=== PATIENT | male | born 1945 | race Caucasian/White ===

== ENCOUNTER → 2017-10-23 14:26 | Outpatient (CLI) | payer MEDICARE, SELFPAY ==
[2017-10-23 16:11] LABS: Hemoglobin A1c 9.9 % (4.2-6.3)
[2017-10-23 16:49] LABS: Microalbumin:Creatinine Ratio 20.2 mg/g CRE (<30 mg/g CRE)
== END ==
PROVIDERS: Family Provider Internal Medicine; PCP Internal Medicine; Visit Provider Nurse Practitioner Family
DX: E11.9 Type 2 diabetes mellitus without complications (principal)
CPT/HCPCS: 36415; 82043; 82570; 83036

== ENCOUNTER → 2018-01-29 06:08 | Outpatient (CLI) | payer MEDICARE, SELFPAY ==
--- NOTE | 2018-01-29 11:41 | STRESSREP ---
Stress Test Report Pharmacologic myocardial perfusion stress test. 72-year-old man with a history of coronary bypass surgery. Stress protocol: Resting EKG demonstrates sinus bradycardia with a rate of 52 bpm normal intervals and noted resting blood pressure 132/72 mmHg. 0.4 mg of regadenoson was infused per usual protocol followed by rapid intravenous saline flush injection continuous EKG monitoring was performed. Patient maintained sinus rhythm throughout the recording with occasional premature ventricular complexes present. The maximum heart rate was 74 bpm which was 50% of maximum predicted heart rate the maximum workload was 1 metabolic equivalent. Resting blood pressure 132/72 mmHg. Myocardial perfusion protocol. 14.7 mCi of technetium 99m sestamibi was injected at rest. 0.4 mg of regadenoson was infused per usual protocol peak infusion 44.3 mCi of technetium 99m sestamibi was injected stress images were obtained stress and rest images were reconstructed and compared in the short axis vertical long and horizontal long axis. Gated images were also obtained Perfusion SPECT analysis: Review of the stress images demonstrate mildly reduced perfusion noted in the inferolateral and inferior basal shipman. This is present on the stress and rest images to a similar extent and probably denotes previous infarct but no obvious ischemia is noted. There is a small segment of the apical lateral wall which also demonstrates reduced perfusion. There is also present on the stress and rest images to a similar extent. Previous infarct in this area cannot be completely excluded. Gated SPECT analysis: The gated ejection fraction is 62%. Conclusion: Pharmacologic myocardial perfusion stress test with no evidence of ischemia. Previous inferolateral and inferior basal infarct cannot be excluded as well as a small area of anterolateral infarct. Preserved ejection fraction.
== END ==
LOC: CVS 06:09
PROVIDERS: Family Provider Internal Medicine; PCP Internal Medicine; Referring Provider Nurse Practitioner Family; Visit Provider Nurse Practitioner Family
DX: E78.00 Pure hypercholesterolemia, unspecified (principal); I10 Essential (primary) hypertension; I25.10 Atherosclerotic heart disease of native coronary artery without angina pectoris; Z95.1 Presence of aortocoronary bypass graft
CPT/HCPCS: 78452; 93017; A9500; A4216; J2785

== ENCOUNTER → 2018-02-12 10:46 | Outpatient (CLI) | payer MEDICARE, SELFPAY ==
[2018-02-12 16:05] LABS: Absolute Lymphocyte Count 2.61 X10^3/ul (0.83-4.51); Absolute Neutrophil Count 4.2 X10^3/uL (2.0-7.7); Basophil# 0.04 X10^3/uL; Basophil% 0.5 % (0-1); Eosinophil# 0.09 X10^3/uL; Eosinophils% 1.2 % (0-5); Hematocrit 47.8 % (40-54); Hemoglobin 16.4 g/dl (13.0-16.5); Lymphocyte # 2.61 X10^3/ul (4.0); Mean Corp Hgb Conc 34.3 g/gl (32-36); Mean Corpuscular Hgb 31.1 pg (27.0-32.0); Mean Corpuscular Volume 90.5 fL (80-94); Monocyte% 6.7 % (0-10); Neutrophil % 56.3 % (47-70); Platelet Count 209 K/mm3 (150-450); RBC Distribution Width CV 13.4 % (11.6-14.6); RBC Distribution Width SD 44.3 fl (35.1-43.9); Red Blood Count 5.28 M/mm3 (4.6-6.2); White Blood Count 7.5 K/mm3 (4.4-11.0)
[2018-02-12 16:39] LABS: POSITIVE COUNT NO; POSITIVE DIFFERENTIAL NO; POSITIVE MORPHOLOGY NO
== END ==
PROVIDERS: Family Provider Internal Medicine; PCP Internal Medicine; Referring Provider Nurse Practitioner Family; Visit Provider Nurse Practitioner Family
DX: E11.9 Type 2 diabetes mellitus without complications (principal); T14.8XXA Other injury of unspecified body region, initial encounter
CPT/HCPCS: 36415; 83036; 85025; 87070; 87077; 87186; 87205

== ENCOUNTER → 2018-05-10 07:06 | Outpatient (CLI) | payer MEDICARE, SELFPAY ==
[2018-03-31 09:31] VITALS: BMI 34.0
[2018-05-10 09:17] LABS: Microalbumin,Random Urine 49.3 mg/L (NO RANGE EST.); Microalbumin:Creatinine Ratio 61.4 mg/g CRE (<30 mg/g CRE)
[2018-05-10 09:27] LABS: Hemoglobin A1c 8.2 % (4.2-6.3)
== END ==
PROVIDERS: Family Provider Internal Medicine; PCP Internal Medicine; Referring Provider Nurse Practitioner Family; Visit Provider Nurse Practitioner Family
DX: E11.9 Type 2 diabetes mellitus without complications (principal)
CPT/HCPCS: 36415; 82043; 82570; 83036

== ENCOUNTER → 2018-05-22 07:05 | Outpatient (CLI) | payer MEDICARE, SELFPAY ==
[2018-05-14 14:24] VITALS: BMI 34.0
[2018-05-22 08:03] LABS: Absolute Lymphocyte Count 2.19 X10^3/ul (0.83-4.51); Absolute Neutrophil Count 3.9 X10^3/uL (2.0-7.7); Basophil# 0.03 X10^3/uL; Basophil% 0.4 % (0-1); Eosinophils% 1.5 % (0-5); Hematocrit 46.4 % (40-54); Hemoglobin 15.7 g/dl (13.0-16.5); Lymphocyte # 2.19 X10^3/ul (4.0); Lymphocyte % 32.8 % (19-41); Mean Corp Hgb Conc 33.8 g/gl (32-36); Mean Corpuscular Hgb 30.6 pg (27.0-32.0); Mean Corpuscular Volume 90.4 fL (80-94); Mean Platelet Vol. 11.3 fl (6.2-12.0); Monocyte# 0.48 X10^3/uL; Monocyte% 7.2 % (0-10); Neutrophil # 3.85 X10^3/uL (2.7-7.7); Neutrophil % 57.8 % (47-70); Platelet Count 162 K/mm3 (150-450); RBC Distribution Width CV 14.2 % (11.6-14.6); RBC Distribution Width SD 46.5 fl (35.1-43.9); Red Blood Count 5.13 M/mm3 (4.6-6.2); White Blood Count 6.7 K/mm3 (4.4-11.0)
[2018-05-22 08:11] LABS: POSITIVE COUNT NO; POSITIVE DIFFERENTIAL NO; POSITIVE MORPHOLOGY NO
[2018-05-22 08:50] LABS: ALB/GLOB Ratio 1.1 RATIO (0.9-2.4); AST(SGOT) 15 U/L (15-37); Alanine Aminotransfer ALT/SGPT 20 U/L (16-61); Albumin, Serum 3.5 g/dL (3.2-5.0); Alkaline Phosphatase 85 U/L (45-117); Anion Gap 9 (5-15); BUN 19 mg/dL (7-18); BUN/Creat Ratio 19.6 RATIO (10-20); Calcium,Total 8.8 mg/dL (8.5-10.1); Chloride 104 mmol/L (98-107); Creatinine, Serum 0.97 mg/dL (0.70-1.30); EST Glomerular Filtration Rate 80 mL/min (>60); Est Glom Filt Rate - Afr Amer 97 mL/min (>60); Globulin 3.3 g/dL (2.2-4.2); Glucose 188 mg/dL (74-106); Potassium 4.1 mmol/L (3.5-5.1); Protein, Total 6.8 g/dL (6.4-8.2); Sodium Level 142 mmol/L (136-145)
[2018-05-22 08:58] LABS: AST(SGOT) 11 U/L (15-37); Alanine Aminotransfer ALT/SGPT 21 U/L (16-61); Albumin, Serum 3.5 g/dL (3.2-5.0); Alkaline Phosphatase 85 U/L (45-117); Bilirubin, Direct 0.24 mg/dL (0.00-0.30); Cholesterol 138 mg/dL (200); Globulin 3.3 g/dL (2.2-4.2); High Density Lipoprotein 37 mg/dL; Protein, Total 6.8 g/dL (6.4-8.2); Triglycerides 111 mg/dL; Very Low Density Lipoprotein 22 mg/dL (5-40)
== END ==
PROVIDERS: Nurse Practitioner Family; Family Provider Internal Medicine; PCP Internal Medicine; Referring Provider Internal Medicine Cardiovascular Disease; Visit Provider Internal Medicine Cardiovascular Disease
DX: E78.5 Hyperlipidemia, unspecified (principal); Z79.899 Other long term (current) drug therapy; E11.9 Type 2 diabetes mellitus without complications; T14.8XXA Other injury of unspecified body region, initial encounter
CPT/HCPCS: 36415; 80053; 80061; 80076; 85025

== ENCOUNTER 2018-07-30 13:06 | Observation (INO) | payer MEDICARE, SELFPAY ==
[2018-05-14 14:24] VITALS: BMI 34.0
[2018-07-30] VITALS (17 sets, daily range): BP systolic 122–160; BP diastolic 57–99; PULSE 40–61; RESP 12–18; TEMP 36.6–36.9; O2SAT 94–97; BMI 29.7; BMI 34.2; BMI 34.3
--- NOTE | 2018-07-30 13:23 | EKG12_ITS ---
Test Reason : CHEST OTHER Blood Pressure : / mmHG Vent. Rate : 053 BPM Atrial Rate : 053 BPM P-R Int : 198 ms QRS Dur : 100 ms QT Int : 450 ms P-R-T Axes : 022 -24 060 degrees QTc Int : 422 ms Sinus bradycardia with sinus arrhythmia Otherwise normal ECG Confirmed by GILES YEE, JORGE A ([id number]), continuity editor JEANETTE STEWART ([id number]) on 08/03/2018 1:38:35 PM Referred By: RANDI Confirmed By:JORGE A SKAGGS MD
--- NOTE | 2018-07-30 13:30 | RAD_ITS ---
STUDY: X-RAY CHEST REASON FOR EXAM: Male, 73 years old. Chest pain TECHNIQUE: Single AP portable view of the chest. COMPARISON: 03/17/2017 FINDINGS: The lungs are clear and expanded. There is no demonstrated pleural abnormality. Sternal cerclage wires are present from a prior sternotomy. Stable cardiomegaly. Normal mediastinum and pablo. Normal visualized pulmonary arteries. There is atherosclerotic calcification of the aortic arch with tortuosity. Normal visualized thoracic spine. Normal visualized ribs, clavicles, and shoulders. There is no demonstrated abnormality of the visualized soft tissue structures of the upper abdomen. RAD/Chest 1 View (Portable) IMPRESSION: Stable cardiomegaly. Lungs are clear. Electronically Signed: Zackery Dwyer DO at 14:00 EDT Tel , Service support ,
[2018-07-30] MEDS: Aspirin 81 MG TAB.CHEW 324 MG PO (13:56)
[2018-07-30] MEDS: 0.9% Normal Saline 1,000 ML 150 ML IV (13:56)
[2018-07-30 13:59] LABS: Absolute Lymphocyte Count 2.74 X10^3/ul (0.83-4.51); Absolute Neutrophil Count 4.2 X10^3/uL (2.0-7.7); Basophil# 0.02 X10^3/uL; Basophil% 0.3 % (0-1); Eosinophil# 0.07 X10^3/uL; Eosinophils% 0.9 % (0-5); Hematocrit 47.4 % (40-54); Hemoglobin 16.4 g/dl (13.0-16.5); Lymphocyte # 2.74 X10^3/ul (4.0); Lymphocyte % 36.5 % (19-41); Mean Corp Hgb Conc 34.6 g/gl (32-36); Mean Corpuscular Volume 89.6 fL (80-94); Monocyte# 0.47 X10^3/uL; Monocyte% 6.3 % (0-10); Neutrophil # 4.18 X10^3/uL (2.7-7.7); Neutrophil % 55.7 % (47-70); Platelet Count 174 K/mm3 (150-450); RBC Distribution Width CV 13.8 % (11.6-14.6); RBC Distribution Width SD 44.9 fl (35.1-43.9); Red Blood Count 5.29 M/mm3 (4.6-6.2); White Blood Count 7.5 K/mm3 (4.4-11.0)
--- NOTE | 2018-07-30 14:00 | ED.RN ---
pt does not know medications. to call pcp
[2018-07-30 14:05] LABS: POSITIVE COUNT NO; POSITIVE DIFFERENTIAL NO; POSITIVE MORPHOLOGY NO
[2018-07-30 14:16] LABS: Anion Gap 8 (5-15); BUN 21 mg/dL (7-18); BUN/Creat Ratio 19.1 RATIO (10-20); Calcium,Total 9.3 mg/dL (8.5-10.1); Chloride 103 mmol/L (98-107); EST Glomerular Filtration Rate 69 mL/min (>60); Est Glom Filt Rate - Afr Amer 84 mL/min (>60); Estimated Creatinine Clearance 65.57 ml/min; Glucose 278 mg/dL (74-106); Sodium Level 140 mmol/L (136-145)
[2018-07-30 14:27] LABS: D-Dimer Quantitative (DVT/PE) 0.46 FEU/ug/m (0.27-0.49)
--- NOTE | 2018-07-30 15:03 | ED.VISSUMM ---
- ER Visit Summary Date of Service: 07/30/18 Chief Complaint: [Short of breath and chest tightness] History of Present Illness: The patient is a 73 M [presents to the ER with symptoms that started last evening. Patient states that he fell and hurt his ribs about a month ago up against the banister but did not think much of it is not sure if it has anything to do with the symptoms that started last evening. Patient states that he had a hard time sleeping last night and would wake up short of breath. Patient describes chest tightness radiating into his left arm. Patient rates his chest tightness is a 6 out of 10. He has had no nausea or vomiting. Patient thinks he had a stress test about 4 months ago that was unremarkable. He thinks his last heart cath was about 4 years ago. Patient has a history of coronary artery disease, diabetes, hypertension, and high cholesterol. Patient had a CABG in 1999. 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 Cranial nerves II through XII grossly intact. TMs clear. Mucous membranes moist. No adenopathy. Cardiovascular-regular rate and rhythm without murmur or ectopy Lungs-clear to auscultation, chest wall stable without crepitus or subcu emphysema Abdomen-normoactive bowel sounds, soft, nontender, no rebound or rigidity, no peritoneal signs. Extremities-intact ?4, normal range of motion, normal pulses, atraumatic] Test Results: [EKG obtained arrival shows sinus rhythm with a ventricular rate of 53 bpm with a PACs noted. CBC with differential showing a 7.5, hemoglobin 16, hematocrit 47, platelet 174. Chemistries unremarkable. Glucose was 278. Troponin is less than 0.015. D-dimer was normal at 0.46. Chest x-ray obtained showed cardiomegaly and clear lungs.] Emergency Department Course and Treatment: [Patient received aspirin and nitroglycerin which did improve his pain and he had an inch of Nitropaste placed to the anterior chest wall,] Treatment Plan: [Admit] Disposition: [admit] Impression: [Chest pain-rule out acute coronary syndrome] This note was generated with [employer] software. It may contain incorrect words, spelling, and punctuation that were not noted in review of the chart prior to signing ED Disposition - Plan for ED Patient: Referrals: Faith Jay MD [Primary Care Provider] -
--- NOTE | 2018-07-30 15:06 | ED.DCSUM_ITS ---
- ER Visit Summary Date of Service: 07/30/18 Chief Complaint: [Short of breath and chest tightness] History of Present Illness: The patient is a 73 M [presents to the ER with symptoms that started last evening. Patient states that he fell and hurt his ribs about a month ago up against the banister but did not think much of it is not sure if it has anything to do with the symptoms that started last evening. Patient states that he had a hard time sleeping last night and would wake up short of breath. Patient describes chest tightness radiating into his left arm. Patient rates his chest tightness is a 6 out of 10. He has had no nausea or vomiting. Patient thinks he had a stress test about 4 months ago that was unremarkable. He thinks his last heart cath was about 4 years ago. Patient has a history of coronary artery disease, diabetes, hypertension, and high cholesterol. Patient had a CABG in 1999. Patient's independent living instructor is Dr Misha Szymanski.] Physical Examination: [HEENT-PERRLA, EOMI. Cranial nerves II through XII grossly intact. TMs clear. Mucous membranes moist. No adenopathy. Cardiovascular-regular rate and rhythm without murmur or ectopy Lungs-clear to auscultation, chest wall stable without crepitus or subcu emphysema Abdomen-normoactive bowel sounds, soft, nontender, no rebound or rigidity, no peritoneal signs. Extremities-intact ?4, normal range of motion, normal pulses, atraumatic] Test Results: [EKG obtained arrival shows sinus rhythm with a ventricular rate of 53 bpm with a PACs noted. CBC with differential showing a 7.5, hemoglobin 16, hematocrit 47, platelet 174. Chemistries unremarkable. Glucose was 278. Troponin is less than 0.015. D-dimer was normal at 0.46. Chest x-ray obtained showed cardiomegaly and clear lungs.] Emergency Department Course and Treatment: [Patient received aspirin and nitroglycerin which did improve his pain and he had an inch of Nitropaste placed to the anterior chest wall,] Treatment Plan: [Admit] Disposition: [admit] Impression: [Chest pain-rule out acute coronary syndrome] This note was generated with [employer] software. It may contain incorrect words, spelling, and punctuation that were not noted in review of the chart prior to signing ED Disposition - Plan for ED Patient: Referrals: Faith Jay MD [Primary Care Provider] -
--- NOTE | 2018-07-30 15:09 | NURSING ---
DR ROSE FOR DR BRYAN
[2018-07-30] MEDS: Nitroglycerin Oint 1 INCH PACKET TRANSDERM. (15:11)
--- NOTE | 2018-07-30 15:21 | NURSING ---
DR ROSE IN ER
--- NOTE | 2018-07-30 15:24 | HP.PCM_ITS ---
Problem List (1) Pure hypercholesterolemia Status: Chronic (2) Essential (primary) hypertension Status: Chronic (3) Atherosclerotic heart disease of [place] coronary artery without angina pectoris Status: Chronic Qualifiers: Comment: July 2002: HORN to LAD, SVG to Ramus, Left radial graft to OM; PTCA and ZARIA of CX November 2002 (4) Hx of CABG Status: Chronic Comment: July 2002: HORN to LAD, SVG to Ramus, Left radial graft to OM (5) Type 2 diabetes mellitus Status: Chronic Qualifiers: (6) Kidney stones Status: Chronic History of Present Illness Date of Admission: 07/30/18 Chief Complaint: Chest pain, shortness of breath. The patient is a 73 year old M with past medical history as mentioned above presented to the medicine because of chest pain or shortness of breath. His symptoms started last night around 9:30 PM when he was sitting in his chair watching TV, started having chest pain on the right side, migrated to the left side of his chest, described as squeezing pain, 8 out of 10 in severity, associated with mild shortness of breath and without aggravating or relieving factors. The pain was intermittent but this morning got worse and he decided to come to the emergency room. He denied associated palpitation, dizziness, lightheadedness, sweating, nausea or vomiting. At this time, he denied any more chest pain. He had a stress test done on January, that revealed no evidence of stress-induced myocardial ischemia. He mentioned that around 1 month ago, he fell on the right side of his chest but then the pain went away. There is no local tenderness on the chest today. In the emergency department, apart from bradycardia which is chronic, other vital signs were stable. Routine blood work was unremarkable. Chest x-ray showed mild cognitively, no acute findings. EKG revealed sinus bradycardia without evidence of acute ischemic changes. First troponin is negative. He is being admitted for atypical chest pain for evaluation. Past Medical History Past Medical History (Chronic Problems): Chronic Problems (Last Updated 07/30/18 @ 15:22 by Jeronimo Paz MD) Pure hypercholesterolemia (Chronic) Essential (primary) hypertension (Chronic) History of left heart catheterization (Chronic) November 2002, July 2007 Stented coronary artery (Chronic) PTCA and ZARIA of CX November 2002 Atherosclerotic heart disease of [place] coronary artery without angina pectoris (Chronic) July 2002: HORN to LAD, SVG to Ramus, Left radial graft to OM; PTCA and ZARIA of CX November 2002 Hx of CABG (Chronic) July 2002: HORN to LAD, SVG to Ramus, Left radial graft to OM Type 2 diabetes mellitus (Chronic) Obesity (Chronic) Kidney atrophy (Chronic) Kidney stones (Chronic) Medical History: Medical History (Last Updated 07/30/18 @ 15:22 by Jeronimo Paz MD) Pure hypercholesterolemia (Chronic) E78.00 Essential (primary) hypertension (Chronic) I10 Atherosclerotic heart disease of [place] coronary artery without angina pectoris (Chronic) I25.06 Aug 2002: HORN to LAD, SVG to Ramus, Left radial graft to OM; PTCA and ZARIA of CX November 2002 Type 2 diabetes mellitus (Chronic) E11.9 Obesity (Chronic) E66.9 Kidney atrophy (Chronic) N26.1 Kidney stones (Chronic) N20.0 Allergies exenatide [From Byetta] Adverse Reaction (Severe, Verified 07/30/18 14:03) Shaking and Vomiting Home Medications: Ambulatory Orders Medication Instructions Recorded Aspirin 325 mg PO DAILY@0800 01/11/14 ascorbic acid (vitamin C) 500 mg mg PO 04/10/17 capsule omega 8-djc-ldw-fish oil 1,000 mg cap PO 04/10/17 (120 mg-180 mg) capsule zinc 50 mg tablet 50 mg PO QDAY 04/10/17 fluticasone propionate 50 2 spray INTRANASAL QDAY 07/07/17 mcg/actuation nasal spray,suspension multivit with min-folic 1 tab PO .q day ea 07/07/17 acid-lutein 400 mcg-250 mcg chewable tablet tadalafil 10 mg tablet 10 mg PO QDAY PRN tab 07/07/17 msbX-E2-F-Q-hikhxb-thixnpq-min 1 tab PO QDAY 07/07/17 3,300 unit-5 mg-200mg-75 unit tablet ER metformin 1,000 mg tablet 1,000 mg PO .COMPLEX tab 11/04/17 garlic 500 mg capsule 500 mg PO DAILY 01/08/18 glimepiride 4 mg tablet 2 mg PO DAILY #90 tab 01/27/18 pioglitazone 30 mg tablet 30 mg PO QDAY #90 tab 01/27/18 hydrochlorothiazide 25 mg tablet 25 mg PO QDAY #90 tab 11/16/18 lisinopril 40 mg tablet 40 mg PO DAILY #90 tab 02/12/18 metoprolol tartrate 25 mg tablet 25 mg PO BID #180 tab 02/12/18 simvastatin 40 mg tablet 40 mg PO DAILY #90 tab 02/12/18 miconazole nitrate 2 % topical 1 applic TOPICAL BID #71 g 03/31/18 powder gabapentin 600 mg tablet 600 mg PO BID #180 tab 05/14/18 sitagliptin 100 mg tablet 100 mg PO DAILY #90 tab 05/14/18 Surgical History: Surgical History (Last Updated 07/30/18 @ 15:32 by Jeronimo Paz MD) Stented coronary artery (Chronic) Z95.5 PTCA and ZARIA of CX November 2002 Hx of CABG (Chronic) Z95.28 Jul 2002: HORN to LAD, SVG to Ramus, Left radial graft to OM Surgical History: cholecystectomy, coronary bypass surgery, tonsillectomy Lives: Spouse/ Significant Other Smoking Status: Former smoker Alcohol: None Drugs: None - *Family History Maternal Family History: Family History (Last Reviewed 05/14/18 @ 14:24 by Rula Dickerson) Mother Hypertension Myocardial infarction CVA (cerebral vascular accident) Father Hypertension Heart disease Myocardial infarction, Onset Age: 45 Sudden cardiac Brother Heart disease Myocardial infarction Paternal Family History: Family History (Last Reviewed 05/14/18 @ 14:24 by Rula Dickerson) Mother Hypertension Myocardial infarction CVA (cerebral vascular accident) Father Hypertension Heart disease Myocardial infarction, Onset Age: 45 Sudden cardiac Brother Heart disease Myocardial infarction Review of Systems Constitutional: Denies: Anorexia, Chills, Fever, Weakness Eyes: Denies: Blurred vision, Double vision, Drainage, Redness HEENT: Denies: Difficulty Hearing, Ear Pain, Eye Pain, Nasal Congestion, Sore Throat Cardiovascular: Reports: Chest Pain, Chest Tightness. Denies: Heaviness, Light Headedness, Orthopnea, Palpitations, Syncope Respiratory: Reports: Shortness of Breath, Shortness of breath at rest. Denies: Cough, Pleuritic Pain, Sputum production, Wheezing Gastrointestinal: Denies: Abdominal Pain, Constipation, Diarrhea, Nausea, Vomiting Genitourinary: Denies: Dysuria, Frequency, Hematuria Musculoskeletal: Denies: Arm Pain, Back Pain, Foot Pain Skin: Denies: Dryness, Rash Neurological: Denies: Balance problems, Double vision, Change in Speech, Slurred speech, Confusion, Headaches, Incoordination, Numbness Psychiatric: Denies: Anxiety, Depression Endocrine: Denies: Change in Body Habitus, Polydipsia VTE Information - Inpt Only VTE Present on Admission: No VTE Mechan Device Prophylaxis: None VTE Pharm Prophylaxis ordered?: Yes - Physical Exam General: Alert, Oriented x3, Cooperative, No apparent distress HEENT: Atraumatic, PERRLA, EOMI, Normocephalic Oral: Moist Mucosa, No Gingival or Mucosal Lesions/ Ulcerations Neck: Supple, No JVD, Negative Carotid Bruits, Trachea Midline, Thyroid Normal Size and Texture Lungs: Clear to auscultation, No rhonchi, No wheeze, No rales, Diminished Cardiovascular: Regular rate, Regular Rhythm, Normal S1, Normal S2, No murmurs, No Ectopic Activity, PMI Normal Abdomen: Soft, Non Tender, Non-Distended, No Hepato-splenomegaly Extremities: No clubbing, No cyanosis, No edema Skin: No rashes, No breakdown Lymphatic: No Cervical, Supraclavicular, or Inguinal Adenopathy Neurological: Cranial nerves II-XII grossly intact, Motor Exam 5/5 strength throughout Psych/Mental Status: Normal Affect, Appropriate, Alert and oriented to time, place, person, mood and affect Vital Signs Temp Pulse Resp BP Pulse Ox 98.2 F 58 L 12 160/75 H 97 07/30/18 13:07 07/30/18 15:11 07/30/18 14:05 07/30/18 15:11 07/30/18 14:05 Oxygen Flow Rate (L/min) 2 Oxygen Delivery Method Nasal Cannula Weight: 225 lb Body Mass Index (BMI) 29.7 Laboratory Tests Past 24 Hrs 07/30/18 07/30/18 07/30/18 13:45 13:45 13:45 WBC 7.5 RBC 5.29 Hgb 16.4 Hct 47.4 MCV 89.6 MCH 31.0 MCHC 34.6 RDW 13.8 RDW Differential 44.9 H Plt Count 174 MPV 11.0 Immature Gran % (Auto) 0.300 Neut % (Auto) 55.7 Lymph % (Auto) 36.5 [place] % (Auto) 6.3 Eos % (Auto) 0.9 Baso % (Auto) 0.3 Absolute Neuts (auto) 4.2 Absolute Lymphs (auto) 2.74 Total Counted Not Reportable D-Dimer Quant (PE/DVT) 0.46 Sodium 140 Potassium 4.0 Chloride 103 Carbon Dioxide 29.0 Anion Gap 8 BUN 21 H Creatinine 1.10 Estim Creat Clear Calc 65.57 Est GFR (MDRD) Af Amer 84 Est GFR (MDRD) Non-Af 69 BUN/Creatinine Ratio 19.1 Glucose 278 H Calcium 9.3 Troponin I < 0.015 Clinical Impression(s) from Imaging Studies Chest X-Ray 07/30/18 13:30 IMPRESSION: Stable cardiomegaly. Lungs are clear. Electronically Signed: Zackery Dwyer DO at 14:00 EDT Tel , Service support , Assessment/Plan This is a 73 years old male patient presented to the emergency room because of chest pain/tightness in context of history of CAD status post stents and CABG and is being admitted for evaluation. #1 atypical chest pain: Initial EKG revealed sinus bradycardia, no acute ischemic changes. Risk factors on history of CAD with CABG and stents, diabetes, hypertension, hyperlipidemia. Troponin is negative. Chest x-ray showed no acute findings, showed mild cardiomegaly. Patient had nuclear stress test back on January, that was negative for stress-induced myocardial ischemia. D-dimer was normal. Plan: Admit to PCU for observation, cardiac monitoring, serial cardiac enzymes, repeat EKG tomorrow morning, continue Nitropaste, IV morphine PRN, IV fluids, IV antiemetics, cardiology consult, PT OT evaluation and treatment. #2 CAD status post CABG and stents: Plan as above, continue aspirin, statins and lisinopril. Patient is not on beta-blockers likely because of chronic bradycardia. #3 type 2 diabetes mellitus: ADA diet, Accu-Cheks, insulin sliding scale, continue pioglitazone, continue glimepiride. #4 hypertension: Blood pressure stable, continue lisinopril and HCTZ. #5 hyperlipidemia: Continue statins. #6 history of kidney stones: Stable, kidney function is normal. #7 DVT prophylaxis: Subcu Lovenox. This note was generated with [employer]Dation software. It may contain incorrect words, spelling, and punctuation that were not noted in checking the note before signing. Code Visit OBSV E&M: 14600 Initial observation care L3
--- NOTE | 2018-07-30 15:28 | ED.RN ---
pcp office contacted and to fax med list for pt
--- NOTE | 2018-07-30 16:50 | CASEMGMT ---
RN CM Assessment Introduced role of RN CM to patient.? Patient is alert, oriented and able?to participate in RN CM Assessment. ?Care providers, pharmacy, and demographics verified. Presentation: Fell and hurt Ribs against banister x1 month ago, SOB/Chest Tightness Today Admit Dx: CP Re-Admit: No Barriers/Issues: None PCP: Faith Jay Specialists: None Preferred Pharmacy: [facility] [place], [place] Insurance: [email or web address] [facility] PPO Rx Benefit:?Yes LNOK: Dtr Leah Zapien LW/HPOA: No, Declines offered Information Living Arrangements:? Lives alone in a Mobile Home, 3 steps to enter. 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 Drove self to hospital and plans to drive self on DC. DME: None HHC: None SNF: None Goal: Home and does not think will need anything. DC PLAN: Home with no anticipated needs identified at this time. Isaiah Salvador RNCM
[2018-07-30] MEDS: Insulin Lispro 100 UNIT/ML INSULN.PEN SC ×2 (17:01→22:32)
[2018-07-30] MEDS: 0.9% Normal Saline 1,000 ML 75 ML IV (17:01)
[2018-07-30 17:10] LABS: Bedside Glucose 198 mg/dL (70-110)
--- NOTE | 2018-07-30 17:27 | EKG12_ITS ---
Test Reason : CP ADMIT Blood Pressure : / mmHG Vent. Rate : 063 BPM Atrial Rate : 045 BPM P-R Int : 188 ms QRS Dur : 102 ms QT Int : 432 ms P-R-T Axes : 016 -20 081 degrees QTc Int : 442 ms Sinus bradycardia with frequent Premature ventricular complexes Otherwise normal ECG When compared with ECG of 30-JUL-2018 13:37, MANUAL COMPARISON REQUIRED, DATA IS UNCONFIRMED Confirmed by GILES YEE, JORGE A ([id number]), department editor JEANETTE STEWART ([id number]) on 08/03/2018 2:03:28 PM Referred By: MILTON Confirmed By:JORGE A SKAGGS MD
[2018-07-30] MEDS: Acetaminophen 325 MG Tablet 650 MG PO (20:28)
[2018-07-30] MEDS: LORazepam 1 MG Tablet PO (22:29)
[2018-07-30] MEDS: Atorvastatin Calcium 20 MG Tablet PO (22:29)
[2018-07-30 22:40] LABS: Bedside Glucose 281 mg/dL (70-110)
[2018-07-31] VITALS (16 sets, daily range): BP systolic 109–150; BP diastolic 55–69; PULSE 44–68; RESP 15–18; TEMP 36.1–36.6; O2SAT 91–96
--- NOTE | 2018-07-31 05:55 | EKG12_ITS ---
Test Reason : AM EKG Blood Pressure : / mmHG Vent. Rate : 046 BPM Atrial Rate : 046 BPM P-R Int : 194 ms QRS Dur : 102 ms QT Int : 452 ms P-R-T Axes : 009 -19 061 degrees QTc Int : 395 ms Sinus bradycardia Otherwise normal ECG When compared with ECG of 30-JUL-2018 17:09, MANUAL COMPARISON REQUIRED, DATA IS UNCONFIRMED Confirmed by GILES YEE, JORGE A ([id number]), supervising film or videotape editor JEANETTE STEWART ([id number]) on 08/03/2018 2:02:35 PM Referred By: MILTON Confirmed By:JORGE A SKAGGS MD
[2018-07-31 09:42] LABS: Bedside Glucose 177 mg/dL (70-110)
--- NOTE | 2018-07-31 09:58 | ECHOCS_ITS ---
Reason For Study: DYSPNEA/SOB Procedure This was a 2D Doppler, Color Flow transthoracic echocardiogram. The study was technically difficult. Due to body habitus. Contrast injection was performed. Exam performed portable in patient room. Left Ventricle Mildly dilated left ventricle. The 3D full volume ejection fraction is 45-50 %. Stage 2 diastolic dysfunction. Right Ventricle Normal RV size. Atria The left atrium is severely enlarged. Normal right atrium. Mitral Valve The mitral valve is structurally normal. No prolapse or stenosis seen. Trivial mitral valve insufficiency. Tricuspid Valve The tricuspid valve is not well visualized. Aortic Valve Normal aortic valve. Not well visualized in short axis. Pulmonic Valve The pulmonic valve is not well visualized. Great Vessels Calcified aortic root. Pericardium/Pleural No pericardial effusion. Medication Diluted definity 3.0ml given slow IV push to enhance endocardial definition. MMode/2D Measurements & Calculations LVIDd: 6.0 cm IVSd: 0.92 cm Ao root diam: 3.0 cm LVIDs: 4.7 cm LVPWd: 1.1 cm FS: 22.5 % LAV(MOD-bp): 89.8 ml LA A4 area: 25.9 cm2 LA dimension(2D): 5.5 cm LAV(MOD-bp) Indexed: 37.3 ml/m2 LAV(MOD-sp2): 87.9 ml LAV(MOD-sp4): 87.9 ml RA A4 area: 23.4 cm2 Time Measurements MV dec time: 0.14 sec Doppler Measurements & Calculations MV E max morris: 117.0 cm/sec Lat Peak E' Morris: 7.2 cm/sec Med Peak E' Morris: 5.2 cm/sec MV A max morris: 88.5 cm/sec E/E' lat: 16.3 E/E' med: 22.7 MV E/A: 1.3 Ao V2 max: 137.3 cm/sec LV V1 max: 85.1 cm/sec PA V2 max: 91.9 cm/sec Ao max P.5 mmHg LV V1 max P.9 mmHg PI end-d morris: 130.7 cm/sec TR max morris: 282.3 cm/sec TR max P.0 mmHg Interpretation Summary Mildly dilated left ventricle. The 3D full volume ejection fraction is 45-50 %. The left atrium is severely enlarged. Stage 2 diastolic dysfunction. Ordering Physician: Sara Pink Referring Physician: Faith Jay Performed By: Socorro Ritter RDCS, RVT
--- NOTE | 2018-07-31 10:06 | PCM.CONS.C ---
Reason for Consult Date of Consultation: 07/31/18 History of Present Illness: The patient is a 73 year old M with past medical history significant for coronary artery disease status post coronary artery bypass graft surgery more than 15 years ago. Also has history of hypertension and diabetes mellitus. Patient presented to the emergency room with complaints of waking up at night after he felt like unable to catch my breath. This felt better with sitting up. He walked around and his symptoms were completely resolved. Denies any chest pain. No arm neck or jaw discomfort. According to him, the symptoms lasted a few seconds only and were better with sitting up. The symptoms recurred later in the morning and therefore he sought help in the emergency room. He denies any orthopnea. Sleeps with 2 pillows out of habit with no recent change. Denies any ankle edema. No recent weight gain. Per patient, he does not have any chest pain or shortness of breath with exertion. Patient does not have any history of sleep apnea. Not sure about snoring loudly at night. [] Past Medical History Allergies/Adverse Reactions: Allergies exenatide [From [place]] Adverse Reaction (Severe, Verified 07/30/18 14:03) Shaking and Vomiting Home Medications: Ambulatory Orders Medication Instructions Recorded Aspirin 325 mg PO DAILY@0800 01/11/14 ascorbic acid (vitamin C) 500 mg 500 mg PO DAILY 04/10/17 capsule zinc 50 mg tablet 50 mg PO DAILY 04/10/17 tadalafil 10 mg tablet 10 mg PO QDAY PRN tab 07/07/17 [id number] 1 tab PO QDAY 07/07/17 3,300 unit-5 mg-200mg-75 unit tablet ER garlic 500 mg capsule 500 mg PO DAILY 01/08/18 Gabapentin [Neurontin] 600 mg PO BID 07/30/18 Glimepiride 2 mg PO DAILY 07/30/18 Hydrochlorothiazide [Hctz] 25 mg PO DAILY 07/30/18 Lisinopril [Zestril] 40 mg PO DAILY 07/30/18 Metformin HCl [Glucophage] 1,000 mg PO DAILY 07/30/18 Metformin HCl [Glucophage] 1,500 mg PO QHS 07/30/18 Metoprolol Tartrate [Lopressor 25 mg PO BID 07/30/18 (beta mono)] Multivit-Min/FA/Lycopen/Lutein 1 each PO DAILY 07/30/18 [Centrum Silver Tablet] [place]-3S/Dha/Epa/Fish Oil [Fish 1 each PO DAILY 07/30/[address] 1,000 mg Softgel] Pioglitazone HCl 30 mg PO DAILY 07/30/18 Simvastatin 40 mg PO DAILY 07/30/18 Sitagliptin Phosphate [Januvia] 100 mg PO DAILY 07/30/18 Past Medical History (Chronic Problems): Chronic Problems (Last Updated 07/30/18 @ 15:22 by Jeronimo Paz MD) Pure hypercholesterolemia (Chronic) Essential (primary) hypertension (Chronic) History of left heart catheterization (Chronic) November 2002, July 2007 Stented coronary artery (Chronic) PTCA and ZARIA of CX November 2002 Atherosclerotic heart disease of [place] coronary artery without angina pectoris (Chronic) July 2002: HORN to LAD, SVG to Ramus, Left radial graft to OM; PTCA and ZARIA of CX November 2002 Hx of CABG (Chronic) July 2002: HORN to LAD, SVG to Ramus, Left radial graft to OM Type 2 diabetes mellitus (Chronic) Obesity (Chronic) Kidney atrophy (Chronic) Kidney stones (Chronic) Surgical History: cholecystectomy, coronary bypass surgery, tonsillectomy - *Family History Maternal Family History: Family History (Last Reviewed 05/14/18 @ 14:24 by Rula Dickerson) Mother Hypertension Myocardial infarction CVA (cerebral vascular accident) Father Hypertension Heart disease Myocardial infarction, Onset Age: 45 Sudden cardiac Brother Heart disease Myocardial infarction Paternal Family History: Family History (Last Reviewed 05/14/18 @ 14:24 by Rula Dickerson) Mother Hypertension Myocardial infarction CVA (cerebral vascular accident) Father Hypertension Heart disease Myocardial infarction, Onset Age: 45 Sudden cardiac Brother Heart disease Myocardial infarction Lives: Spouse/ Significant Other Smoking Status: Former smoker Tobacco Use: Cigarettes Alcohol: None Drugs: None Review of Systems - Review of Systems General: Denies: Fever, Chills, Anorexia, Weight Loss Cardiovascular: Reports: PND - See history of presenting illness. Denies: Chest Discomfort, Chest Discomfort at Rest, Chest Discomfort with Exertion, Chest Pressure, Chest Tightness, Chest Heaviness Respiratory: Denies: Cough, Hemoptysis, Wheezing Gastrointestinal: Denies: Abdominal Discomfort, Jaundice, Nausea, Emesis, Hematemesis Neurological: Denies: History of TIA, History of CVA Endocrine: Denies: Heat Intolerance, Cold Intolerance Hematologic/ Lymphatic: Denies: Easy Brusing, Easy Bleeding Subjectve: Comfortable. Sitting up in chair. Objective: Vital Signs Temp Pulse Resp BP Pulse Ox 97.6 F L 50 L 16 133/68 H 96 07/31/18 08:30 07/31/18 08:30 07/31/18 08:30 07/31/18 08:30 07/31/18 08:30 Oxygen Flow Rate (L/min) 2 Oxygen Delivery Method Room Air Weight: 117.934 kg Body Mass Index (BMI) 34.2 Intake and Output for Last 24 Hours 07/29/18 07/30/18 07/31/18 23:59 23:59 23:59 Intake Total 100 / 100 1066 / 1066 Balance 100 / 100 1066 / 1066 General: Healthy Appearing, Awake, Alert, Oriented x 3, No Acute Distress HEENT: Atraumatic, Microcephalic Neck: Supple, No JVD Lungs: Clear to auscultation Cardiovascular: Regular Rhythm, Normal S1, Normal S2 Abdomen: Bowel Sounds Present, Soft Extremities: - - Trace bilateral edema Neurological: No Focal Motor or Sensory Deficit Psych/Mental Status: Appropriate 07/30/18 13:45: WBC 7.5, RBC 5.29, Hgb 16.4, Hct 47.4, MCV 89.6, MCH 31.0, MCHC 34.6, RDW 13.8, RDW Differential 44.9 H, Plt Count 174, MPV 11.0, Immature Gran % (Auto) 0.300, Neut % (Auto) 55.7, Lymph % (Auto) 36.5, [place] % (Auto) 6.3, Eos % (Auto) 0.9, Baso % (Auto) 0.3, Absolute Neuts (auto) 4.2, Total Counted Not Reportable 07/30/18 13:45: D-Dimer Quant (PE/DVT) 0.46 07/30/18 13:45: Sodium 140, Potassium 4.0, Chloride 103, Carbon Dioxide 29.0, Anion Gap 8, BUN 21 H, Creatinine 1.10, Est GFR (MDRD) Af Amer 84, Est GFR (MDRD) Non-Af 69, BUN/Creatinine Ratio 19.1, Glucose 278 H, Calcium 9.3, Troponin I < 0.015 07/30/18 18:41: Troponin I < 0.015 07/30/18 21:02: Troponin I < 0.015 Rhythm: Sinus bradycardia EKG: Sinus bradycardia with PVCs ECHO: Stress Test: Cardiac Cath: PCI: CT Surgery: Holter monitor: EPS: PPM: CXR: Chest CT Scan: Assessment/Plan 1. Possible paroxysmal nocturnal dyspnea. Check 2D echocardiogram with Doppler to assess left ventricular systolic function. Clinically not fluid volume overloaded. Consider work-up for sleep apnea. Consider over night O2 sats monitoring 2. Denies any symptoms of angina pectoris. No dyspnea on exertion. Stress test -6 months ago. 3. History of coronary artery disease status post CABG in 2002. Continue medicines. Decrease metoprolol because of significant sinus bradycardia with heart rate dipping into the 30s at night. Start nitrates. 4. History of hypertension. 5. Diabetes mellitus. 6. Dyslipidemia.
[2018-07-31] MEDS: Glimepiride 2 MG Tablet PO (10:17)
[2018-07-31] MEDS: Gabapentin 600 MG Tablet PO ×2 (10:17→17:03)
[2018-07-31] MEDS: Pioglitazone Hydrochloride 30 MG Tablet PO (10:17)
[2018-07-31] MEDS: Aspirin 325 MG Tablet PO (10:17)
[2018-07-31] MEDS: Lisinopril 40 MG Tablet PO (10:18)
[2018-07-31] MEDS: LINAGLIPTIN 5 MG TABLET PO (10:18)
[2018-07-31] MEDS: hydroCHLOROthiazide 25 MG Tablet PO (10:18)
[2018-07-31] MEDS: Enoxaparin 40 MG/0.4 ML Syringe SC (10:27)
[2018-07-31 11:41] LABS: Bedside Glucose 255 mg/dL (70-110)
[2018-07-31] MEDS: Insulin Lispro 100 UNIT/ML INSULN.PEN SC ×2 (12:22→22:01)
--- NOTE | 2018-07-31 12:59 | PN_ITS ---
<Rayray Wilson - Last Filed: 07/31/18 12:47> Subjective: Pt is more concerned about SOB, which occurs at night and when sleeping. He wakes up and feels like he cannot breathe, and has to get up out of bed and go to his recliner. It does occur as well in his recliner and he is waking up multiple times per night. His daughter says he stops breathing and thinks he has undiagnosed sleep apnea. He currently has no CP or SOB. He is sitting upright in the chair at bedside. He intermittently has LE edema. He currently does not have any. He also cannot lay flat without being very SOB. 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 Daughter is pursuing follow up with Dr. Bustamante concerning CPAP, and pt is agreeable. - Physical Exam General: Alert, Oriented x3, Cooperative HEENT: Atraumatic, PERRLA, EOMI, Normocephalic Neck: Supple, No JVD, Negative Carotid Bruits Lungs: Clear to auscultation, Normal air movement Cardiovascular: Regular rate, No murmurs Abdomen: Bowel Sounds Present, Soft, Non Tender, Obese Extremities: No edema, Capillary Refill Less than 3 Seconds Skin: No rashes, No breakdown Musculoskeletal: No Tenderness to Palpation of Joints or Extremities Neurological: Cranial nerves II-XII grossly intact Psych/Mental Status: Normal Affect, Appropriate, Alert and oriented to time, place, person, mood and affect Vital Signs Temp Pulse Resp BP Pulse Ox 97.6 F L 66 16 133/68 H 96 07/31/18 08:30 07/31/18 11:09 07/31/18 08:30 07/31/18 08:30 07/31/18 08:30 Oxygen Flow Rate (L/min) 2 Oxygen Delivery Method Room Air Weight: 260 lb Body Mass Index (BMI) 34.2 Intake and Output for Last 24 Hours 07/29/18 07/30/18 07/31/18 23:59 23:59 23:59 Intake Total 100 / 100 1066 / 1066 Balance 100 / 100 1066 / 1066 Laboratory Tests Past 24 Hrs 07/30/18 07/30/18 07/30/18 13:45 13:45 13:45 WBC 7.5 RBC 5.29 Hgb 16.4 Hct 47.4 MCV 89.6 MCH 31.0 MCHC 34.6 RDW 13.8 RDW Differential 44.9 H Plt Count 174 MPV 11.0 Immature Gran % (Auto) 0.300 Neut % (Auto) 55.7 Lymph % (Auto) 36.5 [place] % (Auto) 6.3 Eos % (Auto) 0.9 Baso % (Auto) 0.3 Absolute Neuts (auto) 4.2 Absolute Lymphs (auto) 2.74 Total Counted Not Reportable D-Dimer Quant (PE/DVT) 0.46 Sodium 140 Potassium 4.0 Chloride 103 Carbon Dioxide 29.0 Anion Gap 8 BUN 21 H Creatinine 1.10 Estim Creat Clear Calc 65.57 Est GFR (MDRD) Af Amer 84 Est GFR (MDRD) Non-Af 69 BUN/Creatinine Ratio 19.1 Glucose 278 H Calcium 9.3 Troponin I < 0.015 07/30/18 07/30/18 18:41 21:02 WBC RBC Hgb Hct MCV MCH MCHC RDW RDW Differential Plt Count MPV Immature Gran % (Auto) Neut % (Auto) Lymph % (Auto) [place] % (Auto) Eos % (Auto) Baso % (Auto) Absolute Neuts (auto) Absolute Lymphs (auto) Total Counted D-Dimer Quant (PE/DVT) Sodium Potassium Chloride Carbon Dioxide Anion Gap BUN Creatinine Estim Creat Clear Calc Est GFR (MDRD) Af Amer Est GFR (MDRD) Non-Af BUN/Creatinine Ratio Glucose Calcium Troponin I < 0.015 < 0.015 POC Glucose 07/31/18 07/31/18 07/30/18 11:34 06:51 22:21 POC Glucose 255 H 177 H 281 H 07/30/18 17:01 POC Glucose 198 H Medical Necessity - Tobacco Use Smoking Status: Former smoker Tobacco Use: Cigarettes Assessment/Plan 1. Chest pain / SOB in hx CAD s/p multivessel CABG - Trop negative x 3. 02/14 stress test negative. Cardiology consuted - Obtain echo and Overnight trending pulse ox. O/P follow up with Dr. Bustamante for PSG. He also has symptoms c/w CHF, however currently no LE edema, CXR clear, and no increased O2 demand. Some bradcardia on tele, trop negative, EKG negative. D dimer negative. -Echo EF 45-50%, mildly dilated LV, st2 diastolic dysfunction, left atrium severely enlarged. 2. Suspected sleep apnea STOPBANG at least 4 (male, age, htn, witnessed apnea) - as above. Trending pulse ox overnight, F/u for PSG with Dr. Bustamante. 3. Bradycardia - metoprolol decreased. Monitor overnight 4. HTN - stable 5. DMt2 with peripheral neuropathy and obesity - poorly controlled - metformin held, SSI. If he develops CHF actos will need discontinued. Gabapentin for neuropathy. -Dietitian consulted regarding DMt2 and sodium intake. DVT ppx: lovenox DC planning: likely home tomorrow if stable overnight This patient was seen by Rayray Wilson PA-C under the supervision of Doctor Kristin. <Magda Foster - Last Filed: 07/31/18 13:31> - Physical Exam Vital Signs Temp Pulse Resp BP Pulse Ox 97.6 F L 66 16 133/68 H 96 07/31/18 08:30 07/31/18 11:09 07/31/18 08:30 07/31/18 08:30 07/31/18 08:30 Oxygen Flow Rate (L/min) 2 Oxygen Delivery Method Room Air Weight: 260 lb Body Mass Index (BMI) 34.2 Intake and Output for Last 24 Hours 07/29/18 07/30/18 07/31/18 23:59 23:59 23:59 Intake Total 100 / 100 1066 / 1066 Balance 100 / 100 1066 / 1066 Laboratory Tests Past 24 Hrs 07/30/18 07/30/18 07/30/18 13:45 13:45 13:45 WBC 7.5 RBC 5.29 Hgb 16.4 Hct 47.4 MCV 89.6 MCH 31.0 MCHC 34.6 RDW 13.8 RDW Differential 44.9 H Plt Count 174 MPV 11.0 Immature Gran % (Auto) 0.300 Neut % (Auto) 55.7 Lymph % (Auto) 36.5 [place] % (Auto) 6.3 Eos % (Auto) 0.9 Baso % (Auto) 0.3 Absolute Neuts (auto) 4.2 Absolute Lymphs (auto) 2.74 Total Counted Not Reportable D-Dimer Quant (PE/DVT) 0.46 Sodium 140 Potassium 4.0 Chloride 103 Carbon Dioxide 29.0 Anion Gap 8 BUN 21 H Creatinine 1.10 Estim Creat Clear Calc 65.57 Est GFR (MDRD) Af Amer 84 Est GFR (MDRD) Non-Af 69 BUN/Creatinine Ratio 19.1 Glucose 278 H Calcium 9.3 Troponin I < 0.015 07/30/18 07/30/18 18:41 21:02 WBC RBC Hgb Hct MCV MCH MCHC RDW RDW Differential Plt Count MPV Immature Gran % (Auto) Neut % (Auto) Lymph % (Auto) [place] % (Auto) Eos % (Auto) Baso % (Auto) Absolute Neuts (auto) Absolute Lymphs (auto) Total Counted D-Dimer Quant (PE/DVT) Sodium Potassium Chloride Carbon Dioxide Anion Gap BUN Creatinine Estim Creat Clear Calc Est GFR (MDRD) Af Amer Est GFR (MDRD) Non-Af BUN/Creatinine Ratio Glucose Calcium Troponin I < 0.015 < 0.015 POC Glucose 07/31/18 07/31/18 07/30/18 11:34 06:51 22:21 POC Glucose 255 H 177 H 281 H 07/30/18 17:01 POC Glucose 198 H Assessment/Plan Patient seen by Rayray Wilson PA-C under my supervision Patient seen and examined. He has no complaints and feels well. Review of systems otherwise negative. Labs and vitals reviewed. Chest pain hasnt recurred since admission. Cardiology consulted. He was noted to be bradycardic overnight, with HR going down to the low 40s. labs and vitals reviewed. He had a stress test in January which was negative. Cardiology consulted. o/e: Vital Signs Height 6 ft 1 in Weight: 260 lb Weight in Pounds 260.0 lbs Pulse Ox 96 Temperature 97.6 F Pulse Rate 66 Respiratory Rate 16 Blood Pressure [BP] 150/69 Blood Pressure 133/68 Blood Pressure Position [BP] Semi-Fowlers Blood Pressure Position Sitting General: Alert, Oriented x3, Cooperative HEENT: Atraumatic, PERRLA, EOMI, Normocephalic Neck: Supple, No JVD, Negative Carotid Bruits Lungs: Clear to auscultation, Normal air movement Cardiovascular: Regular rate, No murmurs Abdomen: Bowel Sounds Present, Soft, Non Tender, Obese Extremities: No edema, Capillary Refill Less than 3 Seconds Skin: No rashes, No breakdown Musculoskeletal: No Tenderness to Palpation of Joints or Extremities Neurological: Cranial nerves II-XII grossly intact Psych/Mental Status: Normal Affect, Appropriate, Alert and oriented to time, place, person, mood and affect Metoprolol decreased from 25mg bid to 12.5mg bid per cardiology o/a of bradycardia. 2D echo showed EF of 45 to 50% with stage II diastolic dysfunction and severely enlarged left atrium. RVSP not documented in echo. Also to have overnight pulse ox monitoring o/a of nocturnal SOB and apneic episodes, likely due to undiagnosed sleep apnea. Rest of management as per Rayray Wilson PA-C's note, which I have reviewed and endorse. Code Visit OBSV E&M: 88268 Subsequent observation care L2
[2018-07-31 16:51] LABS: Bedside Glucose 147 mg/dL (70-110)
[2018-07-31 17:13] LABS: Magnesium 1.5 mg/dL (1.6-2.6)
[2018-07-31] MEDS: Isosorbide DN 10 MG Tablet 5 MG PO (22:03)
[2018-07-31] MEDS: Atorvastatin Calcium 20 MG Tablet PO (22:03)
[2018-07-31] MEDS: Metoprolol Tartrate 25 MG Tablet 12.5 MG PO (22:03)
[2018-07-31 23:05] LABS: Bedside Glucose 246 mg/dL (70-110)
[2018-08-01] VITALS (13 sets, daily range): BP systolic 105–136; BP diastolic 44–69; PULSE 44–76; RESP 12–22; TEMP 36.6–36.9; O2SAT 93–99
[2018-08-01 06:30] LABS: Magnesium 1.8 mg/dL (1.6-2.6)
[2018-08-01] MEDS: Insulin Lispro 100 UNIT/ML INSULN.PEN SC ×3 (06:39→21:07)
[2018-08-01 06:40] LABS: Bedside Glucose 204 mg/dL (70-110)
[2018-08-01] MEDS: Aspirin 325 MG Tablet PO (08:23)
[2018-08-01] MEDS: Glimepiride 2 MG Tablet PO (08:23)
[2018-08-01] MEDS: Gabapentin 600 MG Tablet PO ×2 (08:24→16:42)
[2018-08-01] MEDS: Pioglitazone Hydrochloride 30 MG Tablet PO (08:24)
[2018-08-01] MEDS: Isosorbide DN 10 MG Tablet 5 MG PO ×2 (08:24→21:03)
[2018-08-01] MEDS: hydroCHLOROthiazide 25 MG Tablet PO (08:24)
[2018-08-01] MEDS: Enoxaparin 40 MG/0.4 ML Syringe SC (08:25)
[2018-08-01] MEDS: Lisinopril 40 MG Tablet PO (08:25)
[2018-08-01] MEDS: LINAGLIPTIN 5 MG TABLET PO (08:26)
--- NOTE | 2018-08-01 09:01 | PN.CARD_ITS ---
Subjectve: Denies any complaints. Denies any episode of dyspnea overnight. Asymptomatic. Objective: Vital Signs Temp Pulse Resp BP Pulse Ox 97.9 F 47 L 16 105/44 L 99 08/01/18 03:50 08/01/18 06:49 08/01/18 03:50 08/01/18 03:50 08/01/18 06:30 Oxygen Flow Rate (L/min) 2 Oxygen Delivery Method Room Air Weight: 117.934 kg Body Mass Index (BMI) 34.2 Intake and Output for Last 24 Hours 07/30/18 07/31/18 08/01/18 23:59 23:59 23:59 Intake Total 100 / 100 2509 / 2509 Balance 100 / 100 2509 / 2509 General: Awake, Alert, Oriented x 3, No Acute Distress HEENT: Atraumatic, Normocephalic Neck: Supple Lungs: Clear to auscultation Cardiovascular: Regular Rhythm Extremities: - - Trace ankle edema Psych/Mental Status: Appropriate 07/31/18 16:00: Magnesium 1.5 L 08/01/18 06:00: Magnesium 1.8 Rhythm: Sinus bradycardia EKG: ECHO: Stress Test: Cardiac Cath: PCI: CT Surgery: Holter monitor: EPS: PPM: CXR: Chest CT Scan: Medical Necessity - Tobacco Use Smoking Status: Former smoker Tobacco Use: Cigarettes Assessment/Plan 1. Possible paroxysmal nocturnal dyspnea. O2 sat monitoring overnight revealed episodes of desaturation. Pulmonology consult already requested. 2. Borderline LV systolic function. Ejection fraction noted to be 45 to 50%. Recommend checking MUGA scan as outpatient for further evaluation of LV syst olic function. If the LV function is confirmed to be down, then consider further work-up. Stop hydrochlorothiazide. Start Lasix. Add potassium supplementation. 3. History of coronary artery disease status post CABG in 2002. Continue medicines. Stop metoprolol because of marked sinus bradycardia 4. History of hypertension. 5. Diabetes mellitus. 6. Dyslipidemia. Recommend follow-up as outpatient in 1 week after discharge home
[2018-08-01] MEDS: Furosemide 20 MG Tablet PO (10:31)
[2018-08-01 11:45] LABS: Bedside Glucose 219 mg/dL (70-110)
--- NOTE | 2018-08-01 12:47 | PCM.PROGNOTE ---
<Rayray Wilson - Last Filed: 08/01/18 12:47> Subjective: Pt agreeable to overnight bipap, requested nasal pillow 2/2 claustrophobia. Brother and daughter here both with NORBERT, encouraging him to stay and attempt bipap. D/w Dr. Waite who will see the pt. Pt O2 sat declined into 70s last night and he was bradycardic into the 40s. He feels well and is frustrated that he has to stay. We spent a great deal of time discussing the importance of beginning treatment for possible NORBERT and CHF, and the risks of leaving these untreated. Family is very encouraging of the patient. - Physical Exam General: Alert, Oriented x3, Cooperative HEENT: Atraumatic, PERRLA, EOMI, Normocephalic Neck: Supple, No JVD, Negative Carotid Bruits Lungs: Clear to auscultation, Normal air movement Cardiovascular: Regular rate, No murmurs Abdomen: Bowel Sounds Present, Soft, Non Tender Extremities: No edema, Capillary Refill Less than 3 Seconds Skin: No rashes, No breakdown Musculoskeletal: No Tenderness to Palpation of Joints or Extremities Neurological: Cranial nerves II-XII grossly intact Psych/Mental Status: Normal Affect, Appropriate, Alert and oriented to time, place, person, mood and affect Vital Signs Temp Pulse Resp BP Pulse Ox 98.4 F 58 L 18 136/63 H 94 08/01/18 08:30 08/01/18 08:30 08/01/18 08:30 08/01/18 08:30 08/01/18 08:30 Oxygen Flow Rate (L/min) 2 Oxygen Delivery Method Room Air Weight: 260 lb Body Mass Index (BMI) 34.2 Intake and Output for Last 24 Hours 07/30/18 07/31/18 08/01/18 23:59 23:59 23:59 Intake Total 100 / 100 2509 / 2509 480 / 480 Balance 100 / 100 2509 / 2509 480 / 480 Laboratory Tests Past 24 Hrs 07/31/18 08/01/18 16:00 06:00 Magnesium 1.5 L 1.8 POC Glucose 08/01/18 08/01/18 07/31/18 11:31 06:34 21:50 POC Glucose 219 H 204 H 246 H 07/31/18 16:41 POC Glucose 147 H Medical Necessity - Tobacco Use Smoking Status: Former smoker Tobacco Use: Cigarettes Assessment/Plan 1. Chest pain / SOB in hx CAD s/p multivessel CABG - Trop negative x 3. 02/14 stress test negative. Cardiology consuted. He also has symptoms c/w CHF, however currently no LE edema, CXR clear, and no increased O2 demand. Bradcardia on tele, trop negative, EKG negative for ischemia. D dimer negative. -Echo EF 45-50%, mildly dilated LV, st2 diastolic dysfunction, left atrium severely enlarged. -lasix and K added by cardiology. Suspect underlying chronic systolic and diastolic CHF. No acute exacerbation at this time. -DC pioglitazone with suspicion of CHF -HCTZ dc'd. 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 -follows Dr. Szymanski as o/p 2. Suspected sleep apnea STOPBANG at least 4 (male, age, htn, witnessed apnea) - desat last night. Pulm consulted. Bipap ordered. 3. Bradycardia - continues to be bradycardic. DC metoprolol 4. HTN - stable 5. DMt2 with peripheral neuropathy and obesity - poorly controlled - metformin held, SSI. Stop actos as per #1. -Dietitian consulted regarding DMt2 and sodium intake. DVT ppx: lovenox DC planning: likely home tomorrow if stable overnight This patient was seen by Rayray Wilson PA-C under the supervision of Doctor Kristin. <Magda Foster - Last Filed: 08/01/18 13:49> - Physical Exam Vital Signs Temp Pulse Resp BP Pulse Ox 98.4 F 58 L 18 136/63 H 94 08/01/18 08:30 08/01/18 08:30 08/01/18 08:30 08/01/18 08:30 08/01/18 08:30 Oxygen Flow Rate (L/min) 2 Oxygen Delivery Method Room Air Weight: 260 lb Body Mass Index (BMI) 34.2 Intake and Output for Last 24 Hours 07/30/18 07/31/18 08/01/18 23:59 23:59 23:59 Intake Total 100 / 100 2509 / 2509 480 / 480 Balance 100 / 100 2509 / 2509 480 / 480 Laboratory Tests Past 24 Hrs 07/31/18 08/01/18 16:00 06:00 Magnesium 1.5 L 1.8 POC Glucose 08/01/18 08/01/18 07/31/18 11:31 06:34 21:50 POC Glucose 219 H 204 H 246 H 07/31/18 16:41 POC Glucose 147 H Assessment/Plan Patient seen by Rayray Wilson PA-C under my supervision Patient seen and examined. He has no complaints and feels well. Review of systems otherwise negative. Labs and vitals reviewed. He still remained bradycardic overnight. Overnight pulse oximetry showed desaturations down to 78% with numerous apneic episodes. o/e: Vital Signs Height 6 ft 1 in Weight: 260 lb Weight in Pounds 260.0 lbs Pulse Ox 94 Temperature 98.4 F Pulse Rate 58 Respiratory Rate 18 Blood Pressure [BP] 150/69 Blood Pressure 136/63 Blood Pressure Position [BP] Semi-Fowlers Blood Pressure Position Semi-Fowlers General: Alert, Oriented x3, Cooperative HEENT: Atraumatic, PERRLA, EOMI, Normocephalic Neck: Supple, No JVD, Negative Carotid Bruits Lungs: Clear to auscultation, Normal air movement Cardiovascular: No murmurs, bradycardia, normal S1 and S2 Abdomen: Bowel Sounds Present, Soft, Non Tender, Obese Extremities: No edema, Capillary Refill Less than 3 Seconds Skin: No rashes, No breakdown Musculoskeletal: No Tenderness to Palpation of Joints or Extremities Neurological: Cranial nerves II-XII grossly intact Psych/Mental Status: Normal Affect, Appropriate, Alert and oriented to time, place, person, mood and affect Per discussion with cardiology, will dc metoprolol o/a or persistent bradycardia. 2D echo showed EF of 45 to 50% with stage II diastolic dysfunction and severely enlarged left atrium. RVSP not documented in echo. Pulmonology consulted o/a of undiagnosed sleep apnea and desaturations and apneic episodes on overnight pulse oximetry. To start wearing BIPAP tonight. Started on lasix per cardiology; HCTZ and pioglitazone dc'd. Rest of management as per Rayray Wilson PA-C's note, which I have reviewed and endorse. Code Visit Inpatient E&M: 61963 Subs Hosp L2
--- NOTE | 2018-08-01 12:50 | PCM.CONS.PUL ---
Problem List (1) Pure hypercholesterolemia Status: Chronic (2) Essential (primary) hypertension Status: Chronic (3) History of left heart catheterization Status: Chronic Comment: November 2002, July 2007 (4) Stented coronary artery Status: Chronic Comment: PTCA and ZARIA of CX November 2002 (5) Atherosclerotic heart disease of [place] coronary artery without angina pectoris Status: Chronic Qualifiers: Comment: July 2002: HORN to LAD, SVG to Ramus, Left radial graft to OM; PTCA and ZARIA of CX November 2002 (6) Hx of CABG Status: Chronic Comment: July 2002: HORN to LAD, SVG to Ramus, Left radial graft to OM (7) Type 2 diabetes mellitus Status: Chronic Qualifiers: (8) Obesity Status: Chronic (9) Kidney atrophy Status: Chronic (10) Kidney stones Status: Chronic Reason for Consult Date of Consultation: 08/01/18 Reason for Consultation: Obstructive sleep apnea History of Present Illness: The patient is a 73 year old M, with past medical history listed below, who presented to [facility] on 07/30/2018 secondary to chest pain. Patient had reportedly fallen and hurt his ribs approximate 1 month ago. Patient stated that he has had some difficulty sleeping and wake up short of breath. Patient describes the pain as sharp, 6 out of 10 with radiation into his left arm. Patient does have an extensive cardiac history. In the emergency room, patient was noted to have ventricular rate of 53 bpm with PACs noted. Patient was concentrated with a hemoglobin of 16 and negative troponin. D-dimer was 0.46. Chest x-ray was unremarkable. Patient was admitted to the hospital to rule out acute coronary syndrome. While in the hospital, patient's heart rate and oxygen saturations were monitored. Patient did desaturate into the 70s and there is some concern for obstructive sleep apnea, so a pulmonary consult was obtained. Patient does report that he sleeps fine. Patient does report waking up multiple times per night gasping for air with palpitations. Patient states he does not snore, but frequently can fall asleep while sitting up such as after meals, watching TV or reading. Patient denies falling asleep while talking on the telephone, waiting in the waiting room or while driving. Patient does occasionally have lower extremity edema. Patient denies waking up with headaches. Patient does report some nocturia. 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 Patient reports a 5-pack-year smoking history and is never had a pulmonary function tests are seen a meat boner to his knowledge. Patient denies any history of TB or asbestos exposure. Patient does not report any history of asthma or need for inhalers. Review of systems otherwise negative x10 systems. Past Medical History Past Medical History (Chronic Problems): Chronic Problems (Last Updated 07/30/18 @ 15:22 by Jeronimo Paz MD) Pure hypercholesterolemia (Chronic) Essential (primary) hypertension (Chronic) History of left heart catheterization (Chronic) November 2002, July 2007 Stented coronary artery (Chronic) PTCA and ZARIA of CX November 2002 Atherosclerotic heart disease of [place] coronary artery without angina pectoris (Chronic) July 2002: HORN to LAD, SVG to Ramus, Left radial graft to OM; PTCA and ZARIA of CX November 2002 Hx of CABG (Chronic) July 2002: HORN to LAD, SVG to Ramus, Left radial graft to OM Type 2 diabetes mellitus (Chronic) Obesity (Chronic) Kidney atrophy (Chronic) Kidney stones (Chronic) Medical History: Medical History (Last Updated 07/30/18 @ 15:22 by Jeronimo Paz MD) Pure hypercholesterolemia (Chronic) E78.00 Essential (primary) hypertension (Chronic) I10 Atherosclerotic heart disease of [place] coronary artery without angina pectoris (Chronic) I25.06 Aug 2002: HORN to LAD, SVG to Ramus, Left radial graft to OM; PTCA and ZARIA of CX November 2002 Type 2 diabetes mellitus (Chronic) E11.9 Obesity (Chronic) E66.9 Kidney atrophy (Chronic) N26.1 Kidney stones (Chronic) N20.0 Allergies exenatide [From Byetta] Adverse Reaction (Severe, Verified 07/30/18 14:03) Shaking and Vomiting Home Medications: Ambulatory Orders Medication Instructions Recorded Aspirin 325 mg PO DAILY@0800 01/11/14 ascorbic acid (vitamin C) 500 mg 500 mg PO DAILY 04/10/17 capsule zinc 50 mg tablet 50 mg PO DAILY 04/10/17 tadalafil 10 mg tablet 10 mg PO QDAY PRN tab 07/07/17 [id number] 1 tab PO QDAY 07/07/17 3,300 unit-5 mg-200mg-75 unit tablet ER garlic 500 mg capsule 500 mg PO DAILY 01/08/18 Gabapentin [Neurontin] 600 mg PO BID 07/30/18 Glimepiride 2 mg PO DAILY 07/30/18 Hydrochlorothiazide [Hctz] 25 mg PO DAILY 07/30/18 Lisinopril [Zestril] 40 mg PO DAILY 07/30/18 Metformin HCl [Glucophage] 1,000 mg PO DAILY 07/30/18 Metformin HCl [Glucophage] 1,500 mg PO QHS 07/30/18 Metoprolol Tartrate [Lopressor 25 mg PO BID 07/30/18 (beta mono)] Multivit-Min/FA/Lycopen/Lutein 1 each PO DAILY 07/30/18 [Centrum Silver Tablet] Lin[place]-3S/Dha/Epa/Fish Oil [Fish 1 each PO DAILY 07/30/[address] 1,000 mg Softgel] Pioglitazone HCl 30 mg PO DAILY 07/30/18 Simvastatin 40 mg PO DAILY 07/30/18 Sitagliptin Phosphate [Januvia] 100 mg PO DAILY 07/30/18 Surgical History: Surgical History (Last Updated 07/30/18 @ 15:32 by Jeronimo Paz MD) Stented coronary artery (Chronic) Z95.5 PTCA and ZARIA of CX November 2002 Hx of CABG (Chronic) Z95.28 Jul 2002: HORN to LAD, SVG to Ramus, Left radial graft to OM Surgical History: cholecystectomy, coronary bypass surgery, tonsillectomy Lives: Spouse/ Significant Other Smoking Status: Former smoker Tobacco Use: Cigarettes Alcohol: None Drugs: None - *Family History Maternal Family History: Family History (Last Reviewed 05/14/18 @ 14:24 by Rula Dickerson) Mother Hypertension Myocardial infarction CVA (cerebral vascular accident) Father Hypertension Heart disease Myocardial infarction, Onset Age: 45 Sudden cardiac Brother Heart disease Myocardial infarction Paternal Family History: Family History (Last Reviewed 05/14/18 @ 14:24 by Rula Dickerson) Mother Hypertension Myocardial infarction CVA (cerebral vascular accident) Father Hypertension Heart disease Myocardial infarction, Onset Age: 45 Sudden cardiac Brother Heart disease Myocardial infarction Review of Systems Comment: See HPI Objective: Chest x-ray was personally reviewed and was relatively unremarkable. Echocardiogram completed on 07/31/2018 showed an EF of 45 to 50% with stage II diastolic dysfunction. Unable to quantify pulmonary artery pressures, but left atrium is severely enlarged. - Physical Exam General: Alert, Oriented x3, Cooperative, No apparent distress, Well developed, Well nourished, - - No conversational dyspnea. HEENT: Atraumatic, PERRLA, EOMI, Normocephalic, - - No scleral icterus or injection noted. Slight ptosis of the right eye noted. Oral: No Gingival or Mucosal Lesions/ Ulcerations, Dry Mucosa, - - Fair dentition Neck: Supple, No JVD, No Nodes, Trachea Midline Lungs: No rhonchi, No wheeze, No rales, Diminished Cardiovascular: Regular rate, Regular Rhythm, Normal S1, Normal S2, No murmurs, No rub noted, No Gallop Abdomen: Bowel Sounds Present, Soft, Non Tender, Non-Distended, Obese Extremities: No clubbing, No cyanosis, Edema - 1-2+ lower extremity Skin: No rashes, No breakdown Musculoskeletal: No Tenderness to Palpation of Joints or Extremities Lymphatic: No Cervical, Supraclavicular, or Inguinal Adenopathy Neurological: Cranial nerves II-XII grossly intact, Neuro grossly intact, Motor Exam 5/5 strength throughout Psych/Mental Status: Alert and oriented to time, place, person, mood and affect Vital Signs Temp Pulse Resp BP Pulse Ox 36.9 C 58 L 18 136/63 H 94 08/01/18 08:30 08/01/18 08:30 08/01/18 08:30 08/01/18 08:30 08/01/18 08:30 Oxygen Flow Rate (L/min) 2 Oxygen Delivery Method Room Air Weight: 117.934 kg Body Mass Index (BMI) 34.2 Intake and Output for Last 24 Hours 07/30/18 07/31/18 08/01/18 23:59 23:59 23:59 Intake Total 100 / 100 2509 / 2509 480 / 480 Balance 100 / 100 2509 / 2509 480 / 480 Laboratory Tests 08/01/18 08/01/18 08/01/18 Range/Units 11:31 06:34 06:00 WBC (4.4-11.0) K/mm3 RBC (4.6-6.2) M/mm3 Hgb (13.0-16.5) g/dl Hct (40-54) % MCV (80-94) fL MCH (27.0-32.0) pg MCHC (32-36) g/gl RDW (11.6-14.6) % RDW Differential (35.1-43.9) fl Plt Count (150-450) K/mm3 MPV (6.2-12.0) fl Immature Gran % (Auto) (0.0-0.9) % Neut % (Auto) (47-70) % Lymph % (Auto) (19-41) % [place] % (Auto) (0-10) % Eos % (Auto) (0-5) % Baso % (Auto) (0-1) % Absolute Neuts (auto) (2.0-7.7) X10^3/uL Absolute Lymphs (auto) (0.83-4.51) X10^3/ul Total Counted D-Dimer Quant (PE/DVT) (0.27-0.49) FEU/ug/m Sodium (136-145) mmol/L Potassium (3.5-5.1) mmol/L Chloride (98-107) mmol/L Carbon Dioxide (21.0-32.0) mmol/L Anion Gap (5-15) BUN (7-18) mg/dL Creatinine (0.70-1.30) mg/dL Estim Creat Clear Calc ml/min Est GFR (MDRD) Af Amer (>60) mL/min Est GFR (MDRD) Non-Af (>60) mL/min BUN/Creatinine Ratio (10-20) RATIO Glucose (74-106) mg/dL Calcium (8.5-10.1) mg/dL Magnesium 1.8 (1.6-2.6) mg/dL Troponin I (<0.045) ng/mL POC Glucose 219 H 204 H (70-110) mg/dL 07/31/18 07/31/18 07/31/18 Range/Units 21:50 16:41 16:00 WBC (4.4-11.0) K/mm3 RBC (4.6-6.2) M/mm3 Hgb (13.0-16.5) g/dl Hct (40-54) % MCV (80-94) fL MCH (27.0-32.0) pg MCHC (32-36) g/gl RDW (11.6-14.6) % RDW Differential (35.1-43.9) fl Plt Count (150-450) K/mm3 MPV (6.2-12.0) fl Immature Gran % (Auto) (0.0-0.9) % Neut % (Auto) (47-70) % Lymph % (Auto) (19-41) % [place] % (Auto) (0-10) % Eos % (Auto) (0-5) % Baso % (Auto) (0-1) % Absolute Neuts (auto) (2.0-7.7) X10^3/uL Absolute Lymphs (auto) (0.83-4.51) X10^3/ul Total Counted D-Dimer Quant (PE/DVT) (0.27-0.49) FEU/ug/m Sodium (136-145) mmol/L Potassium (3.5-5.1) mmol/L Chloride (98-107) mmol/L Carbon Dioxide (21.0-32.0) mmol/L Anion Gap (5-15) BUN (7-18) mg/dL Creatinine (0.70-1.30) mg/dL Estim Creat Clear Calc ml/min Est GFR (MDRD) Af Amer (>60) mL/min Est GFR (MDRD) Non-Af (>60) mL/min BUN/Creatinine Ratio (10-20) RATIO Glucose (74-106) mg/dL Calcium (8.5-10.1) mg/dL Magnesium 1.5 L (1.6-2.6) mg/dL Troponin I (<0.045) ng/mL POC Glucose 246 H 147 H (70-110) mg/dL 07/31/18 07/31/18 07/30/18 Range/Units 11:34 06:51 22:21 WBC (4.4-11.0) K/mm3 RBC (4.6-6.2) M/mm3 Hgb (13.0-16.5) g/dl Hct (40-54) % MCV (80-94) fL MCH (27.0-32.0) pg MCHC (32-36) g/gl RDW (11.6-14.6) % RDW Differential (35.1-43.9) fl Plt Count (150-450) K/mm3 MPV (6.2-12.0) fl Immature Gran % (Auto) (0.0-0.9) % Neut % (Auto) (47-70) % Lymph % (Auto) (19-41) % [place] % (Auto) (0-10) % Eos % (Auto) (0-5) % Baso % (Auto) (0-1) % Absolute Neuts (auto) (2.0-7.7) X10^3/uL Absolute Lymphs (auto) (0.83-4.51) X10^3/ul Total Counted D-Dimer Quant (PE/DVT) (0.27-0.49) FEU/ug/m Sodium (136-145) mmol/L Potassium (3.5-5.1) mmol/L Chloride (98-107) mmol/L Carbon Dioxide (21.0-32.0) mmol/L Anion Gap (5-15) BUN (7-18) mg/dL Creatinine (0.70-1.30) mg/dL Estim Creat Clear Calc ml/min Est GFR (MDRD) Af Amer (>60) mL/min Est GFR (MDRD) Non-Af (>60) mL/min BUN/Creatinine Ratio (10-20) RATIO Glucose (74-106) mg/dL Calcium (8.5-10.1) mg/dL Magnesium (1.6-2.6) mg/dL Troponin I (<0.045) ng/mL POC Glucose 255 H 177 H 281 H (70-110) mg/dL 07/30/18 07/30/18 07/30/18 Range/Units 21:02 18:41 17:01 WBC (4.4-11.0) K/mm3 RBC (4.6-6.2) M/mm3 Hgb (13.0-16.5) g/dl Hct (40-54) % MCV (80-94) fL MCH (27.0-32.0) pg MCHC (32-36) g/gl RDW (11.6-14.6) % RDW Differential (35.1-43.9) fl Plt Count (150-450) K/mm3 MPV (6.2-12.0) fl Immature Gran % (Auto) (0.0-0.9) % Neut % (Auto) (47-70) % Lymph % (Auto) (19-41) % [place] % (Auto) (0-10) % Eos % (Auto) (0-5) % Baso % (Auto) (0-1) % Absolute Neuts (auto) (2.0-7.7) X10^3/uL Absolute Lymphs (auto) (0.83-4.51) X10^3/ul Total Counted D-Dimer Quant (PE/DVT) (0.27-0.49) FEU/ug/m Sodium (136-145) mmol/L Potassium (3.5-5.1) mmol/L Chloride (98-107) mmol/L Carbon Dioxide (21.0-32.0) mmol/L Anion Gap (5-15) BUN (7-18) mg/dL Creatinine (0.70-1.30) mg/dL Estim Creat Clear Calc ml/min Est GFR (MDRD) Af Amer (>60) mL/min Est GFR (MDRD) Non-Af (>60) mL/min BUN/Creatinine Ratio (10-20) RATIO Glucose (74-106) mg/dL Calcium (8.5-10.1) mg/dL Magnesium (1.6-2.6) mg/dL Troponin I < 0.015 < 0.015 (<0.045) ng/mL POC Glucose 198 H (70-110) mg/dL 07/30/18 07/30/18 07/30/18 Range/Units 13:45 13:45 13:45 WBC 7.5 (4.4-11.0) K/mm3 RBC 5.29 (4.6-6.2) M/mm3 Hgb 16.4 (13.0-16.5) g/dl Hct 47.4 (40-54) % MCV 89.6 (80-94) fL MCH 31.0 (27.0-32.0) pg MCHC 34.6 (32-36) g/gl RDW 13.8 (11.6-14.6) % RDW Differential 44.9 H (35.1-43.9) fl Plt Count 174 (150-450) K/mm3 MPV 11.0 (6.2-12.0) fl Immature Gran % (Auto) 0.300 (0.0-0.9) % Neut % (Auto) 55.7 (47-70) % Lymph % (Auto) 36.5 (19-41) % [place] % (Auto) 6.3 (0-10) % Eos % (Auto) 0.9 (0-5) % Baso % (Auto) 0.3 (0-1) % Absolute Neuts (auto) 4.2 (2.0-7.7) X10^3/uL Absolute Lymphs (auto) 2.74 (0.83-4.51) X10^3/ul Total Counted Not Reportable D-Dimer Quant (PE/DVT) 0.46 (0.27-0.49) FEU/ug/m Sodium 140 (136-145) mmol/L Potassium 4.0 (3.5-5.1) mmol/L Chloride 103 (98-107) mmol/L Carbon Dioxide 29.0 (21.0-32.0) mmol/L Anion Gap 8 (5-15) BUN 21 H (7-18) mg/dL Creatinine 1.10 (0.70-1.30) mg/dL Estim Creat Clear Calc 65.57 ml/min Est GFR (MDRD) Af Amer 84 (>60) mL/min Est GFR (MDRD) Non-Af 69 (>60) mL/min BUN/Creatinine Ratio 19.1 (10-20) RATIO Glucose 278 H (74-106) mg/dL Calcium 9.3 (8.5-10.1) mg/dL Magnesium (1.6-2.6) mg/dL Troponin I < 0.015 (<0.045) ng/mL POC Glucose (70-110) mg/dL Clinical Impression(s) from Imaging Studies Chest X-Ray 07/30/18 13:30 IMPRESSION: Stable cardiomegaly. Lungs are clear. Electronically Signed: Zackery Dwyer DO at 14:00 EDT Tel , Service support , Assessment/Plan RECOMMENDATIONS: 1. Initiate empiric BiPAP 12/6 cmH2O 2. Monitor nocturnal oximetry on empiric settings 3. Outpatient polysomnogram 4. Encourage weight loss 5. Possible right heart catheterization in the future 6. Obtain walking oximetry prior to discharge IMPRESSIONS: 1. Probable obstructive sleep apnea High clinical suspicion for obstructive sleep apnea leading to patient's desaturation at night. Patient does not appear to be significantly volume overloaded at this time, but is having desaturation with sawtooth pattern. Did review the risks, benefits and alternatives of therapy. Patient is agreeable for evaluation, but reports being significantly claustrophobic. Would attempt empiric BiPAP therapy of 12/6 centimeters of water tonight with a nocturnal oximetry to see if oxygenation is controlled. Outpatient polysomnogram can be evaluated. If desaturations are not controlled, discharged to a sleep study may be a consideration. Patient could have a right heart catheterization in the future for quantification and clarification of pulmonary artery pressures, but given left atrial enlargement, type II pulmonary hypertension would be a consideration. Patient could have a walking oximetry prior to discharge for evaluation of exertional hypoxemia. 2. Chronic diastolic congestive heart failure/CAD/bradycardia/hypertension/diabetes mellitus type 2 with complications Complicates care, management, recovery and prognosis. Cardiology is following. Patient is appropriately rate controlled. Code Visit Inpatient E&M: 81661 Init Hosp L2
--- NOTE | 2018-08-01 12:54 | PN_ITS ---
<Rayray Wilson - Last Filed: 08/01/18 12:47> Subjective: Pt agreeable to overnight bipap, requested nasal pillow 2/2 claustrophobia. Brother and daughter here both with NORBERT, encouraging him to stay and attempt bipap. D/w Dr. Waite who will see the pt. Pt O2 sat declined into 70s last night and he was bradycardic into the 40s. He feels well and is frustrated that he has to stay. We spent a great deal of time discussing the importance of beginning treatment for possible NORBERT and CHF, and the risks of leaving these untreated. Family is very encouraging of the patient. - Physical Exam General: Alert, Oriented x3, Cooperative HEENT: Atraumatic, PERRLA, EOMI, Normocephalic Neck: Supple, No JVD, Negative Carotid Bruits Lungs: Clear to auscultation, Normal air movement Cardiovascular: Regular rate, No murmurs Abdomen: Bowel Sounds Present, Soft, Non Tender Extremities: No edema, Capillary Refill Less than 3 Seconds Skin: No rashes, No breakdown Musculoskeletal: No Tenderness to Palpation of Joints or Extremities Neurological: Cranial nerves II-XII grossly intact Psych/Mental Status: Normal Affect, Appropriate, Alert and oriented to time, place, person, mood and affect Vital Signs Temp Pulse Resp BP Pulse Ox 98.4 F 58 L 18 136/63 H 94 08/01/18 08:30 08/01/18 08:30 08/01/18 08:30 08/01/18 08:30 08/01/18 08:30 Oxygen Flow Rate (L/min) 2 Oxygen Delivery Method Room Air Weight: 260 lb Body Mass Index (BMI) 34.2 Intake and Output for Last 24 Hours 07/30/18 07/31/18 08/01/18 23:59 23:59 23:59 Intake Total 100 / 100 2509 / 2509 480 / 480 Balance 100 / 100 2509 / 2509 480 / 480 Laboratory Tests Past 24 Hrs 07/31/18 08/01/18 16:00 06:00 Magnesium 1.5 L 1.8 POC Glucose 08/01/18 08/01/18 07/31/18 11:31 06:34 21:50 POC Glucose 219 H 204 H 246 H 07/31/18 16:41 POC Glucose 147 H Medical Necessity - Tobacco Use Smoking Status: Former smoker Tobacco Use: Cigarettes Assessment/Plan 1. Chest pain / SOB in hx CAD s/p multivessel CABG - Trop negative x 3. 02/14 stress test negative. Cardiology consuted. He also has symptoms c/w CHF, however currently no LE edema, CXR clear, and no increased O2 demand. Bradcardia on tele, trop negative, EKG negative for ischemia. D dimer negative. -Echo EF 45-50%, mildly dilated LV, st2 diastolic dysfunction, left atrium severely enlarged. -lasix and K added by cardiology. Suspect underlying chronic systolic and diasto lic CHF. No acute exacerbation at this time. -DC pioglitazone with suspicion of CHF -HCTZ dc'd. 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 -follows Dr. Szymanski as o/p 2. Suspected sleep apnea STOPBANG at least 4 (male, age, htn, witnessed apnea) - desat last night. Pulm consulted. Bipap ordered. 3. Bradycardia - continues to be bradycardic. DC metoprolol 4. HTN - stable 5. DMt2 with peripheral neuropathy and obesity - poorly controlled - metformin held, SSI. Stop actos as per #1. -Dietitian consulted regarding DMt2 and sodium intake. DVT ppx: lovenox DC planning: likely home tomorrow if stable overnight This patient was seen by Rayray Wilson PA-C under the supervision of Doctor Kristin. <Magda Foster - Last Filed: 08/01/18 13:49> - Physical Exam Vital Signs Temp Pulse Resp BP Pulse Ox 98.4 F 58 L 18 136/63 H 94 08/01/18 08:30 08/01/18 08:30 08/01/18 08:30 08/01/18 08:30 08/01/18 08:30 Oxygen Flow Rate (L/min) 2 Oxygen Delivery Method Room Air Weight: 260 lb Body Mass Index (BMI) 34.2 Intake and Output for Last 24 Hours 07/30/18 07/31/18 08/01/18 23:59 23:59 23:59 Intake Total 100 / 100 2509 / 2509 480 / 480 Balance 100 / 100 2509 / 2509 480 / 480 Laboratory Tests Past 24 Hrs 07/31/18 08/01/18 16:00 06:00 Magnesium 1.5 L 1.8 POC Glucose 08/01/18 08/01/18 07/31/18 11:31 06:34 21:50 POC Glucose 219 H 204 H 246 H 07/31/18 16:41 POC Glucose 147 H Assessment/Plan Patient seen by Rayray Wilson PA-C under my supervision Patient seen and examined. He has no complaints and feels well. Review of systems otherwise negative. Labs and vitals reviewed. He still remained bradycardic overnight. Overnight pulse oximetry showed desaturations down to 78% with numerous apneic episodes. o/e: Vital Signs Height 6 ft 1 in Weight: 260 lb Weight in Pounds 260.0 lbs Pulse Ox 94 Temperature 98.4 F Pulse Rate 58 Respiratory Rate 18 Blood Pressure [BP] 150/69 Blood Pressure 136/63 Blood Pressure Position [BP] Semi-Fowlers Blood Pressure Position Semi-Fowlers General: Alert, Oriented x3, Cooperative HEENT: Atraumatic, PERRLA, EOMI, Normocephalic Neck: Supple, No JVD, Negative Carotid Bruits Lungs: Clear to auscultation, Normal air movement Cardiovascular: No murmurs, bradycardia, normal S1 and S2 Abdomen: Bowel Sounds Present, Soft, Non Tender, Obese Extremities: No edema, Capillary Refill Less than 3 Seconds Skin: No rashes, No breakdown Musculoskeletal: No Tenderness to Palpation of Joints or Extremities Neurological: Cranial nerves II-XII grossly intact Psych/Mental Status: Normal Affect, Appropriate, Alert and oriented to time, place, person, mood and affect Per discussion with cardiology, will dc metoprolol o/a or persistent bradycardia. 2D echo showed EF of 45 to 50% with stage II diastolic dysfunction and severely enlarged left atrium. RVSP not documented in echo. Pulmonology consulted o/a of undiagnosed sleep apnea and desaturations and apneic episodes on overnight pulse oximetry. To start wearing BIPAP tonight. Started on lasix per cardiology; HCTZ and pioglitazone dc'd. Rest of management as per Rayray Wilson PA-C's note, which I have reviewed and endorse. Code Visit Inpatient E&M: 38543 Subs Hosp L2
--- NOTE | 2018-08-01 12:55 | CON.PCM_ITS ---
Problem List (1) Pure hypercholesterolemia Status: Chronic (2) Essential (primary) hypertension Status: Chronic (3) History of left heart catheterization Status: Chronic Comment: November 2002, July 2007 (4) Stented coronary artery Status: Chronic Comment: PTCA and ZARIA of CX November 2002 (5) Atherosclerotic heart disease of redding coronary artery without angina pectoris Status: Chronic Qualifiers: Comment: July 2002: HORN to LAD, SVG to Ramus, Left radial graft to OM; PTCA and ZARIA of CX November 2002 (6) Hx of CABG Status: Chronic Comment: July 2002: HORN to LAD, SVG to Ramus, Left radial graft to OM (7) Type 2 diabetes mellitus Status: Chronic Qualifiers: (8) Obesity Status: Chronic (9) Kidney atrophy Status: Chronic (10) Kidney stones Status: Chronic Reason for Consult Date of Consultation: 08/01/18 Reason for Consultation: Obstructive sleep apnea History of Present Illness: The patient is a 73 year old M, with past medical history listed below, who presented to [facility] on 07/30/2018 secondary to chest pain. Patient had reportedly fallen and hurt his ribs approximate 1 month ago. Tana ent stated that he has had some difficulty sleeping and wake up short of breath. Patient describes the pain as sharp, 6 out of 10 with radiation into his left arm. Patient does have an extensive cardiac history. In the emergency room, patient was noted to have ventricular rate of 53 bpm with PACs noted. Patient was concentrated with a hemoglobin of 16 and negative troponin. D-dimer was 0.46. Chest x-ray was unremarkable. Patient was admitted to the hospital to rule out acute coronary syndrome. While in the hospital, patient's heart rate and oxygen saturations were monitored. Patient did desaturate into the 70s and there is some concern for obstructive sleep apnea, so a pulmonary consult was obtained. Patient does report that he sleeps fine. Patient does report waking up multip le times per night gasping for air with palpitations. Patient states he does not snore, but frequently can fall asleep while sitting up such as after meals, watching TV or reading. Patient denies falling asleep while talking on the telephone, waiting in the waiting room or while driving. Patient does occasionally have lower extremity edema. Patient denies waking up with headaches. Patient does report some nocturia. 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 Patient reports a 5-pack-year smoking history and is never had a pulmonary function tests are seen a adhesive primer to his knowledge. Patient denies any history of TB or asbestos exposure. Patient does not report any history of asthma or need for inhalers. Review of systems otherwise negative x10 systems. Past Medical History Past Medical History (Chronic Problems): Chronic Problems (Last Updated 07/30/18 @ 15:22 by Jeronimo Paz MD) Pure hypercholesterolemia (Chronic) Essential (primary) hypertension (Chronic) History of left heart catheterization (Chronic) November 2002, July 2007 Stented coronary artery (Chronic) PTCA and ZARIA of CX November 2002 Atherosclerotic heart disease of redding coronary artery without angina pectoris (Chronic) July 2002: HORN to LAD, SVG to Ramus, Left radial graft to OM; PTCA and ZARIA of CX November 2002 Hx of CABG (Chronic) July 2002: HORN to LAD, SVG to Ramus, Left radial graft to OM Type 2 diabetes mellitus (Chronic) Obesity (Chronic) Kidney atrophy (Chronic) Kidney stones (Chronic) Medical History: Medical History (Last Updated 07/30/18 @ 15:22 by Jeronimo Paz MD) Pure hypercholesterolemia (Chronic) E78.00 Essential (primary) hypertension (Chronic) I10 Atherosclerotic heart disease of redding coronary artery without angina pectoris (Chronic) I25.06 Aug 2002: HORN to LAD, SVG to Ramus, Left radial graft to OM; PTCA and ZARIA of CX November 2002 Type 2 diabetes mellitus (Chronic) E11.9 Obesity (Chronic) E66.9 Kidney atrophy (Chronic) N26.1 Kidney stones (Chronic) N20.0 Allergies exenatide [From Byetta] Adverse Reaction (Severe, Verified 07/30/18 14:03) Shaking and Vomiting Home Medications: Ambulatory Orders Medication Instructions Recorded Aspirin 325 mg PO DAILY@0800 01/11/14 ascorbic acid (vitamin C) 500 mg 500 mg PO DAILY 04/10/17 capsule zinc 50 mg tablet 50 mg PO DAILY 04/10/17 tadalafil 10 mg tablet 10 mg PO QDAY PRN tab 07/07/17 [id number]-min 1 tab PO QDAY 07/07/17 3,300 unit-5 mg-200mg-75 unit tablet ER garlic 500 mg capsule 500 mg PO DAILY 01/08/18 Gabapentin [Neurontin] 600 mg PO BID 07/30/18 Glimepiride 2 mg PO DAILY 07/30/18 Hydrochlorothiazide [Hctz] 25 mg PO DAILY 07/30/18 Lisinopril [Zestril] 40 mg PO DAILY 07/30/18 Metformin HCl [Glucophage] 1,000 mg PO DAILY 07/30/18 Metformin HCl [Glucophage] 1,500 mg PO QHS 07/30/18 Metoprolol Tartrate [Lopressor 25 mg PO BID 07/30/18 (beta mono)] Multivit-Min/FA/Lycopen/Lutein 1 each PO DAILY 07/30/18 [Centrum Silver Tablet] [place]-3S/Dha/Epa/Fish Oil [Fish 1 each PO DAILY 07/30/[address] 1,000 mg Softgel] Pioglitazone HCl 30 mg PO DAILY 07/30/18 Simvastatin 40 mg PO DAILY 07/30/18 Sitagliptin Phosphate [Januvia] 100 mg PO DAILY 07/30/18 Surgical History: Surgical History (Last Updated 07/30/18 @ 15:32 by Jeronimo Paz MD) Stented coronary artery (Chronic) Z95.5 PTCA and ZARIA of CX November 2002 Hx of CABG (Chronic) Z95.28 Jul 2002: HORN to LAD, SVG to Ramus, Left radial graft to OM Surgical History: cholecystectomy, coronary bypass surgery, tonsillectomy Lives: Spouse/ Significant Other Smoking Status: Former smoker Tobacco Use: Cigarettes Alcohol: None Drugs: None - *Family History Maternal Family History: Family History (Last Reviewed 05/14/18 @ 14:24 by Rula Dickerson) Mother Hypertension Myocardial infarction CVA (cerebral vascular accident) Father Hypertension Heart disease Myocardial infarction, Onset Age: 45 Sudden cardiac Brother Heart disease Myocardial infarction Paternal Family History: Family History (Last Reviewed 05/14/18 @ 14:24 by Rula Dickerson) Mother Hypertension Myocardial infarction CVA (cerebral vascular accident) Father Hypertension Heart disease Myocardial infarction, Onset Age: 45 Sudden cardiac Brother Heart disease Myocardial infarction Review of Systems Comment: See HPI Objective: Chest x-ray was personally reviewed and was relatively unremarkable. Echocardiogram completed on 07/31/2018 showed an EF of 45 to 50% with stage II diastolic dysfunction. Unable to quantify pulmonary artery pressures, but left atrium is severely enlarged. - Physical Exam General: Alert, Oriented x3, Cooperative, No apparent distress, Well developed, Well nourished, - - No conversational dyspnea. HEENT: Atraumatic, PERRLA, EOMI, Normocephalic, - - No scleral icterus or injection noted. Slight ptosis of the right eye noted. Oral: No Gingival or Mucosal Lesions/ Ulcerations, Dry Mucosa, - - Fair dentition Neck: Supple, No JVD, No Nodes, Trachea Midline Lungs: No rhonchi, No wheeze, No rales, Diminished Cardiovascular: Regular rate, Regular Rhythm, Normal S1, Normal S2, No murmurs, No rub noted, No Gallop Abdomen: Bowel Sounds Present, Soft, Non Tender, Non-Distended, Obese Extremities: No clubbing, No cyanosis, Edema - 1-2+ lower extremity Skin: No rashes, No breakdown Musculoskeletal: No Tenderness to Palpation of Joints or Extremities Lymphatic: No Cervical, Supraclavicular, or Inguinal Adenopathy Neurological: Cranial nerves II-XII grossly intact, Neuro grossly intact, Motor Exam 5/5 strength throughout Psych/Mental Status: Alert and oriented to time, place, person, mood and affect Vital Signs Temp Pulse Resp BP Pulse Ox 36.9 C 58 L 18 136/63 H 94 08/01/18 08:30 08/01/18 08:30 08/01/18 08:30 08/01/18 08:30 08/01/18 08:30 Oxygen Flow Rate (L/min) 2 Oxygen Delivery Method Room Air Weight: 117.934 kg Body Mass Index (BMI) 34.2 Intake and Output for Last 24 Hours 07/30/18 07/31/18 08/01/18 23:59 23:59 23:59 Intake Total 100 / 100 2509 / 2509 480 / 480 Balance 100 / 100 2509 / 2509 480 / 480 Laboratory Tests 08/01/18 08/01/18 08/01/18 Range/Units 11:31 06:34 06:00 WBC (4.4-11.0) K/mm3 RBC (4.6-6.2) M/mm3 Hgb (13.0-16.5) g/dl Hct (40-54) % MCV (80-94) fL MCH (27.0-32.0) pg MCHC (32-36) g/gl RDW (11.6-14.6) % RDW Differential (35.1-43.9) fl Plt Count (150-450) K/mm3 MPV (6.2-12.0) fl Immature Gran % (Auto) (0.0-0.9) % Neut % (Auto) (47-70) % Lymph % (Auto) (19-41) % [place] % (Auto) (0-10) % Eos % (Auto) (0-5) % Baso % (Auto) (0-1) % Absolute Neuts (auto) (2.0-7.7) X10^3/uL Absolute Lymphs (auto) (0.83-4.51) X10^3/ul Total Counted D-Dimer Quant (PE/DVT) (0.27-0.49) FEU/ug/m Sodium (136-145) mmol/L Potassium (3.5-5.1) mmol/L Chloride (98-107) mmol/L Carbon Dioxide (21.0-32.0) mmol/L Anion Gap (5-15) BUN (7-18) mg/dL Creatinine (0.70-1.30) mg/dL Estim Creat Clear Calc ml/min Est GFR (MDRD) Af Amer (>60) mL/min Est GFR (MDRD) Non-Af (>60) mL/min BUN/Creatinine Ratio (10-20) RATIO Glucose (74-106) mg/dL Calcium (8.5-10.1) mg/dL Magnesium 1.8 (1.6-2.6) mg/dL Troponin I (<0.045) ng/mL POC Glucose 219 H 204 H (70-110) mg/dL 07/31/18 07/31/18 07/31/18 Range/Units 21:50 16:41 16:00 WBC (4.4-11.0) K/mm3 RBC (4.6-6.2) M/mm3 Hgb (13.0-16.5) g/dl Hct (40-54) % MCV (80-94) fL MCH (27.0-32.0) pg MCHC (32-36) g/gl RDW (11.6-14.6) % RDW Differential (35.1-43.9) fl Plt Count (150-450) K/mm3 MPV (6.2-12.0) fl Immature Gran % (Auto) (0.0-0.9) % Neut % (Auto) (47-70) % Lymph % (Auto) (19-41) % [place] % (Auto) (0-10) % Eos % (Auto) (0-5) % Baso % (Auto) (0-1) % Absolute Neuts (auto) (2.0-7.7) X10^3/uL Absolute Lymphs (auto) (0.83-4.51) X10^3/ul Total Counted D-Dimer Quant (PE/DVT) (0.27-0.49) FEU/ug/m Sodium (136-145) mmol/L Potassium (3.5-5.1) mmol/L Chloride (98-107) mmol/L Carbon Dioxide (21.0-32.0) mmol/L Anion Gap (5-15) BUN (7-18) mg/dL Creatinine (0.70-1.30) mg/dL Estim Creat Clear Calc ml/min Est GFR (MDRD) Af Amer (>60) mL/min Est GFR (MDRD) Non-Af (>60) mL/min BUN/Creatinine Ratio (10-20) RATIO Glucose (74-106) mg/dL Calcium (8.5-10.1) mg/dL Magnesium 1.5 L (1.6-2.6) mg/dL Troponin I (<0.045) ng/mL POC Glucose 246 H 147 H (70-110) mg/dL 07/31/18 07/31/18 07/30/18 Range/Units 11:34 06:51 22:21 WBC (4.4-11.0) K/mm3 RBC (4.6-6.2) M/mm3 Hgb (13.0-16.5) g/dl Hct (40-54) % MCV (80-94) fL MCH (27.0-32.0) pg MCHC (32-36) g/gl RDW (11.6-14.6) % RDW Differential (35.1-43.9) fl Plt Count (150-450) K/mm3 MPV (6.2-12.0) fl Immature Gran % (Auto) (0.0-0.9) % Neut % (Auto) (47-70) % Lymph % (Auto) (19-41) % [place] % (Auto) (0-10) % Eos % (Auto) (0-5) % Baso % (Auto) (0-1) % Absolute Neuts (auto) (2.0-7.7) X10^3/uL Absolute Lymphs (auto) (0.83-4.51) X10^3/ul Total Counted D-Dimer Quant (PE/DVT) (0.27-0.49) FEU/ug/m Sodium (136-145) mmol/L Potassium (3.5-5.1) mmol/L Chloride (98-107) mmol/L Carbon Dioxide (21.0-32.0) mmol/L Anion Gap (5-15) BUN (7-18) mg/dL Creatinine (0.70-1.30) mg/dL Estim Creat Clear Calc ml/min Est GFR (MDRD) Af Amer (>60) mL/min Est GFR (MDRD) Non-Af (>60) mL/min BUN/Creatinine Ratio (10-20) RATIO Glucose (74-106) mg/dL Calcium (8.5-10.1) mg/dL Magnesium (1.6-2.6) mg/dL Troponin I (<0.045) ng/mL POC Glucose 255 H 177 H 281 H (70-110) mg/dL 07/30/18 07/30/18 07/30/18 Range/Units 21:02 18:41 17:01 WBC (4.4-11.0) K/mm3 RBC (4.6-6.2) M/mm3 Hgb (13.0-16.5) g/dl Hct (40-54) % MCV (80-94) fL MCH (27.0-32.0) pg MCHC (32-36) g/gl RDW (11.6-14.6) % RDW Differential (35.1-43.9) fl Plt Count (150-450) K/mm3 MPV (6.2-12.0) fl Immature Gran % (Auto) (0.0-0.9) % Neut % (Auto) (47-70) % Lymph % (Auto) (19-41) % [place] % (Auto) (0-10) % Eos % (Auto) (0-5) % Baso % (Auto) (0-1) % Absolute Neuts (auto) (2.0-7.7) X10^3/uL Absolute Lymphs (auto) (0.83-4.51) X10^3/ul Total Counted D-Dimer Quant (PE/DVT) (0.27-0.49) FEU/ug/m Sodium (136-145) mmol/L Potassium (3.5-5.1) mmol/L Chloride (98-107) mmol/L Carbon Dioxide (21.0-32.0) mmol/L Anion Gap (5-15) BUN (7-18) mg/dL Creatinine (0.70-1.30) mg/dL Estim Creat Clear Calc ml/min Est GFR (MDRD) Af Amer (>60) mL/min Est GFR (MDRD) Non-Af (>60) mL/min BUN/Creatinine Ratio (10-20) RATIO Glucose (74-106) mg/dL Calcium (8.5-10.1) mg/dL Magnesium (1.6-2.6) mg/dL Troponin I < 0.015 < 0.015 (<0.045) ng/mL POC Glucose 198 H (70-110) mg/dL 07/30/18 07/30/18 07/30/18 Range/Units 13:45 13:45 13:45 WBC 7.5 (4.4-11.0) K/mm3 RBC 5.29 (4.6-6.2) M/mm3 Hgb 16.4 (13.0-16.5) g/dl Hct 47.4 (40-54) % MCV 89.6 (80-94) fL MCH 31.0 (27.0-32.0) pg MCHC 34.6 (32-36) g/gl RDW 13.8 (11.6-14.6) % RDW Differential 44.9 H (35.1-43.9) fl Plt Count 174 (150-450) K/mm3 MPV 11.0 (6.2-12.0) fl Immature Gran % (Auto) 0.300 (0.0-0.9) % Neut % (Auto) 55.7 (47-70) % Lymph % (Auto) 36.5 (19-41) % [place] % (Auto) 6.3 (0-10) % Eos % (Auto) 0.9 (0-5) % Baso % (Auto) 0.3 (0-1) % Absolute Neuts (auto) 4.2 (2.0-7.7) X10^3/uL Absolute Lymphs (auto) 2.74 (0.83-4.51) X10^3/ul Total Counted Not Reportable D-Dimer Quant (PE/DVT) 0.46 (0.27-0.49) FEU/ug/m Sodium 140 (136-145) mmol/L Potassium 4.0 (3.5-5.1) mmol/L Chloride 103 (98-107) mmol/L Carbon Dioxide 29.0 (21.0-32.0) mmol/L Anion Gap 8 (5-15) BUN 21 H (7-18) mg/dL Creatinine 1.10 (0.70-1.30) mg/dL Estim Creat Clear Calc 65.57 ml/min Est GFR (MDRD) Af Amer 84 (>60) mL/min Est GFR (MDRD) Non-Af 69 (>60) mL/min BUN/Creatinine Ratio 19.1 (10-20) RATIO Glucose 278 H (74-106) mg/dL Calcium 9.3 (8.5-10.1) mg/dL Magnesium (1.6-2.6) mg/dL Troponin I < 0.015 (<0.045) ng/mL POC Glucose (70-110) mg/dL Clinical Impression(s) from Imaging Studies Chest X-Ray 07/30/18 13:30 IMPRESSION: Stable cardiomegaly. Lungs are clear. Electronically Signed: Zackery Dwyer DO at 14:00 EDT Tel , Service support , Assessment/Plan RECOMMENDATIONS: 1. Initiate empiric BiPAP 12/6 cmH2O 2. Monitor nocturnal oximetry on empiric settings 3. Outpatient polysomnogram 4. Encourage weight loss 5. Possible right heart catheterization in the future 6. Obtain walking oximetry prior to discharge IMPRESSIONS: 1. Probable obstructive sleep apnea High clinical suspicion for obstructive sleep apnea leading to patient's desaturation at night. Patient does not appear to be significantly volume overloaded at this time, but is having desaturation with sawtooth pattern. Did review the risks, benefits and alternatives of therapy. Patient is agreeable for evaluation, but reports being significantly claustrophobic. Would attempt empiric BiPAP therapy of 12/6 centimeters of water tonight with a nocturnal oximetry to see if oxygenation is controlled. Outpatient polysomnogram can be evaluated. If desaturations are not controlled, discharged to a sleep study may be a consideration. Patient could have a right heart catheterization in the future for quantification and clarification of pulmonary artery pressures, but given left atrial enlargement, type II pulmonary hypertension would be a consideration. Patient could have a walking oximetry prior to discharge for evaluation of exertional hypoxemia. 2. Chronic diastolic congestive heart failure/CAD/bradycardia/hypertension/diabetes mellitus type 2 with complications Complicates care, management, recovery and prognosis. Cardiology is following. Patient is appropriately rate controlled. Code Visit Inpatient E&M: 77044 Init Hosp L2
[2018-08-01 16:50] LABS: Bedside Glucose 96 mg/dL (70-110)
[2018-08-01] MEDS: Atorvastatin Calcium 20 MG Tablet PO (21:03)
[2018-08-01 23:00] LABS: Bedside Glucose 179 mg/dL (70-110)
[2018-08-02] VITALS (9 sets, daily range): BP systolic 108–127; BP diastolic 56–65; PULSE 50–82; RESP 12–18; TEMP 36.6–36.7; O2SAT 94–98
--- NOTE | 2018-08-02 00:05 | CPS ---
pt could not tolerate 12/6, pt didn't really want 10/5 but we stayed with pt for a little while to help him get used to the bipap. cont pulse ox trend started before bipap. pt cooperative. Pt was agreeable to a nasal mask. trend and bipap started on room air.
[2018-08-02 05:48] LABS: Anion Gap 7 (5-15); BUN 21 mg/dL (7-18); BUN/Creat Ratio 21.4 RATIO (10-20); Chloride 104 mmol/L (98-107); Creatinine, Serum 0.98 mg/dL (0.70-1.30); EST Glomerular Filtration Rate 79 mL/min (>60); Est Glom Filt Rate - Afr Amer 96 mL/min (>60); Glucose 214 mg/dL (74-106); Potassium 4.1 mmol/L (3.5-5.1); Sodium Level 138 mmol/L (136-145)
[2018-08-02] MEDS: Insulin Lispro 100 UNIT/ML INSULN.PEN SC ×2 (06:34→12:21)
[2018-08-02 07:10] LABS: Bedside Glucose 218 mg/dL (70-110)
[2018-08-02] MEDS: Aspirin 325 MG Tablet PO (08:37)
[2018-08-02] MEDS: Glimepiride 2 MG Tablet PO (08:37)
[2018-08-02] MEDS: Gabapentin 600 MG Tablet PO (08:38)
[2018-08-02] MEDS: Isosorbide DN 10 MG Tablet 5 MG PO (08:38)
[2018-08-02] MEDS: LINAGLIPTIN 5 MG TABLET PO (08:39)
[2018-08-02] MEDS: Furosemide 20 MG Tablet PO (08:39)
[2018-08-02] MEDS: Lisinopril 40 MG Tablet PO (08:39)
--- NOTE | 2018-08-02 08:45 | PCM.PN.PUL ---
Subjective: The patient was seen and examined at the bedside this morning. Events from the last 24 hours have been reviewed. The patient is currently afebrile, hemodynamically stable and maintaining appropriate oxygen saturations on room air. The patient was able to tolerate BiPAP 10/ last evening. Repeat overnight oximetry on BiPAP revealed a jefe oxygen saturation of 88%, improved from the patient's prior evening study. Objective: The patient's most recent lab work, culture data and imaging studies have all been personally reviewed. - Physical Exam General: Alert, Oriented x3, Cooperative, No apparent distress HEENT: Atraumatic, PERRLA, Normocephalic Oral: Moist Mucosa, No Gingival or Mucosal Lesions/ Ulcerations Neck: Supple, No Nodes, Trachea Midline Lungs: No rhonchi, No wheeze, No rales, Diminished Cardiovascular: Regular rate, Regular Rhythm, Normal S1, Normal S2, No murmurs Abdomen: Bowel Sounds Present, Soft, Non Tender, Obese Extremities: No clubbing, No cyanosis, Edema Skin: No breakdown Musculoskeletal: No Tenderness to Palpation of Joints or Extremities, No Muscle Wasting Lymphatic: No Cervical, Supraclavicular, or Inguinal Adenopathy Neurological: Cranial nerves II-XII grossly intact, Neuro grossly intact Psych/Mental Status: Alert and oriented to time, place, person, mood and affect Vital Signs Temp Pulse Resp BP Pulse Ox 97.9 F 58 L 18 112/56 L 95 08/02/18 08:36 08/02/18 08:36 08/02/18 08:36 08/02/18 08:36 08/02/18 08:36 Oxygen Flow Rate (L/min) 21 Oxygen Delivery Method Room Air Weight: 260 lb Body Mass Index (BMI) 34.2 Intake and Output for Last 24 Hours 07/31/18 08/01/18 08/02/18 23:59 23:59 23:59 Intake Total 2509 / 2509 1320 / 1320 240 / 240 Balance 2509 / 2509 1320 / 1320 240 / 240 Laboratory Tests Past 24 Hrs 08/02/18 05:20 Sodium 138 Potassium 4.1 Chloride 104 Carbon Dioxide 27.0 Anion Gap 7 BUN 21 H Creatinine 0.98 Estim Creat Clear Calc 73.60 Est GFR (MDRD) Af Amer 96 Est GFR (MDRD) Non-Af 79 BUN/Creatinine Ratio 21.4 H Glucose 214 H Calcium 9.0 POC Glucose 08/02/18 08/01/18 08/01/18 06:32 21:06 16:40 POC Glucose 218 H 179 H 96 08/01/18 11:31 POC Glucose 219 H Clinical Impression(s) from Imaging Studies Chest X-Ray 07/30/18 13:30 IMPRESSION: Stable cardiomegaly. Lungs are clear. Electronically Signed: Zackery DewittDO roseanne at 14:00 EDT Tel , Service support , Medical Necessity - Tobacco Use Smoking Status: Former smoker Tobacco Use: Cigarettes Assessment/Plan RECOMMENDATIONS: 1. Outpatient polysomnogram. Orders have been placed. 2. Start 2 L/min of supplemental oxygen nightly until sleep study completion. 3. Follow-up in the pulmonary medicine clinic upon completion of his polysomnogram. IMPRESSIONS: 1. Suspected obstructive sleep apnea High clinical index of suspicion for underlying obstructive sleep apnea leading to periodic oxygen desaturations noted on the initial overnight oximetry study. The patient did respond favorably to the use of empiric BiPAP therapy last evening. At this time, the patient is agreeable to following up for a diagnostic polysomnogram. We will place orders for a split-night sleep study. In the interim, the patient can be prescribed 2 L/min of supplemental oxygen to be utilized nightly. The patient will require follow-up in the pulmonary medicine clinic upon completion of his polysomnogram. 2. Chronic diastolic congestive heart failure/CAD/bradycardia/hypertension/diabetes mellitus type 2 with complications Complicates care, management, recovery and prognosis. Cardiology is following. Patient is appropriately rate controlled. This note was generated with [employer] software. It may contain incorrect words, spelling, and punctuation that were not noted in checking the note before signing. Code Visit Inpatient E&M: 05269 Subs Hosp L2
--- NOTE | 2018-08-02 10:28 | CASEMGMT ---
Addendum entered by Zabrina Ramos 08/02/18 11:08: Pt will be set up with home oxygen 2 liters at bedtime at this time until sleep study can be scheduled and performed. Per Shaniqua PHAN CM, pt would like [facility] at this time. Referral faxed to [facility] at this time and F2F notes will be faxed once obtained. Dion PHAN CM Original Note: Per Donte SPRINGER, pt needs to have sleep study scheduled kylie and they would like to discharge pt today. Call to Anna in Sleep center and she states that there are no openings currently for today or the rest of July but she states that that can change on a daily basis. Anna provided with pt name/ date and she states that she will call this RN CM back. Donte SPRINGER and Dr. Hess updated at this time. Dr. Hess states that he would like pt placed on the waiting list for sleep study at this time. This RN CM will discuss with Anna when she calls back, as well as need for order. Dion PHAN CM
--- NOTE | 2018-08-02 10:57 | CASEMGMT ---
EMILIE ZARATE Note: MENDOZA form discussed with pt including being treatment for chest pain and nocturnal dyspnea under Observation status. Pt has [employer] [facility] PPO. Explained pt can call insurance or if questions arise with billing, can call to [facility] PFS and they will assist. No questions, pt signed form and copy given to him. -Dr. Hess in room discussing outpt sleep study with pt. Will be scheduled through sleep lab. Recommended pt have oxygen @ night and EMILIE ZARATE let pt know Peng and Byron are [employer] with insurance. Pt agreeable to Peng. EMILIE Wasserman CM updated. Shaniqua AWAD RN ACM
[2018-08-02 11:30] LABS: Bedside Glucose 274 mg/dL (70-110)
--- NOTE | 2018-08-02 11:54 | DCINST_ITS ---
You will use the following diet at home:: Calorie/Carbohydrate Controlled (specify 1200, 1400, etc) - 1800 antonia / day, Cardiac - 2500 mg Sodium daily Your food should be the consistency of: Regular Your liquids should be the consistency of: Regular/Thin Discharge Activity: Return to Normal Activity Additional Instructions: Continue O2 every night, when sleep study opening is available take it as soon as possible. Allergies/Adverse Reactions: Allergies exenatide [From Byetta] Adverse Reaction (Severe, Verified 07/30/18 14:03) Shaking and Vomiting Medications to take at Discharge Aspirin 325 mg PO DAILY@0800 01/11/14 ascorbic acid (vitamin C) 500 mg capsule 500 mg PO DAILY 04/10/17 zinc 50 mg tablet 50 mg PO DAILY 04/10/17 tadalafil 10 mg tablet 10 mg PO QDAY PRN tab 07/07/17 [id number]-[id number]-qytatoy-min 3,300 unit-5 mg-200mg-75 unit tablet ER 1 tab PO QDAY 07/07/17 garlic 500 mg capsule 500 mg PO DAILY 01/08/18 Gabapentin [Neurontin] 600 mg PO BID 07/30/18 Glimepiride 2 mg PO DAILY 07/30/18 Lisinopril [Zestril] 40 mg PO DAILY 07/30/18 Metformin HCl [Glucophage] 1,000 mg PO DAILY 07/30/18 Metformin HCl [Glucophage] 1,500 mg PO QHS 07/30/18 Multivit-Min/FA/Lycopen/Lutein [Centrum Silver Tablet] 1 each PO DAILY 07/30/18 [place]-3S/Dha/Epa/Fish Oil [Fish Oil Dr 1,000 mg Softgel] 1 each PO DAILY 07/30/18 Simvastatin 40 mg PO DAILY 07/30/18 Sitagliptin Phosphate [Januvia] 100 mg PO DAILY 07/30/18 Furosemide [Lasix] 20 mg PO DAILY #30 tablet 08/02/18 Isosorbide DN [Isordil] 5 mg PO BID #60 tablet 08/02/18 Potassium Chloride [K-Dur] 10 meq PO DAILYCM #30 tablet 08/02/18 The following prescriptions were given: Furosemide [Lasix] 20 mg PO DAILY #30 tablet Isosorbide DN [Isordil] 5 mg PO BID #60 tablet Potassium Chloride [K-Dur] 10 meq PO DAILYCM #30 tablet Primary Care Physician: Faith Jay MD [Primary Care Provider] - Please follow up with your Primary Care Physician in: 1-2 weeks Test Results: Test results from this visit will be discussed in further detail at your follow- up appointment, if applicable. Please Follow Up With: Royal Waite MD When: 2 weeks Please Follow Up With: Misha Szymanski MD When: as directed Proposed Discharge Date: 08/02/18
--- NOTE | 2018-08-02 11:54 | PCM.DC.SUM ---
<Rayray Wilson - Last Filed: 08/02/18 11:54> Discharge Date and Diagnosis Date of Admission: 07/30/18 Date of Discharge: 08/02/18 - Primary Discharge Diagnosis Chest pain / SOB 2/2 underlying systolic CHF Bradycardia 2/2 metoprolol Suspected NORBERT, sleep disordered breathing CAD hx CABG HTN HLD T2DM - Secondary Discharge Diagnosis Chronic Problems (Last Updated 07/30/18 @ 15:22 by Jeronimo Paz MD) Pure hypercholesterolemia (Chronic) Essential (primary) hypertension (Chronic) History of left heart catheterization (Chronic) November 2002, July 2007 Stented coronary artery (Chronic) PTCA and ZARIA of CX November 2002 Atherosclerotic heart disease of [place] coronary artery without angina pectoris (Chronic) July 2002: HORN to LAD, SVG to Ramus, Left radial graft to OM; PTCA and ZARIA of CX November 2002 Hx of CABG (Chronic) July 2002: HORN to LAD, SVG to Ramus, Left radial graft to OM Type 2 diabetes mellitus (Chronic) Obesity (Chronic) Kidney atrophy (Chronic) Kidney stones (Chronic) Hospital Course and Treatment Imaging Results: RAD/Chest 1 View (Portable) IMPRESSION: Stable cardiomegaly. Lungs are clear. Echo: Interpretation Summary Mildly dilated left ventricle. The 3D full volume ejection fraction is 45-50 %. The left atrium is severely enlarged. Stage 2 diastolic dysfunction. Consults: Cardiology - Joesph Pulmonology - Ravindra/Deshawn Operations: None Procedures: 2-D Echocardiogram, - - overnight trending pulse ox Summary of Care Provided: Hospital Course: The patient is a 73 year old M with pmhx of CAD, prior CABG, DMt2, obesity, HTN, HLD, who presented to the ER with c/o SOB and right sided SOB while sitting in his chair watching TV. He had a stress test in [facility] of the previous year that was normal at the time. He had negative troponin, negative EKG, and negative CXR. He was admitted to PCU with concerns for his underling cardiac disease, and cardiology was consulted. He became bradycardic into the 30s overnight with no appreciable block. His metoprolol was decreased to 12.5. He continued to be bradycardic at night so metoprolol was stopped. Trop and repeat EKGs were negative. On further investigation he revealed symptoms such as PND and orthopnea, and waking up at night night breathing with witnessed apnea. Cardiology started him on lasix and potassium, and an overnight trending pulse ox was performed. Echo showed decreased EF and changes as above He was not felt to be in acute CHF exacerbation as he has no LE edema, clear lungs on exam, and clear CXR, but likely has chronic systolic CHF. Actos was discontinued due to CHF. 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 Package Sealer Machine provided education about his salt intake and diabetes. Overnight pulse ox showed desaturations c/w sleep apnea, and he had a high stopbang store. Pulmonary medicine was consulted and felt that he likely had sleep apnea. He trialed bipap overnight and tolerated this well with a nasal mask, and had no desats on the trending pulse ox. He felt refreshed in the AM. He will require nasal cannula O2 at night at 2 lpm in order to maintain adequate saturations of his O2, at least until he can have a formal sleep study. He was discharged home in stable condition. Please follow up with PCP in 1-2 weeks, cardiology as directed, and pulmonology in 2 weeks. This patient was seen by Rayray Wilson PA-C under the supervision of Dr. Foster. [] - Physical Exam General: Alert, Oriented x3, Cooperative HEENT: Atraumatic, PERRLA, EOMI, Normocephalic Neck: Supple, No JVD, Negative Carotid Bruits Lungs: Clear to auscultation, Normal air movement Cardiovascular: Regular rate, No murmurs Abdomen: Bowel Sounds Present, Soft, Non Tender, Obese Extremities: No edema, Capillary Refill Less than 3 Seconds Skin: No rashes, No breakdown Musculoskeletal: No Tenderness to Palpation of Joints or Extremities Neurological: Cranial nerves II-XII grossly intact Psych/Mental Status: Normal Affect, Appropriate, Alert and oriented to time, place, person, mood and affect Vital Signs Temp Pulse Resp BP Pulse Ox 97.9 F 58 L 18 112/56 L 95 08/02/18 08:36 08/02/18 08:36 08/02/18 08:36 08/02/18 08:36 08/02/18 08:36 Oxygen Flow Rate (L/min) 21 Oxygen Delivery Method Room Air Weight: 260 lb Body Mass Index (BMI) 34.2 Intake and Output for Last 24 Hours 07/31/18 08/01/18 08/02/18 23:59 23:59 23:59 Intake Total 2509 / 2509 1320 / 1320 240 / 240 Balance 2509 / 2509 1320 / 1320 240 / 240 Laboratory Tests Past 24 Hrs 08/02/18 05:20 Sodium 138 Potassium 4.1 Chloride 104 Carbon Dioxide 27.0 Anion Gap 7 BUN 21 H Creatinine 0.98 Estim Creat Clear Calc 73.60 Est GFR (MDRD) Af Amer 96 Est GFR (MDRD) Non-Af 79 BUN/Creatinine Ratio 21.4 H Glucose 214 H Calcium 9.0 POC Glucose 08/02/18 08/02/18 08/01/18 11:22 06:32 21:06 POC Glucose 274 H 218 H 179 H 08/01/18 16:40 POC Glucose 96 Discharge Diet: 1800 Calorie Control Diet, - - 2500 mg sodium daily diet Discharge Activity: Return to Normal Activity Home Medications: Medications to take at Discharge Aspirin 325 mg PO DAILY@0800 01/11/14 ascorbic acid (vitamin C) 500 mg capsule 500 mg PO DAILY 04/10/17 zinc 50 mg tablet 50 mg PO DAILY 04/10/17 tadalafil 10 mg tablet 10 mg PO QDAY PRN tab 07/07/17 [id number]-[id number]-min 3,300 unit-5 mg-200mg-75 unit tablet ER 1 tab PO QDAY 07/07/17 garlic 500 mg capsule 500 mg PO DAILY 01/08/18 Gabapentin [Neurontin] 600 mg PO BID 07/30/18 Glimepiride 2 mg PO DAILY 07/30/18 Lisinopril [Zestril] 40 mg PO DAILY 07/30/18 Metformin HCl [Glucophage] 1,000 mg PO DAILY 07/30/18 Metformin HCl [Glucophage] 1,500 mg PO QHS 07/30/18 Multivit-Min/FA/Lycopen/Lutein [Centrum Silver Tablet] 1 each PO DAILY 07/30/18 [place]-3S/Dha/Epa/Fish Oil [Fish Oil Dr 1,000 mg Softgel] 1 each PO DAILY 07/30/18 Simvastatin 40 mg PO DAILY 07/30/18 Sitagliptin Phosphate [Januvia] 100 mg PO DAILY 05/03/19 Furosemide [Lasix] 20 mg PO DAILY #30 tablet 08/02/18 Isosorbide DN [Isordil] 5 mg PO BID #60 tablet 08/02/18 Potassium Chloride [K-Dur] 10 meq PO DAILYCM #30 tablet 08/02/18 Following Prescrptions Were Given to Patient: Furosemide [Lasix] 20 mg PO DAILY #30 tablet Isosorbide DN [Isordil] 5 mg PO BID #60 tablet Potassium Chloride [K-Dur] 10 meq PO DAILYCM #30 tablet Primary Care Physician: Faith Jay MD [Primary Care Provider] - Please follow up with your Primary Care Physician in: 1-2 weeks Please Follow Up With: Royal Waite MD When: 2 weeks Please Follow Up With: Misha Szymanski MD When: as directed Disposition: Home Minutes spent on discharge:: 35 Patient Condition:: Stable Medical Necessity - Tobacco Use Smoking Status: Former smoker Tobacco Use: Cigarettes Meaningful Use Info Meaningful Use Diagnoses (Choose all that apply): CHF - CHF MIGUEL/ARB ordered at discharge?: Yes Documented LVEF (%): 45 <Magda Foster - Last Filed: 08/02/18 13:28> Discharge Date and Diagnosis - Secondary Discharge Diagnosis Chronic Problems (Last Updated 07/30/18 @ 15:22 by Jeronimo Paz MD) Pure hypercholesterolemia (Chronic) Essential (primary) hypertension (Chronic) History of left heart catheterization (Chronic) November 2002, July 2007 Stented coronary artery (Chronic) PTCA and ZARIA of CX November 2002 Atherosclerotic heart disease of [place] coronary artery without angina pectoris (Chronic) July 2002: HORN to LAD, SVG to Ramus, Left radial graft to OM; PTCA and ZARIA of CX November 2002 Hx of CABG (Chronic) July 2002: HORN to LAD, SVG to Ramus, Left radial graft to OM Type 2 diabetes mellitus (Chronic) Obesity (Chronic) Kidney atrophy (Chronic) Kidney stones (Chronic) Hospital Course and Treatment Summary of Care Provided: Patient seen by Rayray Wilson PA-C under my supervision The patient is a 73 year old M with a PMH as listed above. He was admitted with a complaint of chest pain and shortness of breath which started the night before admission. Pain was in the left side of his chest and described as squeezing and with no aggravating or relieving factors. He was admitted and managed for chest pain to rule out ACS. EKG showed no acute ST changes and showed only bradycardia. Chest x-ray showed no acute findings. Troponins x3 were negative. Cardiology was consulted as he had had a negative stress test done in January 2018. His metoprolol was decreased from 25 mg twice daily to 12 mg twice daily on account of bradycardia. He had a 2D echo showed EF of 45 to 50% with stage II diastolic dysfunction and severely enlarged left atrium. He also had overnight pulse oximetry due to nocturnal shortness of breath and apneic episodes. Pulmonology was consulted o/a of overnight pulse oximetry which showed apneic episodes and hypoxia. He was put on BiPAP which he tolerated. Metoprolol was subsequently stopped as bradycardia persisted. Patient was discharged home with 2 L of home oxygen nocturnally on 08/02/2018. He is follow-up with his primary care doctor and cardiology in 1 week. He is also to follow-up with pulmonology and have a formal sleep study. Patient seen and examined prior to discharge. He had no complaints and felt well. Review of systems otherwise negative. Labs and vitals reviewed. Home medication reviewed and reconciled. o/e: Vital Signs Height 6 ft 1 in Weight: 260 lb Weight in Pounds 260.0 lbs Pulse Ox 95 Temperature 97.9 F Pulse Rate 80 Respiratory Rate 18 Blood Pressure [BP] 150/69 Blood Pressure 112/56 Blood Pressure Position [BP] Semi-Fowlers Blood Pressure Position Sitting []General: Alert, Oriented x3, Cooperative HEENT: Atraumatic, PERRLA, EOMI, Normocephalic Neck: Supple, No JVD, Negative Carotid Bruits Lungs: Clear to auscultation, Normal air movement Cardiovascular: Regular rate, No murmurs Abdomen: Bowel Sounds Present, Soft, Non Tender Extremities: No edema, Capillary Refill Less than 3 Seconds Skin: No rashes, No breakdown Musculoskeletal: No Tenderness to Palpation of Joints or Extremities Neurological: Cranial nerves II-XII grossly intact Psych/Mental Status: Normal Affect, Appropriate, Alert and oriented to time, place, person, mood and affect Plan as above. Rest of note as per Rayray Wilson PA-C's note which I have reviewed and endorsed. - Physical Exam Vital Signs Temp Pulse Resp BP Pulse Ox 97.9 F 80 18 112/56 L 95 08/02/18 08:36 08/02/18 11:01 08/02/18 08:36 08/02/18 08:36 08/02/18 08:36 Oxygen Flow Rate (L/min) 21 Oxygen Delivery Method Room Air Weight: 260 lb Body Mass Index (BMI) 34.2 Intake and Output for Last 24 Hours 07/31/18 08/01/18 08/02/18 23:59 23:59 23:59 Intake Total 2509 / 2509 1320 / 1320 815 / 815 Balance 2509 / 2509 1320 / 1320 815 / 815 Laboratory Tests Past 24 Hrs 08/02/18 05:20 Sodium 138 Potassium 4.1 Chloride 104 Carbon Dioxide 27.0 Anion Gap 7 BUN 21 H Creatinine 0.98 Estim Creat Clear Calc 73.60 Est GFR (MDRD) Af Amer 96 Est GFR (MDRD) Non-Af 79 BUN/Creatinine Ratio 21.4 H Glucose 214 H Calcium 9.0 POC Glucose 08/02/18 08/02/18 08/01/18 11:22 06:32 21:06 POC Glucose 274 H 218 H 179 H 08/01/18 16:40 POC Glucose 96 Code Visit OBSV E&M: 11656 Observation care discharge
--- NOTE | 2018-08-02 12:03 | DS.PCM_ITS ---
<Rayray Wilson - Last Filed: 08/02/18 11:54> Discharge Date and Diagnosis Date of Admission: 07/30/18 Date of Discharge: 08/02/18 - Primary Discharge Diagnosis Chest pain / SOB 2/2 underlying systolic CHF Bradycardia 2/2 metoprolol Suspected NORBERT, sleep disordered breathing CAD hx CABG HTN HLD T2DM - Secondary Discharge Diagnosis Chronic Problems (Last Updated 07/30/18 @ 15:22 by Jeronimo Paz MD) Pure hypercholesterolemia (Chronic) Essential (primary) hypertension (Chronic) History of left heart catheterization (Chronic) November 2002, July 2007 Stented coronary artery (Chronic) PTCA and ZARIA of CX November 2002 Atherosclerotic heart disease of [place] coronary artery without angina pectoris (Chronic) July 2002: HORN to LAD, SVG to Ramus, Left radial graft to OM; PTCA and ZARIA of CX November 2002 Hx of CABG (Chronic) July 2002: HORN to LAD, SVG to Ramus, Left radial graft to OM Type 2 diabetes mellitus (Chronic) Obesity (Chronic) Kidney atrophy (Chronic) Kidney stones (Chronic) Hospital Course and Treatment Imaging Results: RAD/Chest 1 View (Portable) IMPRESSION: Stable cardiomegaly. Lungs are clear. Echo: Interpretation Summary Mildly dilated left ventricle. The 3D full volume ejection fraction is 45-50 %. The left atrium is severely enlarged. Stage 2 diastolic dysfunction. Consults: Cardiology - Joesph Pulmonology - Ravindra/Deshawn Operations: None Procedures: 2-D Echocardiogram, - - overnight trending pulse ox Summary of Care Provided: Hospital Course: The patient is a 73 year old M with pmhx of CAD, prior CABG, DMt2, obesity, HTN, HLD, who presented to the ER with c/o SOB and right sided SOB while sitting in his chair watching TV. He had a stress test in [facility] of the previous year that was normal at the time. He had negative troponin, negative EKG, and negative CXR. He was admitted to PCU with concerns for his underling cardiac disease, and cardiology was consulted. He became bradycardic into the 30s overnight with no appreciable block. His metoprolol was decreased to 12.5. He continued to be bradycardic at night so metoprolol was stopped. Trop and repeat EKGs were negative. On further investigation he revealed symptoms such as PND and orthopnea, and waking up at night night breathing with witnessed apnea. Cardiology started him on lasix and potassium, and an overnight trending pulse ox was performed. Echo showed decreased EF and changes as above He was not felt to be in acute CHF exacerbation as he has no LE edema, clear lungs on exam, and clear CXR, but likely has chronic systolic CHF. Actos was discontinued due to CHF. 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 Internal Grinder Set Up Operator provided education about his salt intake and diabetes. Overnight pulse ox showed desaturations c/w sleep apnea, and he had a high stopbang store. Pulmonary medicine was consulted and felt that he likely had sleep apnea. He trialed bipap overnight and tolerated this well with a nasal mask, and had no desats on the trending pulse ox. He felt refreshed in the AM. He will require nasal cannula O2 at night at 2 lpm in order to maintain adequate saturations of his O2, at least until he can have a formal sleep study. He was discharged home in stable condition. Please follow up with PCP in 1-2 weeks, cardiology as directed, and pulmonology in 2 weeks. This patient was seen by Rayray Wilson PA-C under the supervision of Dr. Foster. [] - Physical Exam General: Alert, Oriented x3, Cooperative HEENT: Atraumatic, PERRLA, EOMI, Normocephalic Neck: Supple, No JVD, Negative Carotid Bruits Lungs: Clear to auscultation, Normal air movement Cardiovascular: Regular rate, No murmurs Abdomen: Bowel Sounds Present, Soft, Non Tender, Obese Extremities: No edema, Capillary Refill Less than 3 Seconds Skin: No rashes, No breakdown Musculoskeletal: No Tenderness to Palpation of Joints or Extremities Neurological: Cranial nerves II-XII grossly intact Psych/Mental Status: Normal Affect, Appropriate, Alert and oriented to time, place, person, mood and affect Vital Signs Temp Pulse Resp BP Pulse Ox 97.9 F 58 L 18 112/56 L 95 08/02/18 08:36 08/02/18 08:36 08/02/18 08:36 08/02/18 08:36 08/02/18 08:36 Oxygen Flow Rate (L/min) 21 Oxygen Delivery Method Room Air Weight: 260 lb Body Mass Index (BMI) 34.2 Intake and Output for Last 24 Hours 07/31/18 08/01/18 08/02/18 23:59 23:59 23:59 Intake Total 2509 / 2509 1320 / 1320 240 / 240 Balance 2509 / 2509 1320 / 1320 240 / 240 Laboratory Tests Past 24 Hrs 08/02/18 05:20 Sodium 138 Potassium 4.1 Chloride 104 Carbon Dioxide 27.0 Anion Gap 7 BUN 21 H Creatinine 0.98 Estim Creat Clear Calc 73.60 Est GFR (MDRD) Af Amer 96 Est GFR (MDRD) Non-Af 79 BUN/Creatinine Ratio 21.4 H Glucose 214 H Calcium 9.0 POC Glucose 08/02/18 08/02/18 08/01/18 11:22 06:32 21:06 POC Glucose 274 H 218 H 179 H 08/01/18 16:40 POC Glucose 96 Discharge Diet: 1800 Calorie Control Diet, - - 2500 mg sodium daily diet Discharge Activity: Return to Normal Activity Home Medications: Medications to take at Discharge Aspirin 325 mg PO DAILY@0800 01/11/14 ascorbic acid (vitamin C) 500 mg capsule 500 mg PO DAILY 04/10/17 zinc 50 mg tablet 50 mg PO DAILY 04/10/17 tadalafil 10 mg tablet 10 mg PO QDAY PRN tab 07/07/17 [id number]-E-[id number]-zvhnihj-min 3,300 unit-5 mg-200mg-75 unit tablet ER 1 tab PO QDAY 07/07/17 garlic 500 mg capsule 500 mg PO DAILY 01/08/18 Gabapentin [Neurontin] 600 mg PO BID 07/30/18 Glimepiride 2 mg PO DAILY 07/30/18 Lisinopril [Zestril] 40 mg PO DAILY 07/30/18 Metformin HCl [Glucophage] 1,000 mg PO DAILY 07/30/18 Metformin HCl [Glucophage] 1,500 mg PO QHS 07/30/18 Multivit-Min/FA/Lycopen/Lutein [Centrum Silver Tablet] 1 each PO DAILY 07/30/18 [place]-3S/Dha/Epa/Fish Oil [Fish Oil Dr 1,000 mg Softgel] 1 each PO DAILY 07/30/18 Simvastatin 40 mg PO DAILY 07/30/18 Sitagliptin Phosphate [Januvia] 100 mg PO DAILY 05/03/19 Furosemide [Lasix] 20 mg PO DAILY #30 tablet 08/02/18 Isosorbide DN [Isordil] 5 mg PO BID #60 tablet 08/02/18 Potassium Chloride [K-Dur] 10 meq PO DAILYCM #30 tablet 08/02/18 Following Prescrptions Were Given to Patient: Furosemide [Lasix] 20 mg PO DAILY #30 tablet Isosorbide DN [Isordil] 5 mg PO BID #60 tablet Potassium Chloride [K-Dur] 10 meq PO DAILYCM #30 tablet Primary Care Physician: Faith Jay MD [Primary Care Provider] - Please follow up with your Primary Care Physician in: 1-2 weeks Please Follow Up With: Royal Waite MD When: 2 weeks Please Follow Up With: Misha Szymanski MD When: as directed Disposition: Home Minutes spent on discharge:: 35 Patient Condition:: Stable Medical Necessity - Tobacco Use Smoking Status: Former smoker Tobacco Use: Cigarettes Meaningful Use Info Meaningful Use Diagnoses (Choose all that apply): CHF - CHF MIGUEL/ARB ordered at discharge?: Yes Documented LVEF (%): 45 <Magda Foster - Last Filed: 08/02/18 13:28> Discharge Date and Diagnosis - Secondary Discharge Diagnosis Chronic Problems (Last Updated 07/30/18 @ 15:22 by Jeronimo Paz MD) Pure hypercholesterolemia (Chronic) Essential (primary) hypertension (Chronic) History of left heart catheterization (Chronic) November 2002, July 2007 Stented coronary artery (Chronic) PTCA and ZARIA of CX November 2002 Atherosclerotic heart disease of [place] coronary artery without angina pectoris (Chronic) July 2002: HORN to LAD, SVG to Ramus, Left radial graft to OM; PTCA and ZARIA of CX November 2002 Hx of CABG (Chronic) July 2002: HORN to LAD, SVG to Ramus, Left radial graft to OM Type 2 diabetes mellitus (Chronic) Obesity (Chronic) Kidney atrophy (Chronic) Kidney stones (Chronic) Hospital Course and Treatment Summary of Care Provided: Patient seen by Rayray Wilson PA-C under my supervision The patient is a 73 year old M with a PMH as listed above. He was admitted with a complaint of chest pain and shortness of breath which started the night before admission. Pain was in the left side of his chest and described as squeezing and with no aggravating or relieving factors. He was admitted and managed for chest pain to rule out ACS. EKG showed no acute ST changes and showed only bradycardia. Chest x-ray showed no acute findings. Troponins x3 were negative. Cardiology was consulted as he had had a negative stress test done in January 2018. His metoprolol was decreased from 25 mg twice daily to 12 mg twice daily on account of bradycardia. He had a 2D echo showed EF of 45 to 50% with stage II diastolic dysfunction and severely enlarged left atrium. He also had overnight pulse oximetry due to nocturnal shortness of breath and apneic episodes. Pulmonology was consulted o/a of overnight pulse oximetry which showed apneic episodes and hypoxia. He was put on BiPAP which he tolerated. Metoprolol was subsequently stopped as bradycardia persisted. Patient was discharged home with 2 L of home oxygen nocturnally on 08/02/2018. He is follow- up with his primary care doctor and cardiology in 1 week. He is also to follow- up with pulmonology and have a formal sleep study. Patient seen and examined prior to discharge. He had no complaints and felt well. Review of systems otherwise negative. Labs and vitals reviewed. Home medication reviewed and reconciled. o/e: Vital Signs Height 6 ft 1 in Weight: 260 lb Weight in Pounds 260.0 lbs Pulse Ox 95 Temperature 97.9 F Pulse Rate 80 Respiratory Rate 18 Blood Pressure [BP] 150/69 Blood Pressure 112/56 Blood Pressure Position [BP] Semi-Fowlers Blood Pressure Position Sitting []General: Alert, Oriented x3, Cooperative HEENT: Atraumatic, PERRLA, EOMI, Normocephalic Neck: Supple, No JVD, Negative Carotid Bruits Lungs: Clear to auscultation, Normal air movement Cardiovascular: Regular rate, No murmurs Abdomen: Bowel Sounds Present, Soft, Non Tender Extremities: No edema, Capillary Refill Less than 3 Seconds Skin: No rashes, No breakdown Musculoskeletal: No Tenderness to Palpation of Joints or Extremities Neurological: Cranial nerves II-XII grossly intact Psych/Mental Status: Normal Affect, Appropriate, Alert and oriented to time, place, person, mood and affect Plan as above. Rest of note as per Rayray Wilson PA-C's note which I have reviewed and endorsed. - Physical Exam Vital Signs Temp Pulse Resp BP Pulse Ox 97.9 F 80 18 112/56 L 95 08/02/18 08:36 08/02/18 11:01 08/02/18 08:36 08/02/18 08:36 08/02/18 08:36 Oxygen Flow Rate (L/min) 21 Oxygen Delivery Method Room Air Weight: 260 lb Body Mass Index (BMI) 34.2 Intake and Output for Last 24 Hours 07/31/18 08/01/18 08/02/18 23:59 23:59 23:59 Intake Total 2509 / 2509 1320 / 1320 815 / 815 Balance 2509 / 2509 1320 / 1320 815 / 815 Laboratory Tests Past 24 Hrs 08/02/18 05:20 Sodium 138 Potassium 4.1 Chloride 104 Carbon Dioxide 27.0 Anion Gap 7 BUN 21 H Creatinine 0.98 Estim Creat Clear Calc 73.60 Est GFR (MDRD) Af Amer 96 Est GFR (MDRD) Non-Af 79 BUN/Creatinine Ratio 21.4 H Glucose 214 H Calcium 9.0 POC Glucose 08/02/18 08/02/18 08/01/18 11:22 06:32 21:06 POC Glucose 274 H 218 H 179 H 08/01/18 16:40 POC Glucose 96 Code Visit OBSV E&M: 33793 Observation care discharge
--- NOTE | 2018-08-02 12:57 | CASEMGMT ---
F2F from Dr. Hess and discharge summary faxed to [facility] at this time. Dion PHAN CM
== END 2018-08-02 11:53 | disposition home or self-care (01) ==
LOC: ED 15:42 → PCU 07-31 07:15
PROVIDERS: Physician Assistant; Admitting Provider Hospitalist; Emergency Provider Emergency Medicine; Family Provider Internal Medicine; PCP Internal Medicine; Visit Provider Student in an Organized Health Care Education/Training Program
DX: I11.0 Hypertensive heart disease with heart failure (principal); I50.42 Chronic combined systolic (congestive) and diastolic (congestive) heart failure; E11.42 Type 2 diabetes mellitus with diabetic polyneuropathy; I25.10 Atherosclerotic heart disease of native coronary artery without angina pectoris; E78.00 Pure hypercholesterolemia, unspecified; E66.9 Obesity, unspecified; Z95.1 Presence of aortocoronary bypass graft; Z79.899 Other long term (current) drug therapy; Z79.82 Long term (current) use of aspirin; Z79.84 Long term (current) use of oral hypoglycemic drugs; Z68.34 Body mass index [BMI] 34.0-34.9, adult; Z71.3 Dietary counseling and surveillance; Z87.891 Personal history of nicotine dependence; N26.1 Atrophy of kidney (terminal); R00.1 Bradycardia, unspecified; T44.7X5A Adverse effect of beta-adrenoreceptor antagonists, initial encounter
CPT/HCPCS: 36415; 71045; 80048; 82962; 83735; 84484; 85025; 85379; 93005; 93306; 94002; 94003; 94762; 96360; 96361; 96372; 97802; 99218; 99285; J7030; Q9957; A4216; C8929; G0378

== ENCOUNTER → 2018-08-09 23:44 | Outpatient (CLI) | payer MEDICARE, SELFPAY ==
[2018-07-30 16:43] VITALS: BMI 34.2
== END ==
LOC: SL 23:44
PROVIDERS: Family Provider Internal Medicine; PCP Internal Medicine; Referring Provider Internal Medicine Critical Care Medicine; Visit Provider Internal Medicine Critical Care Medicine
DX: G47.10 Hypersomnia, unspecified (principal); G47.33 Obstructive sleep apnea (adult) (pediatric)
CPT/HCPCS: 95811

== ENCOUNTER → 2018-08-18 09:39 | Outpatient (CLI) | payer MEDICARE, SELFPAY ==
[2018-08-13 11:28] VITALS: BMI 33.9
[2018-08-18 08:50] VITALS: BMI 34.0
== END ==
PROVIDERS: Family Provider Internal Medicine; PCP Internal Medicine; Referring Provider Internal Medicine Cardiovascular Disease; Visit Provider Internal Medicine Cardiovascular Disease
DX: R00.1 Bradycardia, unspecified (principal)
CPT/HCPCS: 93225; 93226

== ENCOUNTER → 2018-09-06 08:41 | Outpatient (CLI) | payer MEDICARE, SELFPAY ==
[2018-08-18 15:24] VITALS: BMI 34.0
[2018-09-06 12:52] LABS: Hemoglobin A1c 7.7 % (4.2-6.3)
[2018-09-06 13:01] LABS: Anion Gap 6 (5-15); BUN 16 mg/dL (7-18); BUN/Creat Ratio 14.4 RATIO (10-20); Calcium,Total 9.2 mg/dL (8.5-10.1); Chloride 101 mmol/L (98-107); Creatinine, Serum 1.11 mg/dL (0.70-1.30); EST Glomerular Filtration Rate 69 mL/min (>60); Est Glom Filt Rate - Afr Amer 83 mL/min (>60); Glucose 250 mg/dL (74-106); Potassium 4.8 mmol/L (3.5-5.1); Sodium Level 136 mmol/L (136-145)
[2018-09-06 13:02] LABS: Microalbumin,Random Urine 23.8 mg/L (NO RANGE EST.); Microalbumin:Creatinine Ratio 19.5 mg/g CRE (<30 mg/g CRE)
== END ==
PROVIDERS: Family Provider Internal Medicine; PCP Internal Medicine; Visit Provider Nurse Practitioner Family
DX: E11.9 Type 2 diabetes mellitus without complications (principal)
CPT/HCPCS: 36415; 80048; 82043; 82570; 83036

== ENCOUNTER → 2018-10-22 07:42 | Outpatient (CLI) | payer MEDICARE, SELFPAY ==
[2018-08-18 08:50] VITALS: BMI 34.0
[2018-08-18 15:24] VITALS: BMI 34.0
--- NOTE | 2018-10-22 11:00 | PFTCOMP_ITS ---
COMPLETE PULMONARY FUNCTION TEST INTERPRETATION Brief HPI: Patient is a 73 year old male, currently under the care of Nettie Winkler, who presents to [facility] for complete pulmonary function tests secondary to diagnosis of dyspnea. Respiratory therapist reports good effort and reproducible results. Interpretation: Forced expiration spirometry shows no large airways obstructive ventilatory defect with an FEV1 of 81% predicted. There is no significant bronchodilator response by strict ATS criteria. Spirograms are of good quality and plateau slowly, indicating slowly emptying areas of the lungs. The respiratory flow volume loop shows decreased expiratory flow rates at high lung volumes consistent with small airways obstruction. Lung volumes by body plethysmography show an elevated total lung capacity at 11.15 L, 156% predicted. All other lung volumes are increased symmetrically. Diffusion capacity by carbon monoxide is normal at 96% predicted. The airway resistance is normal. No previous pulmonary function tests were available for review. Impression: Grossly normal pulmonary function test with some stigmata of possible reversible small airways disease.
== END ==
PROVIDERS: Family Provider Internal Medicine; PCP Internal Medicine; Referring Provider Nurse Practitioner Acute Care; Visit Provider Nurse Practitioner Acute Care
DX: R06.00 Dyspnea, unspecified (principal)
CPT/HCPCS: 94060; 94726; 94729

== ENCOUNTER → 2018-10-29 12:16 | Outpatient (CLI) | payer MEDICARE, SELFPAY ==
[2018-08-18 08:50] VITALS: BMI 34.0
[2018-08-18 15:24] VITALS: BMI 34.0
[2018-10-29 12:49] VITALS: PULSE 48; PULSE 49; PULSE 71; PULSE 72; PULSE 77; PULSE 79; PULSE 82; PULSE 83; O2SAT 94; O2SAT 95; O2SAT 96; O2SAT 97
--- NOTE | 2018-10-30 08:54 | PCM.PSN.6M ---
PSN 6 Minute Walk Test - 6 Minute Walk Test 6 Minute Walk Test: 6 Minute Walk Test PSN:6-Minute Walk Test Start: 10/29/18 12:48 Freq: Status: Active Protocol: [id number].[id number] Document 10/29/18 12:49 JHONNY (Rec: 10/29/18 12:51 JHONNY [id number]) 6 Minute Walk Test Date Performed 10/29/18 Time Performed 12:30 Height 6 ft 1 in Weight: 256 lb Weight in Pounds 256.[address]: Nettie Winkler Assistive device used: None Pre-test Oxygen Delivery Method Room Air Pulse Ox (%) 97 Pulse Rate (60-100 beats/min) 48 L Dyspnea Belinda Scale (0-10) 0 Exertion Belinda Scale (6-20) 6 1st minute Oxygen Delivery Method Room Air Pulse Ox (%) 96 Pulse Rate (60-100 beats/min) 71 2nd minute Oxygen Delivery Method Room Air Pulse Ox (%) 95 Pulse Rate (60-100 beats/min) 72 3rd minute Oxygen Delivery Method Room Air Pulse Ox (%) 94 Pulse Rate (60-100 beats/min) 77 4th minute Oxygen Delivery Method Room Air Pulse Ox (%) 94 Pulse Rate (60-100 beats/min) 82 5th minute Oxygen Delivery Method Room Air Pulse Ox (%) 94 Pulse Rate (60-100 beats/min) 83 6th minute Oxygen Delivery Method Room Air Pulse Ox (%) 95 Pulse Rate (60-100 beats/min) 79 Dyspnea Belinda Scale (0-10) 0 Exertion Belinda Scale (6-20) 11 Post-test Oxygen Delivery Method Room Air Pulse Ox (%) 96 Pulse Rate (60-100 beats/min) 49 L Full Laps Walked 16 Partial Lap, Number of Tiles Walked 50 Total Distance Walked (ft) 994 - Interpretation Interpretation: The patient ambulated 994 feet over the course of 6 minutes beginning on room air without assistive devices or breaks. Pretesting oxygen saturation was noted to be 97% on room air. With ambulation, the jefe oxygen saturation was 94%. There was no significant exertional oxygen desaturation. - Recommendations Recommendations: There is no indication for the use of supplemental oxygen at this time.
== END ==
PROVIDERS: Family Provider Internal Medicine; PCP Internal Medicine; Referring Provider Nurse Practitioner Acute Care; Visit Provider Nurse Practitioner Acute Care
DX: R06.00 Dyspnea, unspecified (principal)
CPT/HCPCS: 94618

== ENCOUNTER → 2019-03-04 08:48 | Outpatient (CLI) | payer MEDICARE, SELFPAY ==
[2019-03-03 13:58] VITALS: BMI 33.3
[2019-03-04 12:25] LABS: Anion Gap 4 (5-15); BUN 13 mg/dL (7-18); BUN/Creat Ratio 13.8 RATIO (10-20); Calcium,Total 9.1 mg/dL (8.5-10.1); Chloride 104 mmol/L (98-107); Creatinine, Serum 0.94 mg/dL (0.70-1.30); EST Glomerular Filtration Rate 83 mL/min (>60); Est Glom Filt Rate - Afr Amer 100 mL/min (>60); Glucose 182 mg/dL (74-106); Potassium 4.5 mmol/L (3.5-5.1); Sodium Level 138 mmol/L (136-145)
[2019-03-04 12:26] LABS: AST(SGOT) 13 U/L (15-37); Alanine Aminotransfer ALT/SGPT 26 U/L (16-61); Albumin, Serum 3.7 g/dL (3.2-5.0); Alkaline Phosphatase 77 U/L (45-117); Bilirubin, Direct 0.17 mg/dL (0.00-0.30); Cholesterol 137 mg/dL (200); Globulin 3.5 g/dL (2.2-4.2); High Density Lipoprotein 41 mg/dL; Protein, Total 7.2 g/dL (6.4-8.2); Triglycerides 103 mg/dL; Very Low Density Lipoprotein 21 mg/dL (5-40)
== END ==
PROVIDERS: Nurse Practitioner Family; Family Provider Internal Medicine; PCP Internal Medicine; Visit Provider Nurse Practitioner Family
DX: E11.9 Type 2 diabetes mellitus without complications (principal); E78.00 Pure hypercholesterolemia, unspecified
CPT/HCPCS: 36415; 80048; 80061; 80076

== ENCOUNTER 2019-03-28 09:24 | Emergency (ER) | payer MEDICARE, SELFPAY ==
[2019-03-03 13:58] VITALS: BMI 33.3
[2019-03-28] VITALS (7 sets, daily range): BP systolic 129–167; BP diastolic 53–100; PULSE 53–66; RESP 16–28; TEMP 36.5; O2SAT 93–97; BMI 34.1
--- NOTE | 2019-03-28 09:32 | EKG12_ITS ---
Test Reason : CP/SOB Blood Pressure : / mmHG Vent. Rate : 064 BPM Atrial Rate : 064 BPM P-R Int : 184 ms QRS Dur : 098 ms QT Int : 386 ms P-R-T Axes : 037 -21 069 degrees QTc Int : 398 ms Sinus rhythm with frequent Premature ventricular complexes Leftward Tyner Poor R-wave Progression Confirmed by SOHAIL YEE, HUAN ([id number]), acquisitions editor JAMES BARILLAS ([id number]) on 03/31/2019 11:03:51 AM Referred By: RANDI/BRETT Confirmed By:HUAN SAUCEDA MD
--- NOTE | 2019-03-28 09:36 | RAD_ITS ---
STUDY: X-RAY CHEST REASON FOR EXAM: Male, 74 years old. chest pain since this am TECHNIQUE: Single portable frontal chest. COMPARISON: July 30, 2018. FINDINGS: Stable appearance and positioning of the median sternotomy wires. Again, the superior most wire is fractured. There is stable mild prominence of the interstitium. There is no evidence of focal alveolar opacification. There is no pleural effusion. There is no pneumothorax. Again seen is mild enlargement of the cardiomediastinal silhouette size. Normal mediastinum and pablo. Normal visualized pulmonary arteries. There is atherosclerotic calcification of the aortic arch with tortuosity. There is no evident acute osseous abnormality. 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 There is no demonstrated abnormality of the visualized soft tissue structures of the upper abdomen. RAD/Chest 1 View (Portable) IMPRESSION: Stable examination without evident acute cardiopulmonary disease. Stable mild cardiomegaly. No pleural effusion. No pneumothorax. Atherosclerotic peripheral vascular disease. Electronically Signed: Yunior Gomes MD at 10:07 EST , Service support ,
[2019-03-28 09:47] LABS: Absolute Lymphocyte Count 2.37 X10^3/uL (0.83-4.51); Absolute Neutrophil Count 5.9 X10^3/uL (2.0-7.7); Basophil# 0.05 X10^3/uL; Basophil% 0.6 % (0-1); Eosinophil# 0.09 X10^3/uL; Hematocrit 49.1 % (40-54); Hemoglobin 16.7 g/dL (13.0-16.5); Lymphocyte # 2.37 X10^3/ul (4.0); Lymphocyte % 26.4 % (19-41); Mean Corpuscular Hgb 30.5 pg (27.0-32.0); Mean Corpuscular Volume 89.8 fL (80-94); Mean Platelet Vol. 10.7 fl (6.2-12.0); Monocyte# 0.54 X10^3/uL; NRBC Flagged by Analyzer 0 % (0-5); Neutrophil # 5.89 X10^3/uL (2.7-7.7); Neutrophil % 65.4 % (47-70); Platelet Count 168 K/mm3 (150-450); RBC Distribution Width CV 12.9 % (11.6-14.6); RBC Distribution Width SD 42.5 fl (35.1-43.9); Red Blood Count 5.47 M/mm3 (4.6-6.2)
[2019-03-28 10:01] LABS: Anion Gap 5 (5-15); BUN 18 mg/dL (7-18); BUN/Creat Ratio 16.5 RATIO (10-20); Calcium,Total 9.3 mg/dL (8.5-10.1); Chloride 102 mmol/L (98-107); Creatinine, Serum 1.09 mg/dL (0.70-1.30); EST Glomerular Filtration Rate 70 mL/min (>60); Est Glom Filt Rate - Afr Amer 85 mL/min (>60); Estimated Creatinine Clearance 65.16 ml/min; Glucose 257 mg/dL (74-106); Potassium 4.9 mmol/L (3.5-5.1); Sodium Level 137 mmol/L (136-145)
[2019-03-28 10:05] LABS: D-Dimer Quantitative (DVT/PE) 0.36 FEU/ug/m (0.27-0.49)
[2019-03-28] MEDS: Nitroglycerin SL (ED/IMG/CATH) 0.4 MG TABLET SUBLINGUAL (10:05)
[2019-03-28] MEDS: 0.9% Normal Saline 1,000 ML 150 ML IV (10:06)
--- NOTE | 2019-03-28 13:27 | ED.DEP ---
ED Disposition - Plan for ED Patient: Instructions: CHEST PAIN, Uncertain Cause Referrals: Faith Jay MD [Primary Care Provider] - 3-5 Days Misha Szymanski MD [STAFF PHYSICIAN] - 3-5 Days
--- NOTE | 2019-03-28 13:29 | ED.VISSUMM ---
- ER Visit Summary Date of Service: 03/28/19 Chief Complaint: [Chest pain] History of Present Illness: The patient is a 74 M [presents to the emergency department complaint of chest pain at around 6:30 AM this morning. Patient states that he was up already when he developed an intermittent sharp stabbing pain in his left chest that lasts 1 to 2 seconds and then resolves. Patient felt slightly short of breath with it. He denied any diaphoresis. He denied any radiation of the pain. Patient denies recent travel or surgery. Patient thinks he had a stress test about 3 months ago but upon reviewing his medical records he had an echocardiogram at that time his last chest test was about a year ago and was unremarkable. Patient's primary care physician is Dr. Misha Szymanski. Patient currently not complaining of any pain Physical Examination: [HEENT-PERRLA, EOMI. Cranial nerves II through XII grossly intact. TMs clear. Mucous membranes moist. No adenopathy. Cardiovascular-regular rate and rhythm without murmur or ectopy Lungs-clear to auscultation, chest wall stable without crepitus or subcu emphysema Abdomen-normoactive bowel sounds, soft, nontender, no rebound or rigidity, no peritoneal signs. Extremities-intact ?4, normal range of motion, normal pulses, atraumatic] Test Results: [EKG obtained arrival shows sinus rhythm with a ventricular rate of 64 bpm with occasional PVCs. CBC with differential was unremarkable. Chemistries unremarkable. Glucose was 257. Troponin is less than 0.015. D-dimer was 0.36. Delta troponin obtained after discussing case with licensed loan officer was less than 0.015.] Emergency Department Course and Treatment: [Received an IV on arrival and placed on nurse monitoring. He had taken full dose aspirin today already. Case was discussed with patient's licensed loan officer Dr. Misha Szymanski who recommended obtaining a delta troponin given that his pain is very atypical and if normal patient was to be discharged home with follow-up.] Treatment Plan: [Patient discharged home and advised to follow-up with cardiology and primary care physician within next 3 to 5 days. Patient advised to return if worsening pain, increasing shortness of breath, or condition should worsen anyway.] Disposition: [Discharged home in stable condition.] Impression: [Chest pain-etiology uncertain] This note was generated with Dragon dictation software. It may contain incorrect words, spelling, and punctuation that were not noted in review of the chart prior to signing ED Disposition - Plan for ED Patient: Instructions: CHEST PAIN, Uncertain Cause Referrals: Misha Szymanski MD [STAFF PHYSICIAN] - 3-5 Days Faith Jay MD [Primary Care Provider] - 3-5 Days
== END 2019-03-28 14:08 | disposition home or self-care (01) ==
PROVIDERS: Emergency Provider Emergency Medicine; Family Provider Internal Medicine; PCP Internal Medicine
DX: R07.9 Chest pain, unspecified (principal); I25.10 Atherosclerotic heart disease of native coronary artery without angina pectoris; I50.9 Heart failure, unspecified; E11.9 Type 2 diabetes mellitus without complications; Z95.1 Presence of aortocoronary bypass graft
CPT/HCPCS: 71045; 80048; 84484; 85025; 85379; 93005; 96360; 96361; 99285; A4216

== ENCOUNTER → 2019-04-26 07:33 | Outpatient (CLI) | payer MEDICARE, SELFPAY ==
[2019-04-07 09:21] VITALS: BMI 34.1
--- NOTE | 2019-04-26 07:36 | CT_ITS ---
STUDY: CT CHEST WITH CONTRAST REASON FOR EXAM: Male, 74 years old. CHEST/RIB PAIN, RT SIDE, FALL X 2 MONTHS AGO RADIATION DOSAGE (If Supplied By Facility): CTDIvol = ( 16.72 ) mGy, DLP = ( 666.17 ) mGycm TECHNIQUE: Transaxial imaging was performed following intravenous administration of IV 100mL Isovue-300. Multiplanar coronal and sagittal images were reformatted. Individualized dose optimization techniques were used for this CT. COMPARISON: None. FINDINGS: Small benign-appearing bilateral axillary lymph nodes. The lungs are normal. Scattered calcified granulomas. There is no demonstrated pleural abnormality. Sternal cerclage wires and vascular clips are present from a prior sternotomy and coronary artery bypass graft procedure (CABG). There are calcifications of the coronary arteries. Normal mediastinum. Normal hilar regions. Normal enhanced pulmonary arteries. There is atherosclerotic calcification of the aortic arch with tortuosity and elongation of the aortic arch and descending thoracic aorta. There are multi-level degenerative changes of the thoracic spine. Small hiatal hernia. CT/Chest WITH Contrast IMPRESSION: No acute abnormality is seen. Electronically Signed: Enrique Henderson, at 10:44 EST , Service support ,
== END ==
PROVIDERS: PCP Nurse Practitioner Family; Referring Provider Nurse Practitioner Family; Visit Provider Nurse Practitioner Family
DX: R07.9 Chest pain, unspecified (principal)
CPT/HCPCS: 71260; Q9967

== ENCOUNTER 2019-05-09 10:11 | Emergency (ER) | payer MEDICARE, SELFPAY ==
[2019-04-07 09:21] VITALS: BMI 34.1
[2019-05-09 10:12] VITALS: BP 150/99; PULSE 94; RESP 15; TEMP 36.4; O2SAT 97; BMI 29.7
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
[2019-05-09] MEDS: Ibuprofen 600 MG Tablet PO (10:47)
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
[2019-05-09 12:18] VITALS: RESP 18
== END 2019-05-09 12:14 | disposition home or self-care (01) ==
PROVIDERS: Emergency Provider Emergency Medicine; PCP Nurse Practitioner Family
DX: S16.1XXA Strain of muscle, fascia and tendon at neck level, initial encounter (principal); S20.219A Contusion of unspecified front wall of thorax, initial encounter; V43.52XA Car driver injured in collision with other type car in traffic accident, initial encounter; Y93.9 Activity, unspecified; Y92.410 Unspecified street and highway as the place of occurrence of the external cause; Y99.9 Unspecified external cause status; E11.9 Type 2 diabetes mellitus without complications; E78.00 Pure hypercholesterolemia, unspecified; I11.0 Hypertensive heart disease with heart failure; I25.10 Atherosclerotic heart disease of native coronary artery without angina pectoris; I50.42 Chronic combined systolic (congestive) and diastolic (congestive) heart failure; G47.33 Obstructive sleep apnea (adult) (pediatric); E66.9 Obesity, unspecified; Z87.891 Personal history of nicotine dependence; Z90.49 Acquired absence of other specified parts of digestive tract; Z95.1 Presence of aortocoronary bypass graft; Z95.5 Presence of coronary angioplasty implant and graft
CPT/HCPCS: 72040; 99283

== ENCOUNTER 2019-05-11 23:35 | Inpatient (IN) | payer MEDICARE, SELFPAY ==
[2019-05-11 23:36] VITALS: BP 158/87; PULSE 89; RESP 25; TEMP 36.7; O2SAT 96; BMI 21.0
--- NOTE | 2019-05-11 23:38 | ED.RN ---
CALLED FOR EKG PER RN REQUEST, PULLED OLD EKGS FOR
[2019-05-11 23:40] VITALS: BP 158/87; PULSE 89; RESP 25; TEMP 36.7; O2SAT 96
--- NOTE | 2019-05-11 23:52 | EKG12_ITS ---
Test Reason : CP Blood Pressure : / mmHG Vent. Rate : 089 BPM Atrial Rate : 089 BPM P-R Int : 198 ms QRS Dur : 100 ms QT Int : 398 ms P-R-T Axes : 042 -29 159 degrees QTc Int : 484 ms Normal sinus rhythm Possible Left atrial enlargement ST & T wave abnormality, consider anterolateral ischemia Prolonged QT Abnormal ECG Confirmed by FLO YEE, MANFRED ([id number]), scientific editor JAMES BARILLAS ([id number]) on 05/13/2019 8:03:55 AM Referred By: HALEY Confirmed By:AGNIESZKA ROSSI MD
--- NOTE | 2019-05-11 23:52 | RAD_ITS ---
HISTORY: WAS HAVING CP, CP IS GONE NOW AFTER TAKING NITRO EXAM: XR Chest 2 Views COMPARISON: March 28, 2019 FINDINGS: LINES/DEVICES: Sternal wires persists. LUNGS: There are chronic interstitial changes. No pneumothorax. No consolidation or effusion. MEDIASTINUM AND CARDIOVASCULAR STRUCTURES: Cardiac silhouette not enlarged. Central airways and mediastinal contour are unremarkable. Athersclerotic plaque within the aortic arch. BONES AND SOFT TISSUES: Thoracic spondylosis. RAD/Chest PA and Lateral IMPRESSION: Chronic interestitial changes. No radiographic evidence of acute cardiopulmonary disease. at 0038 Reported and signed by: Juan Manuel Dee MD Electronically Signed: Juan Manuel Dee MD at 0:37 EST Tel , Service support ,
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
[2019-05-11 23:54] VITALS: O2SAT 98
[2019-05-12] VITALS (20 sets, daily range): BP systolic 125–159; BP diastolic 59–82; PULSE 57–87; RESP 12–22; TEMP 36.3–36.7; O2SAT 93–98; BMI 34.0
[2019-05-12 00:01] LABS: Absolute Lymphocyte Count 2.56 X10^3/uL (0.83-4.51); Absolute Neutrophil Count 5.5 X10^3/uL (2.0-7.7); Basophil# 0.04 X10^3/uL; Basophil% 0.4 % (0-1); Eosinophil# 0.17 X10^3/uL; Eosinophils% 1.9 % (0-5); Hematocrit 46.3 % (40-54); Hemoglobin 15.8 g/dL (13.0-16.5); Lymphocyte # 2.56 X10^3/ul (4.0); Lymphocyte % 28.7 % (19-41); Mean Corp Hgb Conc 34.1 g/dL (32-36); Mean Corpuscular Hgb 30.5 pg (27.0-32.0); Mean Corpuscular Volume 89.4 fL (80-94); Mean Platelet Vol. 11.1 fl (6.2-12.0); Monocyte# 0.65 X10^3/uL; Monocyte% 7.3 % (0-10); NRBC Flagged by Analyzer 0 % (0-5); Neutrophil # 5.45 X10^3/uL (2.7-7.7); Neutrophil % 61.1 % (47-70); Platelet Count 177 K/mm3 (150-450); RBC Distribution Width CV 12.9 % (11.6-14.6); RBC Distribution Width SD 42.2 fl (35.1-43.9); Red Blood Count 5.18 M/mm3 (4.6-6.2); White Blood Count 8.9 K/mm3 (4.4-11.0)
[2019-05-12 00:15] LABS: Anion Gap 6 (5-15); BUN 19 mg/dL (7-18); BUN/Creat Ratio 14.6 RATIO (10-20); Calcium,Total 9.5 mg/dL (8.5-10.1); Chloride 102 mmol/L (98-107); EST Glomerular Filtration Rate 57 mL/min (>60); Est Glom Filt Rate - Afr Amer 69 mL/min (>60); Estimated Creatinine Clearance 49.57 ml/min; Glucose 347 mg/dL (74-106); Potassium 4.6 mmol/L (3.5-5.1); Sodium Level 137 mmol/L (136-145)
[2019-05-12] MEDS: Aspirin 325 MG Tablet PO (00:31)
[2019-05-12] MEDS: TICAGRELOR 90 MG TABLET 180 MG PO (00:32)
--- NOTE | 2019-05-12 00:33 | PCM.HP.STD ---
Problem List (1) Unstable angina Status: Acute (2) Non-ST elevation myocardial infarction (NSTEMI) Status: Acute (3) Type 2 diabetes mellitus Status: Chronic Qualifiers: Diabetes mellitus shelter insulin use: without intermediate designer use Diabetes mellitus complication status: with other specified complication Qualified Code(s): E11.69 - Type 2 diabetes mellitus with other specified complication (4) History of coronary artery stent placement Status: Resolved Comment: PTCA and ZARIA of CX November 2002 (5) H/O coronary artery bypass surgery Status: Resolved Comment: July 2002: HORN to LAD, SVG to Ramus, Left radial graft to OM (6) Pure hypercholesterolemia Status: Chronic (7) Essential (primary) hypertension Status: Chronic (8) Chronic CHF Status: Chronic Qualifiers: Heart failure type: combined systolic and diastolic Qualified Code(s): I50.42 - Chronic combined systolic (congestive) and diastolic (congestive) heart failure History of Present Illness Date of Admission: 05/12/19 Chief Complaint: Chest pain The patient is a 74 y/o M w/ PMHx: Former tobacco use, CAD s/p CABG x 3 (HORN to LAD, SVG to ramus, L radial graft to OM), PCI ZARIA Cx, Diabetes mellitus type II, HTN, HLD, Combined systolic and diastolic CHF, CKD stage III who presents to the [facility] ED on 05/12/19 with history of intermittent chest pain, associated with exertion, improved with rest, onset at approximately 7 PM the evening prior to ED presentation, reportedly midsternal in location with no radiation described as a tightness with 9 out of 10 at its worse, currently resolved, 0 out of 10 with associated dyspnea with onset, lasting several minutes, improving with rest eventually prompting him to present to the ED for evaluation. He did note taking aspirin and sublingual nitroglycerin at home with improvement. Work-up in the ED included T 98, heart rate 89, BP 158/87, respiratory rate 25, 96% on room air, unremarkable CBC, BMP with BUN/creatinine 19/1.30, glucose 347, troponin 0.587, EKG with sinus rhythm with T wave inversions in aVL, V2 through V6 with a prolonged QT, chest x-ray with no acute cardiopulmonary findings. ED physician discussed case with Dr. Szymanski with concern for an STEMI with recommendation for Brilinta dose with load administered while in the ED. Past Medical History Past Medical History (Chronic Problems): Chronic Problems (Last Reviewed 03/04/19 @ 09:03 by Rula Dickerson) Chronic CHF (Chronic) Type 2 diabetes mellitus (Chronic) Dyspnea (Chronic) Obstructive sleep apnea (Chronic) Pure hypercholesterolemia (Chronic) Essential (primary) hypertension (Chronic) Atherosclerotic heart disease of [place] coronary artery without angina pectoris (Chronic) July 2002: HORN to LAD, SVG to Ramus, Left radial graft to OM; PTCA and ZARIA of CX November 2002 Obesity (Chronic) Medical History: Medical History (Last Reviewed 03/04/19 @ 09:03 by Rula Dickerson) Type 2 diabetes mellitus (Chronic) E11.9 Acute on chronic combined systolic (congestive) and diastolic (congestive) heart failure (Chronic) I50.43 Pure hypercholesterolemia (Chronic) E78.00 Essential (primary) hypertension (Chronic) I10 Atherosclerotic heart disease of [place] coronary artery without angina pectoris (Chronic) I25.06 Aug 2002: HORN to LAD, SVG to Ramus, Left radial graft to OM; PTCA and ZARIA of CX November 2002 Obesity (Chronic) E66.9 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 History of skin cancer Z85.828 2019, squamous cell History of kidney stones Z87.442 Kidney atrophy N26.1 Allergies exenatide [From Byetta] Adverse Reaction (Severe, Verified 05/11/19 23:45) Shaking and Vomiting Home Medications: Ambulatory Orders Medication Instructions Recorded Aspirin 325 mg PO DAILY@0800 01/11/14 ascorbic acid (vitamin C) 500 mg 500 mg PO DAILY 04/10/17 capsule zinc 50 mg tablet 50 mg PO DAILY 04/10/17 [id number]-min 1 tab PO QDAY 07/07/17 3,300 unit-5 mg-200mg-75 unit tablet ER garlic 500 mg capsule 500 mg PO DAILY 01/08/18 Gabapentin [Neurontin] 600 mg PO BID 07/30/18 Lisinopril [Zestril] 40 mg PO DAILY 07/30/18 Multivit-Min/FA/Lycopen/Lutein 1 ea PO DAILY 07/30/18 [Centrum Silver Tablet] Apex-3S/Dha/Epa/Fish Oil [Fish 1 ea PO DAILY 07/30/[address] 1,000 mg Softgel] Simvastatin 40 mg PO DAILY 07/30/18 glimepiride 4 mg tablet 4 mg PO DAILY #90 tab 08/18/18 metformin 1,000 mg tablet 1,000 mg PO DAILY #90 tab 08/18/18 metformin 1,000 mg tablet 1,500 mg PO QHS #135 tab 08/18/18 alogliptin 25 mg tablet 25 mg PO DAILY #90 tab 11/25/18 Surgical History: Surgical History (Last Reviewed 03/04/19 @ 09:03 by Rula Dickerson) History of coronary artery stent placement (Resolved) Onset Date: 11/2002 Z95.5 PTCA and ZARIA of CX November 2002 H/O coronary artery bypass surgery (Resolved) Onset Date: 07/2002 Z95.28 Jul 2002: HORN to LAD, SVG to Ramus, Left radial graft to OM History of left heart catheterization Onset Date: 2007 Z98.890 Surgical History: cholecystectomy, coronary bypass surgery, tonsillectomy, - - Left upper extremity skin cancer removal, kidney stone intervention, CABG x3, PCI, tonsillectomy. Lives: Spouse/ Significant Other Smoking Status: Former smoker - Patient quit cigarette tobacco usage approximately 35 years prior with prior to this 1 to 1.5 pack/day cigarette tobacco since he was a teenager. Tobacco Use: Non-smoker Alcohol: None Drugs: None - *Family History Maternal Family History: Family History (Last Reviewed 03/04/19 @ 09:03 by Rula Dickerson) Mother Hypertension Myocardial infarction CVA (cerebral vascular accident) Father Hypertension Heart disease Myocardial infarction, Onset Age: 45 Sudden cardiac Brother Heart disease Myocardial infarction History Items: - - Patient notes a maternal family history of heart disease, hypertension, hyperlipidemia, CVA. Paternal Family History: Family History (Last Reviewed 03/04/19 @ 09:03 by Rula Dickerson) Mother Hypertension Myocardial infarction CVA (cerebral vascular accident) Father Hypertension Heart disease Myocardial infarction, Onset Age: 45 Sudden cardiac Brother Heart disease Myocardial infarction History Items: - - Patient notes a paternal family history of heart disease, hypertension, hyperlipidemia, history of [place] with sudden cardiac at age 42. Review of Systems Constitutional: Reports: Malaise, Weakness, Fatigue. Denies: Chills, Fever, Weight Change HEENT: Denies: Head Aches, Sinus Congestion, Sinus Drainage Cardiovascular: Reports: Chest Pain, Chest Tightness. Denies: Chest Pressure, Heaviness, Light Headedness, Orthopnea, Palpitations, Syncope Respiratory: Reports: Shortness of Breath, Shortness of breath at rest, Shortness of breath upon exertion. Denies: Cough, Sputum production Gastrointestinal: Denies: Abdominal Pain, Nausea, Vomiting Genitourinary: Denies: Dysuria Musculoskeletal: Reports: Joint Pain. Denies: Joint Tenderness Skin: Reports: Skin Changes. Denies: Rash, Wounds Neurological: Denies: Numbness, Tingling, Focal weakness Psychiatric: Denies: Anxiety, Depression, Homicidal Ideations, Suicidal Ideations Hematologic/ Lymphatic: Denies: Easy Bruising, Easy Bleeding VTE Information - Inpt Only VTE Present on Admission: No VTE Mechan Device Prophylaxis: SCD's VTE Pharm Prophylaxis ordered?: Yes Patient Problems: Active and Suspected Problems (Last Reviewed 03/04/19 @ 09:03 by Rula Dickerson) Unstable angina (Acute) Non-ST elevation myocardial infarction (NSTEMI) (Acute) Subjective: Seated upright in the ED bed, fatigued appearance, notes chest pain currently resolved. Objective: Physical Examination: General: awake, alert, oriented x 3 and cooperative, moderately hard of hearing, seated upright in the ED bed in no apparent distress, chest pain currently resolved. Skin: normal color, turgor, no icterus, cyanosis. HEENT: AT/NC, EOMI, PERRLA, MMM, no carotid bruits or JVD noted. Lungs: CTA bilaterally, moderate effort, moderate decrease BL bases, mild crackles bases, likely chronic underlying lung disease associated, no rales, ronchi or wheezing. Heart: Regular rate and rhythm; no gallop, rub audible. Abdomen: soft, overweight, NTTP, ND, normal BS, no HSM. Extremities: no cyanosis, clubbing, bilateral lower extremity ankle mildly pitting edema, chronic he notes. Neurological: patient awake, alert, oriented x 3; cognitive function intact; pupils equally reactive to light and accomodation; cranial nerves II-XII grossly normal, moving all 4 extremities, no focal deficits, strength moderately globally Melissa secondary to acute presentation. Psychiatric: affect appears fatigued, no acute evidence of depressive or anxiety feelings. - Physical Exam Vitals/I&O's: Vital Signs Temp Pulse Resp BP Pulse Ox 98.0 F 89 25 H 158/87 H 98 05/11/19 23:40 05/11/19 23:40 05/11/19 23:40 05/11/19 23:40 05/11/19 23:54 Oxygen Flow Rate (L/min) 2 Oxygen Delivery Method Nasal Cannula Weight: 159 lb 13.362 oz Body Mass Index (BMI) 21.0 Laboratory Results 05/11/19 23:45: WBC 8.9, RBC 5.18, Hgb 15.8, Hct 46.3, MCV 89.4, MCH 30.5, MCHC 34.1, RDW Std Deviation 42.2, RDW Coeff of [place]i 12.9, Plt Count 177, MPV 11.1, Immature Gran % (Auto) 0.600, Neut % (Auto) 61.1, Lymph % (Auto) 28.7, [place] % (Auto) 7.3, Eos % (Auto) 1.9, Baso % (Auto) 0.4, Absolute Neuts (auto) 5.5, Absolute Lymphs (auto) 2.56, Nucleated RBC % 0 05/11/19 23:45: Sodium 137, Potassium 4.6, Chloride 102, Carbon Dioxide 29.0, Anion Gap 6, BUN 19 H, Creatinine 1.30, Estim Creat Clear Calc 49.57, Est GFR (MDRD) Af Amer 69, Est GFR (MDRD) Non-Af 57 L, BUN/Creatinine Ratio 14.6, Glucose 347 H, Calcium 9.5, Troponin I 0.587 H Assessment/Plan All Active Problems (Last Reviewed 03/04/19 @ 09:03 by Rula Dickerson) Unstable angina (Acute) Non-ST elevation myocardial infarction (NSTEMI) (Acute) History of coronary artery stent placement (Resolved 11/2002) H/O coronary artery bypass surgery (Resolved 07/2002) The patient is a 74 y/o M w/ PMHx: Former tobacco use, CAD s/p CABG x 3 (HORN to LAD, SVG to ramus, L radial graft to OM), PCI ZARIA Cx, Diabetes mellitus type II, HTN, HLD, Combined systolic and diastolic CHF, CKD stage III who presents to the [facility] ED on 05/12/19 with history of intermittent chest pain, associated with exertion, improved with rest, onset at approximately 7 PM the evening prior to ED presentation, reportedly midsternal in location with no radiation described as a tightness with 9 out of 10 at its worse, currently resolved, 0 out of 10 with associated dyspnea with onset, lasting several minutes, improving with rest. 1. Chest Pain w/ Acute NSTEMI: Work-up in the ED included T 98, heart rate 89, BP 158/87, respiratory rate 25, 96% on room air, unremarkable CBC, BMP with BUN/creatinine 19/1.30, glucose 347, troponin 0.587, EKG with sinus rhythm with T wave inversions in aVL, V2 through V6 with a prolonged QT, chest x-ray with no acute cardiopulmonary findings. Will admit to PCU, maintain on a monitored bed, continue serial cardiac enzymes and EKGs. Obtain magnesium level upon admission. Start therapeutic lovenox with Brilinta load already given in the ED. Continue medical management w/ asa, not on beta-mono therapy will add low-dose Coreg, continue statin w/ AM FLP. Will obtain ECHO. Cardiology consulted, plan for cardiac catheterization. Maintain NPO after midnight with gentle hydration. ASA, NG, morphine. 2. CAD: Status post CABG x3 prior (HORN to LAD, SVG to ramus, L radial graft to OM), PCI ZARIA Cx, continued on aspirin, recent Brilinta load, adding low-dose Coreg, continue lisinopril and statin therapy as noted. 3. Hypertension: Continue home regimen including lisinopril, not on beta-mono therapy, will add low-dose Coreg, PRN hydralazine. 4. Hyperlipidemia: Continue home statin regimen. AM FLP. 5. Diabetes mellitus type II with neuropathy: Hold oral home regimen, will obtain hemoglobin A1c level is notably elevated, nutrition consulted for education and teaching, n.p.o. status, accu checks w/ ISS, continue home gabapentin regimen. 6. Chronic Kidney Disease Stage III: Admission BUN/Cr 19/1.30, baseline renal function 0.9-1.3, stable, repeat BMP in AM. 7. Combined systolic and diastolic CHF: 07/31/18 ECHO mildly dilated left ventricle, EF 45-50%, LA severely enlarged, stage 2 diastolic dysfunction, judiciously hydrating given plans likely cardiac catheterization, continue aspirin, Brilinta loaded in the ED, continue lisinopril, adding low-dose Coreg. 8. DVT prophylaxis: SCDs, therapeutic Lovenox as noted. Code Visit Inpatient E&M: 10246 Init Hosp L3
--- NOTE | 2019-05-12 01:03 | ECHOCS_ITS ---
Reason For Study: Chest pain Procedure This was a 2D Doppler, Color Flow transthoracic echocardiogram. The study was technically difficult. Exam performed portable in patient room. Left Ventricle Mildly dilated left ventricle. The estimated ejection fraction is 30 %. Moderately severe segmental systolic dysfunction (see wall motion). [place] : Severely Hypokinetic. Anterior [place] : Severely Hypokinetic. There is moderate global hypokinesis of the left ventricle. Right Ventricle Normal RV size. Normal systolic function. Atria The left atrium is moderately enlarged. Normal right atrium. Mitral Valve Normal mitral valve. Tricuspid Valve The tricuspid valve is not well visualized. Aortic Valve The aortic valve is not well visualized. Pulmonic Valve Normal pulmonic valve. Great Vessels Normal aortic root. The pulmonary artery is normal size. Normal inferior vena cava. Pericardium/Pleural No pericardial effusion. Medication Diluted definity 4ml given slow IV push to enhance endocardial definition. MMode/2D Measurements & Calculations LVIDd: 6.1 cm IVSd: 0.91 cm Ao root diam: 3.4 cm LVIDs: 4.8 cm LVPWd: 1.2 cm FS: 21.3 % LAV(MOD-bp): 86.5 ml LA A4 area: 27.1 cm2 LA dimension(2D): 5.4 cm LAV(MOD-bp) Indexed: 36.1 ml/m2 LAV(MOD-sp2): 69.4 ml LAV(MOD-sp4): 105.0 ml RA A4 area: 18.6 cm2 Doppler Measurements & Calculations MV A max morris: 87.1 cm/sec Lat Peak E' [place]: 7.3 cm/sec Med Peak E' [place]: 4.4 cm/sec Ao V2 max: 143.3 cm/sec LV V1 max: 97.4 cm/sec PA V2 max: 89.4 cm/sec Ao max P.2 mmHg LV V1 max P.8 mmHg Interpretation Summary Mildly dilated left ventricle. The estimated ejection fraction is 30 %. The left atrium is moderately enlarged. Moderately severe segmental systolic dysfunction (see wall motion). The study was technically limited. The study was technically difficult. Ordering Physician: Nidia Potts Referring Physician: Ricco Marin Performed By: Sandy Johnson RDCS
[2019-05-12 01:32] LABS: Magnesium 1.4 mg/dL (1.6-2.6)
[2019-05-12] MEDS: 0.9% Normal Saline 1,000 ML 100 ML IV ×2 (01:50→11:24)
[2019-05-12 02:01] LABS: Bedside Glucose 294 mg/dL (70-110)
[2019-05-12 02:07] LABS: Hemoglobin A1c 8.6 % (4.2-6.3)
[2019-05-12 05:45] LABS: Absolute Lymphocyte Count 2.55 X10^3/uL (0.83-4.51); Absolute Neutrophil Count 5.1 X10^3/uL (2.0-7.7); Basophil# 0.04 X10^3/uL; Basophil% 0.5 % (0-1); Eosinophil# 0.14 X10^3/uL; Eosinophils% 1.7 % (0-5); Hematocrit 45.2 % (40-54); Hemoglobin 15.4 g/dL (13.0-16.5); Lymphocyte # 2.55 X10^3/ul (4.0); Lymphocyte % 30.1 % (19-41); Mean Corp Hgb Conc 34.1 g/dL (32-36); Mean Corpuscular Volume 87.9 fL (80-94); Mean Platelet Vol. 10.9 fl (6.2-12.0); Monocyte# 0.63 X10^3/uL; Monocyte% 7.4 % (0-10); NRBC Flagged by Analyzer 0 % (0-5); Neutrophil # 5.09 X10^3/uL (2.7-7.7); Neutrophil % 59.9 % (47-70); Platelet Count 186 K/mm3 (150-450); RBC Distribution Width CV 12.7 % (11.6-14.6); Red Blood Count 5.14 M/mm3 (4.6-6.2); White Blood Count 8.5 K/mm3 (4.4-11.0)
[2019-05-12 05:53] LABS: Prothrombin Time (Protime)PT. 12.5 SECONDS (11.7-14.9)
--- NOTE | 2019-05-12 05:55 | EKG12_ITS ---
Test Reason : AM EKG Blood Pressure : / mmHG Vent. Rate : 063 BPM Atrial Rate : 063 BPM P-R Int : 202 ms QRS Dur : 100 ms QT Int : 464 ms P-R-T Axes : 037 -27 175 degrees QTc Int : 474 ms Normal sinus rhythm with sinus arrhythmia ST & T wave abnormality, consider inferior ischemia ST & T wave abnormality, consider anterolateral ischemia Prolonged QT Abnormal ECG When compared with ECG of 11-MAY-2019 23:39, MANUAL COMPARISON REQUIRED, DATA IS UNCONFIRMED Confirmed by SHERICE SAPP ([id number]), turntable engineer JAMES BARILLAS ([id number]) on 05/13/2019 1:23:18 PM Referred By: DR METZ Confirmed By:SHERICE SAPP
[2019-05-12] MEDS: Aspirin 81 MG TAB.CHEW PO (06:12)
[2019-05-12] MEDS: Carvedilol 3.125 MG TABLET PO (06:12)
[2019-05-12] MEDS: Lisinopril 40 MG Tablet PO (06:12)
[2019-05-12 06:17] LABS: Anion Gap 7 (5-15); BUN 17 mg/dL (7-18); BUN/Creat Ratio 16.2 RATIO (10-20); Calcium,Total 9.2 mg/dL (8.5-10.1); Chloride 105 mmol/L (98-107); Cholesterol 117 mg/dL (200); Creatinine, Serum 1.05 mg/dL (0.70-1.30); EST Glomerular Filtration Rate 73 mL/min (>60); Est Glom Filt Rate - Afr Amer 88 mL/min (>60); Estimated Creatinine Clearance 67.64 ml/min; Glucose 255 mg/dL (74-106); High Density Lipoprotein 34 mg/dL; Potassium 4.4 mmol/L (3.5-5.1); Sodium Level 137 mmol/L (136-145); Triglycerides 173 mg/dL; Very Low Density Lipoprotein 35 mg/dL (5-40)
[2019-05-12 07:10] LABS: Bedside Glucose 241 mg/dL (70-110)
--- NOTE | 2019-05-12 07:35 | CON.PCM_ITS ---
Reason for Consult Date of Consultation: 05/12/19 Reason for Consultation: Evaluation of chest pain and abnormal cardiac enzymes History of Present Illness: The patient is a 74 year old M Who presented to the emergency room with chest discomfort which he initially described as sharp but appears to be worse with exertion and going away with rest. He did not have any diaphoresis nausea vomiting or dizziness. He said that he had been quite well until the above occurred. He is a gentleman with a history of coronary artery disease status post coronary artery bypass surgery in 2002 with a left internal mammary artery to the left anterior descending artery, saphenous vein graft to ramus intermedius, left radial graft to the obtuse marginal vessel. He also has a history of bradycardia, hypertension, hyperlipidemia, and diabetes mellitus. In the emergency room he was evaluated with his initial EKG demonstrating sinus rhythm with T wave inversions noted in lead I and aVL V2 through V6. I was called to help evaluate him. He is a known patient of mine. Since admission he has been doing well with no chest pain. Past Medical History Allergies/Adverse Reactions: Allergies exenatide [From Byetta] Adverse Reaction (Severe, Verified 05/11/19 23:45) Shaking and Vomiting Home Medications: Ambulatory Orders Medication Instructions Recorded Aspirin 325 mg PO DAILY@0800 01/11/14 ascorbic acid (vitamin C) 500 mg 500 mg PO DAILY 04/10/17 capsule zinc 50 mg tablet 50 mg PO DAILY 04/10/17 [id number]-min 1 tab PO QDAY 07/07/17 3,300 unit-5 mg-200mg-75 unit tablet ER garlic 500 mg capsule 500 mg PO DAILY 01/08/18 Gabapentin [Neurontin] 600 mg PO BID 07/30/18 Lisinopril [Zestril] 40 mg PO DAILY 07/30/18 Multivit-Min/FA/Lycopen/Lutein 1 ea PO DAILY 07/30/18 [Centrum Silver Tablet] [place]-3S/Dha/Epa/Fish Oil [Fish 1 ea PO DAILY 07/30/[address] 1,000 mg Softgel] Simvastatin 40 mg PO DAILY 07/30/18 glimepiride 4 mg tablet 4 mg PO DAILY #90 tab 08/18/18 metformin 1,000 mg tablet 1,000 mg PO DAILY #90 tab 08/18/18 metformin 1,000 mg tablet 1,500 mg PO QHS #135 tab 08/18/18 alogliptin 25 mg tablet 25 mg PO DAILY #90 tab 11/25/18 Past Medical History (Chronic Problems): Chronic Problems (Last Reviewed 03/04/19 @ 09:03 by Rula Dickerson) Chronic CHF (Chronic) Type 2 diabetes mellitus (Chronic) Dyspnea (Chronic) Obstructive sleep apnea (Chronic) Pure hypercholesterolemia (Chronic) Essential (primary) hypertension (Chronic) Atherosclerotic heart disease of [place] coronary artery without angina pectoris (Chronic) July 2002: HORN to LAD, SVG to Ramus, Left radial graft to OM; PTCA and ZARIA of CX November 2002 Obesity (Chronic) Surgical History: cholecystectomy, coronary bypass surgery, tonsillectomy, - - Left upper extremity skin cancer removal, kidney stone intervention, CABG x3, PCI, tonsillectomy. - *Family History Maternal Family History: Family History (Last Reviewed 03/04/19 @ 09:03 by Rula Dickerson) Mother Hypertension Myocardial infarction CVA (cerebral vascular accident) Father Hypertension Heart disease Myocardial infarction, Onset Age: 45 Sudden cardiac Brother Heart disease Myocardial infarction History Items: - - Patient notes a maternal family history of heart disease, hypertension, hyperlipidemia, CVA. Paternal Family History: Family History (Last Reviewed 03/04/19 @ 09:03 by Rula Dickerson) Mother Hypertension Myocardial infarction CVA (cerebral vascular accident) Father Hypertension Heart disease Myocardial infarction, Onset Age: 45 Sudden cardiac Brother Heart disease Myocardial infarction History Items: - - Patient notes a paternal family history of heart disease, hypertension, hyperlipidemia, history of [place] with sudden cardiac at age 42. Lives: Spouse/ Significant Other Smoking Status: Former smoker Tobacco Use: Non-smoker Alcohol: None Drugs: None Review of Systems - Review of Systems General: Denies: Fever, Night Sweats, Fatigue HEENT: Denies: Vision Change Cardiovascular: Reports: Chest Discomfort, Chest Discomfort with Exertion. Denies: Shortness of Breath, Orthopnea, PND, Peripheral Edema, Palpitations, Lightheadedness, Dizziness, Near Syncope, Syncope Respiratory: Denies: Cough, Sputum Production, Hemoptysis Gastrointestinal: Denies: Hematemesis, Hematochezia, Melena Genitourinary: Denies: Dysuria, Hematuria Muscoloskeletal: Denies: Myalgias Skin: Denies: Rash Neurological: Denies: Dizziness Psychiatric: Denies: Anxiety Endocrine: Denies: Heat Intolerance Subjectve: Pleasant gentleman in no distress at this time Objective: Vital Signs Temp Pulse Resp BP Pulse Ox 97.6 F L 62 18 125/76 H 96 05/12/19 06:04 05/12/19 07:01 05/12/19 06:04 05/12/19 06:04 05/12/19 07:25 Oxygen Flow Rate (L/min) 2 Oxygen Delivery Method Room Air Weight: 257 lb 15.053 oz Body Mass Index (BMI) 34.0 Intake and Output for Last 24 Hours 05/10/19 05/11/19 05/12/19 23:59 23:59 23:59 Intake Total 564 / 564 Balance 564 / 564 General: Awake, Alert, Oriented x 3 HEENT: PERRL, EOMI, Sclera Non Icteric Neck: Supple, Good ROM, No Lymph Node Enlargement Lungs: Clear to auscultation Cardiovascular: Regular Rhythm, Normal S1, Normal S2, No Murmurs, No Rubs, No Gallops Vascular: No Carotid Bruits, Normal Femoral Pulses, Normal Radial Pulses, Normal Dorsalis Pedal Pulse, Normal Posterior Tibial Pulses Abdomen: Bowel Sounds Present, Soft, Non Tender, No HSM, No Organomegaly Extremities: No Cyanosis, No Clubbing, No edema Musculoskeletal: No Erythema Skin: No Rashes Lymphatic: No Lymph Node Enlargement Neurological: No Focal Motor or Sensory Deficit Psych/Mental Status: Appropriate 05/11/19 23:45: WBC 8.9, RBC 5.18, Hgb 15.8, Hct 46.3, MCV 89.4, MCH 30.5, MCHC 34.1, Plt Count 177, MPV 11.1, Immature Gran % (Auto) 0.600, Neut % (Auto) 61.1, Lymph % (Auto) 28.7, [place] % (Auto) 7.3, Eos % (Auto) 1.9, Baso % (Auto) 0.4, Absolute Neuts (auto) 5.5, Nucleated RBC % 0 05/11/19 23:45: Sodium 137, Potassium 4.6, Chloride 102, Carbon Dioxide 29.0, Anion Gap 6, BUN 19 H, Creatinine 1.30, Est GFR (MDRD) Af Amer 69, Est GFR (MDRD) Non-Af 57 L, BUN/Creatinine Ratio 14.6, Glucose 347 H, Calcium 9.5, Troponin I 0.587 H 05/11/19 23:45: Magnesium 1.4 L 05/11/19 23:45: Hemoglobin A1c 8.6 H 05/12/19 02:35: Troponin I 0.558 H 05/12/19 05:25: WBC 8.5, RBC 5.14, Hgb 15.4, Hct 45.2, MCV 87.9, MCH 30.0, MCHC 34.1, Plt Count 186, MPV 10.9, Immature Gran % (Auto) 0.400, Neut % (Auto) 59.9, Lymph % (Auto) 30.1, [place] % (Auto) 7.4, Eos % (Auto) 1.7, Baso % (Auto) 0.5, Absolute Neuts (auto) 5.1, Nucleated RBC % 0 05/12/19 05:25: PT 12.5, INR 1.0, APTT 28.0 05/12/19 05:25: Sodium 137, Potassium 4.4, Chloride 105, Carbon Dioxide 25.0, Anion Gap 7, BUN 17, Creatinine 1.05, Est GFR (MDRD) Af Amer 88, Est GFR (MDRD) Non-Af 73, BUN/Creatinine Ratio 16.2, Glucose 255 H, Calcium 9.2, Troponin I 0.482 H, Triglycerides 173, Cholesterol 117, LDL Cholesterol 48, VLDL Cholesterol 35, HDL Cholesterol 34 L Rhythm: EKG: Normal sinus rhythm with a rate of 89 bpm. T wave inversions noted in lead I, aVL, V2 through V6. ECHO: Stress Test: Cardiac Cath: PCI: CT Surgery: Holter monitor: EPS: PPM: CXR: Chest CT Scan: Assessment/Plan 1. Non-ST elevation myocardial infarction * Patient presents with chest discomfort which is somewhat atypical but has a non-ST elevation myocardial infarction. With his prior history of coronary artery disease and bypass surgery and his abnormal EKG changes it would be prudent to further evaluate the above with a left heart catheterization preferably via the femoral approach as he has no radial artery. Risk benefits alternatives of been explained to him he understands and agrees to proceed. He will be administered ticagrelor. * 2. Hypertension * Sub optimal control continue the current medical therapy * 3. Hyperlipidemia * Will continue with current lipid lowering medication. * * Thank you for allowing me to participate in the care of your patient. Please don't hesitate to call if any issues aCardiac catheterization demonstrated the following: Normal left main coronary artery. Left anterior descending artery totally occluded mid segment. Left circumflex artery totally occluded. Dominant large right coronary artery with mild diffuse disease. Saphenous vein graft to ramus intermedius which is patent. Radial artery to the obtuse marginal branch which is totally occluded. Left internal mammary artery to the left anterior descending artery which is patent. Left ventricular systolic dysfunction with estimated EF 35%. Based on the above angiographic findings medical therapy would be continued.
--- NOTE | 2019-05-12 08:09 | CASEMGMT ---
According to the [facility] website, the following are in-network tertiary facilities: [facility], [place], [facility], [place], [facility], [facility], [place], [facility], and . Dion PHAN CM
[2019-05-12] MEDS: Gabapentin 600 MG Tablet PO (09:06)
[2019-05-12] MEDS: TICAGRELOR 90 MG TABLET PO (09:06)
[2019-05-12] MEDS: Famotidine 20 MG Tablet PO (09:06)
--- NOTE | 2019-05-12 11:45 | CASEMGMT ---
RN CM CARPENTER'S HELPER CM to room to meet with patient for initial transition planning/care coordination assessment. RN TESSA introduced self and role at [facility]. Pt voices understanding and consents to assessment at this time. Pt resting in bed in no distress at this time. Pt's girlfriend, Dayna, @ bedside and pt agreeable to her being present during assessment. Pt is A/O at this time and answers all questions appropriately. Care providers, pharmacy, and demographics verified at this time. PCP: Dr Ricco Marin Specialists: Dr Szymanski--cardiology, [facility]--Hx Skin CA on his arm that has been removed. also has skin CA on his shoulder. States he did have an appt scheduled for tomorrow to have that removed but had to cancel the appt d/t hospitalization. Preferred Pharmacy: [facility] Insurance: [employer] [facility] Prescription Benefit: Yes Living Will/HPOA: Pt does not currently have LW/HCPOA and declines info at this time. Pt made aware that he can contact as an out-pt and make appt in the future if he decides he would like to talk with someone about this or would like to utilize [facility] social work for advanced directive completion. Given [employer] card with information and contact number. Pt expresses understanding. LNOK: 2 daughters: Leah Zapien and Erika Stone Living Arrangements: Lives in mobile home with his girlfriend, Dayna Calderon. Independent Transportation: Pt states drives self and states no transportation concerns at this time. Dayna will drive him home @ d/c. DME: has the following DME: O2 @ 2L/M as needed through [employer]. Glucometer-- is working properly and has all the needed supplies. Pt states no need for further DME at this time. HHC/SNF: No hx of SNF. has used HHC in the past after heart surgery but does not remember the name of the agency. Pt wishes to return home and states has no concerns with going home at time of discharge. CM to follow for any discharge planning/needs. Pt voices no further concerns/needs at this time. Advised pt to ask for CM if any further questions/concerns/needs arise. Voices understanding. PLAN: Home Elvin AWAD RN, CM
[2019-05-12 11:50] LABS: Bedside Glucose 247 mg/dL (70-110)
[2019-05-12 14:36] LABS: Bedside Glucose 229 mg/dL (70-110)
--- NOTE | 2019-05-12 15:05 | PCM.DC ---
- Discharge Diagnoses Current Active Problems: Current Active and Chronic Problems (Last Reviewed 03/04/19 @ 09:03 by Rula Dickerson) Unstable angina (Acute) Non-ST elevation myocardial infarction (NSTEMI) (Acute) Chronic CHF (Chronic) You will use the following diet at home:: Calorie/Carbohydrate Controlled (specify 1200, 1400, etc) - 1800 antonia Your food should be the consistency of: Regular Your liquids should be the consistency of: Regular/Thin Discharge Activity: Return to Normal Activity Weight Bearing Status: Full weight bearing Allergies/Adverse Reactions: Allergies exenatide [From Byetta] Adverse Reaction (Severe, Verified 05/11/19 23:45) Shaking and Vomiting Medications to take at Discharge ascorbic acid (vitamin C) 500 mg capsule 500 mg PO DAILY 04/10/17 zinc 50 mg tablet 50 mg PO DAILY 04/10/17 [id number]-flqzln-xtgnrtz-min 3,300 unit-5 mg-200mg-75 unit tablet ER 1 tab PO QDAY 07/07/17 garlic 500 mg capsule 500 mg PO DAILY 01/08/18 Gabapentin [Neurontin] 600 mg PO BID 07/30/18 Lisinopril [Zestril] 40 mg PO DAILY 07/30/18 Multivit-Min/FA/Lycopen/Lutein [Centrum Silver Tablet] 1 ea PO DAILY 07/30/18 [place]-3S/Dha/Epa/Fish Oil [Fish Oil Dr 1,000 mg Softgel] 1 ea PO DAILY 07/30/18 Simvastatin 40 mg PO DAILY 07/30/18 glimepiride 4 mg tablet 4 mg PO DAILY #90 tab 08/18/18 alogliptin 25 mg tablet 25 mg PO DAILY #90 tab 11/25/18 Aspirin [Aspirin, Baby] 81 mg PO DAILY@0800 tab.chew 05/12/19 Carvedilol [Coreg (Beta Farrukh)] 6.25 mg PO BID #60 tab 05/12/19 metFORMIN HCl [Glucophage] 1,000 mg PO DAILY #90 tab 05/12/19 metFORMIN HCl [Glucophage] 1,500 mg PO QHS #135 tab 05/12/19 The following prescriptions were given: Carvedilol [Coreg (Beta Farrukh)] 6.25 mg PO BID #60 tab Transmission Status: Pending to [facility] Primary Care Physician: Ricco Marin NP-C [Primary Care Provider] - Please follow up with your Primary Care Physician in: in 2-3 weeks Test Results: Test results from this visit will be discussed in further detail at your follow-up appointment, if applicable. Please Follow Up With: Misha Szymanski MD When: as directed-call for appointment
[2019-05-12] MEDS: Insulin Lispro 100 UNIT/ML INSULN.PEN SC (15:17)
--- NOTE | 2019-05-12 15:37 | CL.D_ITS ---
Patient Name: JOVANNY STAFFORD Study Date: 05/12/2019 Performing: Misha Szymanski MD Ht: 73 inches 185 cm : 1945 Wt: 258.3 lbs 117 kg Age: 74 Gender: male BSA: 2.39 PROCEDURE(S) PERFORMED [id number]/COR/LV/CABG CLINICAL PROFILE AND INDICATIONS Indications: Suspected CAD Heart Failure: None Stress/Imaging Stress/Image Study Performed: No CONCLUSIONS Coronary artery disease with occluded bypass graft to the obtuse marginal vessel and occluded [place] circumflex artery. Left anterior descending artery is occluded in the midsegment with a patent left internal mammary artery to the left anterior descending artery. Right coronary artery is large domin ant with mild diffuse disease. RECOMMENDATIONS Medical therapy DESCRIPTION OF PROCEDURE The patient arrived to the procedure lab. The risks and benefits of the procedure as well as a full d escription of our services here and current unavailability of surgical backup were fully explained to the patient and/or their significant other prior to the catheterization. The Timeout was completed, verifying the correct patient and procedure. The patient's procedural site was prepped and draped in the usual fashion. Local anesthetic was given subcutaneously to right groin region with Lidocaine 2%. Using a modified Seldinger technique, arterial access was obtained via the right femoral artery, a 5 Fr sheath was inserted. Left Coronary Artery selective angiography was performed in multiple views u sing a 5 Fr. JL4 catheter. Right Coronary Artery selective angiography was then performed in multiple views using a 5 Fr. 3DRC (Rajiv) catheter. Saphenous Vein graft to the Ramus selective angiograph y was performed in multiple views using a 5 Fr. 3DRC (Rajiv) catheter. Left Radial graft to the OM 1 selective angiography was performed in multiple views using a 5 Fr. 3DRC (Rajiv) catheter. Left internal mammary artery graft to the LAD selective angiography was performed in multi ple views using a 5 Fr. 3DRC (Rajiv) catheter. Left Ventriculography was performed in DOLL projecti on using a 5 Fr. Pigtail catheter. LV to AO pullback pressures were then recorded.The arterial sheath was pulled and manual compression applied until hemostasis is achieved. CORONARY ANGIOGRAPHY DOMINANCE: Right Dominant LEFT HEART ASSESSMENT Left Ventricular Ejection Fraction: by LV Gram 35 % Global Hypokinesis - Moderate Depressed Left Ventricular systolic function LEFT MAIN: Mild calcification LEFT ANTERIOR DESCENDING ARTERY: PROX LAD: is occluded CIRCUMFLEX ARTERY: MID CIRC: is occluded RIGHT CORONARY ARTERY: Mild luminal irregularities less than 30% GRAFTS: HORN graft to the Mid LAD is patent Saphenous Vein graft to the Ramus is patent Radial graft to the 1st OM is totally occluded COMPLICATIONS No Complications PROCEDURE MEDICATIONS Versed 1 mg IV Oxygen: 2 L/min via nasal cannula SUMMARY OF HEMODYNAMIC DATA Time AIR REST ECG 12:41:08 AO 158/79 (111) SA 12:48:58 LV 153/20, 27 13:03:52 LV 150/17, 23 13:03:59 LV 156/22, 27 13:04:54 LVp 155/79, 81 13:05:29 AOp 153/77 (106) 13:05:34 Signed By Misha Szymanski MD On 05/12/2019 15:36:22 Misha Szymanski MD
--- NOTE | 2019-05-12 18:31 | NURSING ---
pt ambulated sunshine with this RN after 5 hours bedrest. pt tolerated well. no bleeding or pain at cath site.
[2019-05-12] MEDS: Carvedilol 6.25 MG Tablet PO (18:35)
--- NOTE | 2019-05-13 08:26 | PCM.DC.SUM ---
Discharge Date and Diagnosis Date of Admission: 05/12/19 Date of Discharge: 05/12/19 - Primary Discharge Diagnosis #1 non-STEMI #2 nonocclusive coronary artery disease #3 essential hypertension #4 hyperlipidemia #5 type 2 diabetes #6 obstructive sleep apnea #7 ischemic cardiomyopathy - Secondary Discharge Diagnosis Chronic Problems (Last Reviewed 03/04/19 @ 09:03 by Rula Dickerson) Chronic CHF (Chronic) Type 2 diabetes mellitus (Chronic) Dyspnea (Chronic) Obstructive sleep apnea (Chronic) Pure hypercholesterolemia (Chronic) Essential (primary) hypertension (Chronic) Atherosclerotic heart disease of [place] coronary artery without angina pectoris (Chronic) July 2002: HORN to LAD, SVG to Ramus, Left radial graft to OM; PTCA and ZARIA of CX November 2002 Obesity (Chronic) Hospital Course and Treatment Operations: None Procedures: 2-D Echocardiogram, Cardiac catheterization Summary of Care Provided: The patient is a 74 year old M who was seen in the emergency room at [facility] chief complaint of chest pain, work-up in the emergency room included an EKG which showed a normal sinus rhythm with T wave inversions in 1, aVL, and V2 through V6, prolonged QT was noted. Chest x-ray showed chronic changes with no acute abnormalities, troponin was elevated at 0.58. Patient was felt to have had a non-STEMI, his monomer purification operator was contacted and the patient was given Brilinta, he was admitted to PCU and enzymes were cycled and they remained elevated. An echocardiogram was obtained which showed a reduced ejection fraction at 30%. Patient underwent a cardiac catheterization which showed nonocclusive coronary artery disease and it was felt that the patient should be treated medically. Prior to his discharge on 05/12/2019, I have reviewed the patient's medications with him and his significant other. He was seen and examined on that date: On examination he appeared in good health and spirits. Vital signs as documented. Skin warm and dry and without overt rashes. Neck without JVD. Lungs clear. Heart exam notable for regular rhythm, normal sounds and absence of murmurs, rubs or gallops. Abdomen unremarkable and without evidence of organomegaly, masses, or abdominal aortic enlargement. Extremities nonedematous. Neuro: Cranial nerves II through XII are grossly intact, no focal motor deficits were noted, sensation to light touch and pinprick intact. Psych: Patient is alert and oriented x3, he does not appear anxious or depressed Patient was discharged in stable condition on 05/12/2019. - Physical Exam Vitals/I&O's: Vital Signs Temp Pulse Resp BP Pulse Ox 98.0 F 67 14 146/68 H 94 05/12/19 15:30 05/12/19 18:31 05/12/19 18:31 05/12/19 18:31 05/12/19 18:31 Oxygen Flow Rate (L/min) 2 Oxygen Delivery Method Room Air Weight: 117 kg Body Mass Index (BMI) 34.0 Intake and Output for Last 24 Hours 05/11/19 05/12/19 05/13/19 23:59 23:59 23:59 Intake Total 2122.34 / 2122.34 Output Total 300 / 300 Balance 1822.34 / 1822.34 Laboratory Results 05/12/19 11:20: POC Glucose 247 H 05/12/19 14:29: POC Glucose 229 H Discharge Activity: Return to Normal Activity Weight Bearing Status: Full weight bearing Home Medications: Medications to take at Discharge ascorbic acid (vitamin C) 500 mg capsule 500 mg PO DAILY 04/10/17 zinc 50 mg tablet 50 mg PO DAILY 04/10/17 [id number]-C-dlqzkk-yvdphby-min 3,300 unit-5 mg-200mg-75 unit tablet ER 1 tab PO QDAY 07/07/17 garlic 500 mg capsule 500 mg PO DAILY 01/08/18 Gabapentin [Neurontin] 600 mg PO BID 07/30/18 Lisinopril [Zestril] 40 mg PO DAILY 07/30/18 Multivit-Min/FA/Lycopen/Lutein [Centrum Silver Tablet] 1 ea PO DAILY 07/30/18 [place]-3S/Dha/Epa/Fish Oil [Fish Oil Dr 1,000 mg Softgel] 1 ea PO DAILY 07/30/18 Simvastatin 40 mg PO DAILY 07/30/18 glimepiride 4 mg tablet 4 mg PO DAILY #90 tab 08/18/18 alogliptin 25 mg tablet 25 mg PO DAILY #90 tab 11/25/18 Aspirin [Aspirin, Baby] 81 mg PO DAILY@0800 tab.chew 05/12/19 Carvedilol [Coreg (Beta Farrukh)] 6.25 mg PO BID #60 tab 05/12/19 metFORMIN HCl [Glucophage] 1,000 mg PO DAILY #90 tab 05/12/19 metFORMIN HCl [Glucophage] 1,500 mg PO QHS #135 tab 05/12/19 Following Prescrptions Were Given to Patient: Carvedilol [Coreg (Beta Farrukh)] 6.25 mg PO BID #60 tab Transmission Status: Received by [id number] Primary Care Physician: Ricco Marin NP-C [Primary Care Provider] - Please follow up with your Primary Care Physician in: in 2-3 weeks Please Follow Up With: Misha Szymanski MD When: as directed-call for appointment Please Follow Up With: Ricco Marin NP-C Disposition: Home Minutes spent on discharge:: 34 Patient Condition:: Stable Medical Necessity - Tobacco Use Smoking Status: Former smoker Tobacco Use: Non-smoker Meaningful Use Info Meaningful Use Diagnoses (Choose all that apply): AMI - AMI/Post PCI/Angioplasty Aspirin given w/in 24hrs of arrival?: Yes ASA at discharge?: Yes Antiplatelet Therapy at Discharge:: No Reason Antiplatelet Therapy not ordered:: not felt necessary by cardiology Statins at discharge?: Yes Margarito/ARB at discharge?: Yes Beta Farrukh at discharge?: Yes Done w/ Acute CA measure.: Yes Documented LVEF (%): 30 Code Visit Inpatient E&M: 34715 Disch Hosp
--- NOTE | 2019-05-13 14:15 | CASEMGMT ---
EMILIE ZARATE Discharge Follow-Up Phone Call. [place]: 11 Strata: 3 Discharge Date: 05/12/19 Adm Dx: NSTEMI Call to pt to inquire about how he has been doing since being discharged from the hospital. Pt stated, Been doing really well. He denies having any questions about the discharge instructions or f/u appts. He states he made an appt with Dr Szymanski for 06/09. He was able to sisal picker the new prescription, Coreg, and denies having any questions about it. He states, The doctor told me that he was going to call in a prescription for Nitro but they never got it'. This RN CM placed call to Dr Rosas and inquired about the Nitro. Dr Ortiz states he will call prescription in now to [facility] in [place]. Attempted to call pt back to let him know. VM message came on. Call placed Dayna Calderon (pt's significant other who was with pt when EMILIE ZARATE called him initially). She was made aware Dr Rosas is calling in prescription for Nitro now and she states will let pt know. Elvin AWAD RN, CM
== END 2019-05-12 18:40 | disposition home or self-care (01) | DRG 281 ==
LOC: ED 05-12 00:31 → PCU 05-12 00:49
PROVIDERS: Admitting Provider Family Medicine; Emergency Provider Emergency Medicine; PCP Nurse Practitioner Family; Visit Provider Internal Medicine
DX: I21.4 Non-ST elevation (NSTEMI) myocardial infarction (principal); I50.42 Chronic combined systolic (congestive) and diastolic (congestive) heart failure; I13.0 Hypertensive heart and chronic kidney disease with heart failure and stage 1 through stage 4 chronic kidney disease, or unspecified chronic kidney disease; I25.5 Ischemic cardiomyopathy; I25.110 Atherosclerotic heart disease of native coronary artery with unstable angina pectoris; E11.22 Type 2 diabetes mellitus with diabetic chronic kidney disease; E78.5 Hyperlipidemia, unspecified; E66.9 Obesity, unspecified; G47.33 Obstructive sleep apnea (adult) (pediatric); N18.3 Chronic kidney disease, stage 3 (moderate); E78.00 Pure hypercholesterolemia, unspecified; Z95.5 Presence of coronary angioplasty implant and graft; Z87.891 Personal history of nicotine dependence; Z95.1 Presence of aortocoronary bypass graft; Z82.49 Family history of ischemic heart disease and other diseases of the circulatory system; Z82.3 Family history of stroke; Z68.34 Body mass index [BMI] 34.0-34.9, adult; Z79.82 Long term (current) use of aspirin; Z87.442 Personal history of urinary calculi; Z85.828 Personal history of other malignant neoplasm of skin
CPT/HCPCS: 36415; 71046; 72040; 80048; 80061; 82962; 83036; 83735; 84484; 85025; 85610; 85730; 93005; 93306; 93459; 97802; 99283; 99285; J7030; Q9957; Q9967; A4216; C1769; C8929

== ENCOUNTER 2019-08-26 17:14 | Emergency (ER) | payer MEDICARE, SELFPAY ==
[2019-07-29 09:18] VITALS: BMI 33.7
[2019-08-26 17:15] VITALS: BP 155/66; PULSE 62; RESP 18; TEMP 36.1; O2SAT 98; BMI 33.7
--- NOTE | 2019-08-26 17:23 | EKG12_ITS ---
Test Reason : CP Blood Pressure : / mmHG Vent. Rate : 061 BPM Atrial Rate : 061 BPM P-R Int : 190 ms QRS Dur : 100 ms QT Int : 400 ms P-R-T Axes : 031 -26 061 degrees QTc Int : 402 ms Normal sinus rhythm with sinus arrhythmia Normal ECG Confirmed by SHERICE SAPP ([id number]), movie editor BO LUNDBERG ([id number]) on 08/29/2019 11:00:49 AM Referred By: MANOHAR Confirmed By:SHERICE SAPP
--- NOTE | 2019-08-26 17:36 | ED.DCSUM_ITS ---
History of Present Illness Chief Complaint: Chest Pain Detail of Chief Complaint: Midsternal chest pain radiating to the left side with diaphoresis and SOB Onset: Hours Context: Sudden Onset Timing: Intermittent Quality: Unable to qualitate or quantitate Location: Midsternal Current Severity: - - Absent Maximum Severity: Severe - Severe Worsened by: Occurred while performing activity outside in the yard Relieved by: 1 nitro Associated Symptoms: Shortness of breath and diaphoresis and similar to prior SD Narrative: Patient is 74-year-old male who is not a good informant presents via ambulance with midsternal chest pain that radiates to his left shoulder and experienced discomfort and coldness in his left hand. This was associated with diaphoresis and shortness of breath. He states he was outside working. Total duration 2- 1/2 hours. He states he had relief after taking 1 nitro. He waited a couple hours prior to taking the nitroglycerin. He presently denies chest discomfort. He takes aspirin daily. He has taken aspirin last 24 hours. He denies fever, chills night sweats. Denies weight gain or weight loss. He denies ocular, visual auditory symptoms. He denies upper respiratory symptoms. He denies orthopnea, PND. He denies increased swelling of his lower extremities. He denies black or maroon stool. Prior similar symptoms: Yes - Prior hospitalization and diagnosed with SD Recent Illness/Hospitalization: No Capacity - Capacity Assessment Tool Can the patient make a choice & communicate that choice?: Yes Can the patient understand benefits, risks and alternatives?: Yes Can the patient make a logical, rational choice?: Yes Is the choice the patient makes consistent w/ their values?: Unable to Determine Is there an impending, emergent risk to the patient?: No Is there a Surrogate Available?: No i.e. HCPOA: No i.e. close relative (spouse, child, parent, sibling)?: No - Past Medical History (1) Chronic combined systolic and diastolic CHF (congestive heart failure) Status: Chronic (2) Essential (primary) hypertension Status: Chronic (3) Ischemic cardiomyopathy Status: Chronic (4) Obstructive sleep apnea Status: Chronic (5) Pure hypercholesterolemia Status: Chronic (6) Type 2 diabetes mellitus Status: Chronic (7) History of non-ST elevation myocardial infarction (NSTEMI) Status: Resolved Past Medical History - Allergies and Home Meds Allergies/Adverse Reactions: Allergies exenatide [From Byetta] Adverse Reaction (Severe, Verified 06/17/19 12:58) Shaking and Vomiting Primary Care Physician: Ricco Marin NP-C [Primary Care Provider] - Prior records reviewed: Yes Surgical History: cholecystectomy, coronary bypass surgery, tonsillectomy, - - Left upper extremity skin cancer removal, kidney stone intervention, CABG x3, PCI, tonsillectomy. Lives: Spouse/ Significant Other Smoking Status: Former smoker Alcohol: None Drugs: None - Family History Maternal Family History: Family History (Last Reviewed 06/17/19 @ 13:[address] Misha Szymanski MD) Mother Hypertension Myocardial infarction CVA (cerebral vascular accident) Father Hypertension Heart disease Myocardial infarction, Onset Age: 45 Sudden cardiac Brother Heart disease Myocardial infarction Family History: Reports: - - Patient notes a maternal family history of heart disease, hypertension, hyperlipidemia, CVA. Paternal Family History: Family History (Last Reviewed 06/17/19 @ 13:[address] Misha Szymanski MD) Mother Hypertension Myocardial infarction CVA (cerebral vascular accident) Father Hypertension Heart disease Myocardial infarction, Onset Age: 45 Sudden cardiac Brother Heart disease Myocardial infarction Family History: Reports: - - Patient notes a paternal family history of heart disease, hypertension, hyperlipidemia, history of SD with sudden cardiac at age 42. Review of Systems General: Denies: Chills, Fever, Sweats Eyes: Denies: Visual changes - bilaterally, Blurred Vision - bilaterally ENT: Denies: Bilateral ear pain, Rhinorrhea, Sore throat Cardiovascular: Reports: Chest pain. Denies: Palpitations, Heart racing Respiratory: Reports: Dyspnea. Denies: Cough, Sputum, Dyspnea on exertion, Orthopnea, Paroxysmal nocturnal dyspnea Gastrointestinal: Denies: Abdominal pain, Nausea, Vomiting, Diarrhea, Melena, Hematochezia Genitourinary: Denies: Dysuria, Hematuria, Frequency Musculoskeletal: Reports: Extremity Pain - Left upper extremity. Denies: Myalgias, Arthralgias, Neck pain, Back pain, Swelling, -, - Skin: Denies: Rash, Wounds Neurological: Denies: Headache, Weakness, Numbness Endocrine: Denies: Polyuria, Polydipsia Hematologic: Denies: Easy bruising, Easy bleeding Physical Exam Vital Signs/Narrative: Vital Signs Temp Pulse Resp BP Pulse Ox 05/29/20 17:15 96.9 F L 62 18 155/66 H 98 Inital Vital Signs reviewed: Yes General: Well nourished, Well developed, Obese Head: Normocephalic, Atraumatic Eyes: Perrl, EOMI. Negative for: Pale conjunctiva, Scleral icterus ENT: No rhinorrhea, TM's clear, Dry mucous membranes Neck: Supple, Nontender, No lymphadenopathy, No JVD Cardiovascular: Regular rate, Regular rhythm, No murmurs, Normal S1, Normal S2 Respiratory: No distress, CTA bilaterally, Chest nontender Abdomen: Soft, Nontender, Nondistended, Normal bowel sounds Rectal: Deferred Back: Nontender, Normal Inspection Extremities: Nontender, Edema - Pitting 1 to 2 mm Skin: Normal color, No rash, No Trauma, - - Skin is cool and clammy. Negative for: Cyanosis, Jaundice Diagnostic/Tx/Re-eval 08/26/19 17:23 Chest 1 View (Portable) [RAD] Stat Laboratory Results 08/26/19 08/26/19 17:20 17:20 WBC 6.9 RBC 4.75 Hgb 14.7 Hct 43.7 MCV 92.0 MCH 30.9 MCHC 33.6 RDW Std Deviation 42.6 RDW Coeff of Vamsi 12.7 Plt Count 172 MPV 11.3 Immature Gran % (Auto) 0.300 Neut % (Auto) 59.5 Lymph % (Auto) 30.0 [place] % (Auto) 7.3 Eos % (Auto) 2.3 Baso % (Auto) 0.6 Absolute Neuts (auto) 4.1 Absolute Lymphs (auto) 2.06 Nucleated RBC % 0 Sodium 139 Potassium 4.7 Chloride 104 Carbon Dioxide 28.0 Anion Gap 7 BUN 18 Creatinine 1.12 Estim Creat Clear Calc 63.41 Est GFR (MDRD) Af Amer 82 Est GFR (MDRD) Non-Af 68 BUN/Creatinine Ratio 16.1 Glucose 301 H Calcium 8.9 Troponin I < 0.015 Is informed of his test results. Patient was informed that his heart score is 5 and that this would indicate there is an approximate 20% incidence of significant cardiac event in the next 90 days. He states he had a heart catheterization in April. I informed him I read the heart cath report. It is not insignificant. There was no abnormalities at that time that would indicate intervention is indicated. Patient states the reason I ordered a chest x-ray is for money . I informed him the reason for the chest x-ray is the abnormal auscultatory findings and edema of his lower extremities. He was informed he meets criteria for admission to the hospital. Again he informed me this has to do with money and reiterated the unnecessary ordering of chest x- ray. Patient was informed of his risks. - Rhythm Strip Rhythm Strip: Sinus Rhythm Rate: 66 Ectopy: PVC(s) - An occasional premature ventricular beat noted. - EKG Initial EKG Interpretation: Sinus Rhythm - EKG performed at 1722. Patient was not having symptoms. Sinus rhythm with a ventricular rate of 61 with respiratory variance. NV interval 190 ms. QRS duration 100 ms. QT duration 400 ms. [place] is normal. There is mild decreased anterior force. - Medical Decision Making Will review patient's prior records. Concerned this is cardiac in light of description, relief with nitro and the fact that it is similar to when he was diagnosed with his prior non-ST elevation SD. EKG, chest x-ray, appropriate blood work was ordered. Since he has taken aspirin last 24 hours aspirin was not administered in the department. Heart score is 5 or greater. Differential includes cardiac ischemia, non-ST elevation SD, noncardiac etiology including GERD, biliary disease and pulmonary disease. Patient would not allow the echocardiography radiology technologist to perform chest x-ray because he had 1 2 months ago. Patient was informed by me the reason for the x-ray. He states if it kills me it kills me. He was made aware of the necessity of the test and possible complications. He still refuses to allow the electronics warfare technician to perform the test. In my professional opinion patient has the capacity and understands risks of going home versus staying in the hospital for further testing. Patient was informed he may not be of the perform 1 or more activities of daily living. This was explained to him in layman's terms. He was told this may result in increased injury or damage to his heart which may result in inability to walk from room to room, spend time with his , enjoy things that he likes to do. This may also result in need for life support, tracheostomy and feeding tube. He was told this is altered in physical, mental or emotional disability. He may have injury to his brain resulting in seizure, such a vegetative to vegetative state. This may result in . He did make the comment if he dies it does not matter . ED Disposition - Plan for ED Patient: Disposition: Against Medical Advice Diagnosis: Chest pain, exertional, Chronic combined systolic and diastolic CHF (congestive heart failure), Essential (primary) hypertension, Ischemic cardiomyopathy, Obstructive sleep apnea, Pure hypercholesterolemia, Type 2 diabetes mellitus Instructions: Your Heart is at Risk, Angina Referrals: Ricco Marin NP-C [Primary Care Provider] - Misha Szymanski MD [STAFF PHYSICIAN] - As soon as possible
[2019-08-26 17:46] LABS: Absolute Lymphocyte Count 2.06 X10^3/uL (0.83-4.51); Absolute Neutrophil Count 4.1 X10^3/uL (2.0-7.7); Basophil# 0.04 X10^3/uL; Basophil% 0.6 % (0-1); Eosinophil# 0.16 X10^3/uL; Eosinophils% 2.3 % (0-5); Hematocrit 43.7 % (40-54); Hemoglobin 14.7 g/dL (13.0-16.5); Lymphocyte # 2.06 X10^3/ul (4.0); Mean Corp Hgb Conc 33.6 g/dL (32-36); Mean Corpuscular Hgb 30.9 pg (27.0-32.0); Mean Platelet Vol. 11.3 fl (6.2-12.0); Monocyte% 7.3 % (0-10); NRBC Flagged by Analyzer 0 % (0-5); Neutrophil # 4.09 X10^3/uL (2.7-7.7); Neutrophil % 59.5 % (47-70); Platelet Count 172 K/mm3 (150-450); RBC Distribution Width CV 12.7 % (11.6-14.6); RBC Distribution Width SD 42.6 fl (35.1-43.9); Red Blood Count 4.75 M/mm3 (4.6-6.2); White Blood Count 6.9 K/mm3 (4.4-11.0)
[2019-08-26 17:48] LABS: Anion Gap 7 (5-15); BUN 18 mg/dL (7-18); BUN/Creat Ratio 16.1 RATIO (10-20); Calcium,Total 8.9 mg/dL (8.5-10.1); Chloride 104 mmol/L (98-107); Creatinine, Serum 1.12 mg/dL (0.70-1.30); EST Glomerular Filtration Rate 68 mL/min (>60); Est Glom Filt Rate - Afr Amer 82 mL/min (>60); Estimated Creatinine Clearance 63.41 ml/min; Glucose 301 mg/dL (74-106); Potassium 4.7 mmol/L (3.5-5.1); Sodium Level 139 mmol/L (136-145)
--- NOTE | 2019-08-26 18:29 | ED.RN ---
PT REFUSED XRAY
[2019-08-26 18:59] VITALS: BP 171/78; PULSE 56; RESP 16; O2SAT 98
== END 2019-08-26 19:01 | disposition left against medical advice (07) ==
PROVIDERS: Emergency Provider Emergency Medicine; PCP Nurse Practitioner Family
DX: R07.9 Chest pain, unspecified (principal); I11.0 Hypertensive heart disease with heart failure; I50.42 Chronic combined systolic (congestive) and diastolic (congestive) heart failure; I25.5 Ischemic cardiomyopathy; G47.33 Obstructive sleep apnea (adult) (pediatric); E11.9 Type 2 diabetes mellitus without complications; E78.00 Pure hypercholesterolemia, unspecified; I25.2 Old myocardial infarction; Z79.82 Long term (current) use of aspirin; Z82.3 Family history of stroke; Z82.49 Family history of ischemic heart disease and other diseases of the circulatory system; Z87.891 Personal history of nicotine dependence; Z90.49 Acquired absence of other specified parts of digestive tract; Z95.1 Presence of aortocoronary bypass graft
CPT/HCPCS: 80048; 84484; 85025; 93005; 99285; A4216

== ENCOUNTER → 2019-10-27 09:47 | Outpatient (CLI) | payer MEDICARE, SELFPAY ==
[2019-10-07 09:10] VITALS: BMI 32.5
--- NOTE | 2019-10-27 09:48 | ECHOCS_ITS ---
Reason For Study: CAD/ASHD Procedure This was a 2D Doppler, Color Flow transthoracic echocardiogram. Contrast injection was performed. Exam performed in department. Left Ventricle Normal left ventricle. Left ventricular systolic function is normal. The estimated ejection fraction is 55 %. Stage 1 diastolic dysfunction. No regional wall motion abnormalities noted. Right Ventricle Normal RV size. Normal systolic function. Atria Normal left atrium. Normal right atrium. Mitral Valve Mitral valve not well visualized. Tricuspid Valve Normal tricuspid valve. Mild tricuspid valve insufficiency. Pulmonary artery systolic pressure is 34 mmHg. Aortic Valve The aortic valve is not well visualized. Pulmonic Valve The pulmonic valve is not well visualized. Great Vessels Normal aortic root. The pulmonary artery is normal size. Pericardium/Pleural No pericardial effusion. Medication Diluted definity 3ml given slow IV push to enhance endocardial definition. MMode/2D Measurements & Calculations LVIDd: 5.3 cm IVSd: 1.1 cm Ao root diam: 3.4 cm LVIDs: 4.1 cm LVPWd: 1.1 cm RVDd: 3.8 cm FS: 22.4 % LAV(MOD-bp): 68.8 ml LA A4 area: 20.0 cm2 LA dimension(2D): 4.1 cm LAV(MOD-bp) Indexed: 30.0 ml/m2 LAV(MOD-sp2): 78.7 ml LAV(MOD-sp4): 60.4 ml RA A4 area: 13.7 cm2 Doppler Measurements & Calculations MV E max morris: 69.3 cm/sec Lat Peak E' Morris: 8.5 cm/sec Med Peak E' Morris: 4.8 cm/sec MV A max morris: 94.5 cm/sec E/E' lat: 8.2 E/E' med: 14.3 MV E/A: 0.73 Ao V2 max: 150.1 cm/sec LV V1 max: 96.2 cm/sec PA V2 max: 102.7 cm/sec Ao max P.0 mmHg LV V1 max P.7 mmHg Ao V2 mean: 102.0 cm/sec Ao mean P.6 mmHg Ao V2 VTI: 31.9 cm TR max morris: 275.5 cm/sec TR max P.4 mmHg Interpretation Summary Normal left ventricle. Left ventricular systolic function is normal. The estimated ejection fraction is 55 %. Stage 1 diastolic dysfunction. Contrast injection was performed. Ordering Physician: Misha Szymanski Referring Physician: Faith Jay Performed By: Yohana Hull, KALICS, RVT
== END ==
LOC: CVS 09:48
PROVIDERS: PCP Internal Medicine; Referring Provider Internal Medicine Cardiovascular Disease; Visit Provider Internal Medicine Cardiovascular Disease
DX: I25.810 Atherosclerosis of coronary artery bypass graft(s) without angina pectoris (principal)
CPT/HCPCS: 93306; Q9957; A4216; C8929

== ENCOUNTER → 2020-01-06 09:42 | Outpatient (CLI) | payer MEDICARE, SELFPAY ==
[2020-01-06 08:50] VITALS: BMI 30.9
[2020-01-06 13:01] LABS: AST(SGOT) 9 U/L (15-37); Alanine Aminotransfer ALT/SGPT 20 U/L (16-61); Albumin, Serum 3.7 g/dL (3.2-5.0); Alkaline Phosphatase 88 U/L (45-117); Bilirubin, Direct 0.22 mg/dL (0.00-0.30); Cholesterol 129 mg/dL (200); Globulin 3.8 g/dL (2.2-4.2); High Density Lipoprotein 39 mg/dL; Protein, Total 7.5 g/dL (6.4-8.2); Triglycerides 140 mg/dL; Very Low Density Lipoprotein 28 mg/dL (5-40)
== END ==
PROVIDERS: PCP Internal Medicine; Referring Provider Nurse Practitioner Family; Visit Provider Nurse Practitioner Family
DX: E78.00 Pure hypercholesterolemia, unspecified (principal)
CPT/HCPCS: 36415; 80061; 80076

== ENCOUNTER → 2020-04-10 11:19 | Outpatient (CLI) | payer MEDICARE, SELFPAY ==
[2020-04-10 11:19] VITALS: BMI 30.9
[2020-04-10 12:24] LABS: Absolute Lymphocyte Count 2.37 X10^3/uL (0.83-4.51); Absolute Neutrophil Count 5.2 X10^3/uL (2.0-7.7); Basophil# 0.06 X10^3/uL; Basophil% 0.7 % (0-1); Eosinophil# 0.15 X10^3/uL; Eosinophils% 1.8 % (0-5); Hematocrit 47.5 % (40-54); Hemoglobin 15.8 g/dL (13.0-16.5); Lymphocyte # 2.37 X10^3/ul (4.0); Lymphocyte % 28.4 % (19-41); Mean Corp Hgb Conc 33.3 g/dL (32-36); Mean Corpuscular Hgb 29.5 pg (27.0-32.0); Mean Corpuscular Volume 88.8 fL (80-94); Mean Platelet Vol. 10.8 fl (6.2-12.0); Monocyte# 0.53 X10^3/uL; Monocyte% 6.3 % (0-10); NRBC Flagged by Analyzer 0 % (0-5); Neutrophil % 62.3 % (47-70); Platelet Count 160 K/mm3 (150-450); RBC Distribution Width CV 12.5 % (11.6-14.6); RBC Distribution Width SD 40.9 fl (35.1-43.9); Red Blood Count 5.35 M/mm3 (4.6-6.2); White Blood Count 8.4 K/mm3 (4.4-11.0)
[2020-04-10 13:00] LABS: ALB/GLOB Ratio 1.1 RATIO (0.9-2.4); AST(SGOT) 10 U/L (15-37); Alanine Aminotransfer ALT/SGPT 18 U/L (16-61); Albumin, Serum 3.7 g/dL (3.2-5.0); Alkaline Phosphatase 82 U/L (45-117); Anion Gap 8 (5-15); BUN 14 mg/dL (7-18); BUN/Creat Ratio 14.5 RATIO (10-20); Calcium,Total 9.1 mg/dL (8.5-10.1); Chloride 101 mmol/L (98-107); Creatinine, Serum 0.97 mg/dL (0.70-1.30); EST Glomerular Filtration Rate 80 mL/min (>60); Est Glom Filt Rate - Afr Amer 97 mL/min (>60); Globulin 3.5 g/dL (2.2-4.2); Glucose 241 mg/dL (74-106); Potassium 4.3 mmol/L (3.5-5.1); Protein, Total 7.2 g/dL (6.4-8.2); Sodium Level 136 mmol/L (136-145)
[2020-04-10 13:42] LABS: Microalbumin,Random Urine 82.3 mg/L (NO RANGE EST.); Microalbumin:Creatinine Ratio 78.4 mg/g CRE (<30 mg/g CRE)
== END ==
PROVIDERS: PCP Internal Medicine; Referring Provider Internal Medicine; Visit Provider Internal Medicine
DX: E11.9 Type 2 diabetes mellitus without complications (principal)
CPT/HCPCS: 36415; 80053; 82043; 82570; 85025

== ENCOUNTER → 2020-05-11 14:25 | Outpatient (CLI) | payer MEDICARE, SELFPAY ==
[2020-05-11 14:10] VITALS: BMI 29.4
[2020-05-11 15:41] LABS: Absolute Lymphocyte Count 3.01 X10^3/uL (0.83-4.51); Absolute Neutrophil Count 6.1 X10^3/uL (2.0-7.7); Basophil# 0.07 X10^3/uL; Basophil% 0.7 % (0-1); Eosinophil# 0.18 X10^3/uL; Eosinophils% 1.8 % (0-5); Hematocrit 46.4 % (40-54); Lymphocyte # 3.01 X10^3/ul (4.0); Lymphocyte % 29.7 % (19-41); Mean Corp Hgb Conc 34.5 g/dL (32-36); Mean Corpuscular Hgb 30.4 pg (27.0-32.0); Mean Platelet Vol. 10.8 fl (6.2-12.0); Monocyte# 0.73 X10^3/uL; Monocyte% 7.2 % (0-10); NRBC Flagged by Analyzer 0 % (0-5); Neutrophil # 6.08 X10^3/uL (2.7-7.7); Neutrophil % 59.9 % (47-70); Platelet Count 226 K/mm3 (150-450); RBC Distribution Width CV 12.6 % (11.6-14.6); RBC Distribution Width SD 40.6 fl (35.1-43.9); Red Blood Count 5.27 M/mm3 (4.6-6.2); White Blood Count 10.1 K/mm3 (4.4-11.0)
[2020-05-11 16:09] LABS: AST(SGOT) 9 U/L (15-37); Alanine Aminotransfer ALT/SGPT 21 U/L (16-61); Albumin, Serum 3.7 g/dL (3.2-5.0); Alkaline Phosphatase 84 U/L (45-117); Anion Gap 6 (5-15); BUN 23 mg/dL (7-18); BUN/Creat Ratio 21.5 RATIO (10-20); Calcium,Total 9.6 mg/dL (8.5-10.1); Chloride 104 mmol/L (98-107); Creatinine, Serum 1.07 mg/dL (0.70-1.30); EST Glomerular Filtration Rate 71 mL/min (>60); Est Glom Filt Rate - Afr Amer 86 mL/min (>60); Globulin 3.8 g/dL (2.2-4.2); Glucose 181 mg/dL (74-106); Potassium 4.1 mmol/L (3.5-5.1); Protein, Total 7.5 g/dL (6.4-8.2); Sodium Level 137 mmol/L (136-145)
== END ==
PROVIDERS: PCP Internal Medicine; Referring Provider Internal Medicine; Visit Provider Internal Medicine
DX: Z01.818 Encounter for other preprocedural examination (principal)
CPT/HCPCS: 36415; 80053; 85025

== ENCOUNTER → 2020-10-16 08:56 | Outpatient (CLI) | payer MEDICARE, SELFPAY ==
[2020-10-09 08:39] VITALS: BMI 29.8
[2020-10-16 09:58] LABS: AST(SGOT) 9 U/L (15-37); Alanine Aminotransfer ALT/SGPT 21 U/L (16-61); Albumin, Serum 3.6 g/dL (3.2-5.0); Alkaline Phosphatase 73 U/L (45-117); Bilirubin, Direct 0.24 mg/dL (0.00-0.30); Cholesterol 131 mg/dL (200); Globulin 3.3 g/dL (2.2-4.2); High Density Lipoprotein 36 mg/dL; Protein, Total 6.9 g/dL (6.4-8.2); Triglycerides 154 mg/dL; Very Low Density Lipoprotein 31 mg/dL (5-40)
== END ==
PROVIDERS: PCP Internal Medicine; Referring Provider Internal Medicine Cardiovascular Disease; Visit Provider Internal Medicine Cardiovascular Disease
DX: E78.00 Pure hypercholesterolemia, unspecified (principal)
CPT/HCPCS: 36415; 80061; 80076

== ENCOUNTER 2020-10-26 07:48 | Inpatient (IN) | payer MEDICARE, SELFPAY ==
[2020-10-09 08:39] VITALS: BMI 29.8
[2020-10-26] VITALS (25 sets, daily range): BP systolic 92–145; BP diastolic 42–83; PULSE 62–111; RESP 16–36; TEMP 35.8–38; O2SAT 90–99; BMI 27.7; BMI 29.5
--- NOTE | 2020-10-26 08:02 | EKG12_ITS ---
Test Reason : GI BLEED Blood Pressure : / mmHG Vent. Rate : 066 BPM Atrial Rate : 066 BPM P-R Int : 164 ms QRS Dur : 096 ms QT Int : 408 ms P-R-T Axes : 021 -21 070 degrees QTc Int : 427 ms Normal sinus rhythm Normal ECG Confirmed by SOHAIL YEE, HUAN ([id number]), news editor JEANETTE STEWART ([id number]) on 11/01/2020 1:15:33 PM Referred By: Confirmed By:HUAN SAUCEDA MD
--- NOTE | 2020-10-26 08:02 | EX.ED.DYSGE1 ---
HPI History of Present Illness Chief Complaint: GI Bleed Informant: patient and spouse/S.O. Narrative Narrative: 75-year-old male presents the emergency department chief complaint of vomiting blood. He tells me that on Thursday of this week he began to have black diarrhea. States is the week is gone on he has been increasingly weak and dizzy. Last night around 2300 hrs. he vomited and noted that there was blood in the vomit. He spent most of the night on the floor and then this morning states that he had a couple more episodes of vomiting with blood in it. States over the past month he has began to eat less for no particular reason why. He notes that he takes a baby aspirin a day. No other blood thinners. He denies any abdominal/epigastric pain. No prior history of gastric ulcers or GI bleed. 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 (congestive heart failure) Degeneration of retina Essential (primary) hypertension History of kidney stones History of non-ST elevation myocardial infarction (NSTEMI) (05/12/19) History of skin cancer Ischemic cardiomyopathy Kidney atrophy Multiple premature ventricular complexes Obesity Obstructive sleep apnea Pure hypercholesterolemia Type 2 diabetes mellitus Home Medications blood glucose control high and low solution #1 ea 07/12/19 [Rx Last Taken Unknown] blood sugar diagnostic #100 ea 08/15/19 [Rx Last Taken Unknown] blood-glucose meter #1 ea 08/23/19 [Rx Last Taken Unknown] simvastatin 40 mg tablet 40 mg PO QHS #90 tab 11/25/19 [Rx Last Taken Unknown] aspirin 81 mg chewable tablet 81 mg PO DAILY@0800 #90 tab 12/01/19 [Rx Last Taken Unknown] uatG-J2-Y-O-pgerxj-vxmpvre-min 3,300 unit-5 mg-200mg-75 unit tablet ER 1 tab PO QDAY #90 tab 01/06/20 [Rx Last Taken Unknown] alogliptin 25 mg tablet 25 mg PO QAM tab 04/10/20 [History Last Taken Unknown] semaglutide 1 mg SC QWEEK 90 Days #10.4 ml 06/12/20 [Rx Last Taken Unknown] gabapentin 600 mg tablet 600 mg PO BID #180 tab 07/24/20 [Rx Last Taken Unknown] metformin 1,000 mg tablet See Rx Instructions PO .COMPLEX #240 tab 08/03/20 [Rx Last Taken Unknown] lisinopril 40 mg tablet 40 mg PO DAILY #90 tab 08/10/20 [Rx Last Taken Unknown] carvedilol 12.5 mg tablet 12.5 mg PO BID #180 tab 10/09/20 [Rx Last Taken Unknown] Allergy/AdvReac Type Severity Reaction Status Date / Time exenatide [From Byetta] AdvReac Severe Shaking Verified 10/26/20 07:48 and Vomiting Family History Mother , Age 88, [place] Hypertension Myocardial infarction CVA (cerebral vascular accident) Father , age 42, [place] Hypertension Heart disease Myocardial infarction, Onset Age: 45 Sudden cardiac Brother , age 57 of [place] Heart disease Myocardial infarction Surgical History H/O coronary artery bypass surgery (07/2002) History of coronary artery stent placement (11/2002) History of left heart catheterization (05/13/19) Social History Smoking Status: Former smoker how long ago did patient quit smokin alcohol intake: never substance use type: does not use what type of physical activity do you participate in: none ROS ROS ED Constitutional Constitutional ED: Denies chills or weight loss Eyes Eyes: Denies change in vision or diplopia ENT ENT ED: Denies ear pain, rhinorrhea or sore throat Cardiovascular Cardiovascular: Denies chest pain, orthopnea, palpitations or racing heartbeat Respiratory/Chest Respiratory/Chest: Denies cough, dyspnea or orthopnea Gastrointestinal Gastrointestinal: Reports diarrhea, nausea, vomiting and other Details: Vomiting blood ; Denies abdominal pain Genitourinary Genitourinary ED: Denies dysuria, hematuria or urinary frequency Musculoskeletal Musculoskeletal: Denies arthralgias or myalgias Integumentary Denies abscess or rash Neurologic Neurologic: Denies headache(s) or weakness Psychiatric Psychiatric: Denies anxiety, depression, suicidal ideation or suicidal thoughts Endocrine Endocrinology: Denies polydipsia, polyphagia or polyuria Allergic/Immunologic Allergic/Immunologic ED: Denies mouth swelling, tongue swelling or urticaria EXAM Physical Exam Const Vital Signs: 10/26/20 07:49 10/26/20 09:01 10/26/20 09:03 Temperature 96.5 F L 98.2 F Temperature Source Temporal Temporal Pulse Rate 68 65 Pulse Rate [Lying] 63 Pulse Rate [Sitting] 65 Pulse Rate [Standing] 70 Respiratory Rate 18 24 H Blood Pressure 140/60 H 134/65 H Blood Pressure [Lying] 141/69 H Blood Pressure [Sitting] 134/65 H Blood Pressure [Standing] 137/83 H Blood Pressure Mean 86 88 Blood Pressure Mean [Lying] 93 Blood Pressure Mean [Sitting] 88 Blood Pressure Mean [Standing] 101 Pulse Ox 99 94 Oxygen Delivery Method Room Air Room Air Positive well nourished and well developed General Appearance ED: well developed HEENT Reports normocephalic, head/scalp atraumatic and moist mucous membranes Eyes PERRL and EOMs intact bilaterally Neck no lymphadenopathy, supple and no JVD Resp normal respiratory effort and clear to auscultation bilaterally Cardio regular rate, regular rhythm and no murmurs GI normal to inspection, nondistended, normoactive bowel sounds and non-tender Palpation: soft Back/Spine no CVA tenderness and normal ROM Extremity normal to inspection General Extremety ED: Negative for edema General Extremity: Negative for edema Neuro oriented x3 and CN's II-XII intact bilaterally Sensorium / Orientation: alert Motor Exam: strength 5/5 throughout Psych mental status grossly normal Mood & Affect: Negative for depressed or tearful Skin no rashes or lesions noted and no wounds MDM MDM MDM Narrative Medical decision making narrative: Patient's hemoglobin returns at 11. This is approximately 5 points less than his last in April. Patient was started on a Protonix bolus/drip. NG tube was placed by nursing. My interpretation of the plain film of the KUB is adequate placement of NG tube. Patient's had a couple 100 cc of dark bloody fluid removed. Case was discussed with on-call surgeon Dr Cage. Plan will be for admission with endoscopy later today. Lab Data Attestation: I reviewed the patient's lab results. Labs: Laboratory Results - last 24 hr 10/26/20 10/26/20 10/26/20 08:10 08:10 08:10 WBC 8.7 RBC 3.59 L Hgb 11.0 L Hct 32.4 L MCV 90.3 MCH 30.6 MCHC 34.0 RDW Std Deviation 40.6 RDW Coeff of Vamsi 12.3 Plt Count 221 MPV 10.9 Immature Gran % (Auto) 0.500 Neut % (Auto) 73.9 H Lymph % (Auto) 17.4 L [place] % (Auto) 7.6 Eos % (Auto) 0.3 Baso % (Auto) 0.3 Absolute Neuts (auto) 6.4 Absolute Lymphs (auto) 1.51 Nucleated RBC % 0 PT 13.6 INR 1.1 APTT 28.0 Sodium 135 L Potassium 4.9 Chloride 105 Carbon Dioxide 24.0 Anion Gap 6 BUN 45 H Creatinine 0.86 Estim Creat Clear Calc 81.29 Est GFR (MDRD) Af Amer 112 Est GFR (MDRD) Non-Af 92 BUN/Creatinine Ratio 52.6 H Glucose 352 H Calcium 8.6 Total Bilirubin 0.60 Direct Bilirubin 0.18 AST 8 L ALT 18 Alkaline Phosphatase 59 Total Protein 6.3 L Albumin 2.7 L Globulin 3.6 Lipase 97 EKG Initial EKG: Attestation: I personally reviewed and interpreted this EKG as follows: Comments: EKG shows a normal sinus rhythm with a rate of 66 bpm. Discharge Plan Dx/Rx/DC Orders Clinical Impression: Acute upper gastrointestinal bleeding, Acute blood loss anemia Disposition Disposition: Acute Care [facility]
[2020-10-26 08:27] LABS: Absolute Lymphocyte Count 1.51 X10^3/uL (0.83-4.51); Absolute Neutrophil Count 6.4 X10^3/uL (2.0-7.7); Basophil# 0.03 X10^3/uL; Basophil% 0.3 % (0-1); Eosinophil# 0.03 X10^3/uL; Eosinophils% 0.3 % (0-5); Hematocrit 32.4 % (40-54); Lymphocyte # 1.51 X10^3/ul (0.83-4.51); Lymphocyte % 17.4 % (19-41); Mean Corpuscular Hgb 30.6 pg (27.0-32.0); Mean Corpuscular Volume 90.3 fL (80-94); Mean Platelet Vol. 10.9 fl (6.2-12.0); Monocyte# 0.66 X10^3/uL; Monocyte% 7.6 % (0-10); NRBC Flagged by Analyzer 0 % (0-5); Neutrophil # 6.43 X10^3/uL (2.7-7.7); Neutrophil % 73.9 % (47-70); Platelet Count 221 K/mm3 (150-450); RBC Distribution Width CV 12.3 % (11.6-14.6); RBC Distribution Width SD 40.6 fl (35.1-43.9); Red Blood Count 3.59 M/mm3 (4.6-6.2); White Blood Count 8.7 K/mm3 (4.4-11.0)
[2020-10-26] MEDS: Ondansetron 4 MG/2 ML Vial IV (08:37)
[2020-10-26 08:42] LABS: AST(SGOT) 8 U/L (15-37); Alanine Aminotransfer ALT/SGPT 18 U/L (16-61); Albumin, Serum 2.7 g/dL (3.2-5.0); Alkaline Phosphatase 59 U/L (45-117); Anion Gap 6 (5-15); BUN 45 mg/dL (7-18); BUN/Creat Ratio 52.6 RATIO (10-20); Bilirubin, Direct 0.18 mg/dL (0.00-0.30); Calcium,Total 8.6 mg/dL (8.5-10.1); Chloride 105 mmol/L (98-107); Creatinine, Serum 0.86 mg/dL (0.70-1.30); EST Glomerular Filtration Rate 92 mL/min (>60); Est Glom Filt Rate - Afr Amer 112 mL/min (>60); Estimated Creatinine Clearance 81.29 ml/min; Globulin 3.6 g/dL (2.2-4.2); Glucose 352 mg/dL (74-106); Lipase 97 U/L (73-393); Potassium 4.9 mmol/L (3.5-5.1); Protein, Total 6.3 g/dL (6.4-8.2); Sodium Level 135 mmol/L (136-145)
[2020-10-26] MEDS: Oxymetazoline 0.05% 1 SPRAY SPRAY.BTL 2 SPRAY NASAL (08:43)
[2020-10-26] MEDS: Lidocaine 2% Jelly 1 APPLIC Tube TOPICAL (08:44)
[2020-10-26 08:48] LABS: International Normalized Ratio 1.1; Prothrombin Time (Protime)PT. 13.6 SECONDS (11.7-14.9)
--- NOTE | 2020-10-26 08:56 | NURSING ---
DR RAFAELA VAUGHN
--- NOTE | 2020-10-26 09:07 | NURSING ---
PCU RAFAELA UPPER GI BLEED, ACUTE BLOOD LOSS, ANEMIA
--- NOTE | 2020-10-26 09:08 | RAD_ITS ---
STUDY: X-RAY - ABDOMEN/PELVIS REASON FOR EXAM: Male, 75 years old. NG tube placement TECHNIQUE: Single AP view of the abdomen / pelvis. COMPARISON: None. FINDINGS: Chronic interstitial changes in the visualized lung bases. An NG tube is in place, tip is in the proximal stomach. There is an unremarkable bowel gas pattern. There is no demonstrated free abdominal air. The visualized liver, spleen and kidneys are grossly normal in size and morphology. Normal soft tissue structures. There are diffuse degenerative changes of the visualized lumbar spine. RAD/Abdomen Single View (Portable) IMPRESSION: NG tube tip in the proximal stomach Electronically Signed: Ramiro Sullivan MD at 9:26 EDT , Service support ,
--- NOTE | 2020-10-26 11:30 | EKG12_ITS ---
Test Reason : Blood Pressure : / mmHG Vent. Rate : 066 BPM Atrial Rate : 066 BPM P-R Int : 172 ms QRS Dur : 098 ms QT Int : 418 ms P-R-T Axes : 031 -12 060 degrees QTc Int : 438 ms Normal sinus rhythm with sinus arrhythmia Normal ECG Confirmed by SOHAIL YEE, HUAN ([id number]), editor managing newspaper JEANETTE STEWART ([id number]) on 11/02/2020 9:11:42 AM Referred By: EDUARDO Confirmed By:HUAN SAUCEDA MD
--- NOTE | 2020-10-26 11:58 | PCM.HP.STD ---
HPI - General General Date of Admission: 10/26/20 HPI Narrative MrJenae STAFFORD, is a 75 M with history of coronary artery disease status post CABG in 1999 came to ED with vomiting blood and melena since yesterday evening. As per the patient and his , he vomited 3 times started about 5 PM yesterday and 1 today. Patient also had black tarry melanotic stool in the morning today. Never had GI before. Denies chest pain, abdominal pain. In ED, patient afebrile blood pressure 140/60, no hypoxia. Basic labs shows hemoglobin 11 g%, baseline about 15g% in MarchApril 2020. Glucose is elevated Patient has NG tube inserted in ED and confirmed with KUB in proximal stomach. Patient is getting IV fluid, on Protonix drip. Patient seen by surgeon and is scheduled for EGD in afternoon. 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 (congestive heart failure) Degeneration of retina Essential (primary) hypertension History of kidney stones History of non-ST elevation myocardial infarction (NSTEMI) (05/12/19) History of skin cancer Ischemic cardiomyopathy Kidney atrophy Multiple premature ventricular complexes Obesity Obstructive sleep apnea Pure hypercholesterolemia Type 2 diabetes mellitus Home Medications blood glucose control high and low solution #1 ea 07/12/19 [Rx Last Taken Unknown] blood sugar diagnostic #100 ea 08/15/19 [Rx Last Taken Unknown] blood-glucose meter #1 ea 08/23/19 [Rx Last Taken Unknown] simvastatin 40 mg tablet 40 mg PO QHS #90 tab 11/25/19 [Rx Last Taken Unknown] alogliptin 25 mg tablet 25 mg PO QAM tab 04/10/20 [History Last Taken 10/23/20] gabapentin 600 mg tablet 600 mg PO BID #180 tab 07/24/20 [Rx Last Taken Unknown] metformin 1,000 mg tablet See Rx Instructions PO .COMPLEX #240 tab 08/03/20 [Rx Last Taken Unknown] lisinopril 40 mg tablet 40 mg PO DAILY #90 tab 08/10/20 [Rx Last Taken Unknown] carvedilol 12.5 mg tablet 12.5 mg PO BID #180 tab 10/09/20 [Rx Last Taken Unknown] aspirin 81 mg PO DAILY@0800 10/26/20 [History Last Taken Unknown] semaglutide [Ozempic] 1 mg SC QWEEK 10/26/20 [History Last Taken Unknown] gdeJ-E7-W-K-kgmkec-dzkdilr-min [ICaps] 1 tab PO BID 10/26/20 [History Last Taken Unknown] Allergy/AdvReac Type Severity Reaction Status Date / Time exenatide [From Byetta] AdvReac Severe Shaking Verified 10/26/20 07:48 and Vomiting Family History Mother , Age 88, [place] Hypertension Myocardial infarction CVA (cerebral vascular accident) Father , age 42, [place] Hypertension Heart disease Myocardial infarction, Onset Age: 45 Sudden cardiac Brother , age 57 of [place] Heart disease Myocardial infarction Surgical History H/O coronary artery bypass surgery (07/2002) History of coronary artery stent placement (11/2002) History of left heart catheterization (05/13/19) Social History Smoking Status: Former smoker how long ago did patient quit smokin alcohol intake: never substance use type: does not use what type of physical activity do you participate in: none ROS ROS Narrative Constitutional: Mild weakness. BMI 29.5 kg/m? HEENT: Reports systems reviewed and no addt'l complaints, except as documented Respiratory/Chest: No chest pain. No shortness of breath at rest or acute exertion. Gastrointestinal: As mentioned in HPI Genitourinary: Denies burning urination or new lower urinary tract symptoms Musculoskeletal: Mild joint pain and limited range of motion Neurologic: Denies seizure-like activity skin: No ulcer. No rash Endocrinology: Reports systems reviewed and no addt'l complaints, except as documented Hematologic/Lymphatic: Reports systems reviewed and no addt'l complaints, except as documented Rest 12 ROS are negative except as mentioned in HPI Vital Signs Vital Signs Vital Signs: 10/26/20 07:49 10/26/20 09:01 10/26/20 09:03 Temperature 96.5 F L 98.2 F Temperature Source Temporal Temporal Pulse Rate 68 65 Pulse Rate [Lying] 63 Pulse Rate [Sitting] 65 Pulse Rate [Standing] 70 Respiratory Rate 18 24 H Blood Pressure 140/60 H 134/65 H Blood Pressure [Lying] 141/69 H Blood Pressure [Sitting] 134/65 H Blood Pressure [Standing] 137/83 H Blood Pressure Mean 86 88 Blood Pressure Mean [Lying] 93 Blood Pressure Mean [Sitting] 88 Blood Pressure Mean [Standing] 101 Pulse Ox 99 94 Oxygen Delivery Method Room Air Room Air 10/26/20 10:56 Temperature Temperature Source Pulse Rate 67 Pulse Rate [Lying] Pulse Rate [Sitting] Pulse Rate [Standing] Respiratory Rate Blood Pressure Blood Pressure [Lying] Blood Pressure [Sitting] Blood Pressure [Standing] Blood Pressure Mean Blood Pressure Mean [Lying] Blood Pressure Mean [Sitting] Blood Pressure Mean [Standing] Pulse Ox Oxygen Delivery Method Weight Weight: 223 lb 8.78 oz Body Mass Index (BMI) 29.5 Physical Exam Narrative General: Alert, Oriented x3, Cooperative HEENT: Atraumatic, PERRLA, EOMI, Normocephalic Oral: No Gingival or Mucosal Lesions/ Ulcerations Neck: Supple, No JVD, Negative Carotid Bruits Lungs: Air entry equal in bilateral lung bases. No crepitation/rhonchi/crepitations Cardiovascular: Regular rate, Regular Rhythm, Normal S1, Normal S2, ESM over right second and left sternal border. Abdomen: Bowel Sounds Present, Soft, Non Tender, Non-Distended. NG tube shows dark coffee-ground aspirate : No renal angle tenderness. No suprapubic tenderness. Extremities: No edema, Capillary Refill Less than 3 Seconds Skin: No rashes, No breakdown Musculoskeletal: No Tenderness to Palpation of Joints or Extremities Neurological: Cranial nerves II-XII grossly intact, Deep Tendon Reflexes 2+/4 and Symmetrical, Neuro grossly intact Psych/Mental Status: Normal Affect, Appropriate. Results Lab / Micro Data Result Diagrams: 10/26/20 08:10 10/26/20 08:10 Labs: Laboratory Results - last 24 hr 10/26/20 08:10: WBC 8.7, RBC 3.59 L, Hgb 11.0 L, Hct 32.4 L, MCV 90.3, MCH 30.6, MCHC 34.0, RDW Std Deviation 40.6, RDW Coeff of Vamsi 12.3, Plt Count 221, MPV 10.9, Immature Gran % (Auto) 0.500, Neut % (Auto) 73.9 H, Lymph % (Auto) 17.4 L, [place] % (Auto) 7.6, Eos % (Auto) 0.3, Baso % (Auto) 0.3, Absolute Neuts (auto) 6.4, Absolute Lymphs (auto) 1.51, Nucleated RBC % 0 10/26/20 08:10: PT 13.6, INR 1.1, APTT 28.0 10/26/20 08:10: Sodium 135 L, Potassium 4.9, Chloride 105, Carbon Dioxide 24.0, Anion Gap 6, BUN 45 H, Creatinine 0.86, Estim Creat Clear Calc 81.29, Est GFR (MDRD) Af Amer 112, Est GFR (MDRD) Non-Af 92, BUN/Creatinine Ratio 52.6 H, Glucose 352 H, Calcium 8.6, Total Bilirubin 0.60, Direct Bilirubin 0.18, AST 8 L, ALT 18, Alkaline Phosphatase 59, Total Protein 6.3 L, Albumin 2.7 L, Globulin 3.6, Lipase 97 10/26/20 08:10: Blood Type O POSITIVE, Antibody Screen NEGATIVE Micro: Microbiology 10/26/20 08:35 Mucosa - Nasopharyngeal SARS-CoV-2 Antigen (Rapid) - Final Radiology Impression KUB X-Ray 10/26/20 09:08 IMPRESSION: NG tube tip in the proximal stomach Electronically Signed: Ramiro Sullivan MD at 9:26 EDT , Service support , Assessment & Plan Assessment/Plan (1) Acute upper gastrointestinal bleeding: (2) Acute blood loss anemia: PLAN: This 75-year-old gentleman is being admitted for upper GI bleed. 1. Acute upper GI bleed: Patient being admitted in PCU. IV fluid resuscitation. Hemodynamically blood pressure and heart rate are good. EKG shows normal sinus rhythm 66 beats from, QTC 427 ms. Started on Protonix 80 mg IV bolus and then continuous infusion. Blood group and type and crossmatch for 2 units. Scheduled for EGD in afternoon. Surgeon is being consulted. Keep the patient n.p.o. 2. Acute blood loss anemia secondary to upper GI bleed: Patient baseline hemoglobin is around 15 g%. It is 11 g/dL. Monitor H&H every 6 hourly. 3. Coronary artery disease status post CABG in 2007 stent: Hold aspirin. Hold lisinopril, carvedilol other medications as patient blood pressure might drop down. 4. Diabetes mellitus type 2: Accu-Chek before meals and cover with similar sliding scale 5. Dyslipidemia: On simvastatin, hold VTE prophylaxis: Bilateral SCDs. Pharmacological prophylaxis contraindicated. Living will/advanced directive/end of life care: Patient does not have living will or advanced directive. His girlfriend/fianc? is power of commercial litigation attorney for health. After discussion of benefits/risks procedures involved with full code, DNR CC arrest and DNR CC, the patient opted for DNR-CC Arrest with no intubation Patient does not want artificial life support including intubation, tube feed, ventilator and/chest compression, central venous catheter, vasopressor and DC shock if needed Total time spent in [id number] encounter in discussion of advanced directive 16 minutes. Charges/Coding Visit Charges Inpatient E&M: 06582 Init Hosp L3 Procedures Hospitalists Procedures: 93890 Advncd Care Plan 30 Min
[2020-10-26] MEDS: 0.9% Normal Saline 1,000 ML 100 ML IV (12:00)
--- NOTE | 2020-10-26 12:19 | EX.PCM.CON.S ---
Assessment & Plan Assessment/Plan (1) Acute upper gastrointestinal bleeding: PLAN: Patient has likely upper GI bleeding. NG was placed and I discussed EGD with the patient this afternoon. I discussed clipping of vessels or injection of epinephrine. I discussed the possibility of increased bleeding or perforation of the GI tract. I discussed the EGD in detail with the patient. I explained endoscopy in detail to the patient. I explained the risks including but not limited to stroke or heart attack with anesthesia, perforation of the GI tract, bleeding, infection. I explained that any of these could necessitate further emergency surgery. The patient understands and all questions were answered sufficiently. The patient wishes to proceed with procedure. Bradly Cage MD Pager: [facility] [address] [place] [address] [address] [place] [address] Office: HPI Consult Data Date of Consult: 10/26/20 HPI Narrative HPI Narrative: JOVANNY STAFFORD, is a 75 M who presents to the emergency room with bloody vomiting. Patient reports the bloody vomiting started yesterday. He has also been having black tarry stools for the last few days. He denies any abdominal pain. He says he did have a vomiting episode this morning that did include blood as well. Patient has never had an EGD patient is on aspirin. 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 (congestive heart failure) Degeneration of retina Essential (primary) hypertension History of kidney stones History of non-ST elevation myocardial infarction (NSTEMI) (05/12/19) History of skin cancer Ischemic cardiomyopathy Kidney atrophy Multiple premature ventricular complexes Obesity Obstructive sleep apnea Pure hypercholesterolemia Type 2 diabetes mellitus Home Medications blood glucose control high and low solution #1 ea 07/12/19 [Rx Last Taken Unknown] blood sugar diagnostic #100 ea 08/15/19 [Rx Last Taken Unknown] blood-glucose meter #1 ea 08/23/19 [Rx Last Taken Unknown] simvastatin 40 mg tablet 40 mg PO QHS #90 tab 11/25/19 [Rx Last Taken Unknown] alogliptin 25 mg tablet 25 mg PO QAM tab 04/10/20 [History Last Taken 10/23/20] gabapentin 600 mg tablet 600 mg PO BID #180 tab 07/24/20 [Rx Last Taken Unknown] metformin 1,000 mg tablet See Rx Instructions PO .COMPLEX #240 tab 08/03/20 [Rx Last Taken Unknown] lisinopril 40 mg tablet 40 mg PO DAILY #90 tab 08/10/20 [Rx Last Taken Unknown] carvedilol 12.5 mg tablet 12.5 mg PO BID #180 tab 10/09/20 [Rx Last Taken Unknown] aspirin 81 mg PO DAILY@0800 10/26/20 [History Last Taken Unknown] semaglutide [Ozempic] 1 mg SC QWEEK 10/26/20 [History Last Taken Unknown] [id number]-[id number]-I-rckvyv-rrrrdwy-min [ICaps] 1 tab PO BID 10/26/20 [History Last Taken Unknown] Allergy/AdvReac Type Severity Reaction Status Date / Time exenatide [From [place]] AdvReac Severe Shaking Verified 10/26/20 07:48 and Vomiting Family History Mother , Age 88, [place] Hypertension Myocardial infarction CVA (cerebral vascular accident) Father , age 42, [place] Hypertension Heart disease Myocardial infarction, Onset Age: 45 Sudden cardiac Brother , age 57 of [place] Heart disease Myocardial infarction Surgical History H/O coronary artery bypass surgery (07/2002) History of coronary artery stent placement (11/2002) History of left heart catheterization (05/13/19) Social History Smoking Status: Former smoker how long ago did patient quit smokin alcohol intake: never substance use type: does not use what type of physical activity do you participate in: none ROS Constitutional Constitutional: Denies anorexia or fatigue Eyes Eyes: Denies blurry vision ENT HEENT: Denies abnormal hearing Cardiovascular Cardiovascular: Denies chest pain Gastrointestinal Gastrointestinal: Reports hematemesis, melena, nausea and vomiting; Denies abdominal pain or constipation Genitourinary Genitourinary: Denies dysuria Musculoskeletal Musculoskeletal: Denies joint pain Integumentary Integumentary: Denies jaundice Neurologic Neurologic: Reports dizziness Psychiatric Psychiatric: Denies anxiety Endocrine Endocrinology: Denies flushing Physical Exam Const alert and oriented x3 Resp normal respiratory effort and normal air movement Cardio regular rate and regular rhythm GI soft to palpation, non-tender and non-distended Lab / Micro Data Result Diagrams: 10/26/20 08:10 10/26/20 08:10 Labs: Laboratory Results - last 24 hr 10/26/20 08:10: WBC 8.7, RBC 3.59 L, Hgb 11.0 L, Hct 32.4 L, MCV 90.3, MCH 30.6, MCHC 34.0, RDW Std Deviation 40.6, RDW Coeff of Vamsi 12.3, Plt Count 221, MPV 10.9, Immature Gran % (Auto) 0.500, Neut % (Auto) 73.9 H, Lymph % (Auto) 17.4 L, [place] % (Auto) 7.6, Eos % (Auto) 0.3, Baso % (Auto) 0.3, Absolute Neuts (auto) 6.4, Absolute Lymphs (auto) 1.51, Nucleated RBC % 0 10/26/20 08:10: PT 13.6, INR 1.1, APTT 28.0 10/26/20 08:10: Sodium 135 L, Potassium 4.9, Chloride 105, Carbon Dioxide 24.0, Anion Gap 6, BUN 45 H, Creatinine 0.86, Estim Creat Clear Calc 81.29, Est GFR (MDRD) Af Amer 112, Est GFR (MDRD) Non-Af 92, BUN/Creatinine Ratio 52.6 H, Glucose 352 H, Calcium 8.6, Total Bilirubin 0.60, Direct Bilirubin 0.18, AST 8 L, ALT 18, Alkaline Phosphatase 59, Total Protein 6.3 L, Albumin 2.7 L, Globulin 3.6, Lipase 97 10/26/20 08:10: Blood Type O POSITIVE, Antibody Screen NEGATIVE Micro: Microbiology 10/26/20 08:35 Mucosa - Nasopharyngeal SARS-CoV-2 Antigen (Rapid) - Final Radiology Impression KUB X-Ray 10/26/20 09:08 IMPRESSION: NG tube tip in the proximal stomach Electronically Signed: Ramiro Sullivan MD at 9:26 EDT , Service support ,
--- NOTE | 2020-10-26 12:34 | CASEMGMT ---
EMILIE ZARATE assessment: Face to Face with patient for initial transition planning/care coordination assessment. EMILIE ZARATE introduced self and role at [facility], pt voices understanding and consents to assessment. Pt is sitting up in bed in no distress with NG tube in place. Pt is A/Ox4 and answers all questions appropriately. Care providers, pharmacy, and demographics verified. Presentation: Pt c/o vomiting blood since yesterday and dark stools x1 week Admitting dx: GI Bleed PCP: Misty Specialists: Nessa Frances Pharmacy: [facility] Insurance: [place] [place] Prescription Benefit: [place] [place] Living Will/HPOA: Pt states does not have LW/HPOA and declines AD info. LNOK: Dayna Calderon, sig other; Erika Stone, daughter; Leah Zapien, daughter Living Arrangements: Pt states lives with sig other in mobile home with steps in and states no concerns at home. Pt states is independent with ADL's. Transportation: Pt states sig other drives and states no transportation concerns. DME/HHC: Pt states no current DME or need for any DME. Pt states no hx of HHC or SNF. Pt states no concerns with going home at time of discharge. Pt is retired. Pt states does not smoke cigarettes or drink ETOH. Pt states no further concerns/needs. CM to follow for any further discharge planning/needs. Advised pt to ask for CM if any further questions/concerns/needs arise, voices understanding. Pt Goal: Home Plan[place] EMILIE ZARATE
--- NOTE | 2020-10-26 13:42 | ED.RN ---
pt to amb care via bed with staff and chart. report called to ramon quezada with no questions. pt's family along with pt. consent on chart and to be filled out downstairs
--- NOTE | 2020-10-26 15:06 | PN_ITS ---
Progress Note Patient had a large amount of blood in the stomach. There is a very large blood clot which was unable to be moved despite changing patient position. There is old blood in the stomach duodenum as well as esophagus. I was unable to find the source of the bleeding. I recommend the patient stay n.p.o. and on a Protonix drip. NG was replaced under direct visualization. Reattempt EGD tomorrow morning. Bradly Cage MD Pager: [facility] [address] [place] [address] [address] [place] [address] Office:
--- NOTE | 2020-10-26 15:06 | OP.EGD_ITS ---
Patient Name: Mak Pulliam Procedure Date: 10/26/2020 1:54 PM Date of : 1945 Age: 75 Procedure: Upper GI endoscopy Indications: Hematemesis, Melena Providers: Bradly Cage MD Medicines: Monitored Anesthesia Care Patient Profile: This is a 75 year old male. Refer to note in patient chart for documentation of history and physical. Complications: No immediate complications. Procedure: Pre-Anesthesia Assessment: - Prior to the procedure, a History and Physical was performed, and patient medications and allergies were reviewed. The patient's tolerance of previous anesthesia was also reviewed. The risks and benefits of the procedure and the sedation options and risks were discussed with the patient. All questions were answered, and informed consent was obtained. Prior Anticoagulants: The patient has taken aspirin, last dose was day of procedure. After reviewing the risks and benefits, the patient was deemed in satisfactory condition to undergo the procedure. After obtaining informed consent, the endoscope was passed under direct vision. Throughout the procedure, the patient's blood pressure, pulse, and oxygen saturations were monitored continuously. The Endoscope was introduced through the mouth, and advanced to the third part of duodenum. The upper GI endoscopy was accomplished without difficulty. The patient tolerated the procedure well. Scope In: 2:39:44 PM Scope Out: 2:56:46 PM Total Procedure Duration Time 0 hours 17 minutes 2 seconds Findings: Red blood was found in the stomach. There was a very large blood clot in the stomach precluding vision of half of the stomach. There was dark blood in the esophagus and duodenum as well with no source able to be identified. NG was replaced into stomach under direct visualization Impression: - Red blood in the stomach. - No specimens collected. Recommendation: - [facility]. - NPO. - Repeat upper endoscopy tomorrow for retreatment. - Continue present medications. Procedure Code(s): --- Professional --- 52046, Esophagogastroduodenoscopy, flexible, transoral; diagnostic, including collection of specimen(s) by brushing or washing, when performed (separate procedure) Diagnosis Code(s): --- Professional --- K92.2, Gastrointestinal hemorrhage, unspecified K92.0, Hematemesis K92.1, Melena (includes Hematochezia) CPT copyright 2017 [employer]. All rights reserved. The codes documented in this report are preliminary and upon remote medical coder review may be revised to meet current compliance requirements. Bradly Cage MD 10/26/2020 3:05:58 PM This report has been signed electronically. Number of Addenda: 0 Note Initiated On: 10/26/2020 1:54 PM
--- NOTE | 2020-10-26 15:07 | OP.CCLET_ITS ---
10/26/2020 Faith Jay MD [address] [place] [address] [place] [address] Re : Upper GI endoscopy procedure for Mak Pulliam Dear Dr. Jay This procedure was performed on Monday, October 26, 2020. My impressions and recommendations are as follows: Impressions : - Red blood in the stomach. - No specimens collected. Recommendations : - [facility]. - NPO. - Repeat upper endoscopy tomorrow for retreatment. - Continue present medications. My findings are described in the full procedure note, which is enclosed. If I can be of further assistance, please feel free to contact me at Doctor phone number(s): , Work: . Sincerely, Bradly Cage MD 10/26/2020 3:05:58 PM This report has been signed electronically.
[2020-10-26 15:30] LABS: Hematocrit 29.4 % (40-54)
[2020-10-26] MEDS: Lactated Ringers 1,000 ML 999 ML IV (16:49)
--- NOTE | 2020-10-26 17:08 | PCM.DC.SUM ---
Providers Date of Admission: 10/26/20 Primary Care Physician: Dr. Faith Jay MD Reason For Visit: GI BLEED Diagnosis Discharge Diagnosis (1) Acute upper gastrointestinal bleeding: Status: Acute Code(s): K92.2 - Gastrointestinal hemorrhage, unspecified Medications at Discharge Home Medications blood glucose control high and low solution #1 ea 07/12/19 blood sugar diagnostic #100 ea 08/15/19 blood-glucose meter #1 ea 08/23/19 simvastatin 40 mg tablet 40 mg PO QHS #90 tab 11/25/19 alogliptin 25 mg tablet 25 mg PO QAM tab 04/10/20 gabapentin 600 mg tablet 600 mg PO BID #180 tab 07/24/20 metformin 1,000 mg tablet See Rx Instructions PO .COMPLEX #240 tab 08/03/20 lisinopril 40 mg tablet 40 mg PO DAILY #90 tab 08/10/20 carvedilol 12.5 mg tablet 12.5 mg PO BID #180 tab 10/09/20 aspirin 81 mg PO DAILY@0800 10/26/20 semaglutide [Ozempic] 1 mg SC QWEEK 10/26/20 [id number]-aeojdgx-min [ICaps] 1 tab PO BID 10/26/20 Hospital Course Summary of Care Provided Hospital Course: This 75-year-old gentleman is being admitted for upper GI bleed. 1. Acute upper GI bleed: Patient being admitted in PCU. IV fluid resuscitation. Hemodynamically blood pressure and heart rate are good. EKG shows normal sinus rhythm 66 beats from, QTC 427 ms. Started on Protonix 80 mg IV bolus and then continuous infusion. Patient was volume resuscitated and had EGD in afternoon.I was notified by Dr. Pryor that there is large amount of blood clot in the stomach almost half to two third there was dark blood in the esophagus and duodenum. NG was replaced. Repeat hemoglobin dropped to 10 g and baseline is around 15 to 16 g. Patient systolic blood pressure also dropped in 90s. Patient was seen and examined again and transferred to ICU. Patient had volume resuscitation with Ringer lactate and 2 units of PRBC transfusion. Keep the patient n.p.o. Patient also had about 350 mL of NG aspirate of dark blood. [facility] transfer line was called and patient was accepted in ICU by Dr. Mahmood. 2. Acute blood loss anemia secondary to upper GI bleed: Patient baseline hemoglobin is around 15 g%. It is 11 g/dL. Monitor H&H every 6 hourly. 3. Coronary artery disease status post CABG in 2007 stent: Hold aspirin. Hold lisinopril, carvedilol other medications as patient blood pressure might drop down. 4. Diabetes mellitus type 2: Accu-Chek before meals and cover with similar sliding scale 5. Dyslipidemia: On simvastatin, hold VTE prophylaxis: Bilateral SCDs. Pharmacological prophylaxis contraindicated. Living will/advanced directive/end of life care: DNR-CC Arrest with no intubation Total time of the visit including total time spent in counseling or coordination of care, (more than 50% of the total time, spent in obtaining medical information from nurses and other ancillary care providers,explaining to the patient about labs, imaging, diagnosis and management), discussion with consultants surgeon and chemical dependency attendant Dr. Mahmood in [facility], review of labs and imaging is 30 minutes. Physical Exam Narrative Please see progress note of the same date. Patient had drop in blood pressure therefore 2 units PRBC transfusion and Ringer lactate IV fluid restriction done. Lungs were clear. Neck JVD not elevated. No abdominal tenderness or distention. Medical Records Data Medical Nutrition Assessment Dietitian: Nutrition Therapy Diagnosis Start: 10/26/20 16:03 Freq: Status: Active Protocol: Document 10/26/20 16:30 [facility] (Rec: 10/26/20 16:30 [facility] [id number]) Nutrition Malnutrition Evidence of Malnutrition Exists Yes Malnutrition (severe): Acute Illness/Injury Evidenced By Suboptimal Energy Intake ( Severe),Weight Loss (Severe) Clinical Problem Acute Disease or Injury Related Malnutrition Etiology related to GI bleed Signs/Symptoms as evidenced by pt with <50% po intake x 5 days and 14.3% wt loss in past 7-8 months without any intentional dietary/lifestyle changes. Status Active Problem Recommendation Dietitian Recommendations/Changes As medically able, rec diet as tolerated to Consistent CHO / No Added Salt diet Rec 120 ml glucerna shake 4x/ day with medpass when able to resume po diet Weight / BMI Weight Weight: 223 lb 8.78 oz Body Mass Index (BMI) 29.5 ABG / Lab / Microbiology Data Result Diagrams: 10/26/20 15:24 10/26/20 08:10 Laboratory: Laboratory Results - last 24 hr 10/26/20 08:10: WBC 8.7, RBC 3.59 L, Hgb 11.0 L, Hct 32.4 L, MCV 90.3, MCH 30.6, MCHC 34.0, RDW Std Deviation 40.6, RDW Coeff of Vamsi 12.3, Plt Count 221, MPV 10.9, Immature Gran % (Auto) 0.500, Neut % (Auto) 73.9 H, Lymph % (Auto) 17.4 L, [place] % (Auto) 7.6, Eos % (Auto) 0.3, Baso % (Auto) 0.3, Absolute Neuts (auto) 6.4, Absolute Lymphs (auto) 1.51, Nucleated RBC % 0 10/26/20 08:10: PT 13.6, INR 1.1, APTT 28.0 10/26/20 08:10: Sodium 135 L, Potassium 4.9, Chloride 105, Carbon Dioxide 24.0, Anion Gap 6, BUN 45 H, Creatinine 0.86, Estim Creat Clear Calc 81.29, Est GFR (MDRD) Af Amer 112, Est GFR (MDRD) Non-Af 92, BUN/Creatinine Ratio 52.6 H, Glucose 352 H, Calcium 8.6, Total Bilirubin 0.60, Direct Bilirubin 0.18, AST 8 L, ALT 18, Alkaline Phosphatase 59, Total Protein 6.3 L, Albumin 2.7 L, Globulin 3.6, Lipase 97 10/26/20 08:10: Blood Type O POSITIVE, Antibody Screen NEGATIVE 10/26/20 08:10: Crossmatch See Detail 10/26/20 15:24: Hgb 10.0 L, Hct 29.4 L Microbiology: Microbiology 10/26/20 08:35 Mucosa - Nasopharyngeal SARS-CoV-2 Antigen (Rapid) - Final Radiography Diagnostic Testing: Radiology Impression KUB X-Ray 10/26/20 09:08 IMPRESSION: NG tube tip in the proximal stomach Electronically Signed: Ramiro Sullivan MD at 9:26 EDT , Service support , Meaningful Use Info Meaningful Use Diagnoses (Choose all that apply): None applicable Discharge Plan Admission Admit Date/Time: 10/26/20 09:04 Attending Provider: Pranay Espinoza Primary Care Provider: Faith Jay Instructions Patient Instructions: ED Chest Pain, Noncardiac Discharge Orders/Prescriptions Prescriptions: No Action alogliptin 25 mg tablet 25 mg PO QAM RF: 0 carvedilol 12.5 mg tablet 12.5 mg PO BID Qty: 180 RF: 4 aspirin 81 mg tablet,chewable 81 mg PO DAILY@0800 RF: 0 ICaps [id number] ofky-nj-tn-unit tablet extended release 1 tab PO BID RF: 0 Ozempic 0.25 mg or 0.5 mg(2 mg/1.5 mL) pen injector 1 mg SC QWEEK RF: 0 (DME) Accu-Chek Meka Control Soln Solution See Rx Instructions .ROUTE .MEDSUPPLY Qty: 1 RF: 2 (DME) blood sugar diagnostic [Accu-Chek Meka Plus test strp] Strip See Rx Instructions .ROUTE .MEDSUPPLY Qty: 100 RF: 11 (DME) blood-glucose meter [Accu-Chek Meka Plus Meter] Misc See Rx Instructions .ROUTE .MEDSUPPLY Qty: 1 RF: 0 simvastatin 40 mg tablet 40 mg PO QHS Qty: 90 RF: 3 gabapentin 600 mg tablet 600 mg PO BID Qty: 180 RF: 1 metformin 1,000 mg tablet See Rx Instructions PO .COMPLEX Qty: 240 RF: 2 lisinopril 40 mg tablet 40 mg PO DAILY Qty: 90 RF: 3 Referrals / Follow Up: Faith Jay MD [Primary Care Provider] - Disposition Disposition (needs filled in before D/C Order can be placed): [facility] Charges/Coding Visit Charges Inpatient E&M: 91578 Disch Hosp
--- NOTE | 2020-10-26 17:10 | NURSING ---
1654 pt pale and c/o burning hot pts bp much lower than prior to egd. pt angry that having to stay but then crying telling gf to tell girls i love them no change in abd girth obs at this time. skin cool to touch. lr bolus up after confirming with dr. goff on pt's overall appearance and vs changes and based on egd findings pt being transferred to icu. 2nd iv started to rt ac. pt's girlfriend tearful at bedside. pt spitting up mod bright red sputum phlem after return. pt asking for ice chips but no order so mouth care given. report called to carmella navarro with no questions voiced and pt moved to icu 204 via bed and this rn
--- NOTE | 2020-10-26 17:48 | NURSING ---
received in ICU at 2900
[2020-10-26] MEDS: Lactated Ringers 1,000 ML 150 ML IV (17:51)
[2020-10-26 18:20] LABS: Lactic Acid 1.2 mmol/L (0.4-1.9)
[2020-10-26] MEDS: Acetaminophen 325 MG Tablet 650 MG PO (20:14)
--- NOTE | 2020-10-26 23:01 | NURSING ---
Pt off unit at 2145. Transport took a while after transport arrival due to transport IV pump difficulties.
== END 2020-10-26 21:45 | disposition short-term general hospital (02) | DRG 812 ==
LOC: ED 09:07 → PCU 09:43 → ICU 16:55
PROVIDERS: Surgery; Admitting Provider Internal Medicine; Emergency Provider Emergency Medicine; PCP Internal Medicine; Visit Provider Internal Medicine
PROC: 0DJ08ZZ Inspection of Upper Intestinal Tract, Via Natural or Artificial Opening Endoscopic (ICD-10-PCS; CPT 43235; principal; 2020-10-26 14:55)
DX: D62 Acute posthemorrhagic anemia (principal); I50.42 Chronic combined systolic (congestive) and diastolic (congestive) heart failure; E11.9 Type 2 diabetes mellitus without complications; E78.00 Pure hypercholesterolemia, unspecified; I25.10 Atherosclerotic heart disease of native coronary artery without angina pectoris; Z87.891 Personal history of nicotine dependence; G47.33 Obstructive sleep apnea (adult) (pediatric); I11.0 Hypertensive heart disease with heart failure; E78.5 Hyperlipidemia, unspecified; I25.2 Old myocardial infarction; I25.5 Ischemic cardiomyopathy; Z66 Do not resuscitate; Z79.82 Long term (current) use of aspirin; Z85.828 Personal history of other malignant neoplasm of skin; Z86.73 Personal history of transient ischemic attack (TIA), and cerebral infarction without residual deficits; Z87.442 Personal history of urinary calculi; Z95.5 Presence of coronary angioplasty implant and graft; I49.3 Ventricular premature depolarization
CPT/HCPCS: 74018; 80048; 80076; 83605; 83690; 85014; 85018; 85025; 85610; 85730; 86850; 86900; 86901; 86920; 87426; 93005; 97802; 99285; J7030; J7120; P9016; A4216; J2405; J3490

== ENCOUNTER 2020-11-01 14:36 | Emergency (ER) | payer MEDICARE, SELFPAY ==
[2020-10-31 08:43] VITALS: BMI 29.5
[2020-11-01] VITALS (17 sets, daily range): BP systolic 114–138; BP diastolic 57–73; PULSE 79–112; RESP 12–34; TEMP 36.1–37.7; O2SAT 91–100; BMI 29.9
--- NOTE | 2020-11-01 14:57 | EDS_ITS ---
HPI HPI - GI History of Present Illness Chief Complaint: GI Bleed Detail of Chief Complaint: Vomiting blood that started 1 hour ago Informant: patient Narrative Narrative: Patient presents to the emergency department complaint of vomiting blood that started 1 hour ago. Patient states that he felt a little bit lightheaded this morning. Patient was admitted [facility] for several days and just discharged 2 days ago for vomiting blood. Patient initially scoped at our hospital and noted that he had a large amount of blood within the stomach and was referred and transferred to [facility] [place]. No exact etiology of the bleeding was noted at that time and is bleeding stabilized. Patient did receive 2 units of blood. Patient states that he has not really had any alcohol in the last 30 years. No prior history of GI bleed until symptoms started 1 week ago. He takes a baby aspirin a day but no other blood thinners. Patient denies any abdominal pain. 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 (congestive heart failure) Degeneration of retina Essential (primary) hypertension History of kidney stones History of non-ST elevation myocardial infarction (NSTEMI) (05/12/19) History of skin cancer Ischemic cardiomyopathy Kidney atrophy Multiple premature ventricular complexes Obesity Obstructive sleep apnea Pure hypercholesterolemia Type 2 diabetes mellitus Home Medications blood glucose control high and low solution #1 ea 07/12/19 [Rx Last Taken Unknown] blood sugar diagnostic #100 ea 08/15/19 [Rx Last Taken Unknown] blood-glucose meter #1 ea 08/23/19 [Rx Last Taken Unknown] simvastatin 40 mg tablet 40 mg PO QHS #90 tab 11/25/19 [Rx Last Taken Unknown] alogliptin 25 mg tablet 25 mg PO QAM tab 04/10/20 [History Last Taken 10/23/20] gabapentin 600 mg tablet 600 mg PO BID #180 tab 07/24/20 [Rx Last Taken Unknown] metformin 1,000 mg tablet See Rx Instructions PO .COMPLEX #240 tab 08/03/20 [Rx Last Taken Unknown] lisinopril 40 mg tablet 40 mg PO DAILY #90 tab 08/10/20 [Rx Last Taken Unknown] carvedilol 12.5 mg tablet 12.5 mg PO BID #180 tab 10/09/20 [Rx Last Taken Unknown] aspirin 81 mg PO DAILY@0800 10/26/20 [History Last Taken Unknown] semaglutide [Ozempic] 1 mg SC QWEEK 10/26/20 [History Last Taken Unknown] [id number]-min [ICaps] 1 tab PO BID 10/26/20 [History Last Taken Unknown] Allergy/AdvReac Type Severity Reaction Status Date / Time exenatide [From [place]] AdvReac Severe Shaking Verified 11/01/20 14:37 and Vomiting Family History Mother , Age 88, [place] Hypertension Myocardial infarction CVA (cerebral vascular accident) Father , age 42, [place] Hypertension Heart disease Myocardial infarction, Onset Age: 45 Sudden cardiac Brother , age 57 of [place] Heart disease Myocardial infarction Surgical History H/O coronary artery bypass surgery (07/2002) History of coronary artery stent placement (11/2002) History of left heart catheterization (05/13/19) Social History Smoking Status: Former smoker how long ago did patient quit smokin alcohol intake: never substance use type: does not use what type of physical activity do you participate in: none ROS ROS ED Constitutional Constitutional ED: Reports systems reviewed and no addt'l complaints, except as documented; Denies body ache(s), change in weight or chills Eyes Eyes: Denies acute decrease in peripheral vision, change in vision, double vision or loss of vision ENT ENT ED: Reports none; Denies ear pain, lip swelling, loss taste/smell, neck pain, otalgia or sore throat Cardiovascular Cardiovascular: Reports none; Denies abdominal pain, chest pain with activity, leg edema, lightheadedness, palpitations, rapid heart rate or syncope Respiratory/Chest Respiratory/Chest: Reports none; Denies change in mental status, dry cough, dyspnea, hemoptysis, shortness of breath at rest or shortness of breath with exertion Gastrointestinal Gastrointestinal: Reports none, vomiting and other Details: Hematemesis ; Denies abdominal pain, change in stool character, diarrhea, hematemesis, hematochezia, melena or rectal bleeding Genitourinary Genitourinary ED: Reports none; Denies abdominal discomfort, anuria, dysuria, genital pain or polyuria Musculoskeletal Musculoskeletal: Reports none; Denies arthralgias, back pain, difficulty walking, extremity pain, muscle weakness or myalgias Integumentary Reports none; Denies abscess or rash Neurologic Neurologic: Reports none; Denies abnormal gait, confusion, focal weakness, frequent falls, headache(s), loss of vision, numbness, paresthesias, radicular pain, vertigo or weakness Psychiatric Psychiatric: Reports systems reviewed and no addt'l complaints, except as documented and none; Denies behavioral changes, confusion, difficulty concentrating, hallucinations, suicidal ideation, tactile hallucinations or visual hallucinations Endocrine Endocrinology: Denies none, cold intolerance, excessive sweating, fatigue or heat intolerance Hematologic/Lymphatic Hematologic/Lymphatic: Reports none; Denies anemia, easy bleeding or easy bruising Allergic/Immunologic Allergic/Immunologic ED: Denies as per HPI, none, lip swelling, mouth swelling, throat swelling, tongue swelling or hives EXAM Physical Exam Const Vital Signs: 11/01/20 14:38 11/01/20 14:44 11/01/20 15:43 Temperature 97 F L Temperature Source Temporal Pulse Rate 112 H 96 Respiratory Rate 27 H 28 H Blood Pressure 114/67 114/68 Blood Pressure Mean 82 83 Blood Pressure Source Blood Pressure Position Blood Pressure Location Pulse Ox 91 93 96 Oxygen Delivery Method Room Air Nasal Cannula Nasal Cannula Oxygen Flow Rate (L/min) 2 2 11/01/20 16:59 11/01/20 17:48 11/01/20 17:51 Temperature 99.4 F H 99.4 F H Temperature Source Temporal Temporal Pulse Rate 83 95 83 Respiratory Rate 18 28 H 33 H Blood Pressure 115/59 L 120/66 120/66 Blood Pressure Mean 77 84 84 Blood Pressure Source Monitor Blood Pressure Position Sitting Blood Pressure Location Right Arm Pulse Ox 96 96 98 Oxygen Delivery Method Nasal Cannula Nasal Cannula Oxygen Flow Rate (L/min) 3 3 11/01/20 18:06 11/01/20 19:06 11/01/20 19:44 Temperature 98.8 F 99.3 F H 99 F Temperature Source Temporal Temporal Temporal Pulse Rate 90 100 84 Respiratory Rate 34 H 16 20 H Blood Pressure 119/61 137/68 H 137/68 H Blood Pressure Mean 80 91 91 Blood Pressure Source Monitor Monitor Monitor Blood Pressure Position Sitting Semi-Fowlers Semi-Fowlers Blood Pressure Location Right Arm Right Arm Right Arm Pulse Ox 94 97 95 Oxygen Delivery Method Nasal Cannula Nasal Cannula Nasal Cannula Oxygen Flow Rate (L/min) 3 3 3 11/01/20 19:59 11/01/20 20:14 11/01/20 20:50 Temperature 99.8 F H 99.4 F H Temperature Source Temporal Temporal Pulse Rate 91 84 83 Respiratory Rate 22 H 26 H 23 H Blood Pressure 126/61 H 123/63 H 129/61 H Blood Pressure Mean 82 83 83 Blood Pressure Source Monitor Monitor Blood Pressure Position Semi-Fowlers Semi-Fowlers Blood Pressure Location Right Arm Right Arm Pulse Ox 96 96 97 Oxygen Delivery Method Nasal Cannula Nasal Cannula Nasal Cannula Oxygen Flow Rate (L/min) 3 3 3 11/01/20 21:14 11/01/20 21:52 11/01/20 22:00 Temperature 98.9 F 99.5 F H Temperature Source Temporal Temporal Pulse Rate 80 79 83 Respiratory Rate 22 H 19 H 14 Blood Pressure 138/60 H 130/57 H 134/62 H Blood Pressure Mean 86 81 86 Blood Pressure Source Monitor Monitor Blood Pressure Position Sitting Semi-Fowlers Blood Pressure Location Right Arm Right Arm Pulse Ox 97 97 96 Oxygen Delivery Method Room Air Nasal Cannula Nasal Cannula Oxygen Flow Rate (L/min) 3 3 Positive well nourished and well developed General Appearance ED: well developed and NAD HEENT Reports TM's clear and moist mucous membranes normocephalic and atraumatic; Negative for trauma or tenderness Tympanic Membrane ED: Yes TM's clear Eyes PERRL and EOMs intact bilaterally General Eye ED: Negative for pale conjunctiva or scleral icterus Neck no lymphadenopathy, supple and no JVD General: Negative for tenderness Chest Wall inspection of chest normal and palpation of chest normal Chest: Negative for tenderness Resp normal respiratory effort and clear to auscultation bilaterally Effort and Inspection: Negative for respiratory distress or pain with movement Auscultation: Negative for rhonchi, wheezes or diminished lung sounds Cardio regular rate, regular rhythm, S1 normal heart sound, S2 normal heart sound and no murmurs Peripheral Pulses: pulses 2+ throughout GI normal to inspection, nondistended, normoactive bowel sounds, soft to palpation, non-tender, non-distended and no masses Back/Spine no CVA tenderness and no thoracic nor lumbar tenderness Extremity normal to inspection General Extremety ED: Negative for edema General Extremity: Negative for edema Neuro oriented x3, CN's II-XII intact bilaterally, no sensory deficits noted and gait normal Sensorium / Orientation: awake, alert, oriented to person, oriented to place and oriented to time Motor Exam: strength 5/5 throughout and strength abnormal Psych mental status grossly normal Skin no rashes or lesions noted and no wounds MDM MDM MDM Narrative Medical decision making narrative: Case discussed with our surgeon on-call Dr. Sparkle Sherman who asked that we transfer patient back to [facility] given the possibility patient may have a varices based on last EGD they did there several days ago. Patient would like to go back to [facility] [place]. Initially I was told by [facility] transfer line they are very short on beds and they are not sure they would be able to get him there today or could be 8 or 9 h. I attempted to call multiple other facilities including [facility] as well as [facility] in [place] who did not have availability to accept the patient. I tend to [facility] who then was able to discuss with [facility] and patient was accepted back to [facility] and currently we are waiting for a bed for transfer. Patient was started on 2 units packed red cells while in the department. He has had no further vomiting at this time. Patient awaiting transfer to [facility] for definitive care of upper GI bleed. There was a prolonged wait for a bed to [facility]. I discussed case with ICU physician at [facility] and they did do not currently have availability to take the patient as he is relatively hemodynamically stable. While in the department he did have 1 large bowel movement that was maroon color. I am concerned about ongoing bleeding. I discussed case with [facility] transfer line and was able to find a bed at [facility] in the ICU that would accept the patient. I spoke with Dr. Thompson there who accepted transfer of patient. Lab Data Attestation: I reviewed the patient's lab results. Labs: Laboratory Results - last 24 hr 11/01/20 11/01/20 11/01/20 15:15 15:15 15:15 WBC 14.8 H RBC 2.34 L Hgb 7.1 L Hct 22.2 L MCV 94.9 H MCH 30.3 MCHC 32.0 RDW Std Deviation 46.2 H RDW Coeff of Vamsi 14.4 Plt Count 368 MPV 10.1 Immature Gran % (Auto) 4.100 H Neut % (Auto) 76.5 H Lymph % (Auto) 14.3 L [place] % (Auto) 4.5 Eos % (Auto) 0.3 Baso % (Auto) 0.3 Absolute Neuts (auto) 11.3 H Absolute Lymphs (auto) 2.12 Nucleated RBC % 0.3 Sodium 135 L Potassium 4.9 Chloride 99 Carbon Dioxide 25.0 Anion Gap 11 BUN 28 H Creatinine 0.94 Estim Creat Clear Calc 74.38 Est GFR (MDRD) Af Amer 99 Est GFR (MDRD) Non-Af 82 BUN/Creatinine Ratio 29.7 H Glucose 427 H Lactic Acid Calcium 8.5 Total Bilirubin 0.40 AST 9 L ALT 17 Alkaline Phosphatase 63 Total Protein 6.1 L Albumin 2.5 L Globulin 3.6 Albumin/Globulin Ratio 0.7 L Blood Type Cancelled A1 Antigen Typing Cancelled Rho(D) Type Cancelled Antibody Screen Cancelled Crossmatch 11/01/20 11/01/20 11/01/20 15:15 16:00 16:00 WBC RBC Hgb Hct MCV MCH MCHC RDW Std Deviation RDW Coeff of Vamsi Plt Count MPV Immature Gran % (Auto) Neut % (Auto) Lymph % (Auto) [place] % (Auto) Eos % (Auto) Baso % (Auto) Absolute Neuts (auto) Absolute Lymphs (auto) Nucleated RBC % Sodium Potassium Chloride Carbon Dioxide Anion Gap BUN Creatinine Estim Creat Clear Calc Est GFR (MDRD) Af Amer Est GFR (MDRD) Non-Af BUN/Creatinine Ratio Glucose Lactic Acid 4.1 H* Calcium Total Bilirubin AST ALT Alkaline Phosphatase Total Protein Albumin Globulin Albumin/Globulin Ratio Blood Type O POSITIVE A1 Antigen Typing Rho(D) Type Antibody Screen NEGATIVE Crossmatch See Detail 11/01/20 19:38 WBC RBC Hgb Hct MCV MCH MCHC RDW Std Deviation RDW Coeff of Vamsi Plt Count MPV Immature Gran % (Auto) Neut % (Auto) Lymph % (Auto) [place] % (Auto) Eos % (Auto) Baso % (Auto) Absolute Neuts (auto) Absolute Lymphs (auto) Nucleated RBC % Sodium Potassium Chloride Carbon Dioxide Anion Gap BUN Creatinine Estim Creat Clear Calc Est GFR (MDRD) Af Amer Est GFR (MDRD) Non-Af BUN/Creatinine Ratio Glucose Lactic Acid 2.1 H* Calcium Total Bilirubin AST ALT Alkaline Phosphatase Total Protein Albumin Globulin Albumin/Globulin Ratio Blood Type A1 Antigen Typing Rho(D) Type Antibody Screen Crossmatch Critical Care Time Critical care time (excluding procedures): 30-74 minutes, Including time spent:, Discussing w/Patient &/or Family/[employer], Discussing w/Consultants, Arranging Admission or Transfer and - (60 min) Discharge Plan Triage Chief Complaint: GI Bleed ED Provider: Mehnaz Escobar Dx/Rx/DC Orders Clinical Impression: Acute upper gastrointestinal bleeding, Symptomatic anemia Prescriptions: No Action alogliptin 25 mg tablet 25 mg PO QAM RF: 0 carvedilol 12.5 mg tablet 12.5 mg PO BID Qty: 180 RF: 4 aspirin 81 mg tablet,chewable 81 mg PO DAILY@0800 RF: 0 ICaps [id number] [id number]-[id number]-unit tablet extended release 1 tab PO BID RF: 0 Ozempic 0.25 mg or 0.5 mg(2 mg/1.5 mL) pen injector 1 mg SC QWEEK RF: 0 (DME) Accu-Chek Meka Control Soln Solution See Rx Instructions .ROUTE .MEDSUPPLY Qty: 1 RF: 2 (DME) blood sugar diagnostic [Accu-Chek Meka Plus test strp] Strip See Rx Instructions .ROUTE .MEDSUPPLY Qty: 100 RF: 11 (DME) blood-glucose meter [Accu-Chek Meka Plus Meter] Misc See Rx Instructions .ROUTE .MEDSUPPLY Qty: 1 RF: 0 simvastatin 40 mg tablet 40 mg PO QHS Qty: 90 RF: 3 gabapentin 600 mg tablet 600 mg PO BID Qty: 180 RF: 1 metformin 1,000 mg tablet See Rx Instructions PO .COMPLEX Qty: 240 RF: 2 lisinopril 40 mg tablet 40 mg PO DAILY Qty: 90 RF: 3 Primary Care Provider: Faith Jay Referrals: Faith Jay MD [Primary Care Provider] - Disposition Disposition: Transfer to Another Type HC
[2020-11-01 15:30] LABS: Absolute Lymphocyte Count 2.12 X10^3/uL (0.83-4.51); Absolute Neutrophil Count 11.3 X10^3/uL (2.0-7.7); Basophil# 0.05 X10^3/uL; Basophil% 0.3 % (0-1); Eosinophil# 0.04 X10^3/uL; Eosinophils% 0.3 % (0-5); Hematocrit 22.2 % (40-54); Hemoglobin 7.1 g/dL (13.0-16.5); Lymphocyte # 2.12 X10^3/ul (0.83-4.51); Lymphocyte % 14.3 % (19-41); Mean Corpuscular Hgb 30.3 pg (27.0-32.0); Mean Corpuscular Volume 94.9 fL (80-94); Mean Platelet Vol. 10.1 fl (6.2-12.0); Monocyte# 0.67 X10^3/uL; Monocyte% 4.5 % (0-10); NRBC Flagged by Analyzer 0.3 % (0-5); Neutrophil # 11.34 X10^3/uL (2.7-7.7); Neutrophil % 76.5 % (47-70); Platelet Count 368 K/mm3 (150-450); RBC Distribution Width CV 14.4 % (11.6-14.6); RBC Distribution Width SD 46.2 fl (35.1-43.9); Red Blood Count 2.34 M/mm3 (4.6-6.2); White Blood Count 14.8 K/mm3 (4.4-11.0)
[2020-11-01] MEDS: 0.9% Normal Saline 1,000 ML 125 ML IV (15:30)
[2020-11-01 16:04] LABS: ALB/GLOB Ratio 0.7 RATIO (0.9-2.4); AST(SGOT) 9 U/L (15-37); Alanine Aminotransfer ALT/SGPT 17 U/L (16-61); Albumin, Serum 2.5 g/dL (3.2-5.0); Alkaline Phosphatase 63 U/L (45-117); Anion Gap 11 (5-15); BUN 28 mg/dL (7-18); BUN/Creat Ratio 29.7 RATIO (10-20); Calcium,Total 8.5 mg/dL (8.5-10.1); Chloride 99 mmol/L (98-107); Creatinine, Serum 0.94 mg/dL (0.70-1.30); EST Glomerular Filtration Rate 82 mL/min (>60); Est Glom Filt Rate - Afr Amer 99 mL/min (>60); Estimated Creatinine Clearance 74.38 ml/min; Globulin 3.6 g/dL (2.2-4.2); Glucose 427 mg/dL (74-106); Potassium 4.9 mmol/L (3.5-5.1); Protein, Total 6.1 g/dL (6.4-8.2); Sodium Level 135 mmol/L (136-145)
[2020-11-01 16:13] LABS: Lactic Acid 4.1 mmol/L (0.4-1.9)
[2020-11-01 19:21] LABS: Reflex Lactate? Y
--- NOTE | 2020-11-01 19:40 | ED.RN ---
CALLED [facility] FOR A UPDATE ON A BED THEY DO NOT HAVE A BED ASSIGNMENT AT THIS TIME FOR HIM.
[2020-11-01 20:56] LABS: Lactic Acid 2.1 mmol/L (0.4-1.9)
[2020-11-01 22:16] LABS: Hematocrit 25.5 % (40-54); Hemoglobin 8.3 g/dL (13.0-16.5)
--- NOTE | 2020-11-01 23:56 | ED.RN ---
CALLED [facility] FOR A UPDATE, THEY SAID STILL NO BED ASSIGNMENT, BUT SAID THEY WOULD CALL WITH CRITICAL CARE TRANSPORT WHEN READY
[2020-11-02 00:39] VITALS: BP 136/64; PULSE 78; RESP 24; O2SAT 95
--- NOTE | 2020-11-02 00:41 | ED.RN ---
attempted to call significant other to update on pt transfer. no answer.
[2020-11-02 01:25] VITALS: BP 120/54; PULSE 73; RESP 11; O2SAT 96
[2020-11-02 01:33] VITALS: BP 120/54; PULSE 72; RESP 19; O2SAT 96
== END 2020-11-02 01:35 | disposition other institution (70) ==
PROVIDERS: Emergency Provider Emergency Medicine; PCP Internal Medicine
DX: K92.0 Hematemesis (principal); D64.9 Anemia, unspecified; E11.9 Type 2 diabetes mellitus without complications; E66.9 Obesity, unspecified; E78.00 Pure hypercholesterolemia, unspecified; G47.33 Obstructive sleep apnea (adult) (pediatric); I25.2 Old myocardial infarction; I25.10 Atherosclerotic heart disease of native coronary artery without angina pectoris; I50.42 Chronic combined systolic (congestive) and diastolic (congestive) heart failure; I11.0 Hypertensive heart disease with heart failure; I25.5 Ischemic cardiomyopathy; Z79.82 Long term (current) use of aspirin; Z79.84 Long term (current) use of oral hypoglycemic drugs; Z87.442 Personal history of urinary calculi; Z87.891 Personal history of nicotine dependence
CPT/HCPCS: 80053; 83605; 85014; 85018; 85025; 86850; 86900; 86901; 86920; 86922; 87426; 99285; J7030; J7040; P9016; A4216

== ENCOUNTER → 2020-11-07 10:23 | Outpatient (CLI) | payer MEDICARE, SELFPAY ==
[2020-11-07 09:34] VITALS: BMI 29.9
[2020-11-07 12:15] LABS: Absolute Lymphocyte Count 1.73 X10^3/uL (0.83-4.51); Absolute Neutrophil Count 5.7 X10^3/uL (2.0-7.7); Basophil# 0.03 X10^3/uL; Basophil% 0.4 % (0-1); Eosinophil# 0.08 X10^3/uL; Hematocrit 26.5 % (40-54); Hemoglobin 8.2 g/dL (13.0-16.5); Lymphocyte # 1.73 X10^3/ul (0.83-4.51); Mean Corp Hgb Conc 30.9 g/dL (32-36); Mean Corpuscular Hgb 30.3 pg (27.0-32.0); Mean Corpuscular Volume 97.8 fL (80-94); Mean Platelet Vol. 10.3 fl (6.2-12.0); Monocyte# 0.28 X10^3/uL; Monocyte% 3.6 % (0-10); NRBC Flagged by Analyzer 0 % (0-5); Neutrophil % 72.4 % (47-70); Platelet Count 355 K/mm3 (150-450); RBC Distribution Width CV 16.5 % (11.6-14.6); RBC Distribution Width SD 57.5 fl (35.1-43.9); Red Blood Count 2.71 M/mm3 (4.6-6.2); White Blood Count 7.9 K/mm3 (4.4-11.0)
[2020-11-07 12:28] LABS: Anion Gap 6 (5-15); BUN 12 mg/dL (7-18); BUN/Creat Ratio 13.5 RATIO (10-20); Calcium,Total 8.6 mg/dL (8.5-10.1); Chloride 104 mmol/L (98-107); Creatinine, Serum 0.89 mg/dL (0.70-1.30); EST Glomerular Filtration Rate 88 mL/min (>60); Est Glom Filt Rate - Afr Amer 107 mL/min (>60); Glucose 239 mg/dL (74-106); Potassium 4.2 mmol/L (3.5-5.1); Sodium Level 139 mmol/L (136-145)
== END ==
PROVIDERS: PCP Internal Medicine; Referring Provider Nurse Practitioner Family; Visit Provider Nurse Practitioner Family
DX: E11.9 Type 2 diabetes mellitus without complications (principal); K92.2 Gastrointestinal hemorrhage, unspecified; D64.9 Anemia, unspecified
CPT/HCPCS: 36415; 80048; 85025

== ENCOUNTER → 2020-11-21 10:39 | Outpatient (CLI) | payer MEDICARE, SELFPAY ==
[2020-11-21 12:18] LABS: Absolute Lymphocyte Count 1.37 X10^3/uL (0.83-4.51); Absolute Neutrophil Count 2.6 X10^3/uL (2.0-7.7); Basophil# 0.04 X10^3/uL; Basophil% 0.9 % (0-1); Eosinophil# 0.16 X10^3/uL; Eosinophils% 3.5 % (0-5); Hematocrit 33.1 % (40-54); Lymphocyte # 1.37 X10^3/ul (0.83-4.51); Lymphocyte % 29.7 % (19-41); Mean Corp Hgb Conc 30.2 g/dL (32-36); Mean Corpuscular Hgb 27.5 pg (27.0-32.0); Mean Corpuscular Volume 90.9 fL (80-94); Mean Platelet Vol. 10.6 fl (6.2-12.0); Monocyte# 0.39 X10^3/uL; Monocyte% 8.4 % (0-10); NRBC Flagged by Analyzer 0 % (0-5); Neutrophil # 2.64 X10^3/uL (2.7-7.7); Neutrophil % 57.1 % (47-70); Platelet Count 185 K/mm3 (150-450); RBC Distribution Width CV 14.9 % (11.6-14.6); RBC Distribution Width SD 49.5 fl (35.1-43.9); Red Blood Count 3.64 M/mm3 (4.6-6.2); White Blood Count 4.6 K/mm3 (4.4-11.0)
== END ==
PROVIDERS: PCP Internal Medicine; Referring Provider Nurse Practitioner Family; Visit Provider Nurse Practitioner Family
DX: E11.9 Type 2 diabetes mellitus without complications (principal)
CPT/HCPCS: 36415; 85025

== ENCOUNTER 2020-11-26 16:40 | Emergency (ER) | payer MEDICARE, SELFPAY ==
[2020-11-26 16:41] VITALS: BP 149/76; PULSE 60; RESP 18; TEMP 36.7; O2SAT 95; BMI 29.2
--- NOTE | 2020-11-26 17:30 | RAD_ITS ---
STUDY: X-RAY CHEST REASON FOR EXAM: Male, 75 years old. sob TECHNIQUE: Single AP portable view of the chest. COMPARISON: None. FINDINGS: Patchy airspace disease bilaterally. Probable COVID. No consolidation or effusion Sternal cerclage wires are present from a prior sternotomy. Mild cardiomegaly. Normal mediastinum and pablo. Normal visualized pulmonary arteries. Normal visualized aortic arch and descending thoracic aorta. Normal visualized thoracic spine. Normal visualized ribs, clavicles, and shoulders. There is no demonstrated abnormality of the visualized soft tissue structures of the upper abdomen. RAD/Chest 1 View (Portable) IMPRESSION: Cardiomegaly with patchy airspace disease. Possible COVID versus edema Electronically Signed: Zackery Dwyer DO at 17:58 EDT Tel , Service support ,
[2020-11-26 17:46] VITALS: O2SAT 96
[2020-11-26 17:47] VITALS: O2SAT 96
--- NOTE | 2020-11-26 17:58 | EKG12_ITS ---
Test Reason : DYSRHYTHMIA Blood Pressure : / mmHG Vent. Rate : 057 BPM Atrial Rate : 057 BPM P-R Int : 196 ms QRS Dur : 098 ms QT Int : 440 ms P-R-T Axes : 011 -18 058 degrees QTc Int : 428 ms Sinus bradycardia Leftward axis Poor R wave progression Confirmed by SOHAIL YEE, HUAN ([id number]), graphic editor JEANETTE STEWART ([id number]) on 11/28/2020 9:48:36 AM Referred By: CECILIA Confirmed By:HUAN SAUCEDA MD
--- NOTE | 2020-11-26 17:59 | EDS_ITS ---
HPI History of Present Illness Chief Complaint: Shortness of Breath Narrative Narrative: 75-year-old male presenting with dyspnea when he closes his eyes. He states this has been worse for the last couple of days. He also does describe some orthopnea and dyspnea on exertion over the same timeframe. He states he has a distant history of coronary artery bypass but denies any history of congestive heart failure. Patient's states that he was previously on a CPAP machine but only use this for 2 weeks because he did not like the mask. He states that he was later told by his primary care doctor he did not need it anyway. His old primary doctor was the one who prescribed this for him after a sleep study. Patient's states he does not snore. He wakes up in the morning at 530 and does chores. He then lives outside and does work. He does resolve without shortness of breath or chest pain. He states that when he comes in from chores and takes a nap sometimes it wakes him up because he feels a little short of breath. This occurs at night as well. Patient denies any fever, chills, body aches, change in taste or smell. He is not been vaccinated for COVID-19. 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 (congestive heart failure) Degeneration of retina Essential (primary) hypertension GI bleed History of kidney stones History of non-ST elevation myocardial infarction (NSTEMI) (05/12/19) History of skin cancer Ischemic cardiomyopathy Kidney atrophy Multiple premature ventricular complexes Obesity Obstructive sleep apnea Pure hypercholesterolemia Type 2 diabetes mellitus Home Medications blood glucose control high and low solution #1 ea 07/12/19 [Rx Last Taken Unknown] blood-glucose meter #1 ea 08/23/19 [Rx Last Taken Unknown] simvastatin 40 mg tablet 40 mg PO QHS #90 tab 11/25/19 [Rx Last Taken Unknown] alogliptin 25 mg tablet 25 mg PO QAM tab 04/10/20 [History Last Taken 10/23/20] gabapentin 600 mg tablet 600 mg PO BID #180 tab 07/24/20 [Rx Last Taken Unknown] metformin 1,000 mg tablet See Rx Instructions PO .COMPLEX #240 tab 08/03/20 [Rx Last Taken Unknown] carvedilol 12.5 mg tablet 12.5 mg PO BID #180 tab 10/09/20 [Rx Last Taken Unknown] aspirin 81 mg PO DAILY@0800 10/26/20 [History Last Taken Unknown] insulin glargine 100 unit/mL (3 mL) subcutaneous pen 10 unit SUBCUT QPM #15 ml 11/07/20 [Rx Last Taken Unknown] pantoprazole 40 mg tablet,delayed release 40 mg PO BID tab 11/07/20 [History Last Taken Unknown] pen needle, diabetic 31 gauge x 3/16 #100 ea 11/07/20 [Rx Last Taken Unknown] sucralfate 1 gram tablet 1 g PO QAC 11/07/20 [History Last Taken Unknown] blood sugar diagnostic #100 ea 11/16/20 [Rx Last Taken Unknown] lisinopril 20 mg tablet 20 mg PO DAILY 11/19/20 [History Last Taken Unknown] Allergy/AdvReac Type Severity Reaction Status Date / Time exenatide [From [place]] AdvReac Severe Shaking Verified 11/26/20 16:44 and Vomiting Family History Mother , Age 88, CT Hypertension Myocardial infarction CVA (cerebral vascular accident) Father , age 42, CT Hypertension Heart disease Myocardial infarction, Onset Age: 45 Sudden cardiac Brother , age [address] Heart disease Myocardial infarction Surgical History H/O coronary artery bypass surgery (07/2002) History of coronary artery stent placement (11/2002) History of left heart catheterization (05/13/19) Social History Smoking Status: Former smoker how long ago did patient quit smokin alcohol intake: never substance use type: does not use what type of physical activity do you participate in: none ROS ROS ED Constitutional Constitutional ED: Denies chills or fever(s) Eyes Eyes: Denies blurry vision or diplopia ENT ENT ED: Denies rhinorrhea or sore throat Cardiovascular Cardiovascular: Reports orthopnea; Denies chest pain, palpitations or racing heartbeat Respiratory/Chest Respiratory/Chest: Reports dyspnea, dyspnea on exertion and orthopnea; Denies cough Gastrointestinal Gastrointestinal: Denies abdominal pain, constipation, diarrhea, nausea or vomiting Genitourinary Genitourinary ED: Denies dysuria or hematuria Musculoskeletal Musculoskeletal: Denies arthralgias or myalgias Integumentary Denies Abrasions or rash Neurologic Neurologic: Denies headache(s) or paresthesias EXAM Physical Exam Const Vital Signs: 11/26/20 16:41 11/26/20 17:46 11/26/20 17:47 Temperature 98.1 F Temperature Source Temporal Pulse Rate 60 Respiratory Rate 18 Respiratory Effort Short of Breath Respiratory Depth Normal Blood Pressure 149/76 H Blood Pressure Mean 100 Pulse Ox 95 96 Oxygen Delivery Method Room Air Room Air 11/26/20 18:26 11/26/20 19:46 11/26/20 21:29 Temperature Temperature Source Pulse Rate 58 L 57 L Respiratory Rate 26 H 16 Respiratory Effort Respiratory Depth Blood Pressure 152/57 H 164/77 H Blood Pressure Mean 88 106 Pulse Ox 93 93 94 Oxygen Delivery Method Room Air Room Air Room Air Positive well nourished General Appearance ED: NAD HEENT Reports moist mucous membranes atraumatic Eyes PERRL and EOMs intact bilaterally General Eye ED: Negative for pale conjunctiva or scleral icterus Resp normal respiratory effort and clear to auscultation bilaterally Cardio regular rate and regular rhythm Extremity General Extremety ED: Yes edema; Negative for tenderness General Extremity: edema Neuro oriented x3 and CN's II-XII intact bilaterally Sensorium / Orientation: alert Psych mental status grossly normal Thought Process: normal thought process Skin Lesions: no lesions Rashes: no rashes MDM MDM MDM Narrative Medical decision making narrative: Patient presenting with dyspnea which sounds as if he has orthopnea and dyspnea on exertion. He states that he has no cardiac history that significant although I did find history of CAD, ischemic cardiomyopathy, cardiac stents, CABG. Patient is also questionably supposed to be on CPAP although he states he does not tolerate this in one of his physicians told him he did not need it. Patient is not having any chest pain. I did obtain an EKG which on my interpretation shows a sinus bradycardia with a ventricular rate of 57 bpm without signs of ischemic change. Chest x-ray shows pulmonary edema on my interpretation and the radiologist does agree but states this might be COVID-19 however his Covid testing is negative. His lab work is inconsistent with COVID-19 as well. Patient's troponin is negative. BNP is elevated at 337. Looking through the patient's medical record he is not on any Lasix. Patient's last echocardiogram appeared to be about 13 months ago and he had an EF of 55%. Patient was discussed with Dr. Szymanski who recommended giving him 40 of Lasix IV x1 and having him follow-up in the office tomorrow. This was discussed with the patient and he is amenable to this. Patient is not requiring any supplemental oxygen at this time. Patient given return precautions and counseled to follow-up tomorrow for cardiology visit. Impression: 1. Dyspnea 2. CHF exacerbation Lab Data Attestation: I reviewed the patient's lab results. Labs: Laboratory Results - last 24 hr 11/26/20 11/26/20 11/26/20 18:25 18:25 18:25 WBC 5.9 RBC 3.75 L Hgb 10.1 L Hct 33.4 L MCV 89.1 MCH 26.9 L MCHC 30.2 L RDW Std Deviation 48.8 H RDW Coeff of Vamsi 15.1 H Plt Count 205 MPV 9.9 Immature Gran % (Auto) 0.500 Neut % (Auto) 61.7 Lymph % (Auto) 24.2 [place] % (Auto) 8.6 Eos % (Auto) 4.2 Baso % (Auto) 0.8 Absolute Neuts (auto) 3.7 Absolute Lymphs (auto) 1.44 Nucleated RBC % 0 Sodium 136 Potassium 4.3 Chloride 102 Carbon Dioxide 29.0 Anion Gap 5 BUN 14 Creatinine 0.95 Estim Creat Clear Calc 73.59 Est GFR (MDRD) Af Amer 98 Est GFR (MDRD) Non-Af 81 BUN/Creatinine Ratio 14.7 Glucose 322 H Calcium 8.9 Troponin I High Sens 8 B-Natriuretic Peptide 337.3 H Radiography Diagnostic Testing: Radiology Impression Chest X-Ray 11/26/20 17:30 IMPRESSION: Cardiomegaly with patchy airspace disease. Possible COVID versus edema Electronically Signed: Zackery Dwyer DO at 17:58 EDT Tel , Service support , Discharge Plan Triage Chief Complaint: Shortness of Breath ED Provider: Irvin Hunt Dx/Rx/DC Orders Instructions: ED Heart Failure, Congestive (CHF) Prescriptions: No Action alogliptin 25 mg tablet 25 mg PO QAM RF: 0 carvedilol 12.5 mg tablet 12.5 mg PO BID Qty: 180 RF: 4 sucralfate [Carafate] 1 gram tablet 1 g PO QAC RF: 0 pantoprazole [Protonix] 40 mg tablet,delayed release (DR/EC) 40 mg PO BID RF: 0 (DME) pen needle, diabetic [1st Tier Unifine Pentips] 31 gauge x 3/16 needle See Rx Instructions .ROUTE .MEDSUPPLY Qty: 100 RF: 1 Lantus Solostar U-100 Insulin 100 unit/mL (3 mL) insulin pen 10 unit subcut QPM Qty: 15 RF: 1 aspirin 81 mg tablet,chewable 81 mg PO DAILY@0800 RF: 0 (DME) Accu-Chek Meka Control Soln Solution See Rx Instructions .ROUTE .MEDSUPPLY Qty: 1 RF: 2 (DME) blood-glucose meter [Accu-Chek Meka Plus Meter] Misc See Rx Instructions .ROUTE .MEDSUPPLY Qty: 1 RF: 0 simvastatin 40 mg tablet 40 mg PO QHS Qty: 90 RF: 3 gabapentin 600 mg tablet 600 mg PO BID Qty: 180 RF: 1 metformin 1,000 mg tablet See Rx Instructions PO .COMPLEX Qty: 240 RF: 2 (DME) Accu-Chek Meka Plus test strp Strip See Rx Instructions .ROUTE .MEDSUPPLY Qty: 100 RF: 11 lisinopril 20 mg tablet 20 mg PO DAILY RF: 0 Primary Care Provider: Faith Jay Referrals: Misha Szymanski MD [STAFF PHYSICIAN] - As soon as possible Faith Jay MD [Primary Care Provider] - Disposition Disposition: Home, Self Care Discharge Date/Time: 11/26/20 21:38
[2020-11-26 18:26] VITALS: O2SAT 93
[2020-11-26 18:38] LABS: Absolute Lymphocyte Count 1.44 X10^3/uL (0.83-4.51); Absolute Neutrophil Count 3.7 X10^3/uL (2.0-7.7); Basophil# 0.05 X10^3/uL; Basophil% 0.8 % (0-1); Eosinophil# 0.25 X10^3/uL; Eosinophils% 4.2 % (0-5); Hematocrit 33.4 % (40-54); Hemoglobin 10.1 g/dL (13.0-16.5); Lymphocyte # 1.44 X10^3/ul (0.83-4.51); Lymphocyte % 24.2 % (19-41); Mean Corp Hgb Conc 30.2 g/dL (32-36); Mean Corpuscular Hgb 26.9 pg (27.0-32.0); Mean Corpuscular Volume 89.1 fL (80-94); Mean Platelet Vol. 9.9 fl (6.2-12.0); Monocyte# 0.51 X10^3/uL; Monocyte% 8.6 % (0-10); NRBC Flagged by Analyzer 0 % (0-5); Neutrophil # 3.66 X10^3/uL (2.7-7.7); Neutrophil % 61.7 % (47-70); Platelet Count 205 K/mm3 (150-450); RBC Distribution Width CV 15.1 % (11.6-14.6); RBC Distribution Width SD 48.8 fl (35.1-43.9); Red Blood Count 3.75 M/mm3 (4.6-6.2); White Blood Count 5.9 K/mm3 (4.4-11.0)
[2020-11-26 18:55] LABS: Anion Gap 5 (5-15); BUN 14 mg/dL (7-18); BUN/Creat Ratio 14.7 RATIO (10-20); Calcium,Total 8.9 mg/dL (8.5-10.1); Chloride 102 mmol/L (98-107); Creatinine, Serum 0.95 mg/dL (0.70-1.30); EST Glomerular Filtration Rate 81 mL/min (>60); Est Glom Filt Rate - Afr Amer 98 mL/min (>60); Estimated Creatinine Clearance 73.59 ml/min; Glucose 322 mg/dL (74-106); Potassium 4.3 mmol/L (3.5-5.1); Sodium Level 136 mmol/L (136-145); Troponin-I HS 8 pg/mL (3.0-78.0)
[2020-11-26 19:10] LABS: BNP,B-Type NATRIURETIC PEPTIDE 337.3 pg/mL (0-100)
[2020-11-26 19:46] VITALS: BP 152/57; PULSE 58; RESP 26; O2SAT 93
[2020-11-26 21:29] VITALS: BP 164/77; PULSE 56; PULSE 57; RESP 16; O2SAT 94
[2020-11-26] MEDS: Furosemide 40 MG/4 ML Vial IV (21:34)
== END 2020-11-26 21:38 | disposition home or self-care (01) ==
PROVIDERS: Emergency Provider Student in an Organized Health Care Education/Training Program; PCP Internal Medicine
DX: R06.02 Shortness of breath (principal); I11.0 Hypertensive heart disease with heart failure; R06.00 Dyspnea, unspecified; I25.5 Ischemic cardiomyopathy; I25.10 Atherosclerotic heart disease of native coronary artery without angina pectoris; E11.9 Type 2 diabetes mellitus without complications; E78.00 Pure hypercholesterolemia, unspecified; G47.33 Obstructive sleep apnea (adult) (pediatric); I50.42 Chronic combined systolic (congestive) and diastolic (congestive) heart failure; I25.2 Old myocardial infarction; Z79.4 Long term (current) use of insulin; Z79.82 Long term (current) use of aspirin; Z87.442 Personal history of urinary calculi; Z87.891 Personal history of nicotine dependence
CPT/HCPCS: 71045; 80048; 83880; 84484; 85025; 87426; 93005; 94760; 96374; 99284; A4216; J1940

== ENCOUNTER → 2020-12-13 13:53 | Outpatient (CLI) | payer MEDICARE, SELFPAY ==
--- NOTE | 2020-12-13 13:57 | ECHOD_ITS ---
Reason For Study: CHF Procedure This was a 2D Doppler, Color Flow transthoracic echocardiogram. The study was technically difficult. Exam performed in department. Left Ventricle Normal LV size. Left ventricular systolic function is normal. The estimated ejection fraction is 55 %. No regional wall motion abnormalities noted. Right Ventricle Normal RV size. Normal systolic function. Atria Normal left atrium. Normal right atrium. Mitral Valve Normal mitral valve. Tricuspid Valve Normal tricuspid valve. Mild to moderate (1-2+) tricuspid valve insufficiency. Pulmonary artery systolic pressure is 44 mmHg. Aortic Valve Trisinus/trileaflet aortic valve. Pulmonic Valve The pulmonic valve is not well visualized. Great Vessels Normal aortic root. Pericardium/Pleural No pericardial effusion. Medication 22 gauge I.V. with prn adaptor inserted into right arm. Diluted definity 4ml given slow IV push to enhance endocardial definition. MMode/2D Measurements & Calculations LVIDd: 5.6 cm IVSd: 0.95 cm Ao root diam: 3.2 cm LVIDs: 4.3 cm LVPWd: 1.3 cm RVDd: 3.9 cm FS: 22.0 % LAV(MOD-bp): 82.0 ml LVAd ap4: 40.6 cm2 SV(MOD-sp4): 103.3 ml LAV(MOD-bp) Indexed: 36.0 ml/m2 LVLd ap4: 8.4 cm LAV(MOD-sp2): 119.5 ml EDV(MOD-sp4): 167.9 ml LAV(MOD-sp4): 56.5 ml EDV(sp4-el): 166.6 ml LVAs ap4: 23.2 cm2 LVLs ap4: 7.4 cm ESV(MOD-sp4): 64.6 ml ESV(sp4-el): 62.2 ml EF(MOD-sp4): 61.5 % EF(sp4-el): 62.7 % SV(sp4-el): 104.4 ml LA A4 area: 20.6 cm2 LA dimension(2D): 5.5 cm RA A4 area: 18.5 cm2 Doppler Measurements & Calculations MV E max morris: 119.7 cm/sec Lat Peak E' Morris: 9.9 cm/sec Med Peak E' Morris: 5.8 cm/sec MV A max morris: 100.7 cm/sec E/E' lat: 12.1 E/E' med: 20.6 MV E/A: 1.2 Ao V2 max: 164.9 cm/sec LV V1 max: 117.7 cm/sec PA V2 max: 115.3 cm/sec Ao max P.9 mmHg LV V1 max P.5 mmHg TR max morris: 315.5 cm/sec TR max P.8 mmHg ECHO/Echo Complete W/ Contrast Interpretation Summary Normal LV size. Left ventricular systolic function is normal. The estimated ejection fraction is 55 %. Pulmonary artery systolic pressure is 44 mmHg. Contrast injection was performed. Compared to previous study, the left ventricu lar systolic function is the same.. Ordering Physician: Misha Szymanski Referring Physician: Faith Jay Performed By: Sandy Johnson RDCS
[2020-12-13 16:48] LABS: Anion Gap 7 (5-15); BUN 19 mg/dL (7-18); BUN/Creat Ratio 19.6 RATIO (10-20); Calcium,Total 8.8 mg/dL (8.5-10.1); Chloride 99 mmol/L (98-107); Creatinine, Serum 0.97 mg/dL (0.70-1.30); EST Glomerular Filtration Rate 80 mL/min (>60); Est Glom Filt Rate - Afr Amer 96 mL/min (>60); Glucose 300 mg/dL (74-106); Potassium 3.7 mmol/L (3.5-5.1); Sodium Level 136 mmol/L (136-145)
== END ==
PROVIDERS: PCP Internal Medicine; Referring Provider Internal Medicine Cardiovascular Disease; Visit Provider Internal Medicine Cardiovascular Disease
DX: I50.9 Heart failure, unspecified (principal); I95.9 Hypotension, unspecified; D64.9 Anemia, unspecified; K92.2 Gastrointestinal hemorrhage, unspecified; I25.810 Atherosclerosis of coronary artery bypass graft(s) without angina pectoris
CPT/HCPCS: 36415; 80048; 93306; Q9957; C8929; J3490

== ENCOUNTER → 2021-01-04 10:33 | Outpatient (CLI) | payer MEDICARE, SELFPAY ==
[2021-01-04 12:22] LABS: Absolute Lymphocyte Count 1.66 X10^3/uL (0.83-4.51); Absolute Neutrophil Count 4.8 X10^3/uL (2.0-7.7); Basophil# 0.03 X10^3/uL; Basophil% 0.4 % (0-1); Eosinophil# 0.16 X10^3/uL; Eosinophils% 2.2 % (0-5); Hematocrit 37.9 % (40-54); Hemoglobin 11.9 g/dL (13.0-16.5); Lymphocyte # 1.66 X10^3/ul (0.83-4.51); Lymphocyte % 22.7 % (19-41); Mean Corp Hgb Conc 31.4 g/dL (32-36); Mean Corpuscular Hgb 24.4 pg (27.0-32.0); Mean Corpuscular Volume 77.7 fL (80-94); Mean Platelet Vol. 10.7 fl (6.2-12.0); Monocyte# 0.69 X10^3/uL; Monocyte% 9.4 % (0-10); NRBC Flagged by Analyzer 0 % (0-5); Neutrophil # 4.76 X10^3/uL (2.7-7.7); Platelet Count 216 K/mm3 (150-450); RBC Distribution Width CV 14.8 % (11.6-14.6); RBC Distribution Width SD 41.5 fl (35.1-43.9); Red Blood Count 4.88 M/mm3 (4.6-6.2); White Blood Count 7.3 K/mm3 (4.4-11.0)
== END ==
PROVIDERS: PCP Internal Medicine; Referring Provider Nurse Practitioner Family; Visit Provider Nurse Practitioner Family
DX: E11.9 Type 2 diabetes mellitus without complications (principal)
CPT/HCPCS: 36415; 85025

== ENCOUNTER → 2021-03-28 | Outpatient (CLI) | payer MEDICARE, SELFPAY | END | disposition home or self-care (01) | LOC: LABSPEC 13:07 | PROVIDERS: PCP Internal Medicine; Visit Provider Physician Assistant | DX: U07.1 COVID-19 (principal); I50.9 Heart failure, unspecified; R05.9 Cough, unspecified | CPT/HCPCS: 87635; U0003; U0005 ==

== ENCOUNTER 2021-04-02 11:46 | Outpatient (CLI) | payer MEDICARE, SELFPAY ==
--- NOTE | 2021-04-02 11:54 | RAD_ITS ---
STUDY: X-RAY CHEST REASON FOR EXAM: Male, 76 years old. Cough TECHNIQUE: Frontal and lateral views COMPARISON: 11/26/2020 FINDINGS: Stable sternotomy wires. The lungs are expanded. Mild basilar interstitial prominence. Bilateral granulomas. Normal size heart. Normal mediastinum. Hilar calcifications. Normal visualized pulmonary arteries. Calcified aortic arch and descending thoracic aorta. Degenerative changes of the thoracic spine. Normal visualized ribs, clavicles, and shoulders. There is no demonstrated abnormality of the visualized soft tissue structures of the upper abdomen. RAD/Chest PA and Lateral IMPRESSION: Mild basilar interstitial prominence. Bilateral granulomas. Electronically Signed: Jimmy Santoyo DO at 17:02 EST Tel [phone], Service support ,
== END 2021-04-02 23:59 | disposition short-term general hospital (02) ==
LOC: RAD 11:48
PROVIDERS: PCP Internal Medicine; Referring Provider Physician Assistant; Visit Provider Physician Assistant
DX: R05.9 Cough, unspecified (principal)
CPT/HCPCS: 71046

== ENCOUNTER 2021-04-03 11:04 | Outpatient (CLI) | payer MEDICARE, SELFPAY ==
[2021-04-03 11:56] VITALS: BP 129/65; PULSE 56; RESP 16; TEMP 36.9; O2SAT 98; BMI 29.8
[2021-04-03 12:23] VITALS: BP 134/64; PULSE 57; RESP 16; TEMP 36.9; O2SAT 98
[2021-04-03 13:23] VITALS: BP 141/62; PULSE 58; RESP 16; TEMP 36.6; O2SAT 98
== END 2021-04-03 23:59 | disposition home or self-care (01) ==
LOC: MS3OUT 11:05 → MS3 11:05
PROVIDERS: PCP Internal Medicine; Referring Provider Nurse Practitioner Adult Health; Visit Provider Nurse Practitioner Adult Health
DX: Z23 Encounter for immunization (principal); U07.1 COVID-19
CPT/HCPCS: J7050; M0243; Q0240

== ENCOUNTER 2021-06-18 10:24 | Outpatient (CLI) | payer MEDICARE, SELFPAY ==
[2021-06-18 10:52] LABS: Erythrocyte Sedimentation Rate 7 mm/hr (0-20)
[2021-06-18 10:55] LABS: Absolute Lymphocyte Count 2.23 X10^3/uL (0.83-4.51); Absolute Neutrophil Count 4.4 X10^3/uL (2.0-7.7); Basophil# 0.04 X10^3/uL; Basophil% 0.5 % (0-1); Eosinophils% 2.7 % (0-5); Hematocrit 45.8 % (40-54); Hemoglobin 15.9 g/dL (13.0-16.5); Lymphocyte # 2.23 X10^3/ul (0.83-4.51); Lymphocyte % 30.2 % (19-41); Mean Corp Hgb Conc 34.7 g/dL (32-36); Mean Corpuscular Hgb 29.2 pg (27.0-32.0); Mean Corpuscular Volume 84.2 fL (80-94); Mean Platelet Vol. 10.8 fl (6.2-12.0); Monocyte# 0.53 X10^3/uL; Monocyte% 7.2 % (0-10); NRBC Flagged by Analyzer 0 % (0-5); Neutrophil # 4.36 X10^3/uL (2.7-7.7); Platelet Count 165 K/mm3 (150-450); RBC Distribution Width CV 14.8 % (11.6-14.6); RBC Distribution Width SD 44.7 fl (35.1-43.9); Red Blood Count 5.44 M/mm3 (4.6-6.2); White Blood Count 7.4 K/mm3 (4.4-11.0)
[2021-06-18 10:56] LABS: Prothrombin Time (Protime)PT. 12.7 SECONDS (11.7-14.9)
[2021-06-18 11:15] LABS: AST(SGOT) 12 U/L (15-37); Alanine Aminotransfer ALT/SGPT 20 U/L (16-61); Albumin, Serum 3.9 g/dL (3.2-5.0); Alkaline Phosphatase 70 U/L (45-117); Anion Gap 3 (5-15); BUN 27 mg/dL (7-18); BUN/Creat Ratio 23.7 RATIO (10-20); Bilirubin, Direct 0.24 mg/dL (0.00-0.30); CRP 4.22 mg/L (0.0-3.0); Calcium,Total 9.7 mg/dL (8.5-10.1); Chloride 104 mmol/L (98-107); Creatinine, Serum 1.14 mg/dL (0.70-1.30); EST Glomerular Filtration Rate 66 mL/min (>60); Est Glom Filt Rate - Afr Amer 80 mL/min (>60); Ferritin 21 ng/mL (26-388); Globulin 3.9 g/dL (2.2-4.2); Glucose 113 mg/dL (74-106); LDH 164 U/L (87-241); Potassium 4.2 mmol/L (3.5-5.1); Protein, Total 7.8 g/dL (6.4-8.2); Sodium Level 138 mmol/L (136-145)
[2021-06-19 14:14] LABS: Anti-Centromere B Ab <0.2 AI (0.0-0.9); Anti-Chromatin <0.2 AI (0.0-0.9); Anti-Jo <0.2 AI (0.0-0.9); Anti-Scleroderma-70 AB <0.2 AI (0.0-0.9); RNP Ab <0.2 AI (0.0-0.9); SJOGREN'S Anti-SS-A test < 0.2 AI (0.0-0.9); SJOGREN'S Anti-SS-B test < 0.2 AI (0.0-0.9); Smith Ab <0.2 AI (0.0-0.9)
[2021-06-19 17:02] LABS: Anti-Mitochondrial AB <20.0 Units (0.0-20.0); Anti-dsDNA Ab <1 IU/mL (0-9)
[2021-06-21 07:08] LABS: Angiotensin Convert Enzyme < 15 U/L (14-82); Ceruloplasmin 25.1 mg/dL (16.0-31.0); Cytoplasmic Ab (C-ANCA) <1:20 titer (Neg:<1:20); Endomysial Antibody IgA Negative (Negative); HEPATITIS B SURFACE AG Negative (Negative); Hepatitis A IgM Antibody Negative (Negative); Hepatitis B Core AB IgM Negative (Negative); Immunoglobulin A 88 mg/dL (61-437)
[2021-06-21 10:10] LABS: Anti-Smooth Muscle ABS 8 Units (0-19); Copper, Serum or Plasma 105 ug/dL (69-132); Haptoglobin 213 mg/dL (34-355); Hep C Antibodies <0.1 s/co ratio (0.0-0.9); Perinuclear Ab (P-ANCA) <1:20 titer (Neg:<1:20); t-Transglutaminase IgA <2 U/mL (0-3)
== END 2021-06-18 23:59 | disposition home or self-care (01) ==
LOC: LAB 10:25
PROVIDERS: PCP Internal Medicine; Referring Provider Nurse Practitioner Adult Health; Visit Provider Nurse Practitioner Adult Health
DX: K76.0 Fatty (change of) liver, not elsewhere classified (principal); E11.9 Type 2 diabetes mellitus without complications; R10.9 Unspecified abdominal pain; I25.10 Atherosclerotic heart disease of native coronary artery without angina pectoris
CPT/HCPCS: 36415; 80053; 80074; 82140; 82164; 82248; 82390; 82525; 82728; 82784; 83010; 83516; 83615; 85025; 85610; 85652; 86140; 86225; 86235; 86255; 86256

== ENCOUNTER 2021-06-26 07:26 | Outpatient (CLI) | payer MEDICARE, SELFPAY ==
--- NOTE | 2021-06-26 07:45 | US_ITS ---
STUDY: ABDOMINAL ULTRASOUND - ELASTOGRAPHY REASON FOR VISIT: Male, 76 years old. Hepatomegaly and fatty infiltration of the liver. TECHNIQUE: Liver stiffness measurements were obtained on a Mobly RS 85 ultrasound machine using a CA 1-7 probe following the SRU guidelines. 3 measurements were obtained using a 2-D-SWE method. The IQR/M was 22% suggesting a quality data set. TECHNICAL QUALITY: Adequate. COMPARISON: Comparison is made with prior sonogram done earlier in the day. FINDINGS: Liver: Hepatomegaly and fatty infiltration of the liver. Median liver stiffness measured 12.5 kPa. US/Elastography Parenchyma/Organ IMPRESSION: Liver stiffness measures 12.5 kPa compatible withF 3 Metavir score. Electronically Signed: Enrique Henderson MD at 10:04 EDT ,
--- NOTE | 2021-06-26 07:46 | US_ITS ---
STUDY: ABDOMINAL ULTRASOUND - RIGHT UPPER QUADRANT REASON FOR VISIT: Male, 76 years old FATTY LIVER TECHNIQUE: Ultrasound evaluation of the right upper quadrant was performed with real-time and static bhakta-scale imaging. TECHNICAL QUALITY: Limited. Examination limited due to obesity. COMPARISON: None. FINDINGS: Liver: The liver is enlarged and measures 19.4 cm. There is increased echogenicity consistent with fatty infiltration. The bile ducts are within normal limits. There is hepatic color flow. The direction of portal flow is hepatopetal. There is no demonstrated mass lesion. Gallbladder: The patient is status post cholecystectomy. Common Bile Duct (C.B.D.): The common bile duct measures 3.9 mm. Pancreas: Normal size of the head, body and tail of the pancreas. There is normal echogenicity of the pancreas. There is no demonstrated pancreatic mass or cyst. Right Kidney: Normal size of the right kidney. The right kidney measures 13.5 cm x 5.2cm x 6.5 cm. Normal renal cortex. The right cortex measures 2.0 cm. There is a 1.7 cm x 1.4 cm x 1.4 cm renal cyst. There is no right hydronephrosis. US/Abdomen Limited IMPRESSION: Hepatomegaly and fatty infiltration of the liver. 1.7 cm x 1.4 cm x 1.4 cm right renal cyst. Electronically Signed: Enrique Henderson MD at 10:01 EDT ,
== END 2021-06-26 23:59 | disposition home or self-care (01) ==
LOC: US 07:27
PROVIDERS: PCP Internal Medicine; Visit Provider Nurse Practitioner Adult Health
DX: K76.0 Fatty (change of) liver, not elsewhere classified (principal)
CPT/HCPCS: 76705; 76981

== ENCOUNTER 2021-06-28 14:37 | Outpatient (CLI) | payer MEDICARE, SELFPAY ==
--- NOTE | 2021-06-28 14:40 | CT_ITS ---
STUDY: CT ABDOMEN AND PELVIS WITH CONTRAST REASON FOR EXAM: Male, 76 years old. Abd pain, constipation, fatty liver -- oral and IV please RADIATION DOSAGE (If Supplied By Facility): CTDIvol = ( 18.67 ) mGy, DLP = ( 1541.28 ) mGycm TECHNIQUE: Transaxial images were obtained from the dome of the diaphragm to the symphysis pubis with oral contrast. Oral and amp;amp; IV Readi-CAT and amp;amp; 100mL Isovue-300 was administered. Sagittal and coronal images were reconstructed. Individualized dose optimization techniques were used for this CT. COMPARISON: Comparison is made with prior study dated 05/12/2013. FINDINGS: The visualized lung bases are unremarkable. Coronary artery calcification. Normal liver. There are surgical clips in the gallbladder fossa consistent with a prior cholecystectomy. There are multiple benign calcified granulomata of the spleen. Normal pancreas. Normal bilateral adrenal glands. 1.1 cm cyst in the lower pole of the right kidney. There is a 3 mm nonobstructive calculus in the lower pole calyx of the left kidney. Punctate calcification in the anterior midpole calyx of the left kidney. Normal visualized stomach. Normal small intestine. There are scattered colonic diverticula consistent with diverticulosis. The appendix is visualized and appears normal. There is diffuse atherosclerotic calcification of the abdominal aorta and its major visceral branches, without a demonstrated aneurysm. Normal inferior vena cava. Normal retroperitoneum. Diffuse bladder wall thickening. There is enlargement of the prostate gland. The prostate measures 4.5 cm x 5.4 cm. This causes indentation at the bladder base. Normal abdominal wall. There are diffuse degenerative changes of the visualized lumbar spine. CT/Abdomen/Pelvis WITH Contrast IMPRESSION: Scattered sigmoid diverticula. Nonobstructive left intrarenal calculi. Right renal cyst. Prior cholecystectomy. Electronically Signed: Enrique Henderson MD at 15:15 EDT ,
== END 2021-06-28 23:59 | disposition home or self-care (01) ==
LOC: CT 14:39
PROVIDERS: PCP Internal Medicine; Referring Provider Nurse Practitioner Adult Health; Visit Provider Nurse Practitioner Adult Health
DX: R10.9 Unspecified abdominal pain (principal); K59.00 Constipation, unspecified; K76.0 Fatty (change of) liver, not elsewhere classified
CPT/HCPCS: 74177; Q9967

== ENCOUNTER 2021-07-10 10:24 | Outpatient (CLI) | payer MEDICARE, SELFPAY ==
[2021-07-10 10:51] LABS: Platelet Count 164 K/mm3 (150-450); RET-HE 32.9 pg (30-35)
[2021-07-10 11:19] LABS: Iron 88 ug/dL (65-175); Iron Binding Capacity,Total 425 ug/dL (250-450); PERCENT IRON SATURATION 20.7 % (15.0-55.0)
[2021-07-11 11:19] LABS: Transferrin 275 mg/dL (177-329)
== END 2021-07-10 23:59 | disposition home or self-care (01) ==
LOC: LAB 10:26
PROVIDERS: PCP Internal Medicine; Referring Provider Nurse Practitioner Adult Health; Visit Provider Nurse Practitioner Adult Health
DX: R79.0 Abnormal level of blood mineral (principal); R19.7 Diarrhea, unspecified; Z87.19 Personal history of other diseases of the digestive system
CPT/HCPCS: 36415; 83540; 83550; 84466; 85045

== ENCOUNTER 2021-07-11 13:20 | Outpatient (CLI) | payer MEDICARE, SELFPAY ==
[2021-07-16 17:39] LABS: Calprotectin, Stool 194 ug/g (0-120)
== END 2021-07-11 23:59 | disposition home or self-care (01) ==
LOC: LABSPEC 13:22
PROVIDERS: PCP Internal Medicine; Referring Provider Nurse Practitioner Adult Health; Visit Provider Nurse Practitioner Adult Health
DX: R79.0 Abnormal level of blood mineral (principal); R19.7 Diarrhea, unspecified; Z87.19 Personal history of other diseases of the digestive system
CPT/HCPCS: 83630; 83993; 87177; 87209; 87329; 87493; 87506

== ENCOUNTER 2021-07-18 13:59 | Observation (INO) | payer MEDICARE, SELFPAY ==
[2021-07-18 14:00] VITALS: BP 117/57; PULSE 72; RESP 18; TEMP 36.2; O2SAT 92; BMI 29.8
--- NOTE | 2021-07-18 14:20 | EKG12_ITS ---
Test Reason : WEAKNESS Blood Pressure : / mmHG Vent. Rate : 069 BPM Atrial Rate : 069 BPM P-R Int : 198 ms QRS Dur : 106 ms QT Int : 396 ms P-R-T Axes : 004 -33 083 degrees QTc Int : 424 ms Normal sinus rhythm Left axis deviation Nonspecific T wave abnormality Abnormal ECG Confirmed by SOHAIL YEE, HUAN ([id number]), avid editor JEANETTE STEWART ([id number]) on 07/23/2021 8:48:14 AM Referred By: RANDI Confirmed By:HUAN SAUCEDA MD
--- NOTE | 2021-07-18 14:20 | CT_ITS ---
INDICATION: HALLUCINATIONS, CONFUSION EXAMINATION: CT BRAIN - CT Head or Brain W/O Contrast Injection TECHNIQUE: Multiple axial images were obtained of the head without intravenous contrast. A radiation dose optimization technique was used for this scan. IV Contrast dosage and agent: None. COMPARISON: None. FINDINGS: BRAIN PARENCHYMA: Subtle scattered areas of low attenuation visualized in the periventricular and subcortical white matter consistent with chronic microvascular disease, no evidence of acute territorial infarct is seen. No intra- or extra-axial hemorrhage. No evidence of acute infarct. No intracranial mass or mass effect. Posterior fossa structures are unremarkable. CSF SPACES: Appropriate for age. No hydrocephalus. Basal cisterns are patent. CALVARIUM, SKULL BASE, PARANASAL SINUSES AND MASTOID AIR CELLS: Clear. No discrete lytic or blastic abnormalities. ORBITS: Both globes, extraocular muscles, optic nerves and retrobulbar fat appear unremarkable. ASPECTS Score for Acute Strokes: 10 CT/Brain/Head without Contrast IMPRESSION: No evidence of acute intracranial pathology is seen. Electronically Signed: Dylan Walsh MD at 16:17 EDT ,
--- NOTE | 2021-07-18 14:22 | EX.ED.DYSGE1 ---
HPI History of Present Illness Chief Complaint: Weakness Detail of Chief Complaint: Generalized weakness and not feeling well for the last 4 days Informant: patient and spouse/S.O. Narrative Narrative: Patient presents to the emergency department with his girlfriend from home. Patient apparently had some sort of food poisoning for which she was treated with Bactrim that he was placed on about 4 days ago. Girlfriend noted that he has been sleeping all the time. Patient had decreased p.o. intake and was seeming off balance when walking yesterday. Patient has been hallucinating and saying things that do not make sense. Patient denies any chest pain or abdominal pain. Denies headache. No other new medications known. Prior similar symptoms: No PFSH PFS Medical History (Updated 07/18/21 @ 15:[address] 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 (congestive heart failure) Degeneration of retina Diarrhea Dysphagia Essential (primary) hypertension Fatty liver GERD (gastroesophageal reflux disease) GI bleed History of GI bleed History of kidney stones History of non-ST elevation myocardial infarction (NSTEMI) (05/12/19) History of skin cancer Ischemic cardiomyopathy Kidney atrophy Low ferritin level Multiple premature ventricular complexes Obesity Obstructive sleep apnea Pure hypercholesterolemia Symptomatic anemia Type 2 diabetes mellitus Home Medications blood-glucose meter #1 ea 08/23/19 [Rx Last Taken Unknown] metformin 1,000 mg tablet See Rx Instructions PO .COMPLEX #240 tab 08/03/20 [Rx Last Taken Unknown] carvedilol 12.5 mg tablet 12.5 mg PO BID #180 tab 10/09/20 [Rx Last Taken Unknown] aspirin 81 mg PO DAILY@0800 10/26/20 [History Last Taken Unknown] simvastatin 40 mg tablet 40 mg PO QHS #90 tab 11/27/20 [Rx Last Taken Unknown] blood glucose control high and low solution #1 ea 12/12/20 [Rx Last Taken Unknown] blood sugar diagnostic #100 ea 12/12/20 [Rx Last Taken Unknown] insulin glargine 100 unit/mL (3 mL) subcutaneous pen 28 unit SUBCUT QPM #15 ml 04/18/21 [Rx Last Taken Unknown] lisinopril 20 mg tablet 20 mg PO BID #180 tab 06/04/21 [Rx Last Taken Unknown] pantoprazole 40 mg tablet,delayed release 40 mg PO QAM #90 tab 06/18/21 [Rx Last Taken Unknown] furosemide 40 mg tablet 40 mg PO DAILY #90 tab 06/19/21 [Rx Last Taken Unknown] gabapentin 600 mg tablet 600 mg PO BID #180 tab 06/25/21 [Rx Last Taken Unknown] dapagliflozin 10 mg tablet 10 mg PO QAM #90 tab 07/03/21 [Rx Last Taken Unknown] insulin degludec 200 unit/mL (3 mL) subcutaneous pen 32 unit SUBCUT QHS 90 Days #14.4 ml 07/03/21 [Rx Last Taken Unknown] pen needle, diabetic 31 gauge x 06/12 #100 ea 07/04/21 [Rx Last Taken Unknown] sulfamethoxazole 800 mg-trimethoprim 160 mg tablet 1 tab PO BID #10 tab 07/11/21 [Rx Last Taken Unknown] Allergy/AdvReac Type Severity Reaction Status Date / Time exenatide [From [place]] AdvReac Severe Shaking Verified 07/18/21 14:00 and Vomiting Family History (Reviewed 06/18/21 @ 10:22 by Aruna Sampson PRESCHOOL TEACHER'S ASSISTANT, PRESCHOOL TEACHER'S ASSISTANT-C) Mother , Age 88, [place] Hypertension Myocardial infarction CVA (cerebral vascular accident) Father , age 42, [place] Hypertension Heart disease Myocardial infarction, Onset Age: 45 Sudden cardiac Brother , age 57 of [place] Heart disease Myocardial infarction Surgical History H/O coronary artery bypass surgery (07/2002) History of colonoscopy (09/2019) History of coronary artery stent placement (11/2002) History of esophagogastroduodenoscopy (EGD) (10/2019) History of left heart catheterization (05/13/19) Social History (Reviewed 06/18/21 @ 10:22 by Aruna Sampson PRESCHOOL TEACHER'S ASSISTANT, PRESCHOOL TEACHER'S ASSISTANT-C) Smoking Status: Former smoker how long ago did patient quit smokin alcohol intake: never substance use type: does not use what type of physical activity do you participate in: none ROS ROS ED Constitutional Constitutional ED: Reports systems reviewed and no addt'l complaints, except as documented; Denies body ache(s), change in weight or chills Eyes Eyes: Denies acute decrease in peripheral vision, change in vision, double vision or loss of vision ENT ENT ED: Reports none; Denies ear pain, lip swelling, loss taste/smell, neck pain, otalgia or sore throat Cardiovascular Cardiovascular: Reports none; Denies abdominal pain, chest pain with activity, leg edema, lightheadedness, palpitations, rapid heart rate or syncope Respiratory/Chest Respiratory/Chest: Reports none; Denies change in mental status, dry cough, dyspnea, hemoptysis, shortness of breath at rest or shortness of breath with exertion Gastrointestinal Gastrointestinal: Reports none and diarrhea; Denies abdominal pain, change in stool character, hematemesis, hematochezia, melena, rectal bleeding or vomiting Genitourinary Genitourinary ED: Reports none; Denies abdominal discomfort, anuria, dysuria, genital pain or polyuria Musculoskeletal Musculoskeletal: Reports none; Denies arthralgias, back pain, difficulty walking, extremity pain, muscle weakness or myalgias Integumentary Reports none; Denies abscess or rash Neurologic Neurologic: Reports none and other Details: Confusion, hallucinations ; Denies abnormal gait, confusion, focal weakness, frequent falls, headache(s), loss of vision, numbness, paresthesias, radicular pain, vertigo or weakness Psychiatric Psychiatric: Reports systems reviewed and no addt'l complaints, except as documented and none; Denies behavioral changes, confusion, difficulty concentrating, hallucinations, suicidal ideation, tactile hallucinations or visual hallucinations Endocrine Endocrinology: Denies none, cold intolerance, excessive sweating, fatigue or heat intolerance Hematologic/Lymphatic Hematologic/Lymphatic: Reports none; Denies anemia, easy bleeding or easy bruising Allergic/Immunologic Allergic/Immunologic ED: Denies as per HPI, none, lip swelling, mouth swelling, throat swelling, tongue swelling or hives EXAM Physical Exam Const Vital Signs: 07/18/21 14:00 07/18/21 14:21 Temperature 97.1 F L Temperature Source Temporal Pulse Rate 72 Respiratory Rate 18 Respiratory Effort Normal Non-Labored Respiratory Pattern Normal Blood Pressure 117/57 L Blood Pressure Mean 77 Pulse Ox 92 Oxygen Delivery Method Room Air Positive well nourished and well developed General Appearance ED: well developed and NAD HEENT Reports TM's clear and moist mucous membranes normocephalic and atraumatic; Negative for trauma or tenderness Tympanic Membrane ED: Yes TM's clear Eyes PERRL and EOMs intact bilaterally General Eye ED: Negative for pale conjunctiva or scleral icterus Neck no lymphadenopathy, supple and no JVD General: Negative for tenderness Chest Wall inspection of chest normal and palpation of chest normal Chest: Negative for tenderness Resp normal respiratory effort and clear to auscultation bilaterally Effort and Inspection: Negative for respiratory distress or pain with movement Auscultation: Negative for rhonchi, wheezes or diminished lung sounds Cardio regular rate, regular rhythm, S1 normal heart sound, S2 normal heart sound and no murmurs Peripheral Pulses: pulses 2+ throughout GI normal to inspection, nondistended, normoactive bowel sounds, soft to palpation, non-tender, non-distended and no masses Back/Spine no CVA tenderness and no thoracic nor lumbar tenderness Extremity normal to inspection General Extremety ED: Negative for edema General Extremity: Negative for edema Neuro oriented x3, CN's II-XII intact bilaterally, no sensory deficits noted and gait normal Sensorium / Orientation: awake, alert, oriented to person, oriented to place and oriented to time Motor Exam: strength 5/5 throughout and strength abnormal Psych mental status grossly normal Skin no rashes or lesions noted and no wounds MDM MDM MDM Narrative Medical decision making narrative: IV line established and patient placed on playground monitor. I ordered a CT scan of the patient's brain however he is refusing to have the test done. Patient understands my concern about his confusion and hallucinations and wanted to rule out intracranial hemorrhage or other acute process such as a mass. Patient understands and still refusing. Patient is noted to have acute kidney injury. Case will be discussed with hospitalist evaluate patient for admission for mental status change and acute kidney injury and diarrhea. I ordered C. difficile and enteric pathogens however those will be pending. I also ordered urinalysis which patient has been unable to give as of yet. Lab Data Attestation: I reviewed the patient's lab results. Labs: Laboratory Results - last 24 hr 07/18/21 07/18/21 07/18/21 14:30 14:30 14:30 WBC 6.4 RBC 5.46 Hgb 16.3 Hct 46.1 MCV 84.4 MCH 29.9 MCHC 35.4 RDW Std Deviation 44.2 H RDW Coeff of Vamsi 14.4 Plt Count 153 MPV 11.1 Immature Gran % (Auto) 0.800 Neut % (Auto) 71.9 H Lymph % (Auto) 17.1 L Cloud % (Auto) 8.5 Eos % (Auto) 1.1 Baso % (Auto) 0.6 Absolute Neuts (auto) 4.6 Absolute Lymphs (auto) 1.09 Nucleated RBC % 0 Differential Comment SCANNED Sodium 128 L Potassium 5.1 Chloride 94 L Carbon Dioxide 24.0 Anion Gap 10 BUN 41 H Creatinine 2.20 H Estim Creat Clear Calc 31.27 Est GFR (MDRD) Af Amer 37 L Est GFR (MDRD) Non-Af 31 L BUN/Creatinine Ratio 18.6 Glucose 247 H Lactic Acid 1.8 Calcium 9.3 Total Bilirubin 1.10 H AST 14 L ALT 19 Alkaline Phosphatase 73 Total Protein 7.9 Albumin 3.7 Globulin 4.2 Albumin/Globulin Ratio 0.9 EKG Initial EKG: Attestation: I personally reviewed and interpreted this EKG as follows: Comments: Sinus rhythm with rate of [address] changes Discharge Plan Triage Chief Complaint: Weakness ED Provider: Mehnaz Escobar Dx/Rx/DC Orders Clinical Impression: Acute alteration in mental status, Diarrhea, Acute kidney injury Prescriptions: No Action carvedilol 12.5 mg tablet 12.5 mg PO BID Qty: 180 RF: 4 lisinopril 20 mg tablet 20 mg PO BID Qty: 180 RF: 3 Tresiba FlexTouch U-200 200 unit/mL (3 mL) insulin pen 32 unit subcut QHS 90 Days Qty: 14.4 RF: 3 Farxiga 10 mg tablet 10 mg PO QAM Qty: 90 RF: 3 pantoprazole 40 mg tablet,delayed release (DR/EC) 40 mg PO QAM Qty: 90 RF: 1 aspirin 81 mg tablet,chewable 81 mg PO DAILY@0800 RF: 0 (DME) blood-glucose meter [Accu-Chek Meka Plus Meter] Misc See Rx Instructions .ROUTE .MEDSUPPLY Qty: 1 RF: 0 metformin 1,000 mg tablet See Rx Instructions PO .COMPLEX Qty: 240 RF: 2 simvastatin 40 mg tablet 40 mg PO QHS Qty: 90 RF: 3 (DME) Accu-Chek Meka Control Soln Solution See Rx Instructions .ROUTE .MEDSUPPLY Qty: 1 RF: 2 (DME) Accu-Chek Meka Plus test strp Strip See Rx Instructions .ROUTE .MEDSUPPLY Qty: 100 RF: 11 Lantus Solostar U-100 Insulin 100 unit/mL (3 mL) insulin pen 28 unit subcut QPM Qty: 15 RF: 11 furosemide 40 mg tablet 40 mg PO DAILY Qty: 90 RF: 3 gabapentin 600 mg tablet 600 mg PO BID Qty: 180 RF: 1 (DME) pen needle, diabetic [1st Tier Unifine Pentips] 31 gauge x 3/16 needle See Rx Instructions .ROUTE .MEDSUPPLY Qty: 100 RF: 1 sulfamethoxazole-trimethoprim [Bactrim DS] 800-160 mg tablet 1 tab PO BID Qty: 10 RF: 0 Primary Care Provider: Faith Jay Referrals: Faith Jay MD [Primary Care Provider] -
[2021-07-18 14:40] LABS: Absolute Lymphocyte Count 1.09 X10^3/uL (0.83-4.51); Absolute Neutrophil Count 4.6 X10^3/uL (2.0-7.7); Basophil# 0.04 X10^3/uL; Basophil% 0.6 % (0-1); Eosinophil# 0.07 X10^3/uL; Eosinophils% 1.1 % (0-5); Hematocrit 46.1 % (40-54); Hemoglobin 16.3 g/dL (13.0-16.5); Lymphocyte # 1.09 X10^3/ul (0.83-4.51); Lymphocyte % 17.1 % (19-41); Mean Corp Hgb Conc 35.4 g/dL (32-36); Mean Corpuscular Hgb 29.9 pg (27.0-32.0); Mean Corpuscular Volume 84.4 fL (80-94); Mean Platelet Vol. 11.1 fl (6.2-12.0); Monocyte# 0.54 X10^3/uL; Monocyte% 8.5 % (0-10); NRBC Flagged by Analyzer 0 % (0-5); Neutrophil # 4.57 X10^3/uL (2.7-7.7); Neutrophil % 71.9 % (47-70); POSITIVE MORPHOLOGY YES; Platelet Count 153 K/mm3 (150-450); RBC Distribution Width CV 14.4 % (11.6-14.6); RBC Distribution Width SD 44.2 fl (35.1-43.9); Red Blood Count 5.46 M/mm3 (4.6-6.2); White Blood Count 6.4 K/mm3 (4.4-11.0)
[2021-07-18 14:42] LABS: Differential Indicated SCAN CRITERIA MET
[2021-07-18 14:57] LABS: ALB/GLOB Ratio 0.9 RATIO (0.9-2.4); AST(SGOT) 14 U/L (15-37); Alanine Aminotransfer ALT/SGPT 19 U/L (16-61); Albumin, Serum 3.7 g/dL (3.2-5.0); Alkaline Phosphatase 73 U/L (45-117); Anion Gap 10 (5-15); BUN 41 mg/dL (7-18); BUN/Creat Ratio 18.6 RATIO (10-20); Calcium,Total 9.3 mg/dL (8.5-10.1); Chloride 94 mmol/L (98-107); EST Glomerular Filtration Rate 31 mL/min (>60); Est Glom Filt Rate - Afr Amer 37 mL/min (>60); Estimated Creatinine Clearance 31.27 ml/min; Globulin 4.2 g/dL (2.2-4.2); Glucose 247 mg/dL (74-106); Potassium 5.1 mmol/L (3.5-5.1); Protein, Total 7.9 g/dL (6.4-8.2); Sodium Level 128 mmol/L (136-145)
[2021-07-18 15:14] LABS: Lactic Acid 1.8 mmol/L (0.4-1.9)
[2021-07-18 15:17] LABS: Differential Comment SCANNED
[2021-07-18 15:45] VITALS: BP 132/63; PULSE 69; RESP 24; TEMP 36.8; O2SAT 92
--- NOTE | 2021-07-18 16:08 | HP.PCM.HOS_ITS ---
Documented by User: Faustina Roberts NP, LOBSTER FISHERMAN-C 07/18/21 16:30 HPI - General General Date of Admission: 07/18/21 HPI Narrative JOVANNY STAFFORD, is a 76 M who presents to the Emergency room due to confusion. Patient is a poor informant and denies specific complaints. Significant other at bedside states patient has been sleeping 22 out of 24 hours in the day the past several days. She also reports confusion with hallucinations. She states patient does appear to lean to the left when he walks. He recently saw GI for ongoing diarrhea and stool positive for yersinia. He was treated with Bactrim and completed course. He has a past medical history of hypertension, hyperlipidemia, CAD, type 2 diabetes mellitus, NORBERT, history of ischemic cardiomyopathy, GERD, history of GI bleed. [facility] Medical History (Updated 07/18/21 @ 15:[address] Mehnaz Escobar, ) Abdominal pain Acute blood loss anemia Acute upper gastrointestinal bleeding Atherosclerosis of coronary artery bypass graft without angina pectoris Atherosclerotic heart disease of [place] coronary artery without angina pectoris Chronic combined systolic and diastolic CHF (congestive heart failure) Degeneration of retina Diarrhea Dysphagia Essential (primary) hypertension Fatty liver GERD (gastroesophageal reflux disease) GI bleed History of GI bleed History of kidney stones History of non-ST elevation myocardial infarction (NSTEMI) (05/12/19) History of skin cancer Ischemic cardiomyopathy Kidney atrophy Low ferritin level Multiple premature ventricular complexes Obesity Obstructive sleep apnea Pure hypercholesterolemia Symptomatic anemia Type 2 diabetes mellitus Home Medications blood-glucose meter #1 ea 08/23/19 [Rx Last Taken Unknown] aspirin 81 mg PO DAILY@0800 10/26/20 [History Last Taken 07/17/21] simvastatin 40 mg tablet 40 mg PO QHS #90 tab 11/27/20 [Rx Last Taken 07/17/21] blood glucose control high and low solution #1 ea 12/12/20 [Rx Last Taken Unknown] blood sugar diagnostic #100 ea 12/12/20 [Rx Last Taken Unknown] gabapentin 600 mg tablet 600 mg PO BID #180 tab 06/25/21 [Rx Last Taken 07/17/21] insulin degludec 200 unit/mL (3 mL) subcutaneous pen 32 unit SUBCUT QHS 90 Days #14.4 ml 07/03/21 [Rx Last Taken Unknown] pen needle, diabetic 31 gauge x 06/12 #100 ea 07/04/21 [Rx Last Taken Unknown] antiox.mv [id number] [I-Caps] 1 cap PO BID 07/18/21 [History Last Ta clif 07/17/21] carvedilol 12.5 mg PO BID 07/18/21 [History Last Taken 07/17/21] furosemide 40 mg PO DAILY 07/18/21 [History Last Taken Unknown] insulin glargine [Lantus Solostar U-100 Insulin] 32 unit SUBCUT QPM 07/18/21 [History Last Taken 07/17/21] lisinopril 20 mg PO BID 07/18/21 [History Last Taken 07/17/21] metformin 1,000 mg PO DAILY 07/18/21 [History Last Taken 07/17/21] metformin 1,500 mg PO QHS 07/18/21 [History Last Taken 07/17/21] pantoprazole 40 mg PO QAM 07/18/21 [History Last Taken 07/17/21] Allergy/AdvReac Type Severity Reaction Status Date / Time exenatide [From Byetta] AdvReac Severe Shaking Verified 07/18/21 14:00 and Vomiting Family History Mother , Age 88, ID Hypertension Myocardial infarction CVA (cerebral vascular accident) Father , age 42, ID Hypertension Heart disease Myocardial infarction, Onset Age: 45 Sudden cardiac Brother , age 57 of ID Heart disease Myocardial infarction Surgical History H/O coronary artery bypass surgery (07/2002) History of colonoscopy (09/2019) History of coronary artery stent placement (11/2002) History of esophagogastroduodenoscopy (EGD) (10/2019) History of left heart catheterization (05/13/19) Social History Smoking Status: Former smoker how long ago did patient quit smokin alcohol intake: never substance use type: does not use what type of physical activity do you participate in: none ROS Constitutional Constitutional: Reports weakness; Denies change in weight, chills, fatigue or fever(s) Cardiovascular Cardiovascular: Denies chest pain, edema, lightheadedness, palpitations or syncope Respiratory/Chest Respiratory/Chest: Denies cough, dyspnea, productive cough, shortness of breath at rest, shortness of breath with exertion or wheezing Gastrointestinal Gastrointestinal: Denies abdominal pain, constipation, diarrhea, nausea or vomiting Genitourinary Genitourinary: Denies burning urination, difficulty urinating, dysuria, hematuria, urinary frequency, urinary incontinence or urinary urgency Musculoskeletal Musculoskeletal: Denies back pain, joint pain or muscle weakness Integumentary Integumentary: Denies erythema, lesions, rash or wounds Neurologic Neurologic: Reports confusion; Denies abnormal speech, dizziness, focal weakness, numbness, paresthesias, seizure-like activity or syncope Psychiatric Psychiatric: Denies anxiety or depression Hematologic/Lymphatic Hematologic/Lymphatic: Denies anemia, easy bleeding or easy bruising Allergic/Immunologic Allergic/Immunologic: Denies hives or asthma Vital Signs Vital Signs Vital Signs: 07/18/21 14:00 07/18/21 14:21 07/18/21 15:45 Temperature 97.1 F L 98.2 F Temperature Source Temporal Oral Pulse Rate 72 69 Respiratory Rate 18 24 H Respiratory Effort Normal Non-Labored Respiratory Pattern Normal Blood Pressure 117/57 L 132/63 H Blood Pressure Mean 77 86 Pulse Ox 92 92 Oxygen Delivery Method Room Air Room Air Weight Weight: 226 lb Body Mass Index (BMI) 29.8 Physical Exam Const alert and oriented x3 Constitutional Narrative: Unable to state date Orientation / Consciousness: awake, oriented to person and oriented to place HEENT normocephalic Mouth: dry mucous membranes Eyes PERRL, EOMs intact bilaterally and conjunctivae normal Neck no lymphadenopathy Resp normal respiratory effort and clear to auscultation bilaterally Cardio regular rate, regular rhythm and no murmurs Peripheral Pulses: pulses 2+ throughout GI normal to inspection, nondistended, normoactive bowel sounds, non-tender and non-distended Extremity normal to inspection Skin no rashes or lesions noted Lesions: no lesions Rashes: no rashes Trauma: no lacerations or abrasions Neuro CN's II-XII intact bilaterally, no focal motor deficits, no sensory deficits noted and deep tendon reflexes 2+ bilaterally Psych mental status grossly normal and affect normal Results Lab / Micro Data Result Diagrams: 07/18/21 14:30 07/18/21 14:30 Labs: Laboratory Results - last 24 hr 07/18/21 14:30: WBC 6.4, RBC 5.46, Hgb 16.3, Hct 46.1, MCV 84.4, MCH 29.9, MCHC 35.4, RDW Std Deviation 44.2 H, RDW Coeff of Vamsi 14.4, Plt Count 153, MPV 11.1, Immature Gran % (Auto) 0.800, Neut % (Auto) 71.9 H, Lymph % (Auto) 17.1 L, Edwards % (Auto) 8.5, Eos % (Auto) 1.1, Baso % (Auto) 0.6, Absolute Neuts (auto) 4.6, Absolute Lymphs (auto) 1.09, Nucleated RBC % 0, Differential Comment SCANNED 07/18/21 14:30: Sodium 128 L, Potassium 5.1, Chloride 94 L, Carbon Dioxide 24.0, Anion Gap 10, BUN 41 H, Creatinine 2.20 H, Estim Creat Clear Calc 31.27, Est GFR (MDRD) Af Amer 37 L, Est GFR (MDRD) Non-Af 31 L, BUN/Creatinine Ratio 18.6, Glucose 247 H, Calcium 9.3, Total Bilirubin 1.10 H, AST 14 L, ALT 19, Alkaline Phosphatase 73, Total Protein 7.9, Albumin 3.7, Globulin 4.2, Albumin/Globulin Ratio 0.9 07/18/21 14:30: Lactic Acid 1.8 Assessment & Plan Assessment/Plan (1) Acute alteration in mental status: (2) Acute kidney injury: PLAN: 1. Acute metabolic encephalopathy, rule out CVA-brain CT negative. Obtain MRI brain/MRA head and neck. Check ammonia level. PT/OT/ST. Continue aspirin, statin. 2. Acute kidney injury-IV fluids, trend BMP. Likely related to recent GI illness. 3. Recent yersinia gastroenteritis-completed course of Bactrim. Continue follow-up with GI. 4. Hypertension-stable, continue carvedilol. Hold lisinopril. 5. Hyperlipidemia- continue statin. 6. CAD- on aspirin, statin. 7. Type 2 diabetes mellitus- hold metformin. Accu-Cheks with sliding scale insulin. 8. NORBERT- continue home pap regimen. 9. History of ischemic cardiomyopathy- echo 09/2019 demonstrated an EF of 55%, stage 1 diastolic dysfunction. Hold diuretic regimen. 10. GERD- continue PPI. 11. History of GI bleed DVT prophylaxis-Heparin subcu This patient was seen by Faustina Roberts NP-C under the supervision of Dr. Rosas. Time spent examining patient, reviewing data and subsequent management of care: 17 minutes Documented by User: Dr. Ricco Rosas DO 07/18/21 20:56 HPI - General General Date of Admission: 07/18/21 [facility] Medical History (Updated 07/18/21 @ 15:[address] Mehnaz Escobar DO) Abdominal pain Acute blood loss anemia Acute upper gastrointestinal bleeding Atherosclerosis of coronary artery bypass graft without angina pectoris Atherosclerotic heart disease of [place] coronary artery without angina pectoris Chronic combined systolic and diastolic CHF (congestive heart failure) Degeneration of retina Diarrhea Dysphagia Essential (primary) hypertension Fatty liver GERD (gastroesophageal reflux disease) GI bleed History of GI bleed History of kidney stones History of non-ST elevation myocardial infarction (NSTEMI) (05/12/19) History of skin cancer Ischemic cardiomyopathy Kidney atrophy Low ferritin level Multiple premature ventricular complexes Obesity Obstructive sleep apnea Pure hypercholesterolemia Symptomatic anemia Type 2 diabetes mellitus Home Medications blood-glucose meter #1 ea 08/23/19 [Rx Last Taken Unknown] aspirin 81 mg PO DAILY@0800 10/26/20 [History Last Taken 07/17/21] simvastatin 40 mg tablet 40 mg PO QHS #90 tab 11/27/20 [Rx Last Taken 07/17/21] blood glucose control high and low solution #1 ea 12/12/20 [Rx Last Taken Unknown] blood sugar diagnostic #100 ea 12/12/20 [Rx Last Taken Unknown] gabapentin 600 mg tablet 600 mg PO BID #180 tab 06/25/21 [Rx Last Taken 07/17/21] insulin degludec 200 unit/mL (3 mL) subcutaneous pen 32 unit SUBCUT QHS 90 Days #14.4 ml 07/03/21 [Rx Last Taken Unknown] pen needle, diabetic 31 gauge x 3/16 #100 ea 07/04/21 [Rx Last Taken Unknown] antiox.mv [id number] [I-Caps] 1 cap PO BID 07/18/21 [History Last Taken 07/17/21] carvedilol 12.5 mg PO BID 07/18/21 [History Last Taken 07/17/21] furosemide 40 mg PO DAILY 07/18/21 [History Last Taken Unknown] insulin glargine [Lantus Solostar U-100 Insulin] 32 unit SUBCUT QPM 07/18/21 [History Last Taken 07/17/21] lisinopril 20 mg PO BID 07/18/21 [History Last Taken 07/17/21] metformin 1,000 mg PO DAILY 07/18/21 [History Last Taken 07/17/21] metformin 1,500 mg PO QHS 07/18/21 [History Last Taken 07/17/21] pantoprazole 40 mg PO QAM 07/18/21 [History Last Taken 07/17/21] Allergy/AdvReac Type Severity Reaction Status Date / Time exenatide [From Byetta] AdvReac Severe Shaking Verified 07/18/21 14:00 and Vomiting Family History Mother , Age 88, ID Hypertension Myocardial infarction CVA (cerebral vascular accident) Father , age 42, ID Hypertension Heart disease Myocardial infarction, Onset Age: 45 Sudden cardiac Brother , age 57 of ID Heart disease Myocardial infarction Surgical History H/O coronary artery bypass surgery (07/2002) History of colonoscopy (09/2019) History of coronary artery stent placement (11/2002) History of esophagogastroduodenoscopy (EGD) (10/2019) History of left heart catheterization (05/13/19) Social History Smoking Status: Former smoker how long ago did patient quit smokin alcohol intake: never substance use type: does not use what type of physical activity do you participate in: none Results Lab / Micro Data Result Diagrams: 07/18/21 14:30 07/18/21 14:30 Charges/Coding Addendum Addendum: Patient was seen and examined independently of Faustina Roberts today, he was brought to the emergency room today for evaluation of mental status price changer the last 3 to 4 days, patient's significant other who he lives with states that the patient has been sleeping excessively at home and has been lethargic. He is also been having periods of hallucinating which consist of addressing people that are not in the room. Patient was placed on Bactrim for an enteric colitis-stool culture grew out Yersinia. On examination he appeared in no distress, patient was alert and responded appropriately to simple questions. Vital signs as documented. Skin warm and dry and without overt rashes. Neck without JVD, neck was supple, trachea midline, thyroid was normal. Lungs clear bilaterally, normal air movement was noted. Heart exam notable for regular rhythm, normal sounds and absence of murmurs, rubs or gallops. Abdomen unremarkable and without evidence of organomegaly, masses, or abdominal aortic enlargement. Bowel sounds are present, abdomen is not distended. Extremities nonedematous, no cyanosis was noted, no clubbing was noted. Neuro: Cranial nerves II through XII are grossly intact, no focal motor deficits were noted, sensation to light touch and pinprick intact, motor exam 5/5 throughout. Psych: Patient is alert and oriented x3, he does not appear anxious or depressed, he does not appear agitated. Labs obtained in the ER showed a normal CBC, patient's chemistry panel showed a sodium of 128, chloride of 94, BUN of 41, and a creatinine of 2.2. Glucose was 247. Patient underwent a CT of the head which showed no acute intracranial process. Impression: #1 metabolic encephalopathy-possibly secondary to prescription medication (gabapentin) with a backdrop of acute kidney injury-patient will be placed in observation status on PCU, patient's gabapentin will be held, IV fluids will be administered, and labs will be monitored. #2 acute kidney injury-secondary to administration of Bactrim-patient finished his Bactrim yesterday, patient will be given IV fluids and labs will be linda tored. #3 hyponatremia-patient will be given IV fluids, labs will be monitored #4 type 2 diabetes-I have elected to hold the patient's basal insulin at this time, he will receive sliding scale insulin, patient's metformin will be held. I have reviewed Faustina Roberts's history and physical including her medical assessment and plan of care and with the above additions endorse it. Total clinical time spent by myself addressing the patient's medical issues, reviewing the patient's medical record, and collaborating with patient's care team: 55 minutes Visit Charges OBSV E&M: [id number] Initial observation care L3
[2021-07-18 16:15] VITALS: BP 116/46; PULSE 70; RESP 18; TEMP 36.9; O2SAT 93
[2021-07-18 16:18] VITALS: BMI 32.1
[2021-07-18 16:46] VITALS: PULSE 70
[2021-07-18 17:15] LABS: Bedside Glucose 206 mg/dL (74-106)
[2021-07-18] MEDS: 0.9% Normal Saline 1,000 ML 125 ML IV (17:45)
[2021-07-18 21:06] VITALS: BP 149/60; PULSE 68; RESP 20; TEMP 36.7; O2SAT 94
[2021-07-18] MEDS: Heparin Injection (Vial) 5,000 UNIT/ML VIAL 5000 UNIT SC (21:14)
[2021-07-18] MEDS: Carvedilol 12.5 MG Tablet PO (21:14)
[2021-07-18] MEDS: Atorvastatin Calcium 20 MG Tablet PO (21:14)
[2021-07-18] MEDS: Lisinopril 20 MG Tablet PO (21:14)
[2021-07-18] MEDS: Insulin Lispro 100 UNIT/ML INSULN.PEN SC (21:14)
[2021-07-18 21:26] LABS: Bedside Glucose 239 mg/dL (74-106)
[2021-07-18 21:31] LABS: Bacteria 0 SEEN /hpf (None Seen); Mucous, Urine 0 SEEN /hpf (<or=2+); Red Blood Cells-Urine 0 SEEN /hpf (0-5); Squamous Epithelial Cells - UA 0 SEEN /hpf (0-5); White Blood Cells 0 SEEN /hpf (0-5)
[2021-07-18 21:36] LABS: Color, Urine Yellow (Yellow); Glucose, Dipstick 1000 mg/dl (Normal); Ketone-Dipstick 5 mg/dl (Negative); Leukocyte Esterase-Dipstick Negative /ul (Negative); Nitrite-Dipstick Negative (Negative); Occult Blood-Urine 10 /ul (Negative); Protein-Dipstick 15 mg/dl (Negative); Specific Gravity, Urine 1.015 (1.002-1.030); Urine Bilirubin Dipstick Negative (Negative); Urine Clarity Clear (Clear); Urine Urobilinogen Normal (Normal)
[2021-07-19] VITALS (7 sets, daily range): BP systolic 118–134; BP diastolic 39–65; PULSE 59–70; RESP 14–18; TEMP 36.6–38.1; O2SAT 92–94
[2021-07-19] MEDS: 0.9% Normal Saline 1,000 ML 125 ML IV ×2 (02:07→09:06)
[2021-07-19] MEDS: Insulin Lispro 100 UNIT/ML INSULN.PEN SC ×3 (06:43→21:07)
[2021-07-19 06:51] LABS: Bedside Glucose 372 mg/dL (74-106)
[2021-07-19 07:35] LABS: Anion Gap 7 (5-15); BUN 31 mg/dL (7-18); BUN/Creat Ratio 19.7 RATIO (10-20); Calcium,Total 8.5 mg/dL (8.5-10.1); Chloride 103 mmol/L (98-107); Creatinine, Serum 1.57 mg/dL (0.70-1.30); EST Glomerular Filtration Rate 46 mL/min (>60); Est Glom Filt Rate - Afr Amer 55 mL/min (>60); Estimated Creatinine Clearance 43.82 ml/min; Glucose 200 mg/dL (74-106); Potassium 4.5 mmol/L (3.5-5.1); Sodium Level 131 mmol/L (136-145)
[2021-07-19] MEDS: Pantoprazole Sodium 40 MG Tablet PO (09:04)
[2021-07-19] MEDS: Lisinopril 20 MG Tablet PO ×2 (09:04→21:20)
[2021-07-19] MEDS: Carvedilol 12.5 MG Tablet PO ×2 (09:04→21:20)
[2021-07-19] MEDS: Aspirin 81 MG TAB.CHEW PO (09:05)
[2021-07-19] MEDS: Heparin Injection (Vial) 5,000 UNIT/ML VIAL 5000 UNIT SC ×2 (09:05→21:15)
--- NOTE | 2021-07-19 09:39 | MRI_ITS ---
STUDY: MRA NECK WITHOUT CONTRAST REASON FOR EXAM: Male, 76 years old. R/O CVA hallucinations, confusion. TECHNIQUE: Source images were obtained, MIPs were performed. The study was performed unenhanced. . There is motion artifact. COMPARISON: None. FINDINGS: RIGHT CAROTID ARTERIES: Normal right common carotid artery (CCA). Normal right common carotid bulb. Normal origin of the right internal carotid (ICA) artery without a hemodynamically significant stenosis. There is atherosclerotic tortuous elongation of the cervical portion of the right internal carotid artery. Normal origin of the right external carotid artery (ECA). LEFT CAROTID ARTERIES: Normal left common carotid artery (CCA). Normal left common carotid bulb. There is mild atherosclerotic plaque formation of the origin of the left internal carotid artery with less than 50% cross sectional diameter stenosis. There is atherosclerotic tortuous elongation of the cervical portion of the left internal carotid artery. Normal origin of the left external carotid artery (ECA). VERTEBRAL ARTERIES: Normal antegrade flow within the bilateral vertebral artery without a hemodynamically significant stenosis. MRI/MRA Neck without Contrast IMPRESSION: Mild, less than 50%, narrowing of the left internal carotid artery. There is no hemodynamically significant internal carotid artery stenosis. Electronically Signed: Antonio Fowler MD at 14:01 EDT Reading Location ID and State: [facility] / [place] , Service support ,
--- NOTE | 2021-07-19 09:39 | MRI_ITS ---
STUDY: MRA OF THE HEAD WITHOUT CONTRAST REASON FOR EXAM: Male, 76 years old. R/O CVA TECHNIQUE: 3-D [id number] (TOF) imaging was performed with MIPs. The study was performed unenhanced. There is motion artifact. COMPARISON: None. FINDINGS: Normal bilateral petrous carotid arteries. Normal right cavernous carotid artery with a normal supraclinoid bifurcation. Normal left cavernous carotid artery with a normal supraclinoid bifurcation. Normal right A1 segments of the anterior cerebral artery. There is hypoplastic development of the left A1 segment of the anterior cerebral arteries with an atretic but intact artery. Normal intact anterior communicating artery (ACOM). Normal bilateral A2 segments of the anterior cerebral arteries. Normal right M1 and M2 segments of the middle cerebral arteries, with a normal M1 bifurcation. Normal left M1 and M2 segments of the middle cerebral arteries, with a normal M1 bifurcation. Normal right posterior communicating artery (PCOM). Normal left posterior communicating artery (PCOM). Normal bilateral vertebral arteries. Normal basilar artery with a normal basilar bifurcation. The visualized bilateral superior cerebellar (SCA) arteries are normal. Normal bilateral P1, P2 and visualized P3 segments of the posterior cerebral arteries. There is no demonstrated aneurysm of the [place]. There is no major vessel occlusion or hemodynamically significant stenosis. There is no demonstrated abnormality of the visualized brain. MRI/MRA Head ONLY without Contrast IMPRESSION: Normal MRA of the head. No aneurysm or large vessel occlusion. Electronically Signed: Antonio Fowler MD at 13:58 EDT ,
--- NOTE | 2021-07-19 09:39 | MRI_ITS ---
STUDY: MRI BRAIN WITHOUT CONTRAST REASON FOR EXAM: Male, 76 years old. R/O CVA hallucinations, confusion TECHNIQUE: Standardized multiplanar fat and water weighted pulse sequences were obtained. There is motion artifact. COMPARISON: CT July 18, 2021 FINDINGS: There is mild cerebral atrophy with widening of the extra-axial spaces and ventricular dilatation. There are a limited number of small white matter hyperintensities, distributed throughout the deep white matter tracts of the cerebral hemispheres, consistent with mild chronic white matter ischemic changes. There is no evidence for recent intracranial ischemia or other cause of cytotoxic edema on diffusion weighted imaging (DWI). Normal T2* images of the brain without demonstrated susceptibility artifact. There is no demonstrated hemosiderin stain. Normal bilateral basal ganglia. Normal thalami. There is no extra-axial fluid accumulation. Normal flow voids within the major intracranial circulation suggesting patency by spin echo criteria. Normal sella turcica, pituitary gland, infundibular stalk, optic chiasm and hypothalamus. Normal tectal plate and pineal gland. Normal midbrain, janet and medulla. Normal cerebellum. Normal basal cisterns. Normal bilateral temporal bones. Normal bilateral internal auditory canals. There is an ocular lens implant of the right globe. Normal left globe. The intraorbital contents otherwise are normal. Normal visualized paranasal sinuses. Normal calvarium and skull base. Normal visualized soft tissue structures. Normal visualized upper cervical spine. MRI/Brain without Contrast IMPRESSION: Involutional changes of the brain, as described above. Electronically Signed: Antonio Fowler MD at 13:56 EDT ,
[2021-07-19] MEDS: 0.9% Saline Lock 10 ML Syringe IV ×2 (11:31→21:40)
[2021-07-19] MEDS: LORazepam 2 MG/ML Syringe 1 MG IV (11:31)
--- NOTE | 2021-07-19 11:36 | CASEMGMT ---
Social Work SW met with pt and significant other Dayna and discussed discharge plan. Pt lives with Dayna and is independent in all ADLs and IADLs. Pt does not drive but Dayna provides transportation. Pt has a shower chair but not other DME and no need of assistive device. Pt and Dayna hopeful pt can return home at time of discharge and deny needs at this time. Therapy to see pt today and SW will monitor for possible needs after pt is seen. IVONE Hodge
--- NOTE | 2021-07-19 11:48 | PN.HOSP_ITS ---
Documented by User: Faustina Roberts PRESS FEEDER, PRESS FEEDER-C 07/19/21 11:59 Subjective Subjective Patient seen and examined. Mental status improved however still intermittently confused. No focal neurologic deficits noted. Patient denies current symptoms or complaints. Objective Data Objective Data Vital Signs: Vital Signs Temp Pulse Resp BP Pulse Ox 98 F 59 L 15 134/65 H 94 07/19/21 08:53 07/19/21 08:53 07/19/21 08:53 07/19/21 08:53 07/19/21 08:53 Oxygen Delivery Method Room Air Weight: 243 lb 6.245 oz Body Mass Index (BMI) 32.1 Intake & Output: Intake and Output for Last 24 Hours 07/17/21 07/18/21 07/19/21 23:59 23:59 23:59 Intake Total 1320 / 1440 2112.92 / 2112.92 Output Total 1500 / 1500 Balance 1320 / 1140 612.92 / 612.92 Lab / Micro Data Result Diagrams: 07/18/21 14:30 07/19/21 07:00 Labs: Laboratory Results - last 24 hr 07/18/21 14:30: WBC 6.4, RBC 5.46, Hgb 16.3, Hct 46.1, MCV 84.4, MCH 29.9, MCHC 35.4, RDW Std Deviation 44.2 H, RDW Coeff of Vamsi 14.4, Plt Count 153, MPV 11.1, Immature Gran % (Auto) 0.800, Neut % (Auto) 71.9 H, Lymph % (Auto) 17.1 L, [place] % (Auto) 8.5, Eos % (Auto) 1.1, Baso % (Auto) 0.6, Absolute Neuts (auto) 4.6, Absolute Lymphs (auto) 1.09, Nucleated RBC % 0, Differential Comment SCANNED 07/18/21 14:30: Sodium 128 L, Potassium 5.1, Chloride 94 L, Carbon Dioxide 24.0, Anion Gap 10, BUN 41 H, Creatinine 2.20 H, Estim Creat Clear Calc 31.27, Est GFR (MDRD) Af Amer 37 L, Est GFR (MDRD) Non-Af 31 L, BUN/Creatinine Ratio 18.6, Glucose 247 H, Calcium 9.3, Total Bilirubin 1.10 H, AST 14 L, ALT 19, Alkaline Phosphatase 73, Total Protein 7.9, Albumin 3.7, Globulin 4.2, Albumin/Globulin Ratio 0.9 07/18/21 14:30: Lactic Acid 1.8 07/18/21 17:08: POC Glucose 206 H 07/18/21 18:05: Ammonia 15.0 07/18/21 20:54: POC Glucose 239 H 07/18/21 21:10: Urine Color Yellow, Urine Clarity Clear, Urine pH 6.0, Ur Specific Carrier 1.015, Urine Protein 15 H, Urine Glucose (UA) 1000 H, Urine Ketones 5 H, Urine Occult Blood 10 H, Urine Nitrite Negative, Urine Bilirubin Negative, Urine Urobilinogen Normal, Ur Leukocyte Esterase Negative, Urine RBC 0 SEEN, Urine WBC 0 SEEN, Ur Squamous Epith Cells 0 SEEN, Urine Bacteria 0 SEEN, Urine Mucus 0 SEEN 07/19/21 06:42: POC Glucose 372 H 07/19/21 07:00: Sodium 131 L, Potassium 4.5, Chloride 103, Carbon Dioxide 21.0, Anion Gap 7, BUN 31 H, Creatinine 1.57 H, Estim Creat Clear Calc 43.82, Est GFR (MDRD) Af Amer 55 L, Est GFR (MDRD) Non-Af 46 L, BUN/Creatinine Ratio 19.7, Glucose 200 H, Calcium 8.5 Radiography Diagnostic Testing: Radiology Impression Brain CT 07/18/21 14:20 IMPRESSION: No evidence of acute intracranial pathology is seen. Electronically Signed: Dylan Walsh MD at 16:17 EDT Reading Location ID and State: [facility] / [place] Tel , Service support , Physical Exam Const alert and oriented x3 Orientation / Consciousness: awake, oriented to person and oriented to place HEENT normocephalic and moist oral mucous membranes Eyes PERRL, EOMs intact bilaterally and conjunctivae normal Neck no lymphadenopathy Resp normal respiratory effort and clear to auscultation bilaterally Cardio regular rate, regular rhythm and no murmurs Peripheral Pulses: pulses 2+ throughout GI normal to inspection, nondistended, normoactive bowel sounds, non-tender and non-distended Extremity normal to inspection Skin no rashes or lesions noted Lesions: no lesions Rashes: no rashes Trauma: no lacerations or abrasions Neuro CN's II-XII intact bilaterally, no focal motor deficits, no sensory deficits noted and deep tendon reflexes 2+ bilaterally Psych mental status grossly normal and affect normal Assessment & Plan Assessment/Plan (1) Acute alteration in mental status: PLAN: 1. Acute metabolic encephalopathy, rule out CVA-brain CT negative. Obtain MRI brain/MRA head and neck. PT/OT/ST. Continue aspirin, statin. If MRI of brain negative for stroke, likely etiology CARMEN complicated by gabapentin. PT eval pending however per nursing patient is requiring significant assistance. Case management consult for discharge planning. 2. Acute kidney injury-creatinine improving. IV fluids, trend BMP. Likely related to recent GI illness and Bactrim. Lasix on hold. 3. Recent yersinia gastroenteritis-completed course of Bactrim. Continue follow-up with GI. 4. Hypertension-stable, continue carvedilol, lisinopril. 5. Hyperlipidemia- continue statin. 6. CAD- on aspirin, statin. 7. Type 2 diabetes mellitus- hold metformin. Accu-Cheks with sliding scale insulin. 8. NORBERT- continue home pap regimen. 9. History of ischemic cardiomyopathy- echo 09/2019 demonstrated an EF of 55%, stage 1 diastolic dysfunction. Hold diuretic regimen. 10. GERD- continue PPI. 11. History of GI bleed DVT prophylaxis-Heparin subcu This patient was seen by BANDAR Johnson under the supervision of Dr. Foster. Time spent examining patient, reviewing data and subsequent management of care: 13 minutes Documented by User: Dr. Magda Foster MD 07/19/21 15:10 Objective Data Lab / Micro Data Result Diagrams: 07/18/21 14:30 07/19/21 07:00 Charges/Coding Addendum Addendum: Patient seen by Faustina PORTILLO under my supervision Patient seen and examined. He is more alert today; he is alert and oriented x 3. He says he remembers feeling very weak and tired, that's why he was brought to the hospital. He has no active complaints today. Review of system is otherwise n egative. O/E: Const alert and oriented x3 Orientation / Consciousness: awake, oriented to person and oriented to place HEENT normocephalic Mouth: dry mucous membranes Eyes PERRL, EOMs intact bilaterally and conjunctivae normal Neck no lymphadenopathy Resp normal respiratory effort and clear to auscultation bilaterally Cardio regular rate, regular rhythm and no murmurs Peripheral Pulses: pulses 2+ throughout GI normal to inspection, nondistended, normoactive bowel sounds, non-tender and non-distended Extremity normal to inspection Skin no rashes or lesions noted Lesions: no lesions Rashes: no rashes Trauma: no lacerations or abrasions Neuro CN's II-XII intact bilaterally, no focal motor deficits, no sensory deficits noted and deep tendon reflexes 2+ bilaterally Psych lethargic Assessment and plan #Acute metabolic encephalopathy * thought to be medication induced, as she was on gabapentin * gabapentin on hold * MRI brain and MRA head and neck ordered. * ammonia level pending. * #Acute kidney injury * Cr trending down. down to 2.2 from 1.57. Likely pre renal * continue gentle hydration with IVF * * Rest as per Faustina Roberts PRESS FEEDER-C;s note, which I have reviewed and endorsed. Total time I spent on clinical care of patient today: 18 mins, with Faustina Roberts NP-C spending 13 mins, making a total of 31 mins. Visit Charges Inpatient E&M: 44138 Subs Hosp L2
[2021-07-19 12:06] LABS: Bedside Glucose 210 mg/dL (74-106)
[2021-07-19] MEDS: Insulin Glargine-YFGN 100 UNIT/ML Pen 15 UNIT SC ×2 (15:01→21:10)
--- NOTE | 2021-07-19 16:38 | CASEMGMT ---
EMILIE ZARATE in to complete MENDOZA form to patient. Significant other at bedside. RN TESSA explained MENDOZA form to patient, patient voiced understanding. Patient signed MENDOZA form and filed in chart. Patient provided with copy of signed MENDOZA form. Patient had no further questions or concerns at this time.
[2021-07-19 17:26] LABS: Bedside Glucose 266 mg/dL (74-106)
[2021-07-19] MEDS: Acetaminophen 325 MG Tablet 650 MG PO (21:16)
[2021-07-19] MEDS: 0.9% Normal Saline 1,000 ML 75 ML IV (21:18)
[2021-07-19] MEDS: Atorvastatin Calcium 20 MG Tablet PO (21:20)
[2021-07-20 00:46] LABS: Bedside Glucose 230 mg/dL (74-106)
[2021-07-20 02:50] VITALS: BP 118/79; PULSE 55; RESP 16; TEMP 36.6; O2SAT 93
[2021-07-20 03:00] VITALS: PULSE 54
[2021-07-20 06:22] LABS: Absolute Neutrophil Count 3.1 X10^3/uL (2.0-7.7); Basophil# 0.04 X10^3/uL; Basophil% 0.7 % (0-1); Eosinophil# 0.16 X10^3/uL; Eosinophils% 2.9 % (0-5); Hematocrit 42.4 % (40-54); Hemoglobin 14.2 g/dL (13.0-16.5); Lymphocyte % 30.6 % (19-41); Mean Corp Hgb Conc 33.5 g/dL (32-36); Mean Corpuscular Hgb 28.7 pg (27.0-32.0); Mean Corpuscular Volume 85.8 fL (80-94); Mean Platelet Vol. 11.4 fl (6.2-12.0); Monocyte# 0.55 X10^3/uL; Monocyte% 9.9 % (0-10); NRBC Flagged by Analyzer 0 % (0-5); Neutrophil # 3.06 X10^3/uL (2.7-7.7); POSITIVE MORPHOLOGY YES; Platelet Count 106 K/mm3 (150-450); RBC Distribution Width CV 14.7 % (11.6-14.6); RBC Distribution Width SD 46.5 fl (35.1-43.9); Red Blood Count 4.94 M/mm3 (4.6-6.2); White Blood Count 5.6 K/mm3 (4.4-11.0)
[2021-07-20 06:25] LABS: Differential Indicated SCAN CRITERIA MET
[2021-07-20] MEDS: Insulin Lispro 100 UNIT/ML INSULN.PEN SC ×2 (06:55→11:22)
[2021-07-20 06:56] LABS: Anion Gap 7 (5-15); BUN 25 mg/dL (7-18); BUN/Creat Ratio 19.7 RATIO (10-20); Calcium,Total 8.2 mg/dL (8.5-10.1); Chloride 101 mmol/L (98-107); Cholesterol 82 mg/dL (200); Creatinine, Serum 1.27 mg/dL (0.70-1.30); EST Glomerular Filtration Rate 58 mL/min (>60); Est Glom Filt Rate - Afr Amer 71 mL/min (>60); Estimated Creatinine Clearance 54.18 ml/min; Glucose 192 mg/dL (74-106); High Density Lipoprotein 18 mg/dL; Sodium Level 131 mmol/L (136-145); Triglycerides 198 mg/dL; Very Low Density Lipoprotein 40 mg/dL (5-40)
[2021-07-20 07:02] VITALS: PULSE 57
[2021-07-20 07:08] LABS: Differential Comment SCANNED; Reactive Lymphocyte 1+
[2021-07-20 07:10] LABS: Bedside Glucose 197 mg/dL (74-106)
[2021-07-20 08:48] VITALS: BP 139/54; PULSE 64; RESP 18; TEMP 36.8; O2SAT 97
[2021-07-20 09:02] VITALS: PULSE 54
[2021-07-20 09:49] VITALS: BP 129/50; BP 131/54; BP 135/63; PULSE 63; PULSE 65
[2021-07-20] MEDS: Aspirin 81 MG TAB.CHEW PO (10:00)
[2021-07-20] MEDS: Pantoprazole Sodium 40 MG Tablet PO (10:00)
[2021-07-20] MEDS: Carvedilol 12.5 MG Tablet PO (10:00)
[2021-07-20] MEDS: Lisinopril 20 MG Tablet PO (10:00)
[2021-07-20] MEDS: Insulin Glargine-YFGN 100 UNIT/ML Pen 15 UNIT SC (10:01)
[2021-07-20] MEDS: Heparin Injection (Vial) 5,000 UNIT/ML VIAL 5000 UNIT SC (10:01)
[2021-07-20] MEDS: 0.9% Normal Saline 1,000 ML 75 ML IV (10:02)
--- NOTE | 2021-07-20 10:10 | PCM.DC ---
Discharge Instructions Diet Discharge Diet: Low fat / Low cholesterol Activity Discharge Activity: Return to Normal Activity and Use Walker Dressing / Incision Call your doctor if you observe: Shortness of breath, Dizziness, Fainting spells and Chest pain Follow Up Care Test Results: Test results from this visit will be discussed in further detail at your follow-up appointment, if applicable. Discharge Plan Admission Admit Date/Time: 07/18/21 16:28 Primary Reason for Your Visit: Confusion Attending Provider: Magda Foster Primary Care Provider: Faith Jay Discharge Orders/Prescriptions Prescriptions: Continued aspirin 81 mg tablet,chewable 81 mg PO DAILY@0800 RF: 0 metformin 1,000 mg Tablet 1,000 mg PO DAILY RF: 0 I-Caps 280-10-2 mg Capsule 1 cap PO BID RF: 0 metformin 1,000 mg tablet 1,500 mg PO QHS RF: 0 Lantus Solostar U-100 Insulin 100 unit/mL (3 mL) insulin pen 32 unit subcut QPM RF: 0 carvedilol 12.5 mg tablet 12.5 mg PO BID RF: 0 lisinopril 20 mg tablet 20 mg PO BID RF: 0 pantoprazole 40 mg tablet,delayed release (DR/EC) 40 mg PO QAM RF: 0 (DME) blood-glucose meter [Accu-Chek Meka Plus Meter] [facility] [place] Rx Instructions .ROUTE .MEDSUPPLY Qty: 1 RF: 0 simvastatin 40 mg tablet 40 mg PO QHS Qty: 90 RF: 3 (DME) Accu-Chek Meka Control Soln Solution See Rx Instructions .ROUTE .MEDSUPPLY Qty: 1 RF: 2 (DME) Accu-Chek Meka Plus test strp Strip See Rx Instructions .ROUTE .MEDSUPPLY Qty: 100 RF: 11 (DME) pen needle, diabetic [1st Tier Unifine Pentips] 31 gauge x 3/16 needle See Rx Instructions .ROUTE .MEDSUPPLY Qty: 100 RF: 1 Changed furosemide 40 mg tablet 20 mg PO DAILY Qty: 0 RF: 0 gabapentin 600 mg tablet 200 mg PO BID Qty: 180 RF: 1 Referrals / Follow Up: Faith Jay MD [Primary Care Provider] - In 1 Week Disposition Disposition (needs filled in before D/C Order can be placed): Home, Self Care
--- NOTE | 2021-07-20 10:20 | PCM.DC.SUM ---
Documented by User: Faustina Roberts NP, WORKERS COMPENSATION ADJUSTER-C 07/20/21 10:26 Providers Date of Admission: 07/18/21 Date of Discharge: 07/20/21 Primary Care Physician: Dr. Faith Jay MD Reason For Visit: ACUTE KIDNEY INJURY / METABOLIC ENCEPHALOPATHY Diagnosis Discharge Diagnosis (1) Acute alteration in mental status: Status: Acute Code(s): R41.82 - Altered mental status, unspecified Medications at Discharge Home Medications blood-glucose meter #1 ea 08/23/19 aspirin 81 mg PO DAILY@0800 10/26/20 simvastatin 40 mg tablet 40 mg PO QHS #90 tab 11/27/20 blood glucose control high and low solution #1 ea 12/12/20 blood sugar diagnostic #100 ea 12/12/20 pen needle, diabetic 31 gauge x 3/16 #100 ea 07/04/21 I-Caps 1 cap PO BID 07/18/21 Lantus Solostar U-100 Insulin 32 unit SUBCUT QPM 07/18/21 carvedilol 12.5 mg PO BID 07/18/21 lisinopril 20 mg PO BID 07/18/21 metformin 1,000 mg PO DAILY 07/18/21 metformin 1,500 mg PO QHS 07/18/21 pantoprazole 40 mg PO QAM 07/18/21 furosemide 20 mg PO DAILY #0 tab 07/20/21 gabapentin 200 mg PO BID #180 tab 07/20/21 Hospital Course Operations None Procedures None Summary of Care Provided Hospital Course: Patient is a 76-year-old male admitted 07/18/21 due to confusion. 1. Acute metabolic encephalopathy, CVA ruled out-brain CT negative. MRI of brain, MRA of head and neck negative for acute stroke or other acute process. Ammonia normal. Likely metabolic related to CARMEN complicated by gabapentin. PT recommending further therapy. Patient had an episode during admission where his legs gave out on him following working with therapy. He was able to be assisted into a chair, he did not fall or lose consciousness. He denied symptoms during episode. He declined SNF, agreeable to home therapy which was ordered at discharge. Gabapentin reduced to 200 mg twice daily at discharge. Follow-up with PCP within 1 week. 2. Acute kidney injury-acute kidney injury resolved, creatinine now normal. Likely related to recent GI illness and Bactrim. Reduce Lasix to 20 mg daily with further outpatient follow-up. 3. Recent yersinia gastroenteritis-completed course of Bactrim. Continue follow-up with GI. 4. Hypertension-stable, continue carvedilol, lisinopril. 5. Hyperlipidemia- continue statin. 6. CAD- on aspirin, statin. 7. Type 2 diabetes mellitus-continue home metformin and insulin regimen. 8. NORBERT- continue home pap regimen. 9. History of ischemic cardiomyopathy- echo 09/2019 demonstrated an EF of 55%, stage 1 diastolic dysfunction. Reduce Lasix to 20 mg daily. Physical Exam Const alert and oriented x3 Orientation / Consciousness: awake, oriented to person and oriented to place HEENT normocephalic and moist oral mucous membranes Eyes PERRL, EOMs intact bilaterally and conjunctivae normal Neck no lymphadenopathy Resp normal respiratory effort and clear to auscultation bilaterally Cardio regular rate, regular rhythm and no murmurs Peripheral Pulses: pulses 2+ throughout GI normal to inspection, nondistended, normoactive bowel sounds, non-tender and non-distended Extremity normal to inspection Skin no rashes or lesions noted Lesions: no lesions Rashes: no rashes Trauma: no lacerations or abrasions Neuro CN's II-XII intact bilaterally, no focal motor deficits, no sensory deficits noted and deep tendon reflexes 2+ bilaterally Psych mental status grossly normal and affect normal Patient seen and examined prior to discharge. Physical assessment as noted above. Patient is stable for discharge with follow up recommendations as noted above. This patient was seen by BANDAR Johnson under the supervision of Dr. Foster. Time spent examining patient, reviewing data and subsequent management of care: 16 minutes Weight / BMI Weight Weight: 243 lb 6.245 oz Body Mass Index (BMI) 32.1 ABG / Lab / Microbiology Data Result Diagrams: 07/20/21 04:54 07/20/21 04:54 Laboratory: Laboratory Results - last 24 hr 07/19/21 11:34: POC Glucose 210 H 07/19/21 17:07: POC Glucose 266 H 07/19/21 21:06: POC Glucose 230 H 07/20/21 04:54: Sodium 131 L, Potassium 4.0, Chloride 101, Carbon Dioxide 23.0, Anion Gap 7, BUN 25 H, Creatinine 1.27, Estim Creat Clear Calc 54.18, Est GFR (MDRD) Af Amer 71, Est GFR (MDRD) Non-Af 58 L, BUN/Creatinine Ratio 19.7, Glucose 192 H, Calcium 8.2 L, Triglycerides 198, Cholesterol 82, LDL Cholesterol 24, VLDL Cholesterol 40, HDL Cholesterol 18 L 07/20/21 04:54: WBC 5.6, RBC 4.94, Hgb 14.2, Hct 42.4, MCV 85.8, MCH 28.7, MCHC 33.5 D, RDW Std Deviation 46.5 H, RDW Coeff of Vamsi 14.7 H, Plt Count 106 L, MPV 11.4, Immature Gran % (Auto) 0.900, Neut % (Auto) 55.0, Lymph % (Auto) 30.6, [place] % (Auto) 9.9, Eos % (Auto) 2.9, Baso % (Auto) 0.7, Absolute Neuts (auto) 3.1, Absolute Lymphs (auto) 1.70, Nucleated RBC % 0, Differential Comment SCANNED, Reactive Lymphocytes 1+ 07/20/21 06:50: POC Glucose 197 H Microbiology: Microbiology 07/19/21 10:15 Stool Enteric Bacteriology - Final 07/19/21 10:15 Stool C. difficile DNA Amplification - Final Radiography Diagnostic Testing: Radiology Impression Brain MRI 07/19/21 09:39 IMPRESSION: Involutional changes of the brain, as described above. Electronically Signed: Antonio Fowler MD at 13:56 EDT Reading Location ID and State: [facility] / [place] , Service support , Head MRA 07/19/21 09:39 IMPRESSION: Normal MRA of the head. No aneurysm or large vessel occlusion. Electronically Signed: Antonio Fowler MD at 13:58 EDT Reading Location ID and State: [facility] / [place] , Service support , Neck MRA 07/19/21 09:39 IMPRESSION: Mild, less than 50%, narrowing of the left internal carotid artery. There is no hemodynamically significant internal carotid artery stenosis. Electronically Signed: Antonio Fowler MD at 14:01 EDT Reading Location ID and State: [address] [place] [address] , Service support , D/C Instructions Discharge Diet: Low fat / Low cholesterol Call your doctor if you observe: Shortness of breath, Dizziness, Fainting spells and Chest pain Meaningful Use Info Meaningful Use Diagnoses (Choose all that apply): None applicable Discharge Plan Admission Admit Date/Time: 07/18/21 16:28 Primary Reason for Your Visit: Confusion Attending Provider: Magda Foster Primary Care Provider: Faith Jay Discharge Orders/Prescriptions Prescriptions: Continued aspirin 81 mg tablet,chewable 81 mg PO DAILY@0800 RF: 0 metformin 1,000 mg Tablet 1,000 mg PO DAILY RF: 0 I-Caps 280-10-2 mg Capsule 1 cap PO BID RF: 0 metformin 1,000 mg tablet 1,500 mg PO QHS RF: 0 Lantus Solostar U-100 Insulin 100 unit/mL (3 mL) insulin pen 32 unit subcut QPM RF: 0 carvedilol 12.5 mg tablet 12.5 mg PO BID RF: 0 lisinopril 20 mg tablet 20 mg PO BID RF: 0 pantoprazole 40 mg tablet,delayed release (DR/EC) 40 mg PO QAM RF: 0 (DME) blood-glucose meter [Accu-Chek Meka Plus Meter] [facility] See Rx Instructions .ROUTE .MEDSUPPLY Qty: 1 RF: 0 simvastatin 40 mg tablet 40 mg PO QHS Qty: 90 RF: 3 (DME) Accu-Chek Meka Control Soln Solution See Rx Instructions .ROUTE .MEDSUPPLY Qty: 1 RF: 2 (DME) Accu-Chek Meka Plus test strp Strip See Rx Instructions .ROUTE .MEDSUPPLY Qty: 100 RF: 11 (DME) pen needle, diabetic [1st Tier Unifine Pentips] 31 gauge x 3/16 needle See Rx Instructions .ROUTE .MEDSUPPLY Qty: 100 RF: 1 Changed furosemide 40 mg tablet 20 mg PO DAILY Qty: 0 RF: 0 gabapentin 600 mg tablet 200 mg PO BID Qty: 180 RF: 1 Referrals / Follow Up: Faith Jay MD [Primary Care Provider] - In 1 Week Disposition Disposition (needs filled in before D/C Order can be placed): Home, Self Care Documented by User: Dr. Magda Foster MD 07/20/21 13:30 Providers Date of Admission: 07/18/21 Reason For Visit: ACUTE KIDNEY INJURY / METABOLIC ENCEPHALOPATHY Medications at Discharge Home Medications blood-glucose meter #1 ea 08/23/19 aspirin 81 mg PO DAILY@0800 10/26/20 simvastatin 40 mg tablet 40 mg PO QHS #90 tab 11/27/20 blood glucose control high and low solution #1 ea 12/12/20 blood sugar diagnostic #100 ea 12/12/20 pen needle, diabetic 31 gauge x 3/16 #100 ea 07/04/21 I-Caps 1 cap PO BID 07/18/21 Lantus Solostar U-100 Insulin 32 unit SUBCUT QPM 07/18/21 carvedilol 12.5 mg PO BID 07/18/21 lisinopril 20 mg PO BID 07/18/21 metformin 1,000 mg PO DAILY 07/18/21 metformin 1,500 mg PO QHS 07/18/21 pantoprazole 40 mg PO QAM 07/18/21 furosemide 20 mg PO DAILY #0 tab 07/20/21 gabapentin 200 mg PO BID #180 tab 07/20/21 ABG / Lab / Microbiology Data Result Diagrams: 07/20/21 04:54 07/20/21 04:54 Discharge Plan Admission Admit Date/Time: 07/18/21 16:28 Primary Reason for Your Visit: Confusion Attending Provider: Magda Foster Primary Care Provider: Faith Jay Discharge Orders/Prescriptions Prescriptions: Continued aspirin 81 mg tablet,chewable 81 mg PO DAILY@0800 RF: 0 metformin 1,000 mg Tablet 1,000 mg PO DAILY RF: 0 I-Caps 280-10-2 mg Capsule 1 cap PO BID RF: 0 metformin 1,000 mg tablet 1,500 mg PO QHS RF: 0 Lantus Solostar U-100 Insulin 100 unit/mL (3 mL) insulin pen 32 unit subcut QPM RF: 0 carvedilol 12.5 mg tablet 12.5 mg PO BID RF: 0 lisinopril 20 mg tablet 20 mg PO BID RF: 0 pantoprazole 40 mg tablet,delayed release (DR/EC) 40 mg PO QAM RF: 0 (DME) blood-glucose meter [Accu-Chek Meka Plus Meter] Misc See Rx Instructions .ROUTE .MEDSUPPLY Qty: 1 RF: 0 simvastatin 40 mg tablet 40 mg PO QHS Qty: 90 RF: 3 (DME) Accu-Chek Meka Control Soln Solution See Rx Instructions .ROUTE .MEDSUPPLY Qty: 1 RF: 2 (DME) Accu-Chek Meka Plus test strp Strip See Rx Instructions .ROUTE .MEDSUPPLY Qty: 100 RF: 11 (DME) pen needle, diabetic [1st Tier Unifine Pentips] 31 gauge x 3/16 needle See Rx Instructions .ROUTE .MEDSUPPLY Qty: 100 RF: 1 Changed furosemide 40 mg tablet 20 mg PO DAILY Qty: 0 RF: 0 gabapentin 600 mg tablet 200 mg PO BID Qty: 180 RF: 1 Referrals / Follow Up: Faith Jay MD [Primary Care Provider] - In 1 Week Disposition Disposition (needs filled in before D/C Order can be placed): Home, Self Care Charges/Coding Addendum Addendum: Patient seen by Faustina PORTILLO under my supervision Patient is a 76-year-old male who was admitted through the ED on 07/18/2021 with a complaint of altered mental status. Significant other said patient had been sleeping for about 22 out of 24 hours for the past several days and he was also noted to be hallucinating. He had been noted to be favoring his left side and had recently been treated for Yersinia enterocolitis with Bactrim. He was admitted to be managed for acute metabolic encephalopathy. CT of the brain was negative. His gabapentin was discontinued. He was therefore thought to have medication induced acute metabolic encephalopathy. Ammonia level was normal and he had MRI of the brain which also showed no evidence of a stroke. His mentation improved and he did much better. He was discharged home on 07/20/2021. His gabapentin dose was decreased to 200 mg twice daily. Of note he also had CARMEN which resolved with hydration. Patient was seen and examined prior to discharge. He felt much better and had no active complaints. He wanted to be discharged home. Review of systems otherwise negative. Labs and vitals reviewed. Home medication reviewed and reconciled. O/E: O/E: Const alert and oriented x3 Orientation / Consciousness: awake, oriented to person and oriented to place HEENT normocephalic Mouth: dry mucous membranes Eyes PERRL, EOMs intact bilaterally and conjunctivae normal Neck no lymphadenopathy Resp normal respiratory effort and clear to auscultation bilaterally Cardio regular rate, regular rhythm and no murmurs Peripheral Pulses: pulses 2+ throughout GI normal to inspection, nondistended, normoactive bowel sounds, non-tender and non-distended Extremity normal to inspection Skin no rashes or lesions noted Lesions: no lesions Rashes: no rashes Trauma: no lacerations or abrasions Neuro CN's II-XII intact bilaterally, no focal motor deficits, no sensory deficits noted and deep tendon reflexes 2+ bilaterally Psych alert and communicative, pleasant affect Rest as per Faustina Roberts NP-C's note which I reviewed and endorsed. Total time I spent on the discharge of the patient-25 minutes with Faustina Roberts spending 16 minutes making a total of 41 minutes. Visit Charges Inpatient E&M: 01571 Subs Hosp L2
--- NOTE | 2021-07-20 10:38 | CASEMGMT ---
EMILIE ZARATE note: Pt being discharged today. EMILIE ZARATE spoke w/DIAN Cat, who states initially pt did well w/therapy, but then legs became weak and pt almost fell, requiring 2-3 staff to keep him from falling. EMILIE ZARATE to room to talk w/pt and sig other, Dayna, who is at bedside. Discussed w/pt and Dayna how pt did w/therapy today and concerns for falling. Pt adamant he does not want to go to SNF, stating, I walked out of here before, I'm walking out of here again. Pt also stated, If I fall, I fall and If I , I , I want to go home. Discussed options of HHC and OP therapy and also requirements of being home-bound for insurance to cover HHC. Dayna interested in HHC for pt. Pt states, I want to discuss this with my daughter first. Dayna and pt made aware HHC unable to be set up on the weekend and instructed to contact pt's PCP on Thursday if HHC is desired. They were given list of HHC agencies in pt's area and in network w/pt's insurance. Also made aware of OP therapy options. Dayna states they will consider either HHC and OP therapy. Script for OP therapy obtained and given to Dayna and pt at this time. Pt agreeable to getting a walker and denies preference of DME co. Script obtained and given to rehab director, who will work on getting it delivered to pt's room today before pt discharges home. Dayna and pt deny having any further home-going/discharge needs. Elvin AWAD RN, CM
[2021-07-20 11:35] LABS: Bedside Glucose 290 mg/dL (74-106)
--- NOTE | 2021-07-20 14:12 | NURSING ---
Reviewed charting with Phil Flores RN
== END 2021-07-20 10:11 | disposition home or self-care (01) ==
LOC: ED 15:39 → PCU 16:08
PROVIDERS: Nurse Practitioner Family; Admitting Provider Internal Medicine; Emergency Provider Emergency Medicine; PCP Internal Medicine; Visit Provider Student in an Organized Health Care Education/Training Program
DX: G93.41 Metabolic encephalopathy (principal); N17.9 Acute kidney failure, unspecified; I11.0 Hypertensive heart disease with heart failure; I50.42 Chronic combined systolic (congestive) and diastolic (congestive) heart failure; E11.9 Type 2 diabetes mellitus without complications; Z79.4 Long term (current) use of insulin; I25.5 Ischemic cardiomyopathy; I25.10 Atherosclerotic heart disease of native coronary artery without angina pectoris; K21.9 Gastro-esophageal reflux disease without esophagitis; R53.1 Weakness; G47.33 Obstructive sleep apnea (adult) (pediatric); R19.7 Diarrhea, unspecified; E78.5 Hyperlipidemia, unspecified; I25.2 Old myocardial infarction; E66.9 Obesity, unspecified; Z68.32 Body mass index [BMI] 32.0-32.9, adult; Z79.899 Other long term (current) drug therapy; Z79.82 Long term (current) use of aspirin; Z87.891 Personal history of nicotine dependence; Z87.19 Personal history of other diseases of the digestive system; E87.1 Hypo-osmolality and hyponatremia; R44.3 Hallucinations, unspecified; R13.12 Dysphagia, oropharyngeal phase
CPT/HCPCS: 36415; 70450; 70544; 70547; 70551; 80048; 80053; 80061; 81001; 82140; 82962; 83605; 85025; 87493; 87506; 92507; 92610; 93005; 96361; 96372; 96374; 97110; 97162; 97166; 97530; 97802; 99218; 99285; J7030; J7040; A4216; G0378

== ENCOUNTER → 2021-07-30 | Outpatient (CLI) | payer MEDICARE, SELFPAY ==
[2021-07-30 12:12] LABS: Hematocrit 42.6 % (40-54); Hemoglobin 14.1 g/dL (13.0-16.5); Mean Corp Hgb Conc 33.1 g/dL (32-36); Mean Corpuscular Hgb 29.4 pg (27.0-32.0); Mean Corpuscular Volume 88.8 fL (80-94); Mean Platelet Vol. 10.6 fl (6.2-12.0); Platelet Count 236 K/mm3 (150-450); RBC Distribution Width CV 14.8 % (11.6-14.6); RBC Distribution Width SD 47.9 fl (35.1-43.9); White Blood Count 5.6 K/mm3 (4.4-11.0)
[2021-07-30 12:25] LABS: Anion Gap 7 (5-15); BUN 20 mg/dL (7-18); Calcium,Total 8.8 mg/dL (8.5-10.1); Chloride 104 mmol/L (98-107); Creatinine, Serum 1.05 mg/dL (0.70-1.30); EST Glomerular Filtration Rate 73 mL/min (>60); Est Glom Filt Rate - Afr Amer 88 mL/min (>60); Glucose 258 mg/dL (74-106); Potassium 4.4 mmol/L (3.5-5.1); Sodium Level 138 mmol/L (136-145)
== END | disposition home or self-care (01) ==
LOC: BIMLAB 09:27
PROVIDERS: PCP Internal Medicine; Referring Provider Nurse Practitioner Family; Visit Provider Nurse Practitioner Family
DX: E11.9 Type 2 diabetes mellitus without complications (principal); N17.9 Acute kidney failure, unspecified; D64.9 Anemia, unspecified
CPT/HCPCS: 36415; 80048; 85027

== ENCOUNTER 2021-09-11 08:02 | Day surgery (SDC) | payer MEDICARE, SELFPAY ==
[2021-09-11] VITALS (7 sets, daily range): BP systolic 99–163; BP diastolic 56–65; PULSE 49–95; RESP 16–59; TEMP 36.2–36.7; O2SAT 93–96; BMI 32.8
[2021-09-11 08:30] LABS: Bedside Glucose 217 mg/dL (74-106)
--- NOTE | 2021-09-11 08:58 | PCM.HP.BLA ---
History and Physical Date of Admission: 09/11/21 JOVANNY STAFFORD, is a 76 M who presents to the office today for abd bloating, change in bowel movements, burning chest pain from acid reflux when he lies down, difficulty swallowing, hx of GI bleed. He had hematemesis and rectal bleeding in 09/2020, was transferred out. EGD at [facility] showed large blood in stomach, dieulafoy lesion treated with 2 endoclips, biopsies showed gastritis and esophagitis, treated with pantoprazole and sucralfate. Repeat EGD in 10/2020 showed gastritis, isolated vein vs varix in distal esophagus, not bleeding. EGD in 12/2020 showed diffuse gastropathy, mild open pyloric channel. He reports he was given clean bill of health after f/u EGD in 12/2020. Has to strain to have BM but then stool is watery, this started about 2 months ago. Also chronic abd bloating. He takes ExLax about once every 2 months. Doesn't take anything else for the bowels. Last BM was 2 wks ago. No hematochezia or melena. Denies abd pain but he reports sharp pain right flank when he lies on his right side, or when he coughs; no relief with muscle relaxant. Not on anything for GERD. Difficulty swallowing he noted 6 months ago, upper esophagus. Food hasn't gotten stuck. Weight increased when he went on insulin. Hgb A1c was 10 in 03/2021. Appetite is great. ROS Const Constitutional: No fatigue, fever(s), headache(s), weight change, sleep problems, abnormal sleep pattern or change in appetite ENT ENT: Positive for difficulty swallowing; No headache(s), hoarseness or sore throat Resp Respiratory: Positive for cough; No hemoptysis or shortness of breath Cardio Cardiology: Positive for leg pain with exertion; No chest pain at rest or generalized swelling Gastro GI: Positive for bloating, change in bowel habits, constipation and difficulty swallowing; No abdominal pain, belching, change in stool character, coffee ground emesis, cramping, diarrhea, heartburn, feeling full early, excessive flatus, incontinent of stools, Vomiting blood/hematemesis, Blood in stool, loose stools, Black,tarry stools, nausea/dyspepsia, pain with swallowing or vomiting Musc Musculoskeletal: Positive for back pain, restless legs and leg pain with exertion; No joint pain, joint swelling, numbness or tingling Skin Skin: No itchy eyes or rash Neuro Neurology: Positive for restless legs; No behavioral changes, confusion, headache(s), numbness or tingling Psych Psychiatric: No abnormal sleep pattern, No anxiety, No behavioral changes, No change in appetite, No confusion and No depression Endo Endocrine: No cold intolerance, fatigue, heat intolerance, increased thirst/drinking or weight change Aller/Imm Allergy/Immunologic: No food intolerance or itchy eyes Tyrel/Lymp Hematologic/Lymphatic: Positive for easy bruising; No easy bleeding or enlarged lymph nodes Exam Const General: cooperative, comfortable, no acute distress, well developed and well groomed Eyes Conjunctivae: conjunctivae normal Sclera: sclerae normal Resp Effort & Inspection: normal respiratory effort GI Inspection: distended Palpation: soft, no hepatosplenomegaly and tender in the RUQ (laterally) Quality Reporting Tobacco Screening ([facility] 138) Smoking Status: Former smoker Assessment and Plan Assessment and Plan (1) History of GI bleed: ?Status:?Acute (2) GERD (gastroesophageal reflux disease): ?Status:?Acute (3) Bloating: ?Status:?Acute (4) Constipation: ?Status:?Acute (5) Abdominal pain: ?Status:?Acute (6) Fatty liver: ?Status:?Acute (7) Dysphagia: ?Status:?Acute ? ? ? Orders:?Orders: ? Abdomen/Pelvis WITH Contrast Today R10.9 ? ? Hepatitis Panel Acute Today R10.9, K76.0 ? ? Elastography Parenchyma/Organ Today K76.0 ? ? Comprehensive Metabolic Profil Today K76.0 ? ? CRP Today K76.0 ? ? Ferritin Today K76.0 ? ? LDH Today K76.0 ? ? Prothrombin Time w/INR Today K76.0 ? ? CBC W/Diff, Automated Today K76.0 ? ? Erythrocyte Sed Rate Today K76.0 ? ? Anti-Mitochondrial AB Today K76.0 ? ? VENKATA Comprehensive Panel Today K76.0 ? ? Angiotensin Convert Enzyme Today K76.0 ? ? ANCA Today K76.0 ? ? Anti-Smooth Muscle ABS Today K76.0 ? ? Celiac Disease Profile Today K76.0 ? ? Ceruloplasmin Today K76.0 ? ? Copper, Serum or Plasma Today K76.0 ? ? Haptoglobin Today K76.0 ? ? Ammonia Today K76.0 ?Plan: 76 yr old male with hx of significant GI bleed in 2020, for which he was transferred? to outside hospital. 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 He had rectal bleeding but no colonoscopy done. He is resistant to colonoscopy but agrees to proceed. US revealed fatty liver. Some concern for cirrhosis considering findings on endoscopy: possible esophageal varix and gastropathy. Now has RUQ/right flank pain, abd bloating, change in bowels (constipation but watery stool). Case discussed with Dr Plaza. Will do liver w/u--biochemical and liver elastography. Also CT abd pel w/ oral and IV contrast. f/u with me 3-4 wks to review results, then upper and lower endoscopy September 11 and f/u [address] Plaza. Start pantoprazole for GERD, dysphagia. Plan Details Other Medications: ?New: ? pantoprazole 40 mg? PO QAM 90 tabs 1RF ? ? I have re-examined the patient. There are no clinical changes since date of exam.
--- NOTE | 2021-09-11 09:00 | IMM_PTH ---
PATIENT: JOVANNY STAFFORD LOC: EN U#:[id number] AGE/SX: 76/M ROOM: RE09/11/[address]: Dr. Shaheed Plaza DO : 1945 BED: DIS: 09/11/2021 SPEC #: [id number] RECD: 09/11/21 15:03 STATUS: AYE REArturo #: [id number] PRAMOD: 09/11/21 09:[address]: Shaheed Plaza DEPT: IMMUNOHISTOCHEMISTRY RECD BY: Feli Steele ENTERED: 09/11/21 15:04 SP TYPE: IMMUNO OTHR DR: Dr. Faith Jay MD Tissues: A - Stomach, NOS Procedures: H Pylori (initial) PHYSICIAN & INSTITUTION [place] [id number] SPECIMEN INFORMATION: Tissue Source: A ? Gastric body biopsy Clinical Info: History GI bleed, GERD, bloating, constipation, abdominal pain Specimen Number: [id number] CPT code: 51980 METHODOLOGY: Deparaffinized sections of prefer/formalin-fixed tissue or PAP/DQ stained slides are incubated with monoclonal/polyclonal antibodies/oligonucleotide probes. Localization is made via biotin free immunoperoxidase method. Appropriate controls are performed and reacted as expected. Results on target cell population are indicated in the following table: RESULTS: ANTIBODY / CLONE RESULT Block A H Pylori (polyclonal) negative These tests were developed and their performance characteristics determined by [facility]. They may not have been cleared or approved by the U.S. Food and Drug Administration. The FDA has determined that such clearance or approval is not necessary. The above immunohistochemical/dualISH markers are ordered and reviewed by the Pathologist. INTERPRETATION: A. Gastric body, biopsy: Negative for Helicobacter pylori organisms. SJ:venice 09/12/2021
--- NOTE | 2021-09-11 09:00 | EGD_PTH ---
PATIENT: JOVANNY STAFFORD LOC: EN U#:[id number] AGE/SX: 76/M ROOM: RE09/11/[address]: Dr. Shaheed Plaza DO : 1945 BED: DIS: 09/11/2021 SPEC #: [id number] RECD: 09/11/21 10:33 STATUS: AYE REArturo #: [id number] PRAMOD: 09/11/21 09:[address]: Shaheed Plaza DEPT: SURGICAL PATHOLOGY RECD BY: Georgia Davalos ENTERED: 09/11/21 11:31 SP TYPE: EGD BIOPSY OT DR: Dr. Faith Jay MD Tissues: A - Gastric mucous membrane B - Esophagus, NOS Procedures: Special Stain Group II Surgery Specimen Level IV Alcian Blue/PAS (control) HEADER OPERATION: EGD (MAC), capsule endoscopy placement PRE-OP DIAGNOSIS: History of GI bleed, GERD, bloating, constipation, abdominal pain, fatty liver TISSUE SUBMITTED: A ? Gastric body biopsy, B ? Distal esophagus biopsy MICROSCOPIC DIAGNOSIS A. Gastric body, biopsy: Minimal gastritis. See microscopic description and comment. B. Distal esophagus, biopsy: Fragments of gastroesophageal mucosa with mild chronic inflammation. Intestinal metaplasia (goblet cell metaplasia) not identified. See comment. SJ:venice 09/12/2021 COMMENT A. The results of immunohistochemistry for Helicobacter pylori will be reported separately ([id number]). B. Alcian blue/PAS stain with matched control is used in the evaluation of the specimen. MICROSCOPIC DESCRIPTION Slides are reviewed. A. The specimen shows fragments of gastric mucosa with chronic inflammatory cell infiltrates in the lamina propria consisting of lymphocytes and plasma cells, consistent with minimal chronic gastritis. GROSS DESCRIPTION A - Received in fixative is one container labeled with the patient's name and designated gastric body biopsy. The specimen consists of two irregular fragments of light bullard soft tissue that in aggregate measure 0.7 x 0.3 x 0.1 cm. The specimen is totally submitted in one cassette. B - Received in fixative is one container labeled with the patient's name and designated distal esophagus biopsy. The specimen consists of two irregular fragments of light bullard soft tissue that in aggregate measure 0.7 x 0.6 x 0.1 cm. The specimen is totally submitted in one cassette. / AM:venice 09/11/2021 TC:3 CPT: 02368 x2, 03112
--- NOTE | 2021-09-11 09:36 | OP.EGD_ITS ---
Patient Name: Mak Pulliam Procedure Date: 09/11/2021 8:59 AM Date of : 1945 Age: 76 Procedure: Upper GI endoscopy Indications: Epigastric abdominal pain, Acute post hemorrhagic anemia, Iron deficiency anemia Providers: Shaheed Plaza DO Referring MD: Faith Jay MD Medicines: Monitored Anesthesia Care Patient Profile: This is a 76 year old male. Refer to note in patient chart for documentation of history and physical. Patient has symptoms. Complications: No immediate complications. Procedure: Pre-Anesthesia Assessment: - Prior to the procedure, a History and Physical was performed, and patient medications and allergies were reviewed. The patient is competent. The risks and benefits of the procedure and the sedation options and risks were discussed with the patient. All questions were answered and informed consent was obtained. Patient identification and proposed procedure were verified by the physician in the pre-procedure area. Mental Status Examination: alert and oriented. Airway Examination: normal oropharyngeal airway and neck mobility. Respiratory Examination: clear to auscultation. CV Examination: normal. Prophylactic Antibiotics: The patient does not require prophylactic antibiotics. Prior Anticoagulants: The patient has taken no previous anticoagulant or antiplatelet agents. ASA Grade Assessment: II - A patient with mild systemic disease. After reviewing the risks and benefits, the patient was deemed in satisfactory condition to undergo the procedure. The anesthesia plan was to use moderate sedation / analgesia (conscious sedation). Immediately prior to administration of medications, the patient was re-assessed for adequacy to receive sedatives. The heart rate, respiratory rate, oxygen saturations, blood pressure, adequacy of pulmonary ventilation, and response to care were monitored throughout the procedure. The physical status of the patient was re-assessed after the procedure. After obtaining informed consent, the endoscope was passed under direct vision. Throughout the procedure, the patient's blood pressure, pulse, and oxygen saturations were monitored continuously. The Endoscope was introduced through the mouth, and advanced to the second part of duodenum. The upper GI endoscopy was accomplished without difficulty. The patient tolerated the procedure well. Moderate Sedation: Moderate (conscious) sedation was personally administered by an anesthesia professional. The following parameters were monitored: oxygen saturation, heart rate, blood pressure, respiratory rate, EKG, adequacy of pulmonary ventilation, and response to care. Total physician intraservice time was 15 minutes. Scope In: 9:16:29 AM Scope Out: 9:28:42 AM Total Procedure Duration Time 0 hours 12 minutes 13 seconds Findings: The Z-line was irregular and was found 39 cm from the incisors. Biopsies were taken with a cold forceps for histology. Verification of patient identification for the specimen was done. Estimated blood loss was minimal. Diffuse moderately congested mucosa was found in the entire examined stomach. Biopsies were taken with a cold forceps for histology. Verification of patient identification for the specimen was done. Estimated blood loss was minimal. The second portion of the duodenum was normal. Using the endoscope, the video capsule enteroscope was advanced into the second portion of the duodenum. The video capsule was positioned 60 cm from the incisors. Impression: - Z-line irregular, 39 cm from the incisors. Biopsied. - Congestive gastropathy. Biopsied. - Normal second portion of the duodenum. - Successful completion of the Video Capsule Enteroscope placement. Recommendation: - Discharge patient to home. - Resume previous diet. - Continue present medications. - Await pathology results. Procedure Code(s): --- Professional --- 18015, Esophagogastroduodenoscopy, flexible, transoral; with biopsy, single or multiple CPT copyright 2017 [employer]. All rights reserved. The codes documented in this report are preliminary and upon data coder operator review may be revised to meet current compliance requirements. Shaheed Plaza DO 09/11/2021 9:36:25 AM This report has been signed electronically. Number of Addenda: 1 Note Initiated On: 09/11/2021 8:59 AM Addendum Number: 1 Addendum Date: 12/31/2021 6:20:04 AM MAC was used as sedation for this procedure. Shaheed Plaza DO 12/31/2021 6:20:10 AM This report has been signed electronically.
--- NOTE | 2021-09-11 09:37 | OP.CCLET_ITS ---
12/31/2021 Faith Jay MD [address] [place] [address] [place] [address] Re : Upper GI endoscopy procedure for Mak Pulliam Dear Dr. Jay This procedure was performed on Saturday, September 11, 2021. My impressions and recommendations are as follows: Impressions : - Z-line irregular, 39 cm from the incisors. Biopsied. - Congestive gastropathy. Biopsied. - Normal second portion of the duodenum. - Successful completion of the Video Capsule Enteroscope placement. Recommendations : - Discharge patient to home. - Resume previous diet. - Continue present medications. - Await pathology results. My findings are described in the full procedure note, which is enclosed. If I can be of further assistance, please feel free to contact me at . Sincerely, Shaheed Plaza, 09/11/2021 9:36:25 AM This report has been signed electronically.
== END 2021-09-11 10:48 | disposition home or self-care (01) ==
LOC: EN 08:05 → AC 08:09
PROVIDERS: PCP Internal Medicine; Referring Provider Internal Medicine; Visit Provider Internal Medicine Gastroenterology
PROC: 0DJD8ZZ Inspection of Lower Intestinal Tract, Via Natural or Artificial Opening Endoscopic (ICD-10-PCS; CPT 45378; principal; 2021-09-11 08:55)
DX: R13.10 Dysphagia, unspecified (principal); E11.9 Type 2 diabetes mellitus without complications; K21.9 Gastro-esophageal reflux disease without esophagitis; R14.0 Abdominal distension (gaseous); K76.0 Fatty (change of) liver, not elsewhere classified; Z87.891 Personal history of nicotine dependence; K59.00 Constipation, unspecified; D50.9 Iron deficiency anemia, unspecified; I25.10 Atherosclerotic heart disease of native coronary artery without angina pectoris; I10 Essential (primary) hypertension; G47.33 Obstructive sleep apnea (adult) (pediatric); E78.00 Pure hypercholesterolemia, unspecified
CPT/HCPCS: 43239; 82962; 88305; 88313; 88342; J7120; J2405

== ENCOUNTER → 2021-09-26 | Outpatient (CLI) | payer MEDICARE, SELFPAY ==
--- NOTE | 2021-09-26 13:13 | CT_ITS ---
STUDY: CT ABDOMEN AND PELVIS WITH CONTRAST REASON FOR EXAM: Male, 76 years old. Suspect Crohn''s RADIATION DOSAGE (If Supplied By Facility): CTDIvol = ( 24.92 ) mGy, DLP = ( 3034.95 ) mGycm TECHNIQUE: Transaxial images were obtained from the dome of the diaphragm to the symphysis pubis with oral contrast. Oral and amp;amp; IV BREEZA NEUTRAL and amp;amp; 100mL Isovue-370 was administered. Sagittal and coronal images were reconstructed. Individualized dose optimization techniques were used for this CT. COMPARISON: Comparison is made with prior study dated 06/28/2021. FINDINGS: Minimal degree of increased markings at the lung bases suggestive of scarring. Calcified granulomas in the right lower lobe. Coronary artery calcification. Normal liver. There are surgical clips in the gallbladder fossa consistent with a prior cholecystectomy. There are multiple benign calcified granulomata of the spleen. Normal pancreas. Normal bilateral adrenal glands. 1.1 some assistance in lower pole of the right kidney. Stable 3 mm nonobstructive calculus in the lower pole of the left kidney. Normal visualized stomach. Normal small intestine. There are multiple colonic diverticula consistent with diverticulosis. The appendix is visualized and appears normal. Normal abdominal aorta. Normal inferior vena cava. Normal retroperitoneum. Mild degree of diffuse bladder wall thickening. There is enlargement of the prostate gland. Normal abdominal wall. There are diffuse degenerative changes of the visualized lumbar spine. CT/Abdomen/Pelvis WITH Contrast IMPRESSION: Scattered sigmoid diverticula. Nonobstructive left intrarenal calculus. Right renal cyst. The patient is status post cholecystectomy. Electronically Signed: Enrique Henderson MD at 14:40 EDT ,
[2021-09-26 13:30] LABS: CREATININE FINGERSTICK < 0.9 mg/dL (0.70-1.30); EGFR FINGERSTICK > 60.0000 mL/min (>60)
== END | disposition home or self-care (01) ==
LOC: CT 13:11
PROVIDERS: PCP Internal Medicine; Referring Provider Internal Medicine Gastroenterology; Visit Provider Internal Medicine Gastroenterology
DX: N20.0 Calculus of kidney (principal); N28.1 Cyst of kidney, acquired; K57.30 Diverticulosis of large intestine without perforation or abscess without bleeding; Z90.49 Acquired absence of other specified parts of digestive tract; I25.10 Atherosclerotic heart disease of native coronary artery without angina pectoris; R93.41 Abnormal radiologic findings on diagnostic imaging of renal pelvis, ureter, or bladder; R10.9 Unspecified abdominal pain
CPT/HCPCS: 74177; Q9967

== ENCOUNTER 2021-10-01 05:27 | Day surgery (SDC) | payer MEDICARE, SELFPAY ==
--- NOTE | 2021-10-01 | IMM_PTH ---
PATIENT: JOVANNY STAFFORD LOC: EN U#:[id number] AGE/SX: 76/M ROOM: RE10/01/[address]: Dr. Shaheed Plaza DO : 1945 BED: DIS: 10/01/2021 SPEC #: [id number] RECD: 10/02/21 13:21 STATUS: AYE REQ #: [id number] PRAMOD: 10/01/21 00:[address]: Shaheed Plaza DEPT: IMMUNOHISTOCHEMISTRY RECD BY: Feli Steele ENTERED: 10/02/21 13:22 SP TYPE: IMMUNO OTHR DR: Dr. Faith Jay MD Tissues: Stomach, NOS Procedures: H Pylori (initial) PHYSICIAN & INSTITUTION [place] [id number] SPECIMEN INFORMATION: Tissue Source: Gastric fundic ulcer Clinical Info: GERD, gastritis, AVM Specimen Number: [id number] CPT code: 89731 METHODOLOGY: Deparaffinized sections of prefer/formalin-fixed tissue or PAP/DQ stained slides are incubated with monoclonal/polyclonal antibodies/oligonucleotide probes. Localization is made via biotin free immunoperoxidase method. Appropriate controls are performed and reacted as expected. Results on target cell population are indicated in the following table: RESULTS: ANTIBODY / CLONE RESULT H Pylori (polyclonal) negative These tests were developed and their performance characteristics determined by [facility]. They may not have been cleared or approved by the U.S. Food and Drug Administration. The FDA has determined that such clearance or approval is not necessary. The above immunohistochemical/dualISH markers are ordered and reviewed by the Pathologist. INTERPRETATION: Gastric fundic ulcer, biopsy: Negative for Helicobacter pylori organisms. AM:venice 10/03/2021
[2021-10-01 06:10] VITALS: BP 139/48; PULSE 57; RESP 16; TEMP 37.2; O2SAT 97; BMI 33.1
[2021-10-01] MEDS: Lactated Ringers 1,000 ML 15 ML IV (06:23)
--- NOTE | 2021-10-01 06:25 | PCM.HP.BLA ---
History and Physical Date of Admission: 10/01/21 JOVANNY STAFFORD, is a 76 M who presents to the office today for follow-up EGD and capsule endoscopy.? History of upper GI bleed and GERD.? 09/11/2021 EGD shows congestive gastropathy, gastritis negative for H. pylori, negative for Meade's.? Capsule endoscopy reveals bleeding AVMs at approximately 3-4 minutes.? He is scheduled for CT enterography tomorrow.? He is scheduled for EGD with push to treat the bleeding AVMs on 10/01/[address] Plaza.? He is on aspirin 81 mg daily. He established with our office on 06/18/2021 for history of GI bleed, as well as complaints of abd bloating, change in bowel movements, burning chest pain from acid reflux when he lies down, difficulty swallowing.? He had a dieulafoy lesion in his stomach treated at [facility] in 09/2020, negative for malignancy, treated with pantoprazole and sucralfate.? Biopsies then revealed gastritis and esophagitis. In May 2021 he complained of acid reflux, he was no longer on PPI, we started pantoprazole 40 mg every morning, he reports he no longer has burning chest pain or acid reflux.? He does not have dysphagia.? Bowels are mostly regular now.? He has bowel movement once or twice a day.? Approximately 3 times a month he will have a watery bowel movement.? No abdominal pain.? No melena or hematochezia. He was hospitalized 07/18/2021 to 07/20/2021 for alteration in mental status, he had acute metabolic encephalopathy, likely metabolic related to CARMEN complicated by gabapentin.? Also had Yersinia gastroenteritis, completed course of Bactrim. 09/11/2021 EGD Impression: ?- Z-line irregular, 39 cm from the incisors. ? Biopsied. ? - Congestive gastropathy. Biopsied. ? - Normal second portion of the duodenum. ? - Successful completion of the Video Capsule ? Enteroscope placement. MICROSCOPIC DIAGNOSIS A.? Gastric body, biopsy: ?Minimal gastritis. ?See microscopic description and comment.? H. pylori negative B.? Distal esophagus, biopsy: ?Fragments of gastroesophageal mucosa with mild chronic inflammation. ?Intestinal metaplasia (goblet cell metaplasia) not identified. ?See comment ROS Const Constitutional: No fatigue ENT ENT: No difficulty swallowing Cardio Cardiology: Positive for leg pain with exertion Gastro GI: No abdominal pain, belching, bloating, change in bowel habits, change in stool character, coffee ground emesis, constipation, cramping, diarrhea, heartburn, difficulty swallowing, feeling full early, excessive flatus, incontinent of stools, Vomiting blood/hematemesis, Blood in stool, loose stools, Black,tarry stools, nausea/dyspepsia, pain with swallowing, vomiting or other Musc Musculoskeletal: Positive for stiffness and leg pain with exertion; No joint pain Skin Skin: Positive for dry skin, itchy eyes and rash; No yellowing of the eye Psych Psychiatric: No anxiety and No depression Endo Endocrine: No fatigue Aller/Imm Allergy/Immunologic: Positive for itchy eyes Tyrel/Lymp Hematologic/Lymphatic: No easy bleeding or easy bruising Exam Const General: cooperative, healthy appearing, comfortable and well developed Nutritional Appearance: obese Orientation: alert, awake and oriented x3 Eyes General: appearance normal, both eyes and all related structures Resp Effort & Inspection: normal respiratory effort Quality Reporting Tobacco Screening ([facility] 138) Smoking Status: Former smoker Assessment and Plan Assessment and Plan (1) GERD (gastroesophageal reflux disease): ?Status:?Acute ?Plan: We reviewed his EGD report and biopsy results.? We will treat gastritis with sucralfate before meals 3 times daily for 1 month.? We will increase his pantoprazole 40 mg to twice daily x2 months, then decrease back to every morning indefinitely.? We discussed his capsule endoscopy results.? Because he has bleeding AVMs in the duodenum he is scheduled for EGD with push with Dr. Plaza on 10/01/2021 for treatment.? He is on aspirin 81 mg daily.? His banana handler is Dr. Szymanski.? He is scheduled for CT enterography.? He is claustrophobic and requests benzodiazepine for the scan, Rx sent to [facility] pharmacy.? He is scheduled for follow-up in approximately 2 weeks. (2) Gastritis: ?Status:?Acute (3) AVM (arteriovenous malformation) of duodenum, acquired: ?Status:?Acute ? ? ? Medications: New lorazepam ?? take one hour prior to scan 0.5 mg? PO ONCE 1 day 1 TAB 0RF anxiety ? ? sucralfate 1 g? PO QAC 90 tabs 0RF ? ? Changed From pantoprazole 40 mg? PO QAM gerd ? ? To pantoprazole ?? take twice a day for 2 months, then resume once a day in the morning 40 mg? PO BID 120 tabs 0RF gerd ? ? I have re-examined the patient. There are no clinical changes since date of exam.
[2021-10-01 06:26] LABS: Bedside Glucose 215 mg/dL (74-106)
--- NOTE | 2021-10-01 06:30 | EGD_PTH ---
PATIENT: JOVANNY STAFFORD LOC: EN U#:[id number] AGE/SX: 76/M ROOM: RE10/01/[address]: Dr. Shaheed Plaza DO : 1945 BED: DIS: 10/01/2021 SPEC #: [id number] RECD: 10/01/21 11:28 STATUS: AYE SHERRILL #: [id number] PRAMOD: 10/01/21 06:[address]: Shaheed Plaza DEPT: SURGICAL PATHOLOGY RECD BY: Aleja Crowley ENTERED: 10/01/21 13:46 SP TYPE: EGD BIOPSY [facility] DR: Dr. Faith Jay MD Tissues: Gastric mucous membrane Procedures: Surgery Specimen Level IV HEADER OPERATION: EGD ([facility]) PRE-OP DIAGNOSIS: GERD, gastritis, AVM TISSUE SUBMITTED: Biopsy of gastric fundic ulcer MICROSCOPIC DIAGNOSIS Gastric fundic ulcer, biopsy: Mild chronic active gastritis with denudation of superficial mucosa. See comment. AM:venice 10/02/2021 COMMENT The results of immunohistochemistry for Helicobacter pylori will be reported separately ([id number]). MICROSCOPIC DESCRIPTION Slides are reviewed. GROSS DESCRIPTION Received in fixative is one container labeled with the patient's name and designated biopsy of gastric fundic ulcer. The specimen consists of two irregular fragments of light bullard soft tissue that in aggregate measure 0.6 x 0.3 x 0.1 cm. The specimen is totally submitted in one cassette. / SJ:venice 10/01/2021 TC:2 CPT: 31601
[2021-10-01 07:05] VITALS: BP 120/64; BP 139/48; PULSE 59; RESP 14; TEMP 36.9; O2SAT 93
[2021-10-01 07:10] VITALS: BP 118/66; BP 139/48; PULSE 58; RESP 20; O2SAT 93
--- NOTE | 2021-10-01 07:10 | OP.EGD_ITS ---
Patient Name: Mak Pulliam Procedure Date: 10/01/2021 6:17 AM Date of : 1945 Age: 76 Procedure: Upper GI endoscopy Indications: Iron deficiency anemia secondary to chronic blood loss, Iron deficiency anemia Providers: Shaheed Plaza DO Referring MD: Faith Jay MD Medicines: Monitored Anesthesia Care Patient Profile: This is a 76 year old male. Refer to note in patient chart for documentation of history and physical. Patient has symptoms. Complications: No immediate complications. Procedure: Pre-Anesthesia Assessment: - Prior to the procedure, a History and Physical was performed, and patient medications and allergies were reviewed. The patient is competent. The risks and benefits of the procedure and the sedation options and risks were discussed with the patient. All questions were answered and informed consent was obtained. Patient identification and proposed procedure were verified by the physician in the pre-procedure area. Mental Status Examination: alert and oriented. Airway Examination: normal oropharyngeal airway and neck mobility. Respiratory Examination: clear to auscultation. CV Examination: normal. Prophylactic Antibiotics: The patient does not require prophylactic antibiotics. Prior Anticoagulants: The patient has taken no previous anticoagulant or antiplatelet agents. ASA Grade Assessment: II - A patient with mild systemic disease. After reviewing the risks and benefits, the patient was deemed in satisfactory condition to undergo the procedure. The anesthesia plan was to use moderate sedation / analgesia (conscious sedation). Immediately prior to administration of medications, the patient was re-assessed for adequacy to receive sedatives. The heart rate, respiratory rate, oxygen saturations, blood pressure, adequacy of pulmonary ventilation, and response to care were monitored throughout the procedure. The physical status of the patient was re-assessed after the procedure. After obtaining informed consent, the endoscope was passed under direct vision. Throughout the procedure, the patient's blood pressure, pulse, and oxygen saturations were monitored continuously. The Colonoscope was introduced through the mouth, and advanced to the jejunum. The upper GI endoscopy was accomplished without difficulty. The patient tolerated the procedure well. Scope In: 6:40:43 AM Scope Out: 7:00:29 AM Total Procedure Duration Time 0 hours 19 minutes 46 seconds Findings: The examined esophagus was normal. Two 5 mm bleeding angiodysplastic lesions were found in the gastric fundus. Coagulation for hemostasis using monopolar probe was successful. Estimated blood loss was minimal. One oozing cratered gastric ulcer with a visible vessel was found in the gastric body. The lesion was 6 mm in largest dimension. Coagulation for hemostasis using heater probe was successful. Biopsies were taken with a cold forceps for histology. Verification of patient identification for the specimen was done. Estimated blood loss was minimal. Coagulation for hemostasis using monopolar probe was successful. Estimated blood loss was minimal. Two 5 mm angiodysplastic lesions without bleeding were found in the second portion of the duodenum. Coagulation for hemostasis using monopolar probe was successful. Estimated blood loss was minimal. Impression: - Normal esophagus. 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 Treated with a monopolar probe. - Oozing gastric ulcer with a visible vessel. Treated with a heater probe. Biopsied. Treated with a monopolar probe. - Two non-bleeding angiodysplastic lesions in the duodenum. Treated with a monopolar probe. Recommendation: - Discharge patient to home. - Resume previous diet. - Continue present medications. - Await pathology results. Procedure Code(s): --- Professional --- 60355, 59, Esophagogastroduodenoscopy, flexible, transoral; with control of bleeding, any method 13104, 51, Esophagogastroduodenoscopy, flexible, transoral; with biopsy, single or multiple CPT copyright 2017 [employer] [place] [employer]. All rights reserved. The codes documented in this report are preliminary and upon patroller review may be revised to meet current compliance requirements. Shaheed Plaza DO 10/01/2021 7:10:26 AM This report has been signed electronically. Number of Addenda: 1 Note Initiated On: 10/01/2021 6:17 AM Addendum Number: 1 Addendum Date: 01/01/2022 6:32:11 AM MAC was used as sedation for this procedure. Shaheed Plaza DO 01/01/2022 6:32:15 AM This report has been signed electronically.
--- NOTE | 2021-10-01 07:11 | OP.CCLET_ITS ---
01/01/2022 Faith Jay MD [address] [place] [address] [place] [address] Re : Upper GI endoscopy procedure for Mak Pulliam Dear Dr. Jay This procedure was performed on Friday, October 01, 2021. My impressions and recommendations are as follows: Impressions : - Normal esophagus. 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 Treated with a monopolar probe. - Oozing gastric ulcer with a visible vessel. Treated with a heater probe. Biopsied. Treated with a monopolar probe. - Two non-bleeding angiodysplastic lesions in the duodenum. Treated with a monopolar probe. Recommendations : - Discharge patient to home. - Resume previous diet. - Continue present medications. - Await pathology results. My findings are described in the full procedure note, which is enclosed. If I can be of further assistance, please feel free to contact me at . Sincerely, Shaheed Plaza DO 10/01/2021 7:10:26 AM This report has been signed electronically.
[2021-10-01 07:20] VITALS: BP 129/66; BP 139/48; PULSE 61; RESP 18; TEMP 36.6; O2SAT 94
[2021-10-01 07:35] VITALS: BP 139/48
== END 2021-10-01 08:22 | disposition home or self-care (01) ==
LOC: EN 05:28 → AC 05:30
PROVIDERS: PCP Internal Medicine; Referring Provider Internal Medicine; Visit Provider Internal Medicine Gastroenterology
PROC: 0DJ08ZZ Inspection of Upper Intestinal Tract, Via Natural or Artificial Opening Endoscopic (ICD-10-PCS; CPT 43235; principal; 2021-10-01 06:25)
DX: K29.70 Gastritis, unspecified, without bleeding (principal); K25.9 Gastric ulcer, unspecified as acute or chronic, without hemorrhage or perforation; D50.0 Iron deficiency anemia secondary to blood loss (chronic); Z87.891 Personal history of nicotine dependence; Z79.82 Long term (current) use of aspirin; K31.819 Angiodysplasia of stomach and duodenum without bleeding
CPT/HCPCS: 43239; 43255; 82962; 88305; 88342; J7120; J2405

== ENCOUNTER → 2021-10-30 | Outpatient (CLI) | payer MEDICARE, SELFPAY | END | disposition home or self-care (01) | LOC: NM 10:14 | PROVIDERS: PCP Internal Medicine; Visit Provider Internal Medicine Gastroenterology | DX: R13.10 Dysphagia, unspecified (principal); R19.7 Diarrhea, unspecified ==

== ENCOUNTER → 2021-12-03 | Outpatient (CLI) | payer MEDICARE, SELFPAY ==
--- NOTE | 2021-12-03 13:56 | SP.MBSS_ITS ---
Modified Barium Swallow - Patient Information Study Date: 12/03/21 Study Time: 13:00 Direct Billable Minutes: 85 Total Minutes procedure & reportin Diagnosis: Dysphagia (R13.10), GERD (K21.9) Referring Physician: Shaheed Plaza Reason for Referral: Objectively assess swallow function, risk for aspiration, and determine recommendations for least restrictive diet textures and compensatory strategies to improve safety of swallow. Medical History: Pt is a 76 year old male who has been following with urogynecology physician, Dr. Plaza, for extensive esophageal history, including hx of acute upper GI bleed (~11/2020), esophageal dysphagia, dilation of esophageal ring, large hiatal hernia, and GERD. He denies difficulty swallowing food/drink; however, he reports coughing episodes when lying down. He also reports a feeling of fullness or phlegm in his throat. At times, he will expectorate white phlegm when he attempts clearing this sensation. He is managing GERD with medication. Other PMH includes dysphagia, chronic cough, CHF, HTN, NSTEMI (04/2019), hx of skin cancer, NORBERT, DM type II, and acute blood loss anemia (SEE EMR for full PMH). Current Diet Ordered: Regular textures / Thin liquids Dentition: WNL Mental Status: WNL Respiratory Status: Oxygenating on Room Air - Penetration-Aspiration Scale Penetration-Aspiration Scale: OBJECTIVE ASSESSMENT OF SWALLOW FUNCTION (QUANTITATIVE ? PER TRIAL): PENETRATION / ASPIRATION SCALE (BEAL): 1 = does not enter airway 2 = enters airway/above vocal folds/ejected 3 = enters airway/above vocal folds/not ejected 4 = enters airway/contacts vocal folds/ejected 5 = enters airway/contacts vocal folds/not ejected 6 = enters airway/below vocal folds/ejected 7 = enters airway/below vocal folds/not ejected despite effort 8 = enters airway/below vocal folds/no effort VIDEOFLOROSCOPIC SCALE SCORE (BEAL): Grade I = aspiration of material that has penetrated into the laryngeal vestibule, intact cough reflex Grade II = aspiration < 10 % of the bolus, intact cough reflex Grade III = aspiration of < 10 % of the bolus, reduced cough reflex or aspiration of > 10 % of the bolus, intact cough reflex Grade IV = aspiration of > 10 % of the bolus, reduced cough reflex - Penetration-Aspiration Scale Score Thin Liquid via teaspoon Result: 1= does not enter airway Thin Liquid via teaspoon Trial 2 Result: 1= does not enter airway Thin Liquid via large single sip from cup Result: 2= enter airway/above vocal folds/ejected Thin Liquid via sequential sips from cup Result: 2= enter airway/above vocal folds/ejected [place] Thick Liquid via small single sip from cup Result: 3= enters airways/above vocal folds/not ejected [place] Thick Liquid via small single sip from cup Result: 1= does not enter airway Pudding via teaspoon with esophageal screen Result: 1= does not enter airway 1/2 Cookie Result: 1= does not enter airway Thin Liquid via single sip from straw Result: 3= enters airways/above vocal folds/not ejected - Cued cough and re- swallow after the trial, which effectively cleared the laryngeal vestibule Thin Liquid via small single sip from cup Result: 1= does not enter airway - Oral Phase Labial Seal: No Labial Escape Tongue Control During Bolus Hold: Posterior escape of less than half of bolus Bolus Preparation/Mastication: Timely and efficient chewing and mashing Bolus Transport/Lingual Motion: Brisk tongue motion Oral Residue: Residue collection on oral structures - large sips sizes - Pharyngeal Phase Initiation of Pharyngeal Swallow: Bolus head in pyriforms - cookie Soft Palate Elevation: No bolus between soft palate and pharyngeal wall Laryngeal Elevation: Partial superior movement thyroid cart/partial apprx aryt- epig petiole Anterior Hyoid Excursion: Partial anterior movement Epiglottic Movement: Complete inversion Laryngeal Vestibule Closure at Height of Swallow: Incomplete; narrow column of air/contrast in laryngeal vestibule Pharyngeal Stripping Wave: Present - complete Pharyngoesophageal Segment Opening: Parital distension and partial duration; parital obstruction of flow Tongue Base Retraction: Narrow column of contrast between tongue base & post. pharyngeal wall Pharyngeal Residue: Collection of residue within or on pharyngeal structures - Esophageal Phase Esophageal Clearance: Esophageal retention - Treatment Strategies Effects of treatment strategies attemped:: Decreased bolus size = Effective. Cough and re-swallow = Effective. - Diagnosis/Impression Diagnosis: Mild oropharyngeal phase dysphagia (R13.12) Impression: The oral phase is primarily marked by... -Decreased bolus control with <1/2 of cookie bolus spilling prematurely to the pyriforms prior to swallow onset. -Collection of oral residue seen with large sips of thin liquids that would spill posteriorly to the pharynx after the swallow was completed. The pharyngeal phase is primarily marked by... -Decreased airway closure during the swallow due to reduced anterior hyoid excursion and laryngeal elevation. -Decreased anterior hyoid excursion contributing to mildly decreased UES duration resulting in mild residue in the pyriforms after the swallow. -Decreased tongue base retraction and UES opening/duration with resulting collection of pharyngeal residue, which mostly cleared with independent use of a second swallow as needed during the study. -Laryngeal penetration of thin liquid by straw and nectar thick liquids by cup that did not fully eject from the laryngeal vestibule. No aspiration was observed during the study; however, he is at increased risk to aspirate residues remaining in the laryngeal vestibule after the swallow. SEE PAS scores above for full details. The esophageal phase is primarily marked by... -Min esophageal retention of pudding trial with slowed esophageal clearance. -Pt complaints of coughing when lying down, cannot rule out risk for reflux aspiration. - Recommendations Diet: Regular Textures, Thin Liquids Compensatory Strategies: Small Bites, Small Sips, Slow Rate - Sips one at a time, Sitting upright, Remain sitting upright for 30 minutes after PO intake Recommend Repeat Modified Barium Swallow: No Need for Skilled Speech Therapy Services: Yes Comment: Will recommend the patient for outpatient dysphagia therapy to address mild deficits in oropharyngeal swallow function. Will recommend the patient for oropharyngeal strengthening to improve laryngeal elevation, anterior hyoid excursion, UES opening, and tongue base retraction (CTAR, Isabel, Berta). The patient would benefit from thorough education regarding recommended compensatory strategies, as well as reflux education. Recommended Referrals: GI Consult - Continue to follow with Dr. Plaza for management of GERD and large hiatal hernia. Education Completed: 1. Described result of evaluation., 2. Pt understands evaluation & agrees with goals and treatment plan. - Status Active ST Patient: Active - Contact Information [facility] Speech Therapy:: Rocio Mcpherson M.A. [facility] Speech-Language Pathologist [facility] [address] [place] [address] [email or web address] [phone] 12/03/21 14:20
== END | disposition home or self-care (01) ==
LOC: RAD 12:41
PROVIDERS: PCP Internal Medicine; Referring Provider Internal Medicine Gastroenterology; Visit Provider Internal Medicine Gastroenterology
DX: R13.10 Dysphagia, unspecified (principal)
CPT/HCPCS: 74230; 92611

== ENCOUNTER → 2022-01-08 | Outpatient (CLI) | payer MEDICARE, SELFPAY ==
[2022-01-08 09:38] LABS: Absolute Lymphocyte Count 1.58 X10^3/uL (0.83-4.51); Absolute Neutrophil Count 6.1 X10^3/uL (2.0-7.7); Basophil# 0.04 X10^3/uL; Basophil% 0.5 % (0-1); Eosinophil# 0.14 X10^3/uL; Eosinophils% 1.7 % (0-5); Hematocrit 43.4 % (40-54); Hemoglobin 14.3 g/dL (13.0-16.5); Lymphocyte # 1.58 X10^3/ul (0.83-4.51); Lymphocyte % 18.7 % (19-41); Mean Corp Hgb Conc 32.9 g/dL (32-36); Mean Corpuscular Hgb 29.8 pg (27.0-32.0); Mean Corpuscular Volume 90.4 fL (80-94); Mean Platelet Vol. 11.1 fl (6.2-12.0); Monocyte# 0.54 X10^3/uL; Monocyte% 6.4 % (0-10); NRBC Flagged by Analyzer 0 % (0-5); Neutrophil # 6.11 X10^3/uL (2.7-7.7); Neutrophil % 72.3 % (47-70); Platelet Count 149 K/mm3 (150-450); RBC Distribution Width CV 13.4 % (11.6-14.6); RBC Distribution Width SD 44.6 fl (35.1-43.9); White Blood Count 8.4 K/mm3 (4.4-11.0)
[2022-01-08 10:06] LABS: AST(SGOT) 8 U/L (15-37); Alanine Aminotransfer ALT/SGPT 14 U/L (16-61); Albumin, Serum 3.4 g/dL (3.2-5.0); Alkaline Phosphatase 81 U/L (45-117); Anion Gap 5 (5-15); BUN 17 mg/dL (7-18); BUN/Creat Ratio 16.5 RATIO (10-20); Bilirubin, Direct 0.19 mg/dL (0.00-0.30); Calcium,Total 9.3 mg/dL (8.5-10.1); Chloride 107 mmol/L (98-107); Cholesterol 125 mg/dL (200); Creatinine, Serum 1.03 mg/dL (0.70-1.30); EST Glomerular Filtration Rate 74 mL/min (>60); Est Glom Filt Rate - Afr Amer 90 mL/min (>60); Globulin 3.9 g/dL (2.2-4.2); Glucose 168 mg/dL (74-106); High Density Lipoprotein 37 mg/dL; Potassium 4.2 mmol/L (3.5-5.1); Protein, Total 7.3 g/dL (6.4-8.2); Sodium Level 142 mmol/L (136-145); Triglycerides 98 mg/dL; Very Low Density Lipoprotein 20 mg/dL (5-40)
== END | disposition home or self-care (01) ==
PROVIDERS: Internal Medicine Cardiovascular Disease; PCP Internal Medicine; Referring Provider Internal Medicine Gastroenterology; Visit Provider Internal Medicine Gastroenterology
DX: I50.9 Heart failure, unspecified (principal); E11.9 Type 2 diabetes mellitus without complications; I25.810 Atherosclerosis of coronary artery bypass graft(s) without angina pectoris; Z95.5 Presence of coronary angioplasty implant and graft; Z95.1 Presence of aortocoronary bypass graft; I10 Essential (primary) hypertension; E78.00 Pure hypercholesterolemia, unspecified; I49.49 Other premature depolarization
CPT/HCPCS: 36415; 80048; 80061; 80076; 85025

== ENCOUNTER → 2022-02-26 | Outpatient (CLI) | payer MEDICARE, SELFPAY ==
--- NOTE | 2022-02-26 12:48 | RAD_ITS ---
STUDY: X-RAY - LUMBAR SPINE REASON FOR EXAM: Male, 76 years old. chronic low back pain TECHNIQUE: 2 view(s) of the lumbar spine were obtained. COMPARISON: None FINDINGS: Normal lumbar lordosis. There is no substantial scoliosis. There is a normal alignment of the vertebrae. There is multilevel endplate spondylosis of the lumbar vertebrae. There is multi-level degenerative disc disease with multi-level disc space narrowing. Facet hypertrophy in the lower lumbar spine. The soft tissue structures are unremarkable. RAD/Lumbar Spine 2 or 3 Views IMPRESSION: Degenerative changes of the spine, as detailed above. Electronically Signed: Dex Chauhan MD at 18:27 EST ,
== END | disposition home or self-care (01) ==
LOC: MTLAB 12:46
PROVIDERS: PCP Internal Medicine; Referring Provider Nurse Practitioner Family; Visit Provider Nurse Practitioner Family
DX: M54.50 Low back pain, unspecified (principal); G89.29 Other chronic pain
CPT/HCPCS: 72100

== ENCOUNTER → 2022-03-27 | Outpatient (CLI) | payer MEDICARE, SELFPAY ==
[2022-03-27 11:08] LABS: Anion Gap 5 (5-15); BUN 21 mg/dL (7-18); BUN/Creat Ratio 19.8 RATIO (10-20); Chloride 104 mmol/L (98-107); Creatinine, Serum 1.06 mg/dL (0.70-1.30); EST Glomerular Filtration Rate 72 mL/min (>60); Est Glom Filt Rate - Afr Amer 87 mL/min (>60); Glucose 172 mg/dL (74-106); Potassium 3.9 mmol/L (3.5-5.1); Sodium Level 139 mmol/L (136-145)
== END | disposition home or self-care (01) ==
PROVIDERS: PCP Internal Medicine; Referring Provider Internal Medicine Cardiovascular Disease; Visit Provider Internal Medicine Cardiovascular Disease
DX: I10 Essential (primary) hypertension (principal); E11.9 Type 2 diabetes mellitus without complications
CPT/HCPCS: 36415; 80048

== ENCOUNTER → 2022-04-18 | Outpatient (CLI) | payer MEDICARE, SELFPAY ==
[2022-04-18 12:46] LABS: Anion Gap 7 (5-15); BUN 22 mg/dL (7-18); BUN/Creat Ratio 18.6 RATIO (10-20); Calcium,Total 9.4 mg/dL (8.5-10.1); Chloride 102 mmol/L (98-107); Creatinine, Serum 1.18 mg/dL (0.70-1.30); EST Glomerular Filtration Rate 63 mL/min (>60); Est Glom Filt Rate - Afr Amer 77 mL/min (>60); Glucose 110 mg/dL (74-106); Potassium 4.2 mmol/L (3.5-5.1); Sodium Level 140 mmol/L (136-145)
== END | disposition home or self-care (01) ==
LOC: BIMLAB 10:56
PROVIDERS: PCP Internal Medicine; Referring Provider Internal Medicine; Visit Provider Internal Medicine
DX: I10 Essential (primary) hypertension (principal)
CPT/HCPCS: 36415; 80048

== ENCOUNTER → 2022-06-12 | Outpatient (CLI) | payer MEDICARE, SELFPAY ==
[2022-06-12 09:32] LABS: Absolute Lymphocyte Count 2.99 X10^3/uL (0.83-4.51); Absolute Neutrophil Count 4.4 X10^3/uL (2.0-7.7); Basophil# 0.05 X10^3/uL; Basophil% 0.6 % (0-1); Eosinophils% 2.4 % (0-5); Hematocrit 44.8 % (40-54); Hemoglobin 14.7 g/dL (13.0-16.5); Lymphocyte # 2.99 X10^3/ul (0.83-4.51); Lymphocyte % 36.4 % (19-41); Mean Corp Hgb Conc 32.8 g/dL (32-36); Mean Corpuscular Hgb 29.4 pg (27.0-32.0); Mean Corpuscular Volume 89.6 fL (80-94); Mean Platelet Vol. 10.6 fl (6.2-12.0); Monocyte# 0.54 X10^3/uL; Monocyte% 6.6 % (0-10); NRBC Flagged by Analyzer 0 % (0-5); Neutrophil # 4.38 X10^3/uL (2.7-7.7); Neutrophil % 53.4 % (47-70); Platelet Count 151 K/mm3 (150-450); RBC Distribution Width CV 14.2 % (11.6-14.6); White Blood Count 8.2 K/mm3 (4.4-11.0)
== END | disposition home or self-care (01) ==
LOC: LAB 09:09
PROVIDERS: PCP Internal Medicine; Referring Provider Nurse Practitioner Adult Health; Visit Provider Nurse Practitioner Adult Health
DX: Z87.19 Personal history of other diseases of the digestive system (principal)
CPT/HCPCS: 36415; 82274; 85025

== ENCOUNTER → 2022-08-20 | Outpatient (CLI) | payer MEDICARE, SELFPAY ==
--- NOTE | 2022-08-20 15:31 | MRI_ITS ---
EXAM: MR LUMBAR SPINE WITHOUT INTRAVENOUS CONTRAST CLINICAL INDICATION: SPONDYLOSIS, C/O R LOWER BACK PAIN TECHNIQUE: Multiplanar and multisequence MR images of the lumbar spine without intravenous contrast. COMPARISON: No relevant prior studies available. FINDINGS: VERTEBRAE: Unremarkable. Vertebral body heights are preserved. Normal vertebral bodies and posterior elements. Normal alignment. No spondylolisthesis. There is preservation of the normal lumbar lordosis. SPINAL CORD: Unremarkable. Normal position and signal intensity of the conus medullaris. SOFT TISSUES: Normal aortic caliber. DISCS/SPINAL CANAL/NEURAL FORAMINA: L1-L2: Mild decreased T2 signal intensity.. Normal disc height and morphology. Normal spinal canal and lateral recesses. Normal neuroforamina. L2-L3: Mild decreased T2 signal intensity. Normal disc height and morphology. Normal spinal canal and lateral recesses. Normal neuroforamina. Prominent left anterolateral osteophyte-disc complex. No evidence of neural foraminal or spinal stenosis. L3-L4: Mild decreased T2 signal intensity. Normal disc height and morphology. Normal spinal canal and lateral recesses. Normal neuroforamina. L4-L5: Right anterolateral disc protrusion and spondylosis. No posterior disc bulging or protrusion. Well-maintained T2 signal intensity. Normal disc height and morphology. Normal spinal canal and lateral recesses. Normal neuroforamina. L5-S1: Minimal decreased height and decreased T2 signal intensity. Mild irregular annular disc bulge with slight bulge-protrusion slightly eccentric to the right posteriorly and in the right anterolateral disc. Mild effacement of the posterior epidural fat without monica lateral recess impingement. Normal neuroforamina. MRI/Spine Lumbar (Routine) IMPRESSION: Mild degenerative changes. Multiple left anterolateral osteophyte-disc complexes. Mild annular disc bulge with minimal multifocal broad-based protrusions, including posteriorly and slightly eccentric to the right at L5-S1. No spinal stenosis or conus or nerve root impingement. Electronically Signed: Mindi Pop MD at 0:32 EDT ,
== END | disposition home or self-care (01) ==
LOC: MRI 15:25
PROVIDERS: PCP Internal Medicine; Referring Provider Anesthesiology Pain Medicine; Visit Provider Anesthesiology Pain Medicine
DX: M47.817 Spondylosis without myelopathy or radiculopathy, lumbosacral region (principal)
CPT/HCPCS: 72148

== ENCOUNTER → 2022-08-28 | Outpatient (CLI) | payer MEDICARE, SELFPAY | END | disposition home or self-care (01) | LOC: LABSPEC 11:59 | PROVIDERS: PCP Internal Medicine; Referring Provider Nurse Practitioner Adult Health; Visit Provider Nurse Practitioner Adult Health | DX: K58.0 Irritable bowel syndrome with diarrhea (principal); R10.31 Right lower quadrant pain; K92.1 Melena | CPT/HCPCS: 82274; 87329; 87506 ==

== ENCOUNTER → 2022-08-29 | Outpatient (CLI) | payer MEDICARE, SELFPAY ==
--- NOTE | 2022-08-29 07:11 | CT_ITS ---
STUDY: CT ABDOMEN AND PELVIS WITH CONTRAST REASON FOR EXAM: Male, 77 years old. RLQ abd pain, diarrhea -- oral and iv. RADIATION DOSAGE (If Supplied By Facility): CTDIvol = ( 20.41 ) mGy, DLP = ( 2548.78 ) mGycm TECHNIQUE: Transaxial images were obtained from the dome of the diaphragm to the symphysis pubis without oral contrast. Oral and amp; IV Gastrografin and amp; 100mL Isovue-300 was administered. Sagittal and coronal images were reconstructed. Individualized dose optimization techniques were used for this CT. COMPARISON: Comparison is made with prior study of September 26, 2021. FINDINGS: Calcified right hilar lymph nodes. Calcified granulomas at the right lung base. Coronary calcification. Normal liver. There are surgical clips in the gallbladder fossa consistent with a prior cholecystectomy. There are multiple benign calcified granulomata of the spleen. Normal pancreas. Normal bilateral adrenal glands. There is a 1.7 cm cyst in the lower pole of the right kidney. Normal left kidney. Normal visualized stomach. Normal small intestine. There are scattered colonic diverticula consistent with diverticulosis. Fatty prominence of the ileocecal valve. The appendix is visualized and appears normal. There is diffuse atherosclerotic calcification of the abdominal aorta, without a demonstrated aneurysm. Normal inferior vena cava. Normal retroperitoneum. Diffuse bladder wall thickening more prominent along its anterior aspect. There are prostatic calcifications. Small bilateral inguinal areas containing fat. There are degenerative changes of the visualized lumbar spine. CT/Abdomen/Pelvis WITH Contrast IMPRESSION: Fatty prominence of the ileocecal valve. Diffuse bladder wall thickening. Electronically Signed: Enrique Henderson MD at 14:14 EDT ,
[2022-08-29 08:05] LABS: AST(SGOT) 5 U/L (15-37); Alanine Aminotransfer ALT/SGPT 15 U/L (16-61); Albumin, Serum 3.5 g/dL (3.2-5.0); Alkaline Phosphatase 75 U/L (45-117); Bilirubin, Direct 0.21 mg/dL (0.00-0.30); Cholesterol 113 mg/dL (200); Creatinine, Serum 1.14 mg/dL (0.70-1.30); EST Glomerular Filtration Rate 66 mL/min (>60); Est Glom Filt Rate - Afr Amer 80 mL/min (>60); Globulin 3.7 g/dL (2.2-4.2); High Density Lipoprotein 33 mg/dL; Protein, Total 7.2 g/dL (6.4-8.2); Triglycerides 117 mg/dL; Very Low Density Lipoprotein 23 mg/dL (5-40)
== END | disposition home or self-care (01) ==
LOC: CT 07:10
PROVIDERS: Internal Medicine Cardiovascular Disease; PCP Internal Medicine; Referring Provider Nurse Practitioner Adult Health; Visit Provider Nurse Practitioner Adult Health
DX: Z01.812 Encounter for preprocedural laboratory examination (principal); R10.31 Right lower quadrant pain; R19.7 Diarrhea, unspecified; E78.00 Pure hypercholesterolemia, unspecified
CPT/HCPCS: 36415; 74177; 80061; 80076; 82565; Q9967; A4216

== ENCOUNTER → 2022-10-10 | Outpatient (CLI) | payer MEDICARE, SELFPAY ==
--- NOTE | 2022-10-10 08:13 | NM_ITS ---
CLINICAL: Male, 77 years old. Pain, History of Arthritis, History of lower thoracic and lumbar pain -- -- pt would not let us do a whole body scan - did best scan possible WHOLE BODY NUCLEAR BONE SCAN TECHNIQUE: Following the IV administration of 25.3 mCi of Tc MDP, whole body bone imaging was performed with a gamma camera following a three hour delay. COMPARISON STUDIES : NM - None. CR - Not available for review at this time. CT - Not available for review at this time. MR - Not available for review at this time. US - Not available for review at this time. FINDINGS: There is a normal concentration of radiopharmaceutical throughout the axial and appendicular skeletal system without either a focal decrease or increase in uptake. NM/Bone Scan Whole Body IMPRESSION: Normal whole body nuclear bone scan. Electronically Signed: Enrique Henderson MD at 13:14 EDT ,
== END | disposition home or self-care (01) ==
PROVIDERS: PCP Internal Medicine; Referring Provider Internal Medicine Cardiovascular Disease; Visit Provider Internal Medicine Cardiovascular Disease
DX: R07.81 Pleurodynia (principal)
CPT/HCPCS: 78306; A9503

== ENCOUNTER → 2022-11-21 | Outpatient (CLI) | payer MEDICARE, SELFPAY ==
[2022-11-21 12:32] LABS: Anion Gap 3 (5-15); BUN 21 mg/dL (7-18); BUN/Creat Ratio 18.1 RATIO (10-20); Calcium,Total 9.4 mg/dL (8.5-10.1); Chloride 102 mmol/L (98-107); Creatinine, Serum 1.16 mg/dL (0.70-1.30); EST Glomerular Filtration Rate 64 mL/min (>60); Est Glom Filt Rate - Afr Amer 78 mL/min (>60); Glucose 176 mg/dL (74-106); Potassium 4.7 mmol/L (3.5-5.1); Sodium Level 137 mmol/L (136-145)
== END | disposition home or self-care (01) ==
LOC: BIMLAB 10:38
PROVIDERS: PCP Internal Medicine; Referring Provider Internal Medicine; Visit Provider Internal Medicine
DX: E11.9 Type 2 diabetes mellitus without complications (principal)
CPT/HCPCS: 36415; 80048

== ENCOUNTER 2022-12-17 05:24 | Day surgery (SDC) | payer MEDICARE, SELFPAY ==
--- NOTE | 2022-12-17 | COLBX_PTH ---
PATIENT: JOVANNY STAFFORD LOC: EN U#:[id number] AGE/SX: 77/M ROOM: RE12/17/[address]: Dr. Shaheed Plaza DO : 1945 BED: DIS: 12/17/2022 SPEC #: [id number] RECD: 12/17/22 08:09 STATUS: AYE SHERRILL #: [id number] PRAMOD: 12/17/22 00:[address]: Shaheed Plaza DEPT: SURGICAL PATHOLOGY RECD BY: Aleja Crowley ENTERED: 12/17/22 09:02 SP TYPE: COLON BX OT DR: Dr. Faith Jay MD Tissues: A - Cecum, NOS B - Descending colon C - COLON BIOPSY Procedures: Surgery Specimen Level IV HEADER OPERATION: [place] [place] PRE-OP DIAGNOSIS: Abdominal pain, diarrhea, RLQ abdominal pain, black stool TISSUE SUBMITTED: A - Cecum polyp biopsy, B - Descending colon polyp biopsy, C - Random colon biopsy MICROSCOPIC DIAGNOSIS A. Cecal polyp, biopsy: Fragments of tubular adenoma. B. Descending colon polyp, biopsy: Tubular adenoma. C. Colon, random biopsy: Focal acute colitis. See comment. AM:venice 12/18/2022 COMMENT C. Rare cryptitis is identified. Clinical correlation is suggested. MICROSCOPIC DESCRIPTION Slides are reviewed. GROSS DESCRIPTION A - Received in fixative is one container labeled with the patient's name and designated cecum polyp. The specimen consists of two irregular fragments of light bullard soft tissue that in aggregate measure 0.7 x 0.3 x 0.1 cm. The specimen is totally submitted in one cassette. B - Received in fixative is one container labeled with the patient's name and designated descending colon polyp. The specimen consists of one irregular fragment of light bullard soft tissue that measures 0.5 x 0.5 x 0.1 cm. The specimen is totally submitted in one cassette. C - Received in fixative is one container labeled with the patient's name and designated random colon. The specimen consists of multiple irregular fragments of light bullard soft tissue that in aggregate measure 1.7 x 0.5 x 0.1 cm. The specimen is totally submitted in one cassette. / AM:venice 12/17/2022 TC:2 CPT: 55610 x3
[2022-12-17] MEDS: Lactated Ringers 1,000 ML 15 ML IV (05:45)
[2022-12-17 05:58] VITALS: BP 123/70; PULSE 52; RESP 18; TEMP 36.6; O2SAT 96; BMI 34.5
[2022-12-17 06:23] LABS: Bedside Glucose 123 mg/dL (74-106)
--- NOTE | 2022-12-17 06:32 | HP.PCM_ITS ---
History and Physical Date of Admission: 12/17/22 diarrhea and abd pain Details: JOVANNY STAFFORD, is a 77 M who presents to the office today for diarrhea which started at the beginning of 05/2022. Stool is black, has been for months, not on iron supplement, no pepto bismol. 05/2022 stool negative for occult blood, CBC normal. Gets RLQ pain, worse with straining, then resolves with BM. Stool starts as solid, then becomes liquid, then he strains to get all the liquid stool evacuated. BMs are only after meals, about 15 minutes after. No nocturnal diarrhea. Imodium no longer helping. His significant other says he's not taking imodium any longer. No nausea, vomiting, dysphagia, upper abd pain, heartburn. No hematochezia. Weight is stable. Normal appetite. Last office visit was 04/09/22--treated bloating with doxycycline, continued pantoprazole for GERD, hx GIB due to gastric ulcer and AVMs in stomach. ROS Const Constitutional: No fatigue ENT ENT: No difficulty swallowing Gastro GI: Positive for abdominal pain, bloating, change in bowel habits, diarrhea and excessive flatus; No belching, change in stool character, coffee ground emesis, constipation, cramping, heartburn, difficulty swallowing, feeling full early, incontinent of stools, Vomiting blood/hematemesis, Blood in stool, loose stools, Black,tarry stools, nausea/dyspepsia, pain with swallowing, vomiting or other Musc Musculoskeletal: Positive for back pain and Arthritis; No joint pain Skin Skin: No yellowing of the eye or itchy eyes Psych Psychiatric: No anxiety and No depression Endo Endocrine: No fatigue Aller/Imm Allergy/Immunologic: No itchy eyes Tyrel/Lymp Hematologic/Lymphatic: No easy bleeding or easy bruising Exam Const General: cooperative and comfortable Nutritional Appearance: obese Orientation: alert, awake and oriented x3 Eyes Sclera: sclerae normal Resp Effort & Inspection: normal respiratory effort GI Inspection: obesity Palpation: soft, no hepatosplenomegaly, no masses and tender in the RLQ Quality Reporting Tobacco Screening ([facility] 138) Smoking Status: Former smoker Assessment and Plan Assessment and Plan (1) Abdominal pain: Plan: Post prandial diarrhea and RLQ abd pain Due to claustrophobia he would like anxiolytic for CT scan Stool tests He declines colonoscopy (2) Diarrhea: Status: Chronic Plan: see above (3) RLQ abdominal pain: Status: Chronic Plan: see above (4) Black stool: Status: Chronic Plan: see above Orders: Orders CDIFF (PCR) Today R19.7 - Diarrhea, unspecified ENTERIC PATHOGEN PANEL STOOL Today K58.9 - Irritable bowel syndrome without diarrhea, R19.7 - Diarrhea, unspecified Giardia Lamblia, Stool EIA Today R19.7 - Diarrhea, unspecified Abdomen/Pelvis WITH Contrast Today R10.31 - Right lower quadrant pain, R19.7 - Diarrhea, unspecified Stool Occult Blood iFOB Today K92.1 - Melena, R10.31 - Right lower quadrant pain, R19.7 - Diarrhea, unspecified Medications: New diazepam (Valium) take one hour prior to CT scan 5 mg PO ONCE 1 TAB 0RF anxiety I have examined the patient and the H&P has been reviewed. There are no clinical changes since date of exam.
[2022-12-17 07:12] VITALS: BP 101/43; BP 123/70; RESP 18; TEMP 36.1; O2SAT 994
--- NOTE | 2022-12-17 07:14 | OP.COLON_ITS ---
Patient Name: Mak Pulliam Procedure Date: 12/17/2022 6:14 AM Date of : 1945 Age: 77 Procedure: Colonoscopy Indications: Generalized abdominal pain, Clinically significant diarrhea of unexplained origin Providers: Shaheed Plaza DO Referring MD: Shaheed Plaza DO Medicines: Monitored Anesthesia Care Patient Profile: This is a 77 year old male. Refer to note in patient chart for documentation of history and physical. Last Colonoscopy: date unknown. Unable to locate last colonoscopy report. Complications: No immediate complications. Procedure: Pre-Anesthesia Assessment: - Prior to the procedure, a History and Physical was performed, and patient medications and allergies were reviewed. The patient is competent. The risks and benefits of the procedure and the sedation options and risks were discussed with the patient. All questions were answered and informed consent was obtained. Patient identification and proposed procedure were verified by the physician in the pre-procedure area. Mental Status Examination: alert and oriented. Airway Examination: normal oropharyngeal airway and neck mobility. Respiratory Examination: clear to auscultation. CV Examination: normal. Prophylactic Antibiotics: The patient does not require prophylactic antibiotics. Prior Anticoagulants: The patient has taken no anticoagulant or antiplatelet agents. ASA Grade Assessment: III - A patient with severe systemic disease. After reviewing the risks and benefits, the patient was deemed in satisfactory condition to undergo the procedure. The anesthesia plan was to use monitored anesthesia care (MAC). Immediately prior to administration of medications, the patient was re-assessed for adequacy to receive sedatives. The heart rate, respiratory rate, oxygen saturations, blood pressure, adequacy of pulmonary ventilation, and response to care were monitored throughout the procedure. The physical status of the patient was re-assessed after the procedure. After I obtained informed consent, the scope was passed under direct vision. Throughout the procedure, the patient's blood pressure, pulse, and oxygen saturations were monitored continuously. The colonoscope was introduced through the anus and advanced to the cecum, identified by appendiceal orifice and ileocecal valve. The colonoscopy was performed without difficulty. The patient tolerated the procedure well. The quality of the bowel preparation was adequate. The ileocecal valve, appendiceal orifice, and rectum were photographed. Scope In: 6:38:15 AM Scope Withdrawal Time 0 hours 15 minutes 38 seconds Scope Out: 7:06:36 AM Total Procedure Duration Time 0 hours 28 minutes 21 seconds Findings: The perianal and digital rectal examinations were normal. Three sessile polyps were found in the descending colon and cecum. The polyps were 1 to 2 mm in size. These polyps were removed with a cold snare. Resection and retrieval were complete. Verification of patient identification for the specimen was done. Estimated blood loss was minimal. A few small-mouthed diverticula were found in the recto-sigmoid colon. An area of mildly congested mucosa was found in the sigmoid colon. Biopsies for histology were taken with a cold forceps from the right colon and left colon for evaluation of microscopic colitis. Impression: - Three 1 to 2 mm polyps in the descending colon and in the cecum, removed with a cold snare. Resected and retrieved. - Diverticulosis in the recto-sigmoid colon. - Congested mucosa in the sigmoid colon. Biopsied. Recommendation: - Discharge patient to home. - Resume previous diet. - Continue present medications. - Await pathology results. - Repeat colonoscopy in 3 years for surveillance. Procedure Code(s): --- Professional --- 00095, Colonoscopy, flexible; with removal of tumor(s), polyp(s), or other lesion(s) by snare technique 41538, 59, Colonoscopy, flexible; with biopsy, single or multiple CPT copyright 2021 [employer]. All rights reserved. The codes documented in this report are preliminary and upon hospice administrator review may be revised to meet current compliance requirements. Shaheed Plaza DO 12/17/2022 7:14:08 AM This report has been signed electronically. Number of Addenda: 0 Note Initiated On: 12/17/2022 6:14 AM
--- NOTE | 2022-12-17 07:14 | OP.CCLET_ITS ---
12/17/2022 Faith Jay MD [address] [place] [address] [place] [address] Re : Colonoscopy procedure for Mak Heraclio Dear Dr. Jay This procedure was performed on Saturday, December 17, 2022. My impressions and recommendations are as follows: Impressions : - Three 1 to 2 mm polyps in the descending colon and in the cecum, removed with a cold snare. Resected and retrieved. - Diverticulosis in the recto-sigmoid colon. - Congested mucosa in the sigmoid colon. Biopsied. Recommendations : - Discharge patient to home. - Resume previous diet. - Continue present medications. - Await pathology results. - Repeat colonoscopy in 3 years for surveillance. My findings are described in the full procedure note, which is enclosed. If I can be of further assistance, please feel free to contact me at . Sincerely, Shaheed Plaza, 12/17/2022 7:14:08 AM This report has been signed electronically.
[2022-12-17 07:15] VITALS: BP 123/70; BP 95/45; PULSE 55; RESP 12; O2SAT 93
[2022-12-17 07:19] VITALS: BP 108/46; BP 123/70; PULSE 51; RESP 18; O2SAT 97
[2022-12-17 07:24] VITALS: BP 123/70; BP 133/62; PULSE 48; RESP 18; TEMP 36.9; O2SAT 94
[2022-12-17 07:38] VITALS: BP 123/70
== END 2022-12-17 07:58 | disposition home or self-care (01) ==
LOC: EN 05:26 → AC 05:27
PROVIDERS: PCP Internal Medicine; Referring Provider Internal Medicine; Visit Provider Internal Medicine Gastroenterology
PROC: 0DJD8ZZ Inspection of Lower Intestinal Tract, Via Natural or Artificial Opening Endoscopic (ICD-10-PCS; CPT 45378; principal; 2022-12-17 06:25)
DX: R10.31 Right lower quadrant pain (principal); Z87.891 Personal history of nicotine dependence; K63.89 Other specified diseases of intestine; K57.90 Diverticulosis of intestine, part unspecified, without perforation or abscess without bleeding; K52.9 Noninfective gastroenteritis and colitis, unspecified; D12.4 Benign neoplasm of descending colon; D12.0 Benign neoplasm of cecum
CPT/HCPCS: 45380; 45385; 82962; 88305; J7120; J2405

== ENCOUNTER → 2023-04-24 | Outpatient (CLI) | payer MEDICARE, SELFPAY ==
--- OUTSIDE RECORDS SUMMARY | 2023-04-24 09:24 | XMS RPT_ITS | CCD ---
Author Name Unknown Address [address] [place] [address] Organization [facility] Care Team Providers Care C D Reactor Operator Name Role Phone Neda Galdamez Unavailable Unavailable SRINI CHRIS Attending Unavailable NO, PHYSICIAN Primary Care Unavailable No, Physician Primary Care Provider Unavailabdi e Prema Russ Unavailable Prema Russ Unavailable MD Nessa, Limon S Unavailable DeFinis, Harumi Y Unavailable Unavailable DeFinis, Harumi Y Unavailable Unavailable Tania SINGLETARY-CRicco Unavailable Unavailable Neda Galdamez Unavailable Unavailable Neda Galdamez Unavailable Unavailable Allergies Allergy Classification Reported Allergen(s) Allergy Type Date of Onset Reaction(s) Facility (11 sources) exenatide Drug Allergy 10-21-2010 shaky and vommaryanne [facility] Work Phone: Medications Completed/Discontinued Medications Medication Drug Class(es) Dates Sig (Normalized) Sig (Original) amitriptyline hydrochloride 25 mg oral tablet (20 sources) Tricyclic Antidepressant Start: 05-11-2009 End: 11-01-2009 AMITRIPTYLINE HCL 25 MG TABS take one tablet at bed time AMITRIPTYLINE HCL [id number] Moncho Storm MD amLODIPine 10 mg oral tablet (20 sources) Dihydropyridine Calcium Channel Farrukh Start: 05-11-2009 End: 11-01-2009 take 1 tablet by mouth once daily NORVASC 10 MG TABS One tablet by mouth daily AMLODIPINE BESYLATE [id number] Moncho Storm MD amoxicillin / clavulanate (2 sources) Penicillin-class Antibacterial End: 01-04-2010 take 1 tablet by mouth twice daily AUGMENTIN TABS One tablet by mouth twice daily AMOXICILLIN-POT CLAVULANATE TABS [id number] Moncho tSorm MD Problems Active Problems Problem Classification Problem Date Documented Da te Episodic/Chronic Coronary atherosclerosis and other heart disease (20 sources) Coronary arteriosclerosis; 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] Onset: 03-30-2002 Resolved: 10-06-2014 04-11-2009 Chronic Diabetes mellitus with complications (20 sources) Type II diabetes mellitus uncontrolled; Translations: [Diabetic peripheral neuropathy] Onset: 11-01-2009 Resolved: 10-26-2015 10-26-2015 Chronic Diabetes mellitus without complication (20 sources) Type 2 diabetes mellitus; Translations: [Type 2 diabetes mellitus well controlled] Onset: 03-30-2000 Resolved: 01-05-2015 10-26-2015 Chronic Disorders of lipid metabolism (11 sources) Hyperlipidemia; Translations: [Hyperlipidemia, unspecified] Onset: 03-30-2002 04-11-2009 Chronic Essential hypertension (20 sources) Hypertensive disorder; Translations: [Benign essential hypertension] Onset: 03-30-2002 Resolved: 10-06-2014 10-06-2014 Chronic Other circulatory disease (20 sources) Raynaud's disease; Translations: [Raynaud's syndrome without gangrene] Onset: [birth year]30[birth year]1959 10-06-2014 Chronic Other ear and sense organ disorders (20 sources) Otitis externa; Translations: [Unspecified otitis externa, unspecified ear] Onset: 11-13-2011 Resolved: 02-06-2012 02-06-2012 Chronic Other nervous system disorders (13 sources) Carpal tunnel syndrome; Translations: [Idiopathic peripheral neuropathy] Resolved: 10-06-2014 05-11-2009 Chronic Other nervous system disorders (20 sources) Idiopathic peripheral neuropathy; Translations: [Hereditary and idiopathic neuropathy, unspecified] Resolved: 10-06-2014 10-06-2014 Chronic Other nutritional; endocrine; and metabolic disorders (11 sources) Morbid obesity; Translations: [Morbid (severe) obesity due to excess calories] Onset: 08-10-2009 08-10-2009 Chronic Other nutritional; endocrine; and metabolic disorders (20 sources) Body mass index (BMI) 37.0-37.9, adult; Translations: [Body Mass Index 37.0-37.9, adult] Onset: 07-22-2013 Resolved: 10-06-2014 07-22-2013 Chronic Retinal detachments; defects; vascular occlusion; and retinopathy (11 sources) Age related macular degeneration; Translations: [Macular degeneration (senile), unspecified] Onset: 10-31-2014 10-31-2014 Chronic Unclassified (1 source) Long-term drug therapy; Translations: [Other senior living (current) drug therapy] Onset: 08-08-2010 08-08-2010 Unclassified (1 source) Influenza vaccination ; Translations: [Encounter for immunization] Onset: 01-08-2017 01-08-2017 Unclassified (2 sources) Preprocedural examination done; Translations: [Pre-operative examination] Past or Other Problems Problem Classification Problem Date Documented Da te Episodic/Chronic Acute bronchitis (20 sources) Acute bronchitis; Translations: [Acute bronchitis, unspecified] Onset: 07-03-2010 Resolved: 02-17-2014 02-14-2013 Episodic Calculus of urinary tract (11 sources) Kidney stone; Translations: [Calculus of kidney] Onset: 10-05-2009 10-05-2009 Episodic Coronary atherosclerosis and other heart disease (20 sources) Presence of aortocoronary bypass graft; Translations: [Coronary angioplasty status] Onset: 08-08-2010 08-08-2010 Episodic Fluid and electrolyte disorders (20 sources) Hyperkalemia; Translations: [Hyperkalemia] Onset: 03-10-2014 Resolved: 10-06-2014 10-06-2014 Episodic Immunizations and screening for infectious disease (20 sources) Encounter for immunization; Translations: [Need for prophylactic vaccination and inoculation against influenza] Onset: 01-24-2011 Resolved: 10-06-2014 02-06-2012 Episodic Other aftercare (10 sources) Long-term drug therapy; Translations: [Other senior living (current) drug therapy] Onset: 08-08-2010 08-08-2010 Episodic Other circulatory disease (5 sources) Respiratory crackles; Translations: [Other specified symptoms and signs involving the circulatory and respiratory systems] Onset: 12-09-2016 12-09-2016 Episodic Other ear and sense organ disorders (20 sources) Impacted cerumen; Translations: [Otitis externa] Onset: 11-13-2011 Resolved: 11-09-2015 10-26-2015 Episodic Other gastrointestinal disorders (20 sources) Constipation; Translations: [Diarrhea] Onset: 09-20-2010 Resolved: 08-06-2012 08-08-2011 Episodic Other gastrointestinal disorders (20 sources) Diarrhea; Translations: [Diarrhea, unspecified] Onset: 06-11-2012 Resolved: 08-06-2012 08-06-2012 Episodic Other lower respiratory disease (20 sources) Dyspnea; Translations: [Cough] Onset: 08-08-2010 Resolved: 08-08-2011 08-08-2010 Episodic Other lower respiratory disease (4 sources) Cough; Translations: [Non-productive cough] Onset: 12-09-2016 12-09-2016 Episodic Other non-traumatic joint disorders (20 sources) Pain in unspecified shoulder; Translations: [Pain in joint, shoulder region] Onset: 11-07-2011 Resolved: 08-06-2012 08-06-2012 Episodic Other screening for suspected conditions (not mental disorders or infectious disease) (20 sources) Encounter for screening for malignant neoplasm of prostate; Translations: [Screening for malignant neoplasms of prostate] Onset: 08-06-2012 Resolved: 10-06-2014 08-06-2012 Episodic Other upper respiratory infections (20 sources) Acute upper respiratory infection; Translations: [Acute upper respiratory infection, unspecified] Onset: 04-03-2014 Resolved: 10-06-2014 10-06-2014 Episodic Residual codes; unclassified (20 sources) FH: Hypertension; Translations: [Family history of stroke] Resolved: 10-06-2014 03-10-2014 Episodic Residual codes; unclassified (20 sources) Family history of stroke; Translations: [Family history of stroke] Resolved: 10-06-2014 10-06-2014 Episodic Skin and subcutaneous tissue infections (20 sources) Cellulitis of lower limb; Translations: [Cellulitis of left lower limb] Onset: 12-21-2009 Resolved: 03-15-2010 03-15-2010 Episodic Unclassified (2 sources) Physical examination; Translations: [Encounter for general adult medical examination without abnormal findings] Onset: 11-01-2009 Resolved: 10-06-2014 11-01-2009 Results Test Name Value Interpretation Reference Range Facil ity Vital Signs Date Time Vital Sign Value Performing Clinician Orlin mosley 11-02-2020 21:12-0400 SaO2% (BldA) [Mass fraction] 81 % [facility] Encounters Encounter Date Encounter Type Care Provider Facility Start: 05-25-2020 End: 05-25-2020 Patient encounter procedure SRINIZACHARY CHRIS [facility] Start: 05-25-2020 End: 05-25-2020 Clinical Support Srini Chris [facility] Primary C are Physicians Procedures Date Procedure Procedure Detail Performing Clinician Start: 11-02-2020 Antibody screen Plan of Treatment Date Care Activity Detail Author Start: 07-16-2017 End: 07-16-2017 Appointment Appointment [facility] Work Phone: Start: 05-27-2017 End: 12-04-2016 *Hepatic Function Panel *Hepatic Function Panel [facility] Work Phone: Start: 05-27-2017 End: 12-04-2016 Lipid panel [AGGREGATE] *Lipid Profile CC PCP [facility] Work Phone: Start: 05-27-2017 End: 12-04-2016 Hepatic function 2000 panel - Serum or Plasma *Hepatic Function Panel [facility] Work Phone: Start: 05-27-2017 End: 12-04-2016 Lipid 1996 panel - Serum or Plasma *Lipid Profile CC PCP [facility] Work Phone: Start: 04-10-2017 End: 04-10-2017 Appointment Appointment [facility] Work Phone: Start: 03-18-2017 End: 11-25-2016 *Hepatic Function Panel *Hepatic Function Panel [facility] Work Phone: Start: 03-18-2017 End: 11-25-2016 Lipid panel [AGGREGATE] *Lipid Profile CC PCP [facility] Work Phone: Start: 03-18-2017 End: 11-25-2016 Hepatic function 2000 panel - Serum or Plasma *Hepatic Function Panel [facility] Work Phone: Start: 03-18-2017 End: 11-25-2016 Lipid 1996 panel - Serum or Plasma *Lipid Profile CC PCP [facility] Work Phone: Start: 01-26-2017 End: 01-26-2017 Patient encounter procedure Appointment [facility] Work Phone: Start: 01-12-2017 End: 01-12-2017 PEANUT ROASTER PEANUT ROASTER [facility] Work Phone: Start: 01-12-2017 End: 01-12-2017 Follow Up Appt 6 months Follow Up Appt 6 months [employer] Work Phone: Start: 01-12-2017 End: 01-12-2017 Patient encounter procedure Appointment [facility] Work Phone: Start: 01-12-2017 End: 01-12-2017 PEANUT ROASTER PEANUT RO[employer]ER [facility] Work Phone: Start: 01-12-2017 End: 01-12-2017 Follow Up Appt 6 months Follow Up Appt 6 months [employer] Work Phone: Start: 01-08-2017 End: 01-09-2017 *Microalbumin, Creatine Ratio, rand urine *Microalbumin, Creatine Ratio, rand urine [facility] Work Phone: Start: 01-08-2017 End: 01-08-2017 Follow Up Appt 3 months Follow Up Appt 3 months [employer] Work Phone: Start: 01-08-2017 End: 01-09-2017 Hemoglobin A1c/Hemoglobin.total mass fraction (Bld) *HgA1C [facility] Work Phone: Start: 01-08-2017 End: 01-08-2017 Patient encounter procedure Appointment [facility] Work Phone: Start: 01-08-2017 End: 01-09-2017 *Microalbumin, Creatine Ratio, rand urine *Microalbumin, Creatine Ratio, rand urine [facility] Work Phone: Start: 01-08-2017 End: 01-08-2017 Follow Up Appt 3 months Follow Up Appt 3 months [employer] Work Phone: Start: 01-08-2017 End: 01-09-2017 Hemoglobin A1c/Hemoglobin.total in Blood *HgA1C [facility] Work Phone: Start: 12-09-2016 End: 12-10-2016 *CBC with Differential *CBC with Differential [facility] Work Phone: Start: 12-09-2016 End: 12-10-2016 Chest x-ray X-Ray, Chest, PA & Lateral [facility] Work Phone: Start: 12-09-2016 End: 12-10-2016 Follow Up Appt 1 month Follow Up Appt 1 month [facility] Work Phone: Start: 12-09-2016 End: 12-10-2016 CBC W Auto Differential panel - Blood *CBC with Differential [facility] Work Phone: Start: 12-09-2016 End: 12-10-2016 Chest x-ray X-Ray, Chest, PA & Lateral [facility] Work Phone: Start: 12-09-2016 End: 12-10-2016 Follow Up Appt 1 month Follow Up Appt 1 month [facility] Work Phone: Start: 07-25-2016 End: 12-31-2016 Follow Up Appt 6 months Follow Up Appt 6 months [facility] Work Phone: Start: 07-25-2016 End: 12-31-2016 MMM MMM [facility] Work Phone: Start: 07-25-2016 End: 12-31-2016 Follow Up Appt 6 months Follow Up Appt 6 months [facility] Work Phone: Start: 07-25-2016 End: 12-31-2016 MMM MMM [facility] Work Phone: Start: 12-07-2015 End: 12-31-2016 PEANUT ROASTER PEANUT ROASTER [facility] Work Phone: Start: 12-07-2015 End: 12-31-2016 Follow Up Appt 6 months Follow Up Appt 6 months [facility] Work Phone: Start: 12-07-2015 End: 12-31-2016 PEANUT ROASTER PEANUT ROASTER [facility] Work Phone: Start: 12-07-2015 End: 12-31-2016 Follow Up Appt 6 months Follow Up Appt 6 months [facility] Work Phone: Start: 11-30-2015 End: 09-15-2016 *Hepatic Function Panel *Hepatic Function Panel [facility] Work Phone: Start: 11-30-2015 End: 09-15-2016 Lipid panel [AGGREGATE] *Lipid Profile CC PCP [facility] Work Phone: Start: 11-30-2015 End: 09-15-2016 Hepatic function 2000 panel - Serum or Plasma *Hepatic Function Panel [facility] Work Phone: Start: 11-30-2015 End: 09-15-2016 Lipid 1996 panel - Serum or Plasma *Lipid Profile CC PCP [facility] Work Phone: Start: 10-30-2015 End: 12-31-2016 Removal impacted cerumen instrumentation unilat Ear wax removal [facility] Work Phone: Start: 10-30-2015 End: 12-31-2016 Removal impacted cerumen instrumentation unilat Ear wax removal [facility] Work Phone: Start: 05-07-2015 End: 05-21-2015 *Hepatic Function Panel *Hepatic Function Panel [facility] Work Phone: Start: 05-07-2015 End: 05-07-2015 PEANUT ROASTER PEANUT ROASTER [facility] Work Phone: Start: 05-07-2015 End: 05-07-2015 Follow Up Appt 6 months Follow Up Appt 6 months [facility] Work Phone: Start: 05-07-2015 End: 05-21-2015 Lipid panel [AGGREGATE] *Lipid Profile CC PCP [facility] Work Phone: Start: 05-07-2015 End: 05-07-2015 PEANUT ROASTER PEANUT ROASTER [facility] Work Phone: Start: 05-07-2015 End: 05-07-2015 Follow Up Appt 6 months Follow Up Appt 6 months [facility] Work Phone: Start: 05-07-2015 End: 05-21-2015 Hepatic function 2000 panel - Serum or Plasma *Hepatic Function Panel [facility] Work Phone: Start: 05-07-2015 End: 05-21-2015 Lipid 1996 panel - Serum or Plasma *Lipid Profile CC PCP [facility] Work Phone: Start: 2015 End: 05-30-2015 Lipid panel [AGGREGATE] *Lipid Profile CC PCP [facility] Work Phone: Start: 2015 End: 05-30-2015 Lipid 1996 panel - Serum or Plasma *Lipid Profile CC PCP [facility] Work Phone: Start: 03-12-2015 End: 05-30-2015 *Hepatic Function Panel *Hepatic Function Panel [facility] Work Phone: Start: 03-12-2015 End: 05-30-2015 Hepatic function 2000 panel - Serum or Plasma *Hepatic Function Panel [facility] Work Phone: Start: 01-05-2015 End: 12-31-2016 Hemoglobin A1c/Hemoglobin.total mass fraction (Bld) HGB A1C (Office) [facility] Work Phone: Start: 01-05-2015 End: 12-31-2016 Hemoglobin glycosylated a1c HGB A1C (Office) [facility] Work Phone: Start: 10-06-2014 End: 12-31-2016 Hemoglobin A1c/Hemoglobin.total mass fraction (Bld) HGB A1C (Office) [facility] Work Phone: Start: 10-06-2014 End: 12-31-2016 Hemoglobin glycosylated a1c HGB A1C (Office) [facility] Work Phone: Start: 09-08-2014 End: 09-15-2014 *Hepatic Function Panel *Hepatic Function Panel [facility] Work Phone: Start: 09-08-2014 End: 09-08-2014 Follow Up Appt 6 months Follow Up Appt 6 months [facility] Work Phone: Start: 09-08-2014 End: 09-15-2014 Lipid panel [AGGREGATE] *Lipid Profile CC PCP [facility] Work Phone: Start: 09-08-2014 End: 09-08-2014 MMM MMM [facility] Work Phone: Start: 09-08-2014 End: 09-08-2014 Follow Up Appt 6 months Follow Up Appt 6 months [facility] Work Phone: Start: 09-08-2014 End: 09-15-2014 Hepatic function 2000 panel - Serum or Plasma *Hepatic Function Panel [facility] Work Phone: Start: 09-08-2014 End: 09-15-2014 Lipid 1996 panel - Serum or Plasma *Lipid Profile CC PCP [facility] Work Phone: Start: 09-08-2014 End: 09-08-2014 MMM MMM [facility] Work Phone: Start: 05-19-2014 End: 06-19-2014 *BMP *BMP [facility] Work Phone: Start: 05-19-2014 End: 06-19-2014 Hemoglobin A1c/Hemoglobin.total mass fraction (Bld) *HgA1C [facility] Work Phone: Start: 05-19-2014 End: 06-19-2014 Thyroid stimulating hormone (TSH) TSH [facility] Work Phone: Start: 05-19-2014 End: 06-19-2014 Assay of thyroid stimulating hormone tsh TSH [facility] Work Phone: Start: 05-19-2014 End: 06-19-2014 Basic metabolic 2000 panel - Serum or Plasma *BMP [facility] Work Phone: Start: 05-19-2014 End: 06-19-2014 Hemoglobin A1c/Hemoglobin.total in Blood *HgA1C [facility] Work Phone: Start: 03-10-2014 End: 03-13-2014 *Hepatic Function Panel *Hepatic Function Panel [facility] Work Phone: Start: 03-10-2014 End: 03-10-2014 PEANUT ROASTER PEANUT ROASTER [facility] Work Phone: Start: 03-10-2014 End: 03-10-2014 Follow Up Appt 6 months Follow Up Appt 6 months [facility] Phone: Start: 03-10-2014 End: 03-13-2014 Lipid panel [AGGREGATE] *Lipid Profile CC PCP [facility] Phone: Start: 03-10-2014 End: 03-13-2014 Potassium molar conc *Potassium; Serum, Plasma or Whole Blood [facility] Work Phone: Start: 03-10-2014 End: 03-10-2014 PEANUT ROASTER PEANUT ROASTER [facility] Work Phone: Start: 03-10-2014 End: 03-10-2014 Follow Up Appt 6 months Follow Up Appt 6 months [facility] Phone: Start: 03-10-2014 End: 03-13-2014 Hepatic function 2000 panel - Serum or Plasma *Hepatic Function Panel [facility] Phone: Start: 03-10-2014 End: 03-13-2014 Lipid 1996 panel - Serum or Plasma *Lipid Profile CC PCP [facility] Work Phone: Start: 03-10-2014 End: 03-13-2014 Potassium [Moles/volume] in Serum or Plasma *Potassium; Serum, Plasma or Whole Blood [facility] Phone: Start: 02-17-2014 End: 03-06-2014 *CMP Complete Metabolic Panel *CMP Complete Metabolic Panel [facility] Work Phone: Start: 02-17-2014 End: 03-06-2014 Hemoglobin A1c/Hemoglobin.total mass fraction (Bld) *HgA1C [facility] Work Phone: Start: 02-17-2014 End: 03-13-2014 Lipid panel [AGGREGATE] *Lipid Profile [facility] [facility] Work Phone: Start: 02-17-2014 End: 03-06-2014 *CMP Complete Metabolic Panel *CMP Complete Metabolic Panel [facility] Work Phone: Start: 02-17-2014 End: 03-06-2014 Hemoglobin A1c/Hemoglobin.total in Blood *HgA1C [facility] Phone: Start: 02-17-2014 End: 03-13-2014 Lipid 1996 panel - Serum or Plasma *Lipid Profile [facility] Phone: Start: 01-20-2014 End: 01-20-2014 Follow Up Appt 6 weeks Follow Up Appt 6 weeks [facility] Phone: Start: 01-20-2014 End: 01-20-2014 MMM MMM [facility] Work Phone: Start: 01-20-2014 End: 01-20-2014 Follow Up Appt 6 weeks Follow Up Appt 6 weeks [facility] Phone: Start: 01-20-2014 End: 01-20-2014 MMM MMM [facility] Phone: Start: 11-18-2013 End: 11-18-2013 *BMP *BMP [facility] Work Phone: Start: 11-18-2013 End: 11-18-2013 Hemoglobin A1c/Hemoglobin.total mass fraction (Bld) HGBA1C [facility] Phone: Start: 11-18-2013 End: 11-18-2013 Microalbumin urine Microalbumin urine [facility] Work Phone: Start: 11-18-2013 End: 11-18-2013 PSA *PSA, Annual Screening [facility] Work Phone: Start: 11-18-2013 End: 11-18-2013 Basic metabolic 2000 panel - Serum or Plasma *BMP [facility] Work Phone: Start: 11-18-2013 End: 11-18-2013 Hemoglobin glycosylated a1c HGBA1C [facility] Work Phone: Start: 11-18-2013 End: 11-18-2013 Microalbumin [Mass/volume] in Urine Microalbumin urine [facility] Phone: Start: 11-18-2013 End: 11-18-2013 Prostate specific Ag [Mass/volume] in Serum or Plasma *PSA, Annual Screening [facility] Work Phone: Start: 07-29-2013 End: 11-18-2013 Endocrinology Referral Endocrinology Referral Geovany Shepherd, [address], [place], [address] [employer] Work Phone: Start: 07-29-2013 End: 11-18-2013 Patient encounter procedure Endocrinology Referral Geovany Shepherd, [address], [place], [address] [facility] Work Phone: Start: 07-22-2013 End: 07-22-2013 Follow Up Appt 6 months Follow Up Appt 6 months [employer] Work Phone: Start: 07-22-2013 End: 07-22-2013 MMM MMM [facility] Work Phone: Start: 07-22-2013 End: 07-22-2013 Follow Up Appt 6 months Follow Up Appt 6 months [employer] Work Phone: Start: 07-22-2013 End: 07-22-2013 MMM MMM [facility] Work Phone: Start: 07-18-2013 End: 07-22-2013 *BMP *BMP [facility] Phone: Start: 07-18-2013 End: 07-22-2013 Hemoglobin A1c/Hemoglobin.total mass fraction (Bld) *HgA1C [facility] Work Phone: Start: 07-18-2013 End: 07-22-2013 Basic metabolic 2000 panel - Serum or Plasma *BMP [facility] Work Phone: Start: 07-18-2013 End: 07-22-2013 Hemoglobin A1c/Hemoglobin.total in Blood *HgA1C [facility] Work Phone: Start: 04-16-2013 End: 04-18-2013 *BMP *BMP [facility] Work Phone: Start: 04-16-2013 End: 04-18-2013 Hemoglobin A1c/Hemoglobin.total mass fraction (Bld) *HgA1C [facility] Phone: Start: 04-16-2013 End: 04-18-2013 Basic metabolic 2000 panel - Serum or Plasma *BMP [facility] Work Phone: Start: 04-16-2013 End: 04-18-2013 Hemoglobin A1c/Hemoglobin.total in Blood *HgA1C [facility] Phone: Start: 01-07-2013 End: 01-07-2013 PEANUT ROASTER PEANUT ROASTER [facility] Work Phone: Start: 01-07-2013 End: 01-07-2013 Ecg routine ecg w/least 12 lds w/i&r EKG (In office) [facility] Phone: Start: 01-07-2013 End: 01-07-2013 Follow Up Appt 6 months Follow Up Appt 6 months [facility] Phone: Start: 01-07-2013 End: 04-18-2013 Lipid panel [AGGREGATE] *Lipid Profile CC PCP [facility] [employer] Work Phone: Start: 01-07-2013 End: 01-07-2013 Nuclear stress test -adenosine Nuclear stress test -adenosine [facility] [employer] Work Phone: Start: 01-07-2013 End: 01-07-2013 [employer]ANUT ROASTER [employer] Work Phone: Start: 01-07-2013 End: 01-07-2013 Ecg routine ecg w/least 12 lds w/i&r EKG (In office) [facility] Work Phone: Start: 01-07-2013 End: 01-07-2013 Follow Up Appt 6 months Follow Up Appt 6 months [facility] Phone: Start: 01-07-2013 End: 04-18-2013 Lipid 1996 panel - Serum or Plasma *Lipid Profile CC PCP [facility] Phone: Start: 01-07-2013 End: 01-07-2013 Nuclear stress test -adenosine Nuclear stress test -adenosine [facility] Work Phone: Start: 11-12-2012 End: 11-18-2013 *CMP Complete Metabolic Panel *CMP Complete Metabolic Panel [facility] Work Phone: Start: 11-12-2012 End: 11-18-2013 *MIACRE Microalb; Creat Ratio, Buckner UR *MIACRE Microalb; Creat Ratio, Buckner UR [facility] Work Phone: Start: 11-12-2012 End: 01-14-2013 Hemoglobin A1c/Hemoglobin.total mass fraction (Bld) *HgA1C [facility] Work Phone: Start: 11-12-2012 End: 11-18-2013 Lipid panel [AGGREGATE] *Lipid Profile [facility] Work Phone: Start: 11-12-2012 End: 11-18-2013 *CMP Complete Metabolic Panel *CMP Complete Metabolic Panel [facility] Work Phone: Start: 11-12-2012 End: 11-18-2013 *MIACRE Microalb; Creat Ratio, Buckner UR *MIACRE Microalb; Creat Ratio, Buckner UR [facility] Work Phone: Start: 11-12-2012 End: 01-14-2013 Hemoglobin A1c/Hemoglobin.total in Blood *HgA1C [facility] Work Phone: Start: 11-12-2012 End: 11-18-2013 Lipid 1996 panel - Serum or Plasma *Lipid Profile [facility] Work Phone: Start: 08-06-2012 End: 10-28-2012 *BMP *BMP [facility] Work Phone: Start: 08-06-2012 End: 10-28-2012 Hemoglobin A1c/Hemoglobin.total mass fraction (Bld) *HgA1C [facility] Work Phone: Start: 08-06-2012 End: 10-28-2012 PSA *PSA, Annual Screening [facility] Work Phone: Start: 08-06-2012 End: 10-28-2012 Basic metabolic 2000 panel - Serum or Plasma *BMP [facility] [facility] Work Phone: Start: 08-06-2012 End: 10-28-2012 Hemoglobin A1c/Hemoglobin.total in Blood *HgA1C [employer] Work Phone: Start: 08-06-2012 End: 10-28-2012 Prostate specific Ag [Mass/volume] in Serum or Plasma *PSA, Annual Screening [employer] Phone: Start: 06-18-2012 End: 06-18-2012 Follow Up Appt 6 months Follow Up Appt 6 months [employer] Work Phone: Start: 06-18-2012 End: 06-18-2012 MMM MMM [employer] Work Phone: Start: 06-18-2012 End: 06-18-2012 Follow Up Appt 6 months Follow Up Appt 6 months [employer] Phone: Start: 06-18-2012 End: 06-18-2012 MMM MMM [employer] Work Phone: Start: 05-07-2012 End: 07-19-2012 *CMP Complete Metabolic Panel *CMP Complete Metabolic Panel [employer] Phone: Start: 05-07-2012 End: 07-19-2012 Hemoglobin A1c/Hemoglobin.total mass fraction (Bld) *HgA1C [employer] Phone: Start: 05-07-2012 End: 07-19-2012 Lipid panel [AGGREGATE] *Lipid Profile [employer] Work Phone: Start: 05-07-2012 End: 07-19-2012 *CMP Complete Metabolic Panel *CMP Complete Metabolic Panel [employer] Work Phone: Start: 05-07-2012 End: 07-19-2012 Hemoglobin A1c/Hemoglobin.total in Blood *HgA1C [employer] Work Phone: Start: 05-07-2012 End: 07-19-2012 Lipid 1996 panel - Serum or Plasma *Lipid Profile [employer] Phone: Start: 02-06-2012 End: 04-07-2012 *BMP *BMP [employer] [facility] Work Phone: Start: 02-06-2012 End: 04-07-2012 Hemoglobin A1c/Hemoglobin.total mass fraction (Bld) *HgA1C [facility] Work Phone: Start: 02-06-2012 End: 04-07-2012 Iiv3 vacc preservative free 0.5 ml dosage im use Flu Vaccine >3yr (Preservative Free) [facility] Work Phone: Start: 02-06-2012 End: 04-07-2012 Basic metabolic 2000 panel - Serum or Plasma *BMP [facility] Work Phone: Start: 02-06-2012 End: 04-07-2012 Hemoglobin A1c/Hemoglobin.total in Blood *HgA1C [facility] Work Phone: Start: 02-06-2012 End: 04-07-2012 Iiv3 vacc preservative free 0.5 ml dosage im use Flu Vaccine >3yr (Preservative Free) [facility] Work Phone: Start: 12-19-2011 End: 12-22-2011 Urnls dip stick/tablet rgnt non-auto w/o micrscp UA Dipstick (Office) [facility] Work Phone: Start: 12-19-2011 End: 12-22-2011 Urnls dip stick/tablet rgnt non-auto w/o micrscp UA Dipstick (Office) [facility] Work Phone: Start: 12-16-2011 End: 04-07-2012 Follow Up Appt 6 months Follow Up Appt 6 months [facility] Work Phone: Start: 12-16-2011 End: 04-07-2012 Follow Up Appt 6 months Follow Up Appt 6 months [facility] Work Phone: Start: 11-13-2011 End: 12-22-2011 Removal impacted cerumen instrumentation unilat Ear wax removal [facility] Work Phone: Start: 11-13-2011 End: 12-22-2011 Removal impacted cerumen instrumentation unilat Ear wax removal [employer] [facility] Work Phone: Start: 11-07-2011 End: 12-22-2011 *BMP *BMP [employer] [facility] Work Phone: Start: 11-07-2011 End: 11-07-2011 Follow Up Appt 3 months Follow Up Appt 3 months [employer] [facility] Work Phone: Start: 11-07-2011 End: 12-22-2011 Hemoglobin A1c/Hemoglobin.total mass fraction (Bld) *HgA1C [employer] Work Phone: Start: 11-07-2011 End: 12-22-2011 Basic metabolic 2000 panel - Serum or Plasma *BMP [employer] [facility] Work Phone: Start: 11-07-2011 End: 11-07-2011 Follow Up Appt 3 months Follow Up Appt 3 months [employer] [facility] Work Phone: Start: 11-07-2011 End: 12-22-2011 Hemoglobin A1c/Hemoglobin.total in Blood *HgA1C [employer] Work Phone: Start: 08-08-2011 End: 09-12-2011 *CMP Complete Metabolic Panel *CMP Complete Metabolic Panel [employer] Work Phone: Start: 08-08-2011 End: 08-08-2011 Follow Up Appt 3 months Follow Up Appt 3 months [employer] [facility] Work Phone: Start: 08-08-2011 End: 09-12-2011 Hemoglobin A1c/Hemoglobin.total mass fraction (Bld) *HgA1C [employer] [facility] Work Phone: Start: 08-08-2011 End: 08-08-2011 Injection therapeutic carpal tunnel Injection, Carpal Tunnel, therapeutic [employer] [facility] Work Phone: Start: 08-08-2011 End: 09-12-2011 Lipid panel [AGGREGATE] *Lipid Profile [employer] [facility] Work Phone: Start: 08-08-2011 End: 09-12-2011 Urine, microalbumin *Microalbumin, Creatine Ratio [facility] Work Phone: Start: 08-08-2011 End: 09-12-2011 *CMP Complete Metabolic Panel *CMP Complete Metabolic Panel [employer] Work Phone: Start: 08-08-2011 End: 08-08-2011 Follow Up Appt 3 months Follow Up Appt 3 months [employer] Work Phone: Start: 08-08-2011 End: 09-12-2011 Hemoglobin A1c/Hemoglobin.total in Blood *HgA1C [employer] Work Phone: Start: 08-08-2011 End: 08-08-2011 Injection therapeutic carpal tunnel Injection, Carpal Tunnel, therapeutic [employer] [facility] Work Phone: Start: 08-08-2011 End: 09-12-2011 Lipid 1996 panel - Serum or Plasma *Lipid Profile [employer] Work Phone: Start: 08-08-2011 End: 09-12-2011 Microalbumin [Mass/volume] in Urine *Microalbumin, Creatine Ratio [employer] Work Phone: Start: 06-06-2011 End: 06-06-2011 Follow Up Appt 6 months Follow Up Appt 6 months [employer] Work Phone: Start: 06-06-2011 End: 06-06-2011 Follow Up Appt 6 months Follow Up Appt 6 months [employer] Work Phone: Start: 04-25-2011 End: 07-29-2011 *BMP *BMP [employer] Work Phone: Start: 04-25-2011 End: 04-25-2011 Follow Up Appt 3 months Follow Up Appt 3 months [employer] Work Phone: Start: 04-25-2011 End: 07-29-2011 Hemoglobin A1c/Hemoglobin.total mass fraction (Bld) *HgA1C [employer] Work Phone: Start: 04-25-2011 End: 07-29-2011 Basic metabolic 2000 panel - Serum or Plasma *BMP [employer] Work Phone: Start: 04-25-2011 End: 04-25-2011 Follow Up Appt 3 months Follow Up Appt 3 months [employer] Phone: Start: 04-25-2011 End: 07-29-2011 Hemoglobin A1c/Hemoglobin.total in Blood *HgA1C [facility] Phone: Start: 01-24-2011 End: 04-25-2011 *CMP Complete Metabolic Panel *CMP Complete Metabolic Panel [facility] Phone: Start: 01-24-2011 End: 04-25-2011 Follow Up Appt 3 months Follow Up Appt 3 months [employer] Phone: Start: 01-24-2011 End: 04-25-2011 Hemoglobin A1c/Hemoglobin.total mass fraction (Bld) *HgA1C [facility] Phone: Start: 01-24-2011 End: 04-25-2011 Iiv3 vaccine split virus 0.5 ml dosage im use Flu vaccine > age 3 yr (with preservative) [employer] Work Phone: Start: 01-24-2011 End: 04-25-2011 Lipid panel [AGGREGATE] *Lipid Profile [employer] Work Phone: Start: 01-24-2011 End: 04-25-2011 *CMP Complete Metabolic Panel *CMP Complete Metabolic Panel [facility] Phone: Start: 01-24-2011 End: 04-25-2011 Follow Up Appt 3 months Follow Up Appt 3 months [employer] Work Phone: Start: 01-24-2011 End: 04-25-2011 Hemoglobin A1c/Hemoglobin.total in Blood *HgA1C [facility] Phone: Start: 01-24-2011 End: 04-25-2011 Iiv3 vaccine split virus 0.5 ml dosage im use Flu vaccine > age 3 yr (with preservative) [employer] Work Phone: Start: 01-24-2011 End: 04-25-2011 Lipid 1996 panel - Serum or Plasma *Lipid Profile [facility] Work Phone: Start: 09-20-2010 End: 12-23-2010 Basic metabolic panel calcium total *BMP [facility] Work Phone: Start: 09-20-2010 End: 09-20-2010 Follow Up Appt 3 months Follow Up Appt 3 months [facility] Work Phone: Start: 09-20-2010 End: 12-23-2010 Hemoglobin A1c/Hemoglobin.total mass fraction (Bld) *HgA1C [facility] Work Phone: Start: 09-20-2010 End: 12-23-2010 Basic metabolic panel calcium total *BMP [facility] Work Phone: Start: 09-20-2010 End: 09-20-2010 Follow Up Appt 3 months Follow Up Appt 3 months [facility] Work Phone: Start: 09-20-2010 End: 12-23-2010 Hemoglobin glycosylated a1c *HgA1C [facility] Work Phone: Start: 07-03-2010 End: 07-03-2010 Follow Up as scheduled Follow Up as scheduled [facility] Work Phone: Start: 07-03-2010 End: 07-03-2010 Follow Up as scheduled Follow Up as scheduled [facility] Work Phone: Start: 06-14-2010 End: 09-16-2010 Basic metabolic panel calcium total *BMP [facility] Work Phone: Start: 06-14-2010 End: 12-23-2010 Follow Up Appt 3 months Follow Up Appt 3 months [facility] Work Phone: Start: 06-14-2010 End: 09-16-2010 Hemoglobin A1c/Hemoglobin.total mass fraction (Bld) *HgA1C [facility] Work Phone: Start: 06-14-2010 End: 09-16-2010 Urine albumin quantitative *Microalbumin, Creatine Ratio [facility] Work Phone: Start: 06-14-2010 End: 09-16-2010 Basic metabolic panel calcium total *BMP [facility] Work Phone: Start: 06-14-2010 End: 12-23-2010 Follow Up Appt 3 months Follow Up Appt 3 months [facility] Work Phone: Start: 06-14-2010 End: 09-16-2010 Hemoglobin glycosylated a1c *HgA1C [facility] Work Phone: Start: 06-14-2010 End: 09-16-2010 Urine albumin quantitative *Microalbumin, Creatine Ratio [facility] Work Phone: Start: 03-15-2010 End: 06-17-2010 Basic metabolic panel calcium total *BMP [facility] Work Phone: Start: 03-15-2010 End: 03-15-2010 Follow Up Appt 3 months Follow Up Appt 3 months [facility] Work Phone: Start: 03-15-2010 End: 06-17-2010 Hemoglobin A1c/Hemoglobin.total mass fraction (Bld) *HgA1C [employer] [facility] Work Phone: Start: 03-15-2010 End: 06-17-2010 Basic metabolic panel calcium total *BMP [facility] Work Phone: Start: 03-15-2010 End: 03-15-2010 Follow Up Appt 3 months Follow Up Appt 3 months [employer] [facility] [employer] Phone: Start: 03-15-2010 End: 06-17-2010 Hemoglobin glycosylated a1c *HgA1C [facility] Work Phone: Start: 01-04-2010 End: 01-04-2010 Follow Up as scheduled Follow Up as scheduled [facility] Work Phone: Start: 01-04-2010 End: 01-04-2010 Follow Up as scheduled Follow Up as scheduled [facility] [employer] Phone: Start: 12-28-2009 End: 12-28-2009 Follow up Appt 1 week Follow up Appt 1 week [employer] Work Phone: Start: 12-28-2009 End: 12-28-2009 Iiv3 vaccine split virus 0.5 ml dosage im use Flu vaccine > age 3 yr (with preservative) [facility] Work Phone: Start: 12-28-2009 End: 12-28-2009 Follow up Appt 1 week Follow up Appt 1 week [facility] Work Phone: Start: 12-28-2009 End: 12-28-2009 Iiv3 vaccine split virus 0.5 ml dosage im use Flu vaccine > age 3 yr (with preservative) [facility] Work Phone: Start: 12-14-2009 End: 03-11-2010 Basic metabolic panel calcium total *BMP [facility] Work Phone: Start: 12-14-2009 End: 12-14-2009 Follow Up Appt 3 months Follow Up Appt 3 months [facility] Work Phone: Start: 12-14-2009 End: 03-11-2010 Hemoglobin A1c/Hemoglobin.total mass fraction (Bld) *HgA1C [facility] Work Phone: Start: 12-14-2009 End: 03-11-2010 Basic metabolic panel calcium total *BMP [facility] Work Phone: Start: 12-14-2009 End: 12-14-2009 Follow Up Appt 3 months Follow Up Appt 3 months [facility] Work Phone: Start: 12-14-2009 End: 03-11-2010 Hemoglobin glycosylated a1c *HgA1C [facility] Work Phone: Start: 11-01-2009 End: 11-19-2009 Basic metabolic panel calcium total *BMP [facility] Work Phone: Start: 11-01-2009 End: 11-19-2009 Hemoglobin A1c/Hemoglobin.total mass fraction (Bld) *HgA1C [facility] Work Phone: Start: 11-01-2009 End: 11-19-2009 Basic metabolic panel calcium total *BMP [facility] Work Phone: Start: 11-01-2009 End: 11-19-2009 Hemoglobin glycosylated a1c *HgA1C [facility] Work Phone: Start: 10-05-2009 End: 10-15-2009 Urology Referral Urology Referral Zac Reyes, [address], [address], [place], [address] [facility] Work Phone: Start: 10-05-2009 End: 10-15-2009 Patient encounter procedure Urology Referral Zac Reyes, [address], [address], [place], [address] [facility] Work Phone: Start: 08-10-2009 End: 08-10-2009 Follow Up Appt 3 months Follow Up Appt 3 months [facility] Work Phone: Start: 08-10-2009 End: 08-10-2009 Follow Up Appt 3 months Follow Up Appt 3 months [facility] Work Phone: Start: 06-01-2009 End: 08-10-2009 EMG EMG [facility] Work Phone: Start: 06-01-2009 End: 07-05-2009 Nerve Conduction Nerve Conduction [facility] Work Phone: Start: 06-01-2009 End: 08-10-2009 EMG EMG [facility] Work Phone: Start: 06-01-2009 End: 07-05-2009 Nerve Conduction Nerve Conduction [facility] Work Phone: Start: 05-11-2009 End: 08-10-2009 Basic metabolic panel calcium total *BMP [facility] Work Phone: Start: 05-11-2009 End: 05-16-2009 Follow Up Appt 3 months Follow Up Appt 3 months [facility] Work Phone: Start: 05-11-2009 End: 08-10-2009 Hemoglobin A1c/Hemoglobin.total mass fraction (Bld) *HgA1C [facility] Work Phone: Start: 05-11-2009 End: 08-10-2009 Basic metabolic panel calcium total *BMP [facility] Work Phone: Start: 05-11-2009 End: 05-16-2009 Follow Up Appt 3 months Follow Up Appt 3 months [facility] Work Phone: Start: 05-11-2009 End: 08-10-2009 Hemoglobin glycosylated a1c *HgA1C [facility] Work Phone: Start: 2008 Pneumococcal vaccination Pneumococcal Vaccine Age 65+ (1 of 2 - PCV13) [facility] Start: 1993 Administration of herpes zoster vaccine Zoster Vaccines (1 of 2) [facility] Start: 1961 Hepatitis C antibody, confirmatory test Hepatitis C Screening [facility] Start: 1959 COVID-19 Vaccine (1 of 2) COVID-19 Vaccine (1 of 2) [facility] Start: 1955 Adolescent depression screening assessment Depression Screening (PHQ9) [facility] Start: 1946 History and physical examination, annual for health maintenance Wellness Visit [facility] Start: 1943 Fall risk assessment Falls Risk Assessment [facility] Start: 1943 Tetanus vaccination Tetanus: Every 10yrs [facility] Patient Education [facility] Work Phone: Immunizations Immunization Date Immunization Notes Care Provider Sherron reese 01-08-2017 Seasonal trivalent influenza vaccine, adjuvanted, preservative free [facility] Work Phone: 01-08-2017 influenza virus vaccine, unspecified formulation; Translations: [Encounter for immunization] [facility] Work Phone: 01-08-2017 Seasonal trivalent influenza vaccine, adjuvanted, preservative free [facility] Work Phone: 02-06-2012 influenza, seasonal, injectable, preservative free Neda Galdamez [facility] Work Phone: 02-06-2012 influenza, seasonal, injectable, preservative free Prema Russ Work Phone: [facility] Work Phone: 01-24-2011 influenza, seasonal, injectable [facility] Work Phone: 01-24-2011 influenza, seasonal, injectable Prema Russ Work Phone: [facility] Work Phone: 12-28-2009 influenza, seasonal, injectable [facility] Work Phone: 12-28-2009 influenza, seasonal, injectable Prema Russ Work Phone: [employer] [facility] Work Phone: Payers Date Payer Category Payer Medicare [id number] 2020 Medicare [employer] MANAGED M [employer] MCR ADVANTAGE CHOICE PPO [id number] 2020-Present [id number] 1945 Unknown [id number] Social History Date Type Detail Facility Tobacco smoking status NHIS Unknown if ev er smoked [facility] Sex Assigned At Not on file [facility] Exposure to SARS-CoV-2 (event) Not sure [facility] Medical Equipment Procedure Code Equipment Code Equipment Origin al Text Equipment Identifier Dates TEST STRIP AND LANCET FREE STYLE TEST STRIP AND LANCET FREE STYLE [id number] Start: 04-25-2011 TEST STRIP AND LANCET TEST STRIP AND LANCET [id number] Start: 08-03-2012 Clinical Notes 07-25-2016 to 11-12-2020 Note Date & Type Note Facility 11-12-2020 Note HNO ID: [id number] Author: Daniela Wolf PA-C Service: ? Author Type: Physician Floor Manager Type: Progress Notes Filed: 11/12/2020 2:39 PM Note Text: CHIEF COMPLAINT: Patient presents with: Hospital Follow Up: EGD, GI bleed HPI Jovanny Pulliam is a 75 year old male here today for f/u EGD, UGI bleed. Seen at [facility] 10/26/2020 for UGI bleed, received 2 units of PRBCs. Inpatient EGD performed which demonstrated a large amount of blood in stomach, entire stomach not visualized. RUQ US was ordered to r/o cirrhosis which demonstrated fatty liver. Patient was then discharged. Admitted to [facility] 11/02/2020. Received EGD inpatient which showed LA grade A reflux esophagitis, esophageal stenosis, nodular gastritis, dieulafoy lesion of stomach. Epi was injected without success. Coagulation was utilized w/ two endoclip placements for hemostasis. Biopsies demonstrated gastritis, esophagitis. Discharged with Protonix 40 mg, carafate that he feels as though is working well for reflux. States PCP in [place] checked his Hgb last week and it was 8.2 and is continuing to monitor this for him biweekly. BMs are every other day, normal consistency, no blood/black coloring. States that when he was younger he used to drink a lot, last drink over 35 yrs. Ago. Overall feels much improved, is tolerating normal diet PO. Denies NSAIDs, dizziness, lightheadedness, fatigue. RUQ US 10/30/2020 IMPRESSION: 1. ?Visualized hepatic segment demonstrates increased echogenicity suggesting steatosis. ?Morphology is obscured by bowel gas. ?No lesion in the visualized portions. 2. ?No splenomegaly. Current Outpatient Medications Medication Sig - metFORMIN (GLUCOPHAGE) 1,000 mg tablet - UNIFINE PENTIPS 31 gauge x 16 USE DIRECTED DAILY WITH insulin pen - LANTUS SOLOSTAR U-100 INSULIN 100 unit/mL (3 mL) INJECT TEN UNITS SUBCUTANEOUSLY EVERY EVENING - sucralfate (CARAFATE) 1 gram tablet Take 1 tablet by mouth three times daily. - pantoprazole DR (PROTONIX) 40 mg tablet Take 1 tablet by mouth twice daily before meals (0600/1600). - aspirin, enteric coated (ECOTRIN LOW STRENGTH) 81 mg EC tablet Take 1 tablet by mouth once daily. - carvedilol (COREG) 12.5 mg tablet Take 12.5 mg by mouth twice daily with meals. - gabapentin (NEURONTIN) 600 mg tablet Take 600 mg by mouth twice daily. - simvastatin (ZOCOR) 40 mg tablet Take 40 mg by mouth daily at bedtime. - LISINOPRIL ORAL Take 40 mg by mouth once daily. (Patient not taking: Reported on 11/12/2020 ) No current facility-administered medications for this visit. ALLERGIES Allergen Reactions - Exenatide Vomiting Social History Tobacco Use - Smoking status: Former Smoker Types: Cigarettes Quit date: 1981 Years since quittin.6 - Smokeless tobacco: Never Used Substance Use Topics - Alcohol use: No - Drug use: No PAST MEDICAL HISTORY Diagnosis Date - Cancer (HCC) - Diabetes (HCC) - Hyperlipemia - Hypertension PAST SURGICAL HISTORY Procedure Laterality Date - EGD 11/02/2020 [place], GI bleed - EGD 10/29/2020 gastritis, varix? distal esophagus - HEART SURGERY HX triple bypass with vein stripping at left forearm and left leg No family history on file. REVIEW OF SYSTEMS Review of Systems All other systems reviewed and are negative. PHYSICAL EXAM BP 135/51 Pulse 60 Ht 6' 1 (1.85m) Wt 226 lb (102.5kg) BMI 29.82 kg/(m2). Physical Exam Constitutional: General: He is not in acute distress. Appearance: Normal appearance. He is normal weight. He is not ill-appearing, toxic-appearing or diaphoretic. HENT: Head: Normocephalic and atraumatic. Nose: Nose normal. Eyes: General: No scleral icterus. Right eye: No discharge. Left eye: No discharge. Extraocular Movements: Extraocular movements intact. Conjunctiva/sclera: Conjunctivae normal. Pupils: Pupils are equal, round, and reactive to light. Cardiovascular: Rate and Rhythm: Normal rate and regular rhythm. Pulses: Normal pulses. Heart sounds: Normal heart sounds. No murmur heard. No friction rub. No gallop. Pulmonary: Effort: No respiratory distress. Breath sounds: Normal breath sounds. No stridor. No wheezing, rhonchi or rales. Chest: Chest wall: No tenderness. Abdominal: General: Abdomen is flat. Bowel sounds are normal. There is no distension. Palpations: Abdomen is soft. There is no mass. Tenderness: There is no abdominal tenderness. There is no right CVA tenderness, left CVA tenderness, guarding or rebound. Hernia: No hernia is present. Musculoskeletal: General: Normal range of motion. Cervical back: Normal range of motion and neck supple. Skin: General: Skin is warm and dry. Neurological: General: No focal deficit present. Mental Status: He is alert and oriented to person, place, and time. Psychiatric: Mood and Affect: Mood normal. Behavior: Behavior normal. Assessment/Plan (K92.2) Upper GI (more content not included)... [facility] 11-03-2020 Note HNO ID: [id number] Author: Malissa Paniagua MD Service: Critical Care Author Type: Resident Type: Progress Notes Filed: 11/03/2020 3:49 PM Note Text: MICU PROGRESS NOTE WITH COORD CARE SERVICE DATE: 11/03/2020 Admission Date: 11/02/2020 Day #: 2 in the MICU. A 75 y/o, male pt, PMHx HTN, t 2 DM, CAD (s/p CABG). Presented due to hematemesis and hematochezia. Underwent 2 EGDs on October 26 and October 29, both haven't found a bleeding source but found evidence of esophagitis and a blood clot in the stomach. On day of current presentation, he initially presented to [facility] where his labs showed Hb of 7.1 and Lactate of 2.1. So, he received 2 units of pRBCs and IV fluid along with IV PPI, then he was transferred to [place]. ? ? MICU Course ? 11/02 Admitted to MICU in the adult education manager HDS Hb 8.5 EGD done and showed a bleeding artery in the stomach (Dieulafoy lesion) which was then coagulated and clipped Blood sugar is high in 400s ? 11/03 No overnight events HDS Hb went down to 7.1 then back to 8.0 No abdominal pain, nausea, vomiting, hematemesis nor melena Tolerated clear liquid diet and then carb-control diet as well ? Assessment and Plan ? Upper GI bleeding C/B acute anemia Hyperglycemia EGD done and showed a bleeding artery in the stomach (Dieulafoy lesion) which was then coagulated and clipped Last Hb 8.0 Blood sugar are still high in 400s although on SS2 and Lantus 10 units ABT ? Plan: Monitor Hb Q12H Maintain 2 large-bore cannulas Watch for any signs of GI bleeding Add 5 units of Lispro with meals on top of SS2 Transfer to a [facility]? ? Plan Discussed with Dr Nicole and RN OBJECTIVE: BP (!) 129/44 Pulse 68 Temp 36.7 ?C (98.1 ?F) (Oral) Resp 15 Ht 185.4 cm (6' 1 ) Wt 97.7 kg (215 lb 6.2 oz) SpO2 97% BMI 28.42 kg/m? NET FLUID BALANCE Intake/Output Summary (Last 24 hours) at 11/03/2020 1544 Last data filed at 11/03/2020 1000 Gross per 24 hour Intake 800 ml Output 600 ml Net 200 ml MEDICATIONS Current Facility-Administered Medications Medication Dose Route Frequency - simvastatin 40 mg tab(s) (ZOCOR) 40 mg ORAL AT BEDTIME - gabapentin 600 mg cap(s) (NEURONTIN) 600 mg ORAL DAILY - NaCl 0.9% iv flush bag 20 mL INTRAVENOUS PRN - sodium chloride 0.9 % (flush) 3-5 mL (BD POSIFLUSH) 3-5 mL INTRAVENOUS q 12 H - pantoprazole 40 mg injection (PROTONIX) 40 mg INTRAVENOUS BID AC (0600/1600) Followed by - [START ON 11/05/2020] pantoprazole 40 mg injection (PROTONIX) 40 mg INTRAVENOUS DAILY (6 AM) - dextrose 40 % 15 g 15 g ORAL PRN Or - glucagon 1 mg injection 1 mg INTRAMUSCULAR PRN Or - dextrose 50% in water 25 mL syringe 12.5 g INTRAVENOUS PRN - ondansetron (PF) 4 mg injection (ZOFRAN) 4 mg INTRAVENOUS q 6 H PRN - insulin lispro injection (rapid acting) (HumaLOG) SUBCUTANEOUS q 6 H - insulin glargine 10 Units pen (long acting) (LANTUS SOLOSTAR, BASAGLAR KWIKPEN) 10 Units SUBCUTANEOUS AT BEDTIME - insulin lispro 5 Units injection (rapid acting) (HumaLOG) 5 Units SUBCUTANEOUS w MEALS INFUSIONS Lines, Drains, and Airways Line Peripheral 11/02/20 0300 Assessment Short Left Antecubital 18 Gauge 1 day Peripheral 11/02/20 0300 Short Right Antecubital 20 Gauge 1 day PHYSICAL EXAM HEENT: Oral Mucosa: Moist mucous membranes Feeding Tube: No Eyes: PERRLA Neck: no jugular venous distention Cardiovascular: normal sinus rhythm Edema- No edema his legs Respiratory: Clear to auscultation Not on Ventilator Abdomen: Soft, non-tender, non-distended. Bowel sounds normal. No masses, organomegaly Extremities: Peripheral Pulses-UE 3+= normal LE 3+= normal Cap Refill: CAP REFILL: < or = 2 seconds Skin: Abnormalities- No Breakdown- No Neurologic: Oriented to person, place, and time. No focal motor, sensory deficits., Gait normal. Sensation grossly intact. DATA: Diagnostic tests reviewed for today's visit: Most recent labs and imaging results. LABS: CBC, Coags, BMP, Mg, Phos Recent Labs 11/03/20 1030 11/03/20 0538 11/02/20 1912 11/02/20 0300 11/02/20 0300 WBC 8.79 7.93 8.85 < > 12.97* HB 8.0* 7.1* 7.6* < > 8.5* HCT 24.3* 22.2* 22.7* < > 25.4* PLT 314 284 257 < > 334 INR -- -- -- -- 1.0 APTT -- -- -- -- 24.2 NA -- -- 138 -- 138 K -- -- 4.4 -- 4.7 CHLOR -- -- 102 -- 100 CO2 -- -- 29 -- 25 BUN -- -- 19 -- 29* CREAT -- -- 0.75 -- 0.80 GLUC -- -- 332* -- 397* CA -- -- 8.7 -- 8.8 < > = values in this interval not displayed. ICU Checklist Last Documented/Reviewed time: 11/02/2020 10:40 AM -------- A= Assess, Prevent, Manage Pain Pain adequately controlled?: Yes C= Choice of Sedation and Analgesia RASS at Goal?: Yes B= Both Spontaneous Awakening and Breathing Trials Ventilator: None D= Delirium: Assess, Prevent and Manage ICU Delirium Status: CAM Negative - no (more content not included)... [facility] 11-03-2020 Note HNO ID: [id number] Author: Maria D Nicole MD Service: Critical Care Author Type: Physician Type: Progress Notes Filed: 11/03/2020 1:52 PM Note Text: ---- [facility] STAFF PHYSICIAN NOTE OF PERSONAL INVOLVEMENT IN CARE I have reviewed the progress note obtained and documented by the resident and I personally participated in the pineda components. I have discussed the case and management of the patient's care and agree with documentation.? Acute blood loss anemia Upper GI bleed, Dieulafoy lesion stomach with spurting bleeding s/p coagulation and clips Grade A reflux esophagitis. Benign-appearing esophageal stenosis. Chronic nodular gastritis. Biopsied. Hyperglycemia Continue PPI BID, monitor Hb. Continue insulin, monitor glucose levels. GI plans to re-scope. Transfer to medical floor. Maria D Nicole MD Pulmonary, Critical Care and Sleep Medicine Respiratory [place], [facility] ----- [facility] 11-02-2020 Note HNO ID: [id number] Author: Malissa Paniagua MD Service: Critical Care Author Type: Resident Type: Progress Notes Filed: 11/02/2020 7:59 PM Note Text: MICU PROGRESS NOTE WITH COORD CARE SERVICE DATE: 11/02/2020 Admission Date: 11/02/2020 Day #: 1 in the MICU. A 75 y/o, male pt, PMHx HTN, t 2 DM, CAD (s/p CABG). Presented due to hematemesis and hematochezia. Underwent 2 EGDs on October 26 and October 29, both haven't found a bleeding source but found evidence of esophagitis and a blood clot in the stomach. On day of current presentation, he initially presented to [facility] where his labs showed Hb of 7.1 and Lactate of 2.1. So, he received 2 units of pRBCs and IV fluid along with IV PPI, then he was transferred to [place]. MICU Course 11/02 Admitted to MICU in the adult education manager HDS Hb 8.5 EGD done and showed a bleeding artery in the stomach (Dieulafoy lesion) which was then coagulated and clipped Blood sugar is high in 400s Assessment and Plan Upper GI bleeding C/B acute anemia Hyperglycemia EGD done and showed a bleeding artery in the stomach (Dieulafoy lesion) which was then coagulated and clipped Last Hb 8.5 Blood sugar are high in 400s although on SS2 Plan: Monitor Hb Maintain 2 large-bore cannulas Watch for any signs of GI bleeding Add Lantus 10 units every day Check BMP and VBG to r/o DKA Probable transfer to a [facility] tomorrow Plan Discussed with Dr Beatty and RN OBJECTIVE: BP 155/60 Pulse 65 Temp 36.8 ?C (98.2 ?F) (Oral) Resp 27 Ht 185.4 cm (6' 1 ) Wt 97.7 kg (215 lb 6.2 oz) SpO2 97% BMI 28.42 kg/m? NET FLUID BALANCE Intake/Output Summary (Last 24 hours) at 11/02/20201945 Last data filed at 11/02/2020 1600 Gross per 24 hour Intake 0 ml Output 0 ml Net 0 ml MEDICATIONS Current Facility-Administered Medications Medication Dose Route Frequency - simvastatin 40 mg tab(s) (ZOCOR) 40 mg ORAL AT BEDTIME - gabapentin 600 mg cap(s) (NEURONTIN) 600 mg ORAL DAILY - NaCl 0.9% iv flush bag 20 mL INTRAVENOUS PRN - sodium chloride 0.9 % (flush) 3-5 mL (BD POSIFLUSH) 3-5 mL INTRAVENOUS q 12 H - pantoprazole 40 mg injection (PROTONIX) 40 mg INTRAVENOUS BID AC (00/1600) Followed by - [START ON 11/05/2020] pantoprazole 40 mg injection (PROTONIX) 40 mg INTRAVENOUS DAILY (6 AM) - dextrose 40 % 15 g 15 g ORAL PRN Or - glucagon 1 mg injection 1 mg INTRAMUSCULAR PRN Or - dextrose 50% in water 25 mL syringe 12.5 g INTRAVENOUS PRN - ondansetron (PF) 4 mg injection (ZOFRAN) 4 mg INTRAVENOUS q 6 H PRN - insulin lispro injection (rapid acting) (HumaLOG) SUBCUTANEOUS q 6 H - fentaNYL 50 mcg/mL 25-100 mcg injection (SUBLIMAZE) 25-100 mcg INTRAVENOUS As Directed - midazolam (PF) 1-5 mg injection (VERSED) 1-5 mg INTRAVENOUS As Directed - NaCl 0.9% 250-1,000 mL iv infusion 250-1,000 mL INTRAVENOUS As Directed - EPINEPHrine 0.3 mg injection 0.3 mg INTRAVENOUS ONCE - insulin glargine 10 Units pen (long acting) (LANTUS SOLOSTAR, BASAGLAR KWIKPEN) 10 Units SUBCUTANEOUS AT BEDTIME INFUSIONS Lines, Drains, and Airways Line Peripheral 11/02/20 0300 Assessment Short Left Antecubital 18 Gauge <1 day Peripheral 11/02/20 0300 Short Right Antecubital 20 Gauge <1 day PHYSICAL EXAM HEENT: Oral Mucosa: Moist mucous membranes Feeding Tube: No Eyes: PERRLA Neck: no jugular venous distention Cardiovascular: normal sinus rhythm Edema- No edema his legs Respiratory: Clear to auscultation Not on Ventilator Abdomen: Soft, non-tender, non-distended. Bowel sounds normal. No masses, organomegaly Extremities: Peripheral Pulses-UE 3+= normal LE 3+= normal Cap Refill: CAP REFILL: < or = 2 seconds Skin: Abnormalities- No Breakdown- No Neurologic: Oriented to person, place, and time. No focal motor, sensory deficits. DATA: Diagnostic tests reviewed for today's visit: Most recent labs and imaging results. LABS: CBC, Coags, BMP, Mg, Phos Recent Labs 11/02/20 19111/02/20 0300 WBC 8.85 12.97* HB 7.6* 8.5* HCT 22.7* 25.4* PLT 257 334 INR -- 1.0 APTT -- 24.2 NA 138 138 K 4.4 4.7 CHLOR 102 100 CO2 29 25 BUN 19 29* CREAT 0.75 0.80 GLUC 332* 397* CA 8.7 8.8 ICU Checklist Last Documented/Reviewed time: 11/02/2020 10:40 AM -------- A= Assess, Prevent, Manage Pain Pain adequately controlled?: Yes C= Choice of Sedation and Analgesia RASS at Goal?: Yes B= Both Spontaneous Awakening and Breathing Trials Ventilator: None D= Delirium: Assess, Prevent and Manage ICU Delirium Status: CAM Negative - no action required Sleep adequate?: Yes Restraint Status: None E= Early Mobility/Excercise ICU Mobility: ICU Mobility-Pt Has Been Out of Bed: Yes F= Family Engagement and Empowerment ICU plan of care visit at bedside in last 24 hours: Yes, Provider, RN, Patient/ designee ICU Disposition: ICU Di (more content not included)... [facility] 11-02-2020 Note HNO ID: [id number] Author: Nusrat Beatty MD Service: Critical Care Author Type: Physician Type: Progress Notes Filed: 11/02/2020 10:33 AM Note Text: [facility] STAFF PHYSICIAN NOTE OF PERSONAL INVOLVEMENT IN CARE I have reviewed the progress note obtained and documented by the resident and I personally participated in the pineda components. I have discussed the case and management of the patient's care. The following comments revise or confirm relevant pineda components of the note. IMPRESSION: Please refer to Dr. Fallon note for detailed note Remains hemodynamically stable Last hemoglobin of 8.5( 0300) Problem list 1. Acute blood loss anemia- upper GI bleeding- Prior EGD (10/29 with isolated vein /varix in the distal esophagus). Serial h/H monitoring, EGD today. Continue Protonix IV bid. Maintain large bore IV. 2. CAD-s/p CABG- not on plavix or anticoagulation . 3. Hyperglycemia- insulin therapy as per the ICU protocol. DVT px- SCD. This patient has a high probability of sudden, clinically significant deterioration, which requires the highest level of physician preparedness to intervene urgently. I managed/supervised life or organ supporting interventions that required frequent physician assessment. I devoted my full attention to the direct care of this patient for the amount of time indicated below. Time I spent with family or surrogate(s) is included only if the patient was incapable of providing the necessary information or participating in medical decision making. Time devoted to teaching is not included. Critical Care Documentation: The patient has the following organ/system impairment(s): Acute blood loss Time spent providing critical care services: 35 minutes excluding procedures. SIGNATURE: Nusrat Beatty MD [facility]:[phone] [facility] 10-30-2020 Note HNO ID: [id number] Author: Lg Dalal MD Service: Hospital Medicine Author Type: Physician Type: Progress Notes Filed: 10/30/2020 1:20 PM Note Text: DEPARTMENT OF HOSPITAL MEDICINE PROGRESS NOTE Hospital Medicine/Primary Attending: Lg Dalal MD NIGHT AND WEEKEND COVERAGE: [place] COVERAGE: After 7pm, please call cross cover pager #[phone] Subjective INTERVAL HPI: Pt seen and examined. MEDICATIONS: Reviewed Objective PHYSICAL EXAM: BP 122/49 Pulse 71 Temp (Src) 98.6 (Oral) Resp 18 Ht 6' 2 (1.88m) Wt 222 lb 10.6 oz (101.0kg) SpO2 96% BMI 28.58 kg/(m2). O2 Therapy: Room Air Physical Exam Performed General appearance: No apparent distress, appears stated age and cooperative. Neck: Supple. No lesions, scars or masses. Trachea midline. Respiratory: Normal respiratory effort. Clear to auscultation, bilaterally without Rales/Wheezes/Rhonchi. Cardiovascular: Regular rate and rhythm with normal S1/S2 without murmurs, rubs or gallops. Abdomen: Soft, non-tender, non-distended with normal bowel sounds. Musculoskeletal: No clubbing, cyanosis or edema bilaterally. Neurologic: awake, alert and following commands DATA: Diagnostic tests reviewed for today's visit: Most recent labs and imaging results. CBC, Coags, BMP, Mg, Phos Recent Labs 10/30/20 1225 10/30/20 0504 10/29/20 2249 10/29/20 1131 10/29/20 0524 WBC -- 6.95 -- -- 7.71 HB 8.5* 8.1* 8.2* < > 8.0* HCT -- 24.1* -- -- 22.9* PLT -- 212 -- -- 183 NA -- 137 -- -- -- K -- 3.9 -- -- -- CHLOR -- 102 -- -- -- CO2 -- 28 -- -- -- BUN -- 8* -- -- -- CREAT -- 0.78 -- -- -- GLUC -- 209* -- -- -- CA -- 8.8 -- -- -- < > = values in this interval not displayed. Current Facility-Administered Medications Medication Dose Route Frequency - dextrose 40 % 15 g 15 g ORAL PRN Or - glucagon 1 mg injection 1 mg INTRAMUSCULAR PRN Or - dextrose 50% in water 25 mL syringe 12.5 g INTRAVENOUS PRN - lactated ringers iv infusion 50 mL/hr INTRAVENOUS CONTINUOUS - gabapentin 600 mg cap(s) (NEURONTIN) 600 mg ORAL BID - insulin regular human injection (short acting) (NovoLIN R,HumuLIN R) SUBCUTANEOUS w MEALS AND HS - pantoprazole DR 40 mg tab(s) (PROTONIX) 40 mg ORAL DAILY (6 AM) Assessment/Plan Active Problems: 75-year old male with past medical history?CAD s/p CABG (2007)?home aspirin, DM II, essential hypertension, NSTEMI (05/12/19)?admitted for gastrointestinal bleed. ? # Upper GI bleed -?Potential?gastric ulcer from home aspirin - HANDH q6H - PPI 40mg IV BID -?Reported to have?received 2u PRBC in?[place] - s/p EGD - US liver pending ? # Acute blood loss anemia -?Hemoglobin q6hrs ? # Diabetes mellitus type 2 with hyperglycemia - Basal-bolus insulin - BG q6H ? # History of?Coronary artery disease: ? # Hypertension -Patient remained hypotensive during hospital stay without home medications -Continue to hold home dose antihypertensives -May even discharge home without antihypertensives Medication and Non-Pharmacologic VTE Prophylaxis/Anticoagulants 10/27/2014 vte pharmacologic prophylaxis contraindicated (az,oh) 10/27/2014 pneumatic compression stockings (az,oh) 10/27/2014 activity - mobilize patient (az,co) VTE Prophylaxis: VTE prophylaxis appropriate Disposition: Home Plan of care discussed with: Provider, RN, Patient SIGNATURE: Lg Dalal MD PATIENT NAME: Jovanny Pulliam Disclaimer: Portions of this note may have been generated using [employer] voice recognition software. Reasonable efforts were made to correct any dictation errors that resulted due to the programming of this software but some may still be present. Portions of this note including HPI, ROS, impression/plan, and examination may have been copied forward from 10/29/2020 to October 30, 2020 as to provide important historical information essential in contributing to medical decision making. Documentation has been reviewed and edited as necessary to support clinical decision making for today's visit and to reflect my own independent evaluation of this patient. The time of this note does not reflect the time I saw the patient but the time that this note was written. [facility] 10-29-2020 Note HNO ID: [id number] Author: Vanessa Ramon APRN.VAMP MAKER Service: Gastroenterology Author Type: Nurse Specialist Type: Plan of Care Filed: 10/29/2020 3:08 PM Note Text: Asked by nursing to talk with family regarding EGD results Discussed gastritis and isolated vein vs varix with no sign of bleeding. GI plan includes: Monitor Hgb/Hct. Will defer PRBC transfusion to primary team as needed. Diet as tolerated. Continue Protonix 40 mg daily. Follow results of surgical pathology. Can be done as outpatient. US abdomen to evaluate for liver cirrhosis. LFTs already drawn and normal. If US abdomen shows cirrhosis, then further serology workup can be done inpatient/outpatient to determine etiology. No GI follow up needed if no cirrhosis and no further evidence of GI bleeding Patient should follow up with GI (here or in [place]) if liver cirrhosis is seen on US abdomen Patient should follow up with GI (here or in [place]) for recurrent signs of GI bleeding. Patient and family verbalized understanding of EGD findings and current GI plan. Should be able to discharge in next 1-2 days if Hgb remains stable with no further GI bleeding Vanessa Ramon APRN.VAMP MAKER Inpatient Gastroenterology 10/29/2020 3:07 PM [facility] 10-29-2020 Note HNO ID: [id number] Author: Rafiq Ahn MD Service: Hospital Medicine Author Type: Physician Type: Progress Notes Filed: 10/29/2020 9:02 AM Note Text: Hospital Progress Note PCP: Faith Jay MD, MD Date of Admission: 10/26/2020 Days in the hospital: 2 Hospital Course: Patient is a 75 year old male with pmh significant for CAD s/p CABG (2007), DM II, essential hypertension, NSTEMI (05/12/19), who presented to outside hospital for complaints of bloody stools and hematochezia x5 days.?Of note he takes 325mg Aspirin daily for his cardiac history, but no other blood thinners. In outside hospital his labs were Hg 10, PT 13.6, INR 1.1, APTT 28. Hepatic function panel was unimpressive. He was was given IV fluids and IV Protonix. In outside ED, his BP dropped to 90s and he may have been infused with 2 units of PRBC. EGD was performed, reported a large amount of blood in the stomach, with a particularly large clot precluding vision of half the stomach. There was additionally a large amount of dark blood in the esophagus and duodenum with no clear source identified. Patient was transferred to [facility] ICU for GI services not available at [place]. GI consulted and deferred EGD onto the morning of 10/29. Patient was maintained on IV Protonix and his hemoglobin remained stable at 8. Subjective Patient seen and examined at bedside. Patient states that he feels better. Able to walk to bathroom without any dizziness. Patient denies any fevers, chills, chest pain, shortness of breath, nausea, vomiting. Medications: Reviewed Exam: BP (!) 105/40 Pulse 63 Temp 36.6 ?C (97.9 ?F) (Oral) Resp 18 Ht 188 cm (6' 2 ) Wt 104 kg (229 lb 4.5 oz) SpO2 96% BMI 29.44 kg/m? General appearance: No apparent distress, appears stated age and cooperative. HEENT: Conjunctivae/corneas clear. Pupils equal and round. No injections noted. Neck: Supple. No lesions, scars or masses. Trachea midline. Respiratory: Normal respiratory effort. Clear to auscultation, bilaterally without Rales/Wheezes/Rhonchi. Cardiovascular: Regular rate and rhythm with normal S1/S2 without murmurs, rubs or gallops. Abdomen: Soft, non-tender, non-distended with normal bowel sounds. Musculoskeletal: No clubbing, cyanosis or edema bilaterally. Brisk capillary refill. 2+ lower extremity pulses (dorsalis pedis). Skin: No rashes Neurologic: awake, alert and following commands Labs: Recent Labs 10/29/20 0510/27/20 0510/27/20 0104 WBC 7.71 19.61* 20.50* HCT 22.9* 30.0* 31.9* PLT 183 201 173 Recent Labs 10/27/2052510/27/20 010 NA 140 140 K 4.6 4.8 CO2 24 21* BUN 41* 45* Recent Labs 10/27/20 0104 AST 7* ALT 7* ALKPHOS 50 Recent Labs 10/27/20 1151 INR 1.1 Invalid input(s): CKTOTAL, TROPONINI Assessment/Plan: 75-year old male with past medical history CAD s/p CABG (2007) home aspirin, DM II, essential hypertension, NSTEMI (05/12/19) admitted for gastrointestinal bleed. ? # Upper GI bleed - Potential gastric ulcer from home aspirin - HANDH q6H - PPI 40mg IV BID until after EGD today - Reported to have received 2u PRBC in [place] - GI on board, appreciate recs; started erythromycin and will plan for scope Thursday [10/29] - Lactated ringer infusion 50mL/hour ? # Acute blood loss anemia - Hemoglobin q6hrs ? # Diabetes mellitus type 2 with hyperglycemia - Basal-bolus insulin - BG q6H - NPO after midnight ? History of Coronary artery disease: -EKG to assess QTc interval ? Leukocytosis - CBC to assess white blood cell count tomorrow Hypertension -Patient remained hypotensive during hospital stay without home medications -Continue to hold home dose antihypertensives -May even discharge home without antihypertensives ? Medication and Non-Pharmacologic VTE Prophylaxis/Anticoagulants 10/27/2014 vte pharmacologic prophylaxis contraindicated (az,oh) 10/27/2014 pneumatic compression stockings (az,co) 10/27/20 0015 activity - mobilize patient ([place], [place]) VTE Prophylaxis: Contraindicated in setting of GI bleed Disposition: Possible discharge on the morning of 10/30 depending upon EGD findings. Discussed with patient's daughter and girlfriend who are present bedside. Dr. Rafiq Ahn MD FACP 10/29/2020 NOTE: This report was transcribed using voice recognition software. Every effort was made to ensure accuracy; however, inadvertent computerized regulator tester errors may be present. [facility] 10-28-2020 Note HNO ID: [id number] Author: Grady Eastman MD Service: Pulmonary Disease Author Type: Physician Type: Progress Notes Filed: 10/28/2020 11:51 AM Note Text: Seen and examined. Link to resident note See Dr Hess admit note BP 107/51 Pulse 72 Temp 36.6 ?C (97.88 ?F) Resp 19 Ht 188 cm (6' 2 ) Wt 104.2 kg (229 lb 11.5 oz) SpO2 95% BMI 29.49 kg/m? Up in chair No gross visualized blood No cp/sob;room air Spoke personally to GI yest Hemo stable No active bleed UGIb, Hb drifted to 8.0 equilibration Cabg; no angina Plan: PPI iv bid IVF minimal; clear liq ; egd in am rescope HERE if more active, no hx DU for IRAD Check coags, normal Dcd morales emycin noted to assist transit; check ecg for QTC with hx cabg Possible transfer if next hb stable CCT 15 mins 11:50 AM [facility] 10-28-2020 Note HNO ID: [id number] Author: Niall Smith DO Service: Hospital Medicine Author Type: Resident Type: Progress Notes Filed: 10/28/2020 11:55 AM Note Text: -- Attestation signed by Grady Eastman MD at 10/28/2020 3:24 PM See and Link to Dr Grady Eastman progress note/attestation done today. Pt seen and examined and extensive review done with resident listed on this note. -- CRITICAL CARE PROGRESS NOTE SUBJECTIVE HPI and brief hospital course: Patient is a 75 year old male with pmh significant for CAD s/p CABG (2007), DM II, essential hypertension, NSTEMI (05/12/19), who presented to outside hospital for complaints of bloody stools and hematochezia x5 days. Of note he takes 325mg Aspirin daily for his cardiac history, but no other blood thinners. In outside hospital his labs were Hg 10, PT 13.6, INR 1.1, APTT 28. Hepatic function panel was unimpressive. He was was given IV fluids and IV Protonix. In ED, his BP dropped to 90s and he was was infused with 2 units of PRBC. EGD was performed with results showing a large amount of blood in the stomach, with a particularly large clot precluding vision of half the stomach. There was additionally a large amount of dark blood in the esophagus and duodenum with no clear source identified. Patient was transferred to [facility] ICU for GI services not available at [place].? Interval Events: Glucose 205 Hb 8.0 Nursing reported soft blood pressures overnight that went away with patient being awake. Denied recent bowel movement, chest pain, extremity edema, shortness of breath, abdominal pain, hemoptysis, dizziness, vertigo Reported flatus, eating clear liquids Consultants: - GI, plan repeat EGD 10/29, continue PPI BID OBJECTIVE Vital signs: 10/28/20 0600 10/28/20 0700 10/28/20 0800 10/28/20 0900 BP: 116/59 (!) 94/44 (!) 104/46 107/51 Pulse: 62 64 72 72 Resp: 22 26 20 19 Temp: 36.8 ?C (98.24 ?F) 36.8 ?C (98.24 ?F) 36.7 ?C (98.06 ?F) 36.6 ?C (97.88 ?F) TempSrc: SpO2: 97% 92% 98% 95% Weight: Height: Physical Exam Constitutional: General: Patient alert and not in acute distress. HENT: Head: Normocephalic and atraumatic. Mouth: Mucous membranes are moist. Cardiovascular: Rate and Rhythm: Normal rate and regular rhythm. Heart sounds: Normal heart sounds. Pulmonary: Effort: No respiratory distress. Breath sounds: Normal breath sounds. Abdominal: General: There is no distension. Palpations: Abdomen is soft. Tenderness: There is no abdominal tenderness. Musculoskeletal: General: No swelling. Skin: General: Skin is warm and dry. Neurological: Mental Status: He is alert and oriented to person, place, and time. Labs: Labs: CBC:Recent Labs 10/28/20 0555 10/27/20 2342 10/27/20 1728 10/27/20 1151 10/27/20 0526 10/27/20 0104 WBC -- -- -- -- 19.61* 20.50* HB 8.0* 8.0* 8.7* 9.9* 10.2* 10.7* HCT -- -- -- -- 30.0* 31.9* PLT -- -- -- -- 201 173 MCV -- -- -- -- 89.0 90.1 RDWCV -- -- -- -- 14.1 14.0 NEUTP -- -- -- -- -- 88.9 ABSNEUT -- -- -- -- -- 18.21* LYMPHP -- -- -- -- -- 6.0 MONOP -- -- -- -- -- 4.6 COAG: Recent Labs 10/27/20 1151 APTT 26.3 INR 1.1 BMP: Recent Labs 10/27/20 0526 10/27/20 0104 GLUC 424* 426* NA 140 140 K 4.6 4.8 CHLOR 104 105 CO2 24 21* ANION 12 14 BUN 41* 45* CREAT 0.91 0.90 CHEM: Recent Labs 10/27/20 0526 10/27/20 0104 ALB -- 3.2* TPROT -- 5.5* CA 9.1 8.6 HEPATIC: Recent Labs 10/27/20 0104 ALKPHOS 50 ALT 7* AST 7* TBILI 1.0 URINALYSIS:No results for input(s): PH, SPGR, UGLUC, UBILI, UKET, UHB, UPROT, UROBIL, UWBC, SSA in the last 168 hours. Invalid input(s): NITR CARDIAC: No results for input(s): CKTEST, CKMB, CKMBP in the last 168 hours.TROPONIN@:8,No results found for: BNP:8)@ Intake/Output Summary (Last 24 hours) at 10/28/2020 1149 Last data filed at 10/28/2020 0900 Gross per 24 hour Intake 2737 ml Output 1575 ml Net 1162 ml Serum creatinine: 0.91 mg/dL 10/27/20 0526 Estimated creatinine clearance: 87.5 mL/min Medications: IV infusions: lactated Ringers Scheduled: sodium chloride 0.9 % (flush), 3-5 mL, q 12 H pantoprazole, 40 mg, BID AC (0600/1600) insulin regular human, , q 6 H PRN: potassium chloride ER, 20-40 mEq, PRN Or potassium chloride, 20 mEq, PRN magnesium sulfate in sterile water, 2 g, PRN sodium phosphate/glycerophosphate, 45 mmol, PRN calcium gluconate iv piggyback in NaCl 0.9% 250 mL, 4 g, PRN NaCl 0.9%, 20 mL, PRN dextrose, 15 g, PRN Or glucagon, 1 mg, PRN Or dextrose 50% in water, 12.5 g, PRN Assessment/Plan 75-year old male with past medical history CAD s/p CABG (2007) home aspirin, DM II, essential hypertension, NSTEMI (05/12/19) admitted for gastrointestinal bleed. # Upper GI bleed - Pot (more content not included)... [facility] 10-27-2020 Note HNO ID: [id number] Author: Grady Eastman MD Service: Pulmonary Disease Author Type: Physician Type: Progress Notes Filed: 10/27/2020 11:19 AM Note Text: Seen and examined. Link to resident note See Dr Hess note this am BP 145/78 Pulse 87 Temp (!) 34.7 ?C (94.46 ?F) (Axillary) Resp 19 Ht 188 cm (6' 2 ) Wt 93.3 kg (205 lb 11 oz) SpO2 95% BMI 26.41 kg/m? No cp/sob;room air Spoke personally to GI Hemo stable No active bleed UGIb Cabg Plan: PPI IVF added rescope HERE if more active, no hx DU for IRAD Check coags Tyree morales 11:19 AM [facility] 10-27-2020 Note HNO ID: [id number] Author: Yohana Kim DO Service: Critical Care Author Type: Resident Type: Progress Notes Filed: 10/27/2020 11:29 AM Note Text: -- Attestation signed by Grady Eastman MD at 10/27/2020 1:50 PM See my note -- CRITICAL CARE PROGRESS NOTE SUBJECTIVE HPI and brief hospital course: Patient is a 75 year old male with pmh significant for CAD s/p CABG (2007), DM II, essential hypertension, NSTEMI (05/12/19), who presented to outside hospital for complaints of bloody stools and hematochezia x5 days. Patient reports that he has also been experiencing progressive weakness, fatigue, and decreased appetite. He denies alcohol use having reported that he has not had a drink in 35 years, however when he was drinking he did so heavily. He is currently denying any abdominal/epigastric pain, has not had a bowel movement since early the morning of presentation, and has not vomited since the night prior. He has no history of gastric ulcers. Of note he takes 325mg Aspirin daily for his cardiac history, but no other blood thinners. In outside hospital his labs were Hg 10, PT 13.6, INR 1.1, APTT 28. Hepatic function panel was unimpressive. He was was given IV fluids and IV Protonix. In ED, his BP dropped to 90s and he was was infused with 2 units of PRBC. EGD was performed with results showing a large amount of blood in the stomach, with a particularly large clot precluding vision of half the stomach. There was additionally a large amount of dark blood in the esophagus and duodenum with no clear source identified. Patient was transferred to [facility] ICU for GI services not available at [place]. ? At arrival to [facility] MICU pt was stable with a BP 137/63, HR 95, sating 95% on RA. Labs included Hepatic function panel which was unimpressive, BG 426, BUN 45. Patient was leukocytotic with a WBC 20.50, Hgb 10.7. Interval Events: [10/27] Patient doing well this AM on exam. He denies any BMs or emesis since arrival from [place]. Hgb remains stable at 10.2. GI saw him this morning, and endoscopy is being deferred today due to suspected heavy clot burden in the GI tract, which would make visualizing a source of bleed difficult. Will plan for scope on Thursday. Consultants: - GI OBJECTIVE Vital Signs: BP 124/46 Pulse 72 Temp 97.16 Resp 33 Ht 6' 2 (1.88m) Wt 205 lb 11 oz (93.3kg) SpO2 93% BMI 26.40 kg/(m2). O2 Therapy: Room Air, Liters: 3 Patient Vitals for the past 24 hrs: Pulse BP 10/27/20 0600 72 (!) 124/46 10/27/20 0400 70 ? 10/27/20 0300 79 119/54 10/27/20 0200 91 114/65 10/27/20 0151 90 115/56 10/27/20 0100 95 120/67 10/27/20 0000 102 147/75 10/26/20 2325 82 ? Physical Exam Constitutional: General: He is not in acute distress. HENT: Head: Normocephalic and atraumatic. Mouth/Throat: Mouth: Mucous membranes are moist. Cardiovascular: Rate and Rhythm: Normal rate and regular rhythm. Heart sounds: Normal heart sounds. Pulmonary: Effort: No respiratory distress. Breath sounds: Normal breath sounds. Abdominal: General: There is no distension. Palpations: Abdomen is soft. Tenderness: There is no abdominal tenderness. Musculoskeletal: General: No swelling. Skin: General: Skin is warm and dry. Neurological: Mental Status: He is alert and oriented to person, place, and time. Labs: CBC: Recent Labs 10/27/2052510/27/20103 WBC 19.61* 20.50* HB 10.2* 10.7* HCT 30.0* 31.9* PLT 201 173 MCV 89.0 90.1 RDWCV 14.1 14.0 NEUTP -- 88.9 ABSNEUT -- 18.21* LYMPHP -- 6.0 MONOP -- 4.6 COAG: No results for input(s): APTT, INR in the last 168 hours. BMP: Recent Labs 10/27/2052510/27/20103 GLUC 424* 426* NA 140 140 K 4.6 4.8 CHLOR 104 105 CO2 24 21* ANION 12 14 BUN 41* 45* CREAT 0.91 0.90 CHEM: Recent Labs 10/27/2052510/27/20103 ALB -- 3.2* TPROT -- 5.5* CA 9.1 8.6 HEPATIC: Recent Labs 10/27/20103 ALKPHOS 50 ALT 7* AST 7* TBILI 1.0 URINALYSIS:No results for input(s): PH, SPGR, UGLUC, UBILI, UKET, UHB, UPROT, UROBIL, UWBC, SSA in the last 168 hours. Invalid input(s): NITR CARDIAC: No results for input(s): CKTEST, CKMB, CKMBP in the last 168 hours.TROPONIN@:8,No results found for: BNP:8)@ Intake/Output Summary (Last 24 hours) at 10/27/2020 0704 Last data filed at 10/27/2020 0534 Gross per 24 hour Intake 80 ml Output 1500 ml Net -1420 ml Serum creatinine: 0.91 mg/dL 10/27/20525 Estimated creatinine clearance: 79 mL/min Imaging: Medications: IV infusions: lactated Ringers Scheduled: sodium chloride 0.9 % (flush), 3-5 mL, q 12 H pantoprazole, 40 mg, BID AC (0600/1600) insulin regular human, , q 6 H PRN: potassium chloride ER, 20-40 mEq, PRN Or potassium chloride, 20 mEq, PRN magnesium (more content not included)... 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 Advance Directives and Living Will Assessments Diagnosis Pre-operative examination- Primary Unspecified pre-operative examination Hypertension, unspecified type Additional Source Comments (unrecognized sect ion and content) No Status Records FoundNo Status Records FoundNo Status Records FoundNo Status Records FoundNo Status Records Found INFORMATION SOURCE (unrecogn ized section and content) DATE CREATED AUTHOR AUTHOR'S ORGANIZ ATION 05/26/2020 [facility] DATE CREATED AUTHOR AUTHOR'S ORGANIZ ATION 11/06/2020 [facility] DATE CREATED AUTHOR AUTHOR'S ORGANIZ ATION 01/05/2021 [facility] DATE CREATED AUTHOR AUTHOR'S ORGANIZ ATION 05/06/2021 [facility] Reason for Visit (unrecogniz ed section and content) FOR RECORDS PERTAINING TO PATIENTS WHO ARE OR HAVE BEEN ENROLLED IN A CHEMICAL DEPENDENCY/SUBSTANCEABUSE PROGRAM, SOME INFORMATION MAY BE OMITTED. This clinical summary was aggregated from multiple sources. Caution should be exercised in using it in the provision of clinical care. This summary normalizes information from multiple sources, and as a consequence, information in this document may materially change the coding, format and clinical context of patient data. In addition, data may be omitted in some cases. CLINICAL DECISIONS SHOULD BE BASED ON THE PRIMARY CLINICAL RECORDS. [facility] provides no warranty or guarantee of the accuracy or completeness of information in this document.
[2023-04-29 00:06] LABS: Calprotectin, Stool 90 ug/g (0-120)
[2023-05-01 13:08] LABS: Pancreatic Elastase, Fecal < 50 (>200)
== END | disposition home or self-care (01) ==
LOC: LAB 09:02 → LABSPEC 09:02
PROVIDERS: PCP Internal Medicine; Referring Provider Internal Medicine Gastroenterology; Visit Provider Internal Medicine Gastroenterology
DX: K58.0 Irritable bowel syndrome with diarrhea (principal)
CPT/HCPCS: 82653; 83630; 83993; 87177; 87209; 87493

== ENCOUNTER 2023-05-08 10:27 | Emergency (ER) | payer MEDICARE, SELFPAY ==
[2023-05-08 10:28] VITALS: BP 160/73; PULSE 55; RESP 16; TEMP 36.4; O2SAT 95; BMI 35.1
--- NOTE | 2023-05-08 11:11 | CT_ITS ---
STUDY: CT ABDOMEN AND PELVIS WITH CONTRAST REASON FOR EXAM: Male, 78 years old. llq pain RADIATION DOSAGE (If Supplied By Facility): CTDIvol = ( 18.71 ) mGy, DLP = ( 1323.69 ) mGycm TECHNIQUE: Transaxial images were obtained from the dome of the diaphragm to the symphysis pubis without oral contrast. IV 100mL Isovue-300 was administered. Sagittal and coronal images were reconstructed. Individualized dose optimization techniques were used for this CT. COMPARISON: Comparison is made with prior study August 29, 2022. FINDINGS: Stable mild increased markings at the lung bases suggestive of scarring. Calcified granulomas at the right lung base. Coronary artery calcification. There is decreased attenuation of the liver consistent with steatosis. There are surgical clips in the gallbladder fossa consistent with a prior cholecystectomy. There are multiple benign calcified granulomata of the spleen. Borderline splenomegaly. Normal pancreas. Normal bilateral adrenal glands. Stable 1.5 cm cyst in the lower pole of the right kidney. Tiny nonobstructive left intrarenal calculi. The largest calculus measures 3 mm and is in the upper pole calyx. Mild degree of left hydronephrosis. Left perinephric and periureteric stranding. Questionable recently passed left ureteral calculus. There is a small hiatal hernia. Normal small intestine. Normal colon. The appendix is visualized and appears normal. There is diffuse atherosclerotic calcification of the abdominal aorta and its major visceral branches, without a demonstrated aneurysm. Normal inferior vena cava. Normal retroperitoneum. Distended urinary bladder. Prostatic enlargement with indentation at the bladder base. Normal abdominal wall. There are degenerative changes of the visualized lumbar spine. CT/Abdomen/Pelvis W IV Cont ONLY IMPRESSION: Nonobstructive left renal calculi with the mild left hydronephrosis with left perinephric and periureteric stranding. Findings suggestive of a recently passed left ureteral calculus. Distended urinary bladder. Prostatic enlargement with calcifications. Electronically Signed: Enrique Henderson MD at 12:49 EST ,
--- NOTE | 2023-05-08 11:12 | EDS_ITS ---
HPI <ALEKSANDRA Jacob - Last Filed: 05/08/23 15:31> History of Present Illness Chief Complaint: Abd Pain Narrative Narrative: 78-year-old male presents with few days of left lower quadrant abdominal pain. It is sore to touch the area. He noticed a black line on his skin but this is gone away. He has no fever or chills, nausea or vomiting, change in appetite, or bladder or bowel changes. He had a normal BM today. No black or bloody stools. He had a colonoscopy in the last few months with Dr. Plaza which showed colon inflammation . He trialed sulfasalazine but it caused stomach upset so it was discontinued. A stool sample showed an issue with his pancreas and he is now on a special diet, pancreatic enzyme replacement, and an antibiotic from Dr. Plaza. Today he called the GI office relating his new symptoms and the nurse advised he come to the ED. 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 Back pain Bilateral impacted cerumen Bilateral lower extremity edema Bloating Cardiology follow-up encounter Chronic combined systolic and diastolic CHF (congestive heart failure) Chronic cough Chronic low back pain Constipation Cough COVID-19 (04/03/21) Degeneration of retina Diabetes Diarrhea Dysphagia Easy bruising Essential (primary) hypertension Fatty liver Flu vaccine need Former smoker Gastric reflux Gastritis GERD (gastroesophageal reflux disease) High cholesterol History of CHF (congestive heart failure) History of echocardiogram History of edema History of GI bleed History of kidney stones History of non-ST elevation myocardial infarction (NSTEMI) (05/12/19) History of pain when walking History of skin cancer History of steroid therapy History of stress test Impacted cerumen, left ear Injury of back Insulin dependent diabetes mellitus Ischemic cardiomyopathy Kidney atrophy Low ferritin level Macular degeneration Multiple premature ventricular complexes Neuropathy Normal Holter exam Obesity Obstructive sleep apnea Pure hypercholesterolemia Secondary pulmonary arterial hypertension Shortness of breath on exertion Symptomatic anemia Type 2 diabetes mellitus Wears glasses Home Medications blood-glucose meter (Accu-Chek Meka Plus Meter) #1 ea 08/23/19 [Rx Last Taken Unknown] aspirin 81 mg chewable tablet 81 mg PO DAILY@0800 heart 10/26/20 [History Last Taken 12/16/22] blood glucose control high and low solution (Accu-Chek Meka Control Soln solution) #1 ea 12/12/20 [Rx Last Taken Unknown] pantoprazole 40 mg tablet,delayed release 40 mg PO QAM gerd #90 tabs 04/09/22 [Rx Last Taken 12/17/22] doxazosin 4 mg tablet 4 mg PO QHS #90 tabs 05/30/22 [Rx Last Taken Unknown] blood sugar diagnostic (Accu-Chek Meka Plus test strips) #100 ea 06/13/22 [Rx Last Taken Unknown] losartan 100 mg tablet 100 mg PO DAILY #90 tabs 07/10/22 [Rx Last Taken Unknown] simvastatin 20 mg tablet 20 mg PO QHS dose decreased d/t amlodipine therapy #90 tabs 07/11/22 [Rx Last Taken Unknown] spironolactone 25 mg tablet 25 mg PO DAILY #30 tabs 07/11/22 [Rx Last Taken Unknown] gabapentin 100 mg capsule 200 mg (2 x 100 mg) PO BID 3 months #360 caps 09/08/22 [Rx Last Taken 12/17/22] carvedilol 25 mg tablet 25 mg PO BID #180 tabs 09/25/22 [Rx Last Taken 12/17/22] insulin degludec 200 unit/mL (3 mL) subcutaneous pen (Tresiba FlexTouch U-200 insulin) 32 unit (0.16 mL) subcut QHS 3 months #15 mL 11/04/22 [Rx Last Taken Unknown] furosemide 40 mg tablet 40 mg PO DAILY 12/16/22 [History Last Taken Unknown] metformin 1,000 mg tablet 1,000 mg PO .QAM diabetes 12/16/22 [History Last Taken Unknown] metformin 1,000 mg tablet,extended release 24hr (osmotic) 1,500 mg PO QPM 12/16/22 [History Last Taken Unknown] vit C 250 mg-vit E 200 unit-zinc ox 12.5 [id number] capsule (ICaps AREDS2) 1 cap PO BID 12/16/22 [History Last Taken Unknown] pen needle, diabetic 31 gauge x 3/16 (1st Tier Unifine Pentips) #200 ea 03/03/23 [Rx Last Taken Unknown] folic acid 1 mg tablet 1 mg PO DAILY #30 tabs 04/22/23 [Rx Last Taken Unknown] sulfasalazine 500 mg tablet,delayed release 1 g (2 x 500 mg) PO BID 30 days #120 tabs 04/22/23 [Rx Last Taken Unknown] amlodipine 10 mg tablet See Rx Instructions .Route .COMPLEX #90 tabs 04/30/23 [Rx Last Taken Unknown] doxycycline hyclate 100 mg capsule 100 mg PO BID 2 weeks #28 caps 05/06/23 [Rx Last Taken Unknown] Allergy/AdvReac Type Severity Reaction Status Date / Time sulfadiazine Allergy Mild Vomiting Verified 05/08/23 10:30 lisinopril AdvReac Mild cough Verified 05/08/23 10:30 Family History Mother , Age 88, [place] Hypertension Myocardial infarction CVA (cerebral vascular accident) Father , age 42, [place] Hypertension Heart disease Myocardial infarction, Onset Age: 45 Sudden cardiac Brother , age 57 of [place] Heart disease Myocardial infarction Surgical History H/O coronary artery bypass surgery (07/2002) History of cardiac catheterization History of cholecystectomy History of colonoscopy (09/2019) History of coronary artery stent placement (11/2002) History of esophagogastroduodenoscopy (EGD) (10/2019) History of left heart catheterization (05/13/19) History of tonsillectomy Hx of esophagogastroduodenoscopy Social History Smoking Status: Former smoker how long ago did patient quit smokin alcohol intake: never substance use type: does not use what type of physical activity do you participate in: none ROS <ALEKSANDRA Jacob - Last Filed: 05/08/23 15:31> ROS ED ROS Narrative Constitutional: Negative for fever, chills, malaise. CVS: Negative for chest pain, syncope. Respiratory: Negative for shortness of breath, cough. GI: Positive for abdominal pain. Negative for nausea, vomiting, diarrhea, constipation, melena, hematochezia. : Negative for dysuria, hematuria or frequency. EXAM <ALEKSANDRA Jacob - Last Filed: 05/08/23 15:31> Physical Exam Narrative Exam Narrative: CONST: Patient sitting in no acute distress. EYES: Normal inspection. NECK: Normal inspection. RESP: No respiratory distress, CTAB. CVS: Regular rate and rhythm, no murmur, no gallop. ABD: Soft with epigastric and left lower quadrant tenderness, no guarding or rebound, nondistended. SKIN: Color normal, no rash, warm, dry, intact. EXTREMITIES: Normal appearance, no pedal edema. NEURO: Oriented x4. PSYCH: Normal affect. Const Vital Signs: 05/08/23 10:28 05/08/23 14:19 Temperature 97.5 F L Temperature Source Temporal Pulse Rate 55 L 72 Respiratory Rate 16 18 Blood Pressure 160/73 H 130/78 H Blood Pressure Mean 102 95 Pulse Ox 95 98 Oxygen Delivery Method Room Air <Dr. Daniele Montenegro DO - Last Filed: 05/08/23 14:17> Physical Exam Const Vital Signs: 05/08/23 10:28 05/08/23 14:19 Temperature 97.5 F L Temperature Source Temporal Pulse Rate 55 L 72 Respiratory Rate 16 18 Blood Pressure 160/73 H 130/78 H Blood Pressure Mean 102 95 Pulse Ox 95 98 Oxygen Delivery Method Room Air MDM <ALEKSANDRA Jacob - Last Filed: 05/08/23 15:31> MDM MDM Narrative Medical decision making narrative: History gathered from: Patient and spouse Patient has left lower quadrant pain over the last few days with no other associated symptoms. He appears well and nontoxic. Vital signs stable. He is tender in the left lower quadrant with no peritoneal signs. Exam otherwise unremarkable. CBC and BMP are within normal limits. CT scan shows evidence of recently passed left kidney stone. Urinalysis is negative for infection. CT noted distended urinary bladder but postvoid residual is 75 cc hide no concern for retention. Patient's pain was well-controlled after 1 dose of IV Toradol. He is comfortable taking [id number] analgesia and was discharged in stable condition. Differential: Diverticulitis, abscess, perforation, kidney stone, UTI External records reviewed: GI visit on 04/22/2023 Colonoscopy on 12/20/2022 showed polyps and diverticular disease and colon biopsies revealed cryptitis. He was started on sulfasalazine plus folic acid for this. Lab Data Labs: Laboratory Results - last 24 hr 05/08/23 05/08/23 11:25 12:35 WBC 8.7 RBC 4.45 L Hgb 13.5 Hct 39.1 L MCV 87.9 MCH 30.3 MCHC 34.5 RDW Std Deviation 42.7 RDW Coeff of Vamsi 13.3 Plt Count 254 MPV 9.5 Immature Gran % (Auto) 0.600 Neut % (Auto) 57.9 Lymph % (Auto) 31.3 Turner % (Auto) 8.7 Eos % (Auto) 0.2 Baso % (Auto) 1.3 H Absolute Neuts (auto) 5.0 Absolute Lymphs (auto) 2.72 Nucleated RBC % 0 Sodium 138 Potassium 4.0 Chloride 103 Carbon Dioxide 27.0 Anion Gap 8 BUN 16 Creatinine 1.00 Estim Creat Clear Calc 80.17 Est GFR (MDRD) Af Amer 92 Est GFR (MDRD) Non-Af 76 BUN/Creatinine Ratio 16.0 Glucose 210 H Calcium 9.0 Total Bilirubin 0.60 AST 23 ALT 44 Alkaline Phosphatase 109 Total Protein 7.1 Albumin 2.9 L Globulin 4.2 Albumin/Globulin Ratio 0.7 L Lipase 30 Urine Color Yellow Urine Clarity Clear Urine pH 5.0 Ur Specific [place] 1.010 Urine Protein 15 H Urine Glucose (UA) Normal Urine Ketones Negative Urine Occult Blood Negative Urine Nitrite Negative Urine Bilirubin Negative Urine Urobilinogen Normal Ur Leukocyte Esterase Negative Urine RBC 0 SEEN Urine WBC 0 SEEN Ur Squamous Epith Cells 0 SEEN Urine Bacteria 0 SEEN Urine Mucus 0 SEEN Radiography Diagnostic Testing: Clinical Impression(s) from Imaging Studies Abdomen/Pelvis CT 05/08/23 11:11 IMPRESSION: Nonobstructive left renal calculi with the mild left hydronephrosis with left perinephric and periureteric stranding. Findings suggestive of a recently passed left ureteral calculus. Distended urinary bladder. Prostatic enlargement with calcifications. Electronically Signed: Enrique Henderson MD at 12:49 EST , <Dr. Daniele Montenegro, DO - Last Filed: 05/08/23 14:17> [facility] Lab Data Attestation: I reviewed the patient's lab results. Labs: Laboratory Results - last 24 hr 05/08/23 05/08/23 11:25 12:35 WBC 8.7 RBC 4.45 L Hgb 13.5 Hct 39.1 L MCV 87.9 MCH 30.3 MCHC 34.5 RDW Std Deviation 42.7 RDW Coeff of Vamsi 13.3 Plt Count 254 MPV 9.5 Immature Gran % (Auto) 0.600 Neut % (Auto) 57.9 Lymph % (Auto) 31.3 Turner % (Auto) 8.7 Eos % (Auto) 0.2 Baso % (Auto) 1.3 H Absolute Neuts (auto) 5.0 Absolute Lymphs (auto) 2.72 Nucleated RBC % 0 Sodium 138 Potassium 4.0 Chloride 103 Carbon Dioxide 27.0 Anion Gap 8 BUN 16 Creatinine 1.00 Estim Creat Clear Calc 80.17 Est GFR (MDRD) Af Amer 92 Est GFR (MDRD) Non-Af 76 BUN/Creatinine Ratio 16.0 Glucose 210 H Calcium 9.0 Total Bilirubin 0.60 AST 23 ALT 44 Alkaline Phosphatase 109 Total Protein 7.1 Albumin 2.9 L Globulin 4.2 Albumin/Globulin Ratio 0.7 L Lipase 30 Urine Color Yellow Urine Clarity Clear Urine pH 5.0 Ur Specific [place] 1.010 Urine Protein 15 H Urine Glucose (UA) Normal Urine Ketones Negative Urine Occult Blood Negative Urine Nitrite Negative Urine Bilirubin Negative Urine Urobilinogen Normal Ur Leukocyte Esterase Negative Urine RBC 0 SEEN Urine WBC 0 SEEN Ur Squamous Epith Cells 0 SEEN Urine Bacteria 0 SEEN Urine Mucus 0 SEEN Radiography Diagnostic Testing: Clinical Impression(s) from Imaging Studies Abdomen/Pelvis CT 05/08/23 11:11 IMPRESSION: Nonobstructive left renal calculi with the mild left hydronephrosis with left perinephric and periureteric stranding. Findings suggestive of a recently passed left ureteral calculus. Distended urinary bladder. Prostatic enlargement with calcifications. Electronically Signed: Enrique Henderson MD at 12:49 EST , Treatment and Re-Evaluation :: I have personally performed a face to face assessment of the patient and have reviewed the WALLY Note. I performed a substantive portion of the visit including all aspects of the following. My pineda findings include: History: Patient presents with left sided abdominal pain that has been getting worse over the past 2 days. Patient states it came on rather suddenly. Patient states it has been constant. Patient describes his pain as sharp. Patient states it is mainly over the left lower abdomen. Patient states it is worse with pushing on it. Patient states it is better with laying still. Patient denies any nausea or vomiting. Patient denies any diarrhea, melena, or hematochezia. Patient denies any urinary complaints. Exam: Vital signs are stable. Patient is afebrile. Patient is in no acute distress. Oral mucosa is pink and moist. Neck is supple. Trachea is midline. There is no JVD. Heart was regular rate and rhythm. Lungs are clear and equal bilateral. Abdomen is soft. Bowel sounds are normal. There is left-sided tenderness. There is no left CVA tenderness. There is no rebound or guarding noted. Cranial nerves II through XII are intact. There are no focal motor or sensory deficits noted. Skin is warm and dry. There are no rashes noted. Medical Decision Making: Differential diagnosis includes diverticulitis, bowel obstruction, perforation, pancreatitis, ureteral calculus, and viral illness. CBC will be obtained to assess for leukocytosis and anemia. Comprehensive metabolic profile will be obtained to assess for hepatic function, renal function, and electrolyte abnormality. Lipase will be obtained to assess for pancreatitis. Urinalysis will be obtained to assess for urinary tract infection and hematuria. CT scan of the abdomen pelvis will be obtained to assess for bowel obstruction, perforation, diverticulitis, and ureteral calculus. CT scan of the abdomen pelvis was obtained. There is evidence of a recently passed left ureteral calculus. There is no acute abnormality noted. This was interpreted by the radiologist and was also independently reviewed by myself. Urinalysis was reviewed. There is no evidence of urinary tract infection or hematuria. CBC was reviewed and was within normal limits. Comprehensive metabolic profile was reviewed. Glucose was slightly elevated at 210. The remainder was within normal limits. Lipase was reviewed and was normal at 30. Patient feels better on reevaluation. Patient was advised of his findings. Patient instructed to drink plenty of fluids. Patient was instructed to follow- up with his primary care physician in 5 to 7 days. Patient understood and was agreeable with the plan. All questions were answered. Discharge Plan Triage Chief Complaint: Abd Pain ED Midlevel Provider: Erika Johnson ED Provider: Daniele Montenegro Dx/Rx/DC Orders Clinical Impression: Abdominal pain, Calculus of left kidney Instructions: Abdominal Pain Prescriptions: No Action pantoprazole 40 mg tablet,delayed release (DR/EC) 40 mg PO QAM Qty: 90 3RF sulfasalazine 500 mg tablet,delayed release (DR/EC) 1 g PO BID 30 Days Qty: 120 5RF folic acid 1 mg tablet 1 mg PO DAILY Qty: 30 5RF aspirin 81 mg tablet,chewable 81 mg PO DAILY@0800 ICaps AREDS2 250 mg-200 unit -12.5 mg-1 mg capsule 1 cap PO BID metformin 1,000 mg tablet extended release 24hr 1,500 mg PO QPM furosemide 40 mg tablet 40 mg PO DAILY metformin 1,000 mg tablet 1,000 mg PO .QAM Rx Instructions: Take 1000mg (1 tablet) in the morning and 1500mg(1.5 tablets) at night (DME) blood-glucose meter [Accu-Chek Meka Plus Meter] [facility] [place] See Rx Instructions .ROUTE .MEDSUPPLY Qty: 1 0RF Rx Instructions: As directed (DME) Accu-Chek Meka Control Soln Solution See Rx Instructions .ROUTE .MEDSUPPLY Qty: 1 2RF Rx Instructions: As directed once a month doxazosin 4 mg tablet 4 mg PO QHS Qty: 90 3RF (DME) Accu-Chek Meka Plus test strp Strip See Rx Instructions .ROUTE .MEDSUPPLY Qty: 100 11RF Rx Instructions: As directed tid losartan 100 mg tablet 100 mg PO DAILY Qty: 90 3RF simvastatin 20 mg tablet 20 mg PO QHS Qty: 90 3RF spironolactone 25 mg tablet 25 mg PO DAILY Qty: 30 11RF gabapentin 100 mg capsule 200 mg PO BID 90 Days Qty: 360 2RF carvedilol 25 mg tablet 25 mg PO BID Qty: 180 3RF Rx Instructions: must administer with a meal/food Tresiba FlexTouch U-200 200 unit/mL (3 mL) insulin pen 32 unit subcut QHS 90 Days Qty: 15 3RF (DME) pen needle, diabetic [1st Tier Unifine Pentips] 31 gauge x 3/16 needle See Rx Instructions .ROUTE .MEDSUPPLY Qty: 200 3RF Rx Instructions: As directed, take daily for type 2 DM amlodipine 10 mg tablet See Rx Instructions .ROUTE .COMPLEX Qty: 90 3RF Dose Instruction: TAKE 1 TABLET EVERY DAY Rx Instructions: TAKE 1 TABLET EVERY DAY doxycycline hyclate 100 mg capsule 100 mg PO BID 14 Days Qty: 28 1RF Rx Instructions: BID for two weeks, if improvement of symptoms proceed with additional two weeks of therapy then stop Primary Care Provider: Faith Jay Referrals: Faith Jay MD [Primary Care Provider] - Activity Restrictions/Additional Instructions: .Your CT scan showed signs you recently passed a kidney stone. Take Tylenol as needed Disposition Disposition: Home, Self Care Discharge Date/Time: 05/08/23 14:20
[2023-05-08 11:41] LABS: Absolute Lymphocyte Count 2.72 X10^3/uL (0.83-4.51); Basophil# 0.11 X10^3/uL; Basophil% 1.3 % (0-1); Eosinophil# 0.02 X10^3/uL; Eosinophils% 0.2 % (0-5); Hematocrit 39.1 % (40-54); Hemoglobin 13.5 g/dL (13.0-16.5); Lymphocyte # 2.72 X10^3/ul (0.83-4.51); Lymphocyte % 31.3 % (19-41); Mean Corp Hgb Conc 34.5 g/dL (32-36); Mean Corpuscular Hgb 30.3 pg (27.0-32.0); Mean Corpuscular Volume 87.9 fL (80-94); Mean Platelet Vol. 9.5 fl (6.2-12.0); Monocyte# 0.76 X10^3/uL; Monocyte% 8.7 % (0-10); NRBC Flagged by Analyzer 0 % (0-5); Neutrophil # 5.04 X10^3/uL (2.7-7.7); Neutrophil % 57.9 % (47-70); Platelet Count 254 K/mm3 (150-450); RBC Distribution Width CV 13.3 % (11.6-14.6); RBC Distribution Width SD 42.7 fl (35.1-43.9); Red Blood Count 4.45 M/mm3 (4.6-6.2); White Blood Count 8.7 K/mm3 (4.4-11.0)
[2023-05-08] MEDS: Lorazepam 2 MG/ML WCH Syringe 0.5 MG IV (11:53)
[2023-05-08 11:57] LABS: ALB/GLOB Ratio 0.7 RATIO (0.9-2.4); AST(SGOT) 23 U/L (15-37); Alanine Aminotransfer ALT/SGPT 44 U/L (16-61); Albumin, Serum 2.9 g/dL (3.2-5.0); Alkaline Phosphatase 109 U/L (45-117); Anion Gap 8 (5-15); BUN 16 mg/dL (7-18); Chloride 103 mmol/L (98-107); EST Glomerular Filtration Rate 76 mL/min (>60); Est Glom Filt Rate - Afr Amer 92 mL/min (>60); Estimated Creatinine Clearance 80.17 ml/min; Globulin 4.2 g/dL (2.2-4.2); Glucose 210 mg/dL (74-106); Lipase 30 U/L (13-75); Protein, Total 7.1 g/dL (6.4-8.2); Sodium Level 138 mmol/L (136-145)
[2023-05-08 12:45] LABS: Bacteria 0 SEEN /hpf (None Seen); Mucous, Urine 0 SEEN /hpf (<or=2+); Red Blood Cells-Urine 0 SEEN /hpf (0-5); Squamous Epithelial Cells - UA 0 SEEN /hpf (0-5); White Blood Cells 0 SEEN /hpf (0-5)
[2023-05-08 12:58] LABS: Color, Urine Yellow (Yellow); Glucose, Dipstick Normal (Normal); Ketone-Dipstick Negative (Negative); Leukocyte Esterase-Dipstick Negative /ul (Negative); Nitrite-Dipstick Negative (Negative); Occult Blood-Urine Negative /ul (Negative); Protein-Dipstick 15 mg/dl (Negative); Urine Bilirubin Dipstick Negative (Negative); Urine Clarity Clear (Clear); Urine Urobilinogen Normal (Normal)
[2023-05-08] MEDS: Ketorolac 15 MG/ML Vial IV (13:34)
[2023-05-08 14:19] VITALS: BP 130/78; PULSE 72; RESP 18; O2SAT 98
== END 2023-05-08 14:20 | disposition home or self-care (01) ==
PROVIDERS: Physician Assistant; Emergency Provider Emergency Medicine; PCP Internal Medicine; Visit Provider Emergency Medicine
DX: N13.2 Hydronephrosis with renal and ureteral calculous obstruction (principal); Z79.4 Long term (current) use of insulin; E11.9 Type 2 diabetes mellitus without complications; Z87.891 Personal history of nicotine dependence; Z86.010 Personal history of colon polyps; Z95.1 Presence of aortocoronary bypass graft; Z95.5 Presence of coronary angioplasty implant and graft; I25.2 Old myocardial infarction; K21.9 Gastro-esophageal reflux disease without esophagitis; Z86.16 Personal history of COVID-19; I25.10 Atherosclerotic heart disease of native coronary artery without angina pectoris; Z82.49 Family history of ischemic heart disease and other diseases of the circulatory system
CPT/HCPCS: 74177; 80053; 81001; 83690; 85025; 96374; 99283; Q9967; A4216

== ENCOUNTER 2023-06-04 15:57 | Emergency (ER) | payer MEDICARE, SELFPAY ==
[2023-06-04 15:59] VITALS: BP 142/88; PULSE 56; RESP 16; TEMP 36.3; O2SAT 93; BMI 33.3
[2023-06-04 16:47] LABS: Absolute Lymphocyte Count 1.98 X10^3/uL (0.83-4.51); Absolute Neutrophil Count 6.7 X10^3/uL (2.0-7.7); Basophil# 0.04 X10^3/uL; Basophil% 0.4 % (0-1); Hematocrit 43.2 % (40-54); Hemoglobin 14.4 g/dL (13.0-16.5); Lymphocyte # 1.98 X10^3/ul (0.83-4.51); Lymphocyte % 21.8 % (19-41); Mean Corp Hgb Conc 33.3 g/dL (32-36); Mean Corpuscular Hgb 29.9 pg (27.0-32.0); Mean Corpuscular Volume 89.6 fL (80-94); Mean Platelet Vol. 11.5 fl (6.2-12.0); Monocyte# 0.32 X10^3/uL; Monocyte% 3.5 % (0-10); NRBC Flagged by Analyzer 0 % (0-5); Neutrophil % 73.9 % (47-70); Platelet Count 136 K/mm3 (150-450); RBC Distribution Width CV 13.5 % (11.6-14.6); Red Blood Count 4.82 M/mm3 (4.6-6.2); White Blood Count 9.1 K/mm3 (4.4-11.0)
[2023-06-04 16:55] LABS: ALB/GLOB Ratio 0.9 RATIO (0.9-2.4); AST(SGOT) 12 U/L (15-37); Alanine Aminotransfer ALT/SGPT 20 U/L (16-61); Albumin, Serum 3.5 g/dL (3.2-5.0); Alkaline Phosphatase 87 U/L (45-117); Anion Gap 10 (5-15); BUN 27 mg/dL (7-18); BUN/Creat Ratio 19.4 RATIO (10-20); Calcium,Total 9.5 mg/dL (8.5-10.1); Chloride 104 mmol/L (98-107); Creatinine, Serum 1.39 mg/dL (0.70-1.30); EST Glomerular Filtration Rate 52 mL/min (>60); Est Glom Filt Rate - Afr Amer 63 mL/min (>60); Estimated Creatinine Clearance 56.26 ml/min; Globulin 3.9 g/dL (2.2-4.2); Glucose 158 mg/dL (74-106); Potassium 4.7 mmol/L (3.5-5.1); Protein, Total 7.4 g/dL (6.4-8.2); Sodium Level 140 mmol/L (136-145)
--- NOTE | 2023-06-04 16:57 | ED.RN ---
c/o abdominal pain with swelling to the RUQ starting at approximately [id number], pt. walked back to assigned room drinking coffee with no c/o nausea or vomiting. drink discarded at this time patient instructed NPO d/t abdominal complaint.
[2023-06-04 17:06] LABS: Bacteria 0 SEEN /hpf (None Seen); Red Blood Cells-Urine 0 SEEN /hpf (0-5)
[2023-06-04 17:12] LABS: Color, Urine Yellow (Yellow); Glucose, Dipstick Normal (Normal); Ketone-Dipstick 5 mg/dl (Negative); Leukocyte Esterase-Dipstick 25 /ul (Negative); Nitrite-Dipstick Negative (Negative); Occult Blood-Urine Negative /ul (Negative); Protein-Dipstick 30 mg/dl (Negative); Specific Gravity, Urine 1.015 (1.002-1.030); Urine Bilirubin Dipstick Negative (Negative); Urine Clarity Clear (Clear); Urine Urobilinogen Normal (Normal)
[2023-06-04 17:18] LABS: Mucous, Urine RARE /hpf (<or=2+); Squamous Epithelial Cells - UA 0-5 SEEN /hpf (0-5); White Blood Cells 0-5 SEEN /hpf (0-5)
--- NOTE | 2023-06-04 17:21 | EX.ED.DYSGE1 ---
HPI <ALEKSANDRA Jacob - Last Filed: 06/04/23 21:16> History of Present Illness Chief Complaint: Abd Pain Narrative Narrative: 78-year-old male received right posterior rib intercostal nerve injections at Dr. Chappell's office this morning for chronic back pain. He states he received it 6 months ago and it had worn off. He tolerated the procedure well without complications. After going home he noticed swelling to his right abdomen. No abdominal pain. He is eating and drinking normally with no nausea or vomiting and normal bladder and bowel movements. [facility] <ALEKSANDRA Jacob - Last Filed: 06/04/23 21:16> [facility] Medical History Abdominal pain Acute blood loss anemia Acute upper gastrointestinal bleeding Arthritis Atherosclerosis of coronary artery bypass graft without angina pectoris Atherosclerotic heart disease of [place] coronary artery without angina pectoris Back pain Bilateral impacted cerumen Bilateral lower extremity edema Bloating Cardiology follow-up encounter Chronic combined systolic and diastolic CHF (congestive heart failure) Chronic cough Chronic low back pain Constipation Cough COVID-19 (04/03/21) Degeneration of retina Diabetes Diarrhea Dysphagia Easy bruising Essential (primary) hypertension Fatty liver Flu vaccine need Former smoker Gastric reflux Gastritis GERD (gastroesophageal reflux disease) High cholesterol History of CHF (congestive heart failure) History of echocardiogram History of edema History of GI bleed History of kidney stones History of non-ST elevation myocardial infarction (NSTEMI) (05/12/19) History of pain when walking History of skin cancer History of steroid therapy History of stress test Impacted cerumen, left ear Injury of back Insulin dependent diabetes mellitus Ischemic cardiomyopathy Kidney atrophy Low ferritin level Macular degeneration Multiple premature ventricular complexes Neuropathy Normal Holter exam Obesity Obstructive sleep apnea Pure hypercholesterolemia Secondary pulmonary arterial hypertension Shortness of breath on exertion Symptomatic anemia Type 2 diabetes mellitus Wears glasses Home Medications blood-glucose meter (Accu-Chek Meka Plus Meter) #1 ea 08/23/19 [Rx Last Taken Unknown] aspirin 81 mg chewable tablet 81 mg PO DAILY@0800 heart 10/26/20 [History Last Taken 12/16/22] blood glucose control high and low solution (Accu-Chek Meka Control Soln solution) #1 ea 12/12/20 [Rx Last Taken Unknown] pantoprazole 40 mg tablet,delayed release 40 mg PO QAM gerd #90 tabs 01/11/23 [Rx Last Taken 12/17/22] blood sugar diagnostic (Accu-Chek Meka Plus test strips) #100 ea 06/13/22 [Rx Last Taken Unknown] losartan 100 mg tablet 100 mg PO DAILY #90 tabs 07/10/22 [Rx Last Taken Unknown] simvastatin 20 mg tablet 20 mg PO QHS dose decreased d/t amlodipine therapy #90 tabs 07/11/22 [Rx Last Taken Unknown] spironolactone 25 mg tablet 25 mg PO DAILY #30 tabs 07/11/22 [Rx Last Taken Unknown] gabapentin 100 mg capsule 200 mg (2 x 100 mg) PO BID 3 months #360 caps 09/08/22 [Rx Last Taken 12/17/22] carvedilol 25 mg tablet 25 mg PO BID #180 tabs 09/25/22 [Rx Last Taken 12/17/22] insulin degludec 200 unit/mL (3 mL) subcutaneous pen (Tresiba FlexTouch U-200 insulin) 32 unit (0.16 mL) subcut QHS 3 months #15 mL 11/04/22 [Rx Last Taken Unknown] furosemide 40 mg tablet 40 mg PO DAILY 12/16/22 [History Last Taken Unknown] vit C 250 mg-vit E 200 unit-zinc ox 12.5 fv-akqybj-icwshb-zeax capsule (ICaps AREDS2) 1 cap PO BID 12/16/22 [History Last Taken Unknown] pen needle, diabetic 31 gauge x 3/16 (1st Tier Unifine Pentips) #200 ea 03/03/23 [Rx Last Taken Unknown] folic acid 1 mg tablet 1 mg PO DAILY #30 tabs 04/22/23 [Rx Last Taken Unknown] sulfasalazine 500 mg tablet,delayed release 1 g (2 x 500 mg) PO BID 30 days #120 tabs 04/22/23 [Rx Last Taken Unknown] amlodipine 10 mg tablet See Rx Instructions .Route .COMPLEX #90 tabs 04/30/23 [Rx Last Taken Unknown] doxycycline hyclate 100 mg capsule 100 mg PO BID 2 weeks #28 caps 05/06/23 [Rx Last Taken Unknown] doxazosin 4 mg tablet 4 mg PO QHS #90 tabs 05/26/23 [Rx Last Taken Unknown] metformin 1,000 mg tablet 1,000 mg PO .QAM diabetes #90 tabs 05/26/23 [Rx Last Taken Unknown] metformin 1,000 mg tablet,extended release 24hr (osmotic) 1,500 mg (1.5 x 1,000 mg) PO QPM #90 tabs 05/26/23 [Rx Last Taken Unknown] Handicap Placard #1 ea 06/01/23 [Rx Last Taken Unknown] Allergy/AdvReac Type Severity Reaction Status Date / Time sulfadiazine Allergy Mild Vomiting Verified 06/04/23 15:59 lisinopril AdvReac Mild cough Verified 06/04/23 15:59 Family History Mother , Age 88, [place] Hypertension Myocardial infarction CVA (cerebral vascular accident) Father , age 42, [place] Hypertension Heart disease Myocardial infarction, Onset Age: 45 Sudden cardiac Brother , age 57 of [place] Heart disease Myocardial infarction Surgical History H/O coronary artery bypass surgery (07/2002) History of cardiac catheterization History of cholecystectomy History of colonoscopy (09/2019) History of coronary artery stent placement (11/2002) History of esophagogastroduodenoscopy (EGD) (10/2019) History of left heart catheterization (05/13/19) History of tonsillectomy Hx of esophagogastroduodenoscopy Social History Smoking Status: Former smoker how long ago did patient quit smokin alcohol intake: never substance use type: does not use what type of physical activity do you participate in: none ROS <ALEKSANDRA Jacob - Last Filed: 06/04/23 21:16> ROS ED ROS Narrative Constitutional: Negative for fever, chills, malaise. CVS: Negative for chest pain. Respiratory: Negative for shortness of breath. GI: Negative for abdominal pain, nausea, vomiting, diarrhea, constipation, melena, hematochezia. : Negative for dysuria, hematuria or frequency. EXAM <ALEKSANDRA Jacob - Last Filed: 06/04/23 21:16> Physical Exam Narrative Exam Narrative: CONST: Patient sitting in no acute distress. EYES: Normal inspection. NECK: Normal inspection. RESP: No respiratory distress, CTAB. CVS: Regular rate and rhythm, no murmur, no gallop. ABD: Soft and nontender, no guarding or rebound, nondistended, no hepatosplenomegaly. When lying down I cannot appreciate any significant swelling but when the patient stands his right upper abdomen extending towards the side is distended. Back: Normal inspection, 3 band-aids over right lower posterior ribs. SKIN: Color normal, no rash, warm, dry, intact. EXTREMITIES: Normal appearance, no pedal edema. NEURO: Oriented x4. PSYCH: Normal affect. Const Vital Signs: 06/04/23 15:59 06/04/23 18:01 06/04/23 20:00 Temperature 97.3 F L 97.4 F L Temperature Source Temporal Temporal Pulse Rate 56 L 61 61 Respiratory Rate 16 12 12 Blood Pressure 142/88 H 143/80 H 154/70 H Blood Pressure Mean 106 101 98 Pulse Ox 93 99 96 Oxygen Delivery Method Room Air Room Air Room Air 06/04/23 21:10 Temperature 98.7 F Temperature Source Oral Pulse Rate 64 Respiratory Rate 14 Blood Pressure 144/69 H Blood Pressure Mean 94 Pulse Ox 96 Oxygen Delivery Method Room Air <Dr. Daniele Montenegro DO - Last Filed: 06/04/23 20:52> Physical Exam Const Vital Signs: 06/04/23 15:59 06/04/23 18:01 06/04/23 20:00 Temperature 97.3 F L 97.4 F L Temperature Source Temporal Temporal Pulse Rate 56 L 61 61 Respiratory Rate 16 12 12 Blood Pressure 142/88 H 143/80 H 154/70 H Blood Pressure Mean 106 101 98 Pulse Ox 93 99 96 Oxygen Delivery Method Room Air Room Air Room Air 06/04/23 21:10 Temperature 98.7 F Temperature Source Oral Pulse Rate 64 Respiratory Rate 14 Blood Pressure 144/69 H Blood Pressure Mean 94 Pulse Ox 96 Oxygen Delivery Method Room Air [facility] <ALEKSANDRA Jacob - Last Filed: 06/04/23 21:16> [facility] Narrative Medical decision making narrative: History gathered from: Patient and spouse Today patient developed right sided abdominal distention. No pain. He has normal p.o. intake and normal bladder and bowel movements. He appears well and nontoxic and is afebrile with normal vital signs. Normal cardiopulmonary exam. When patient stands I can see right upper abdominal distention. He has no tenderness. No palpable hernia. Negative Barnes sign. CBC is WNL. BMP shows normal electrolytes, creatinine 1.39 (previously 1.0), otherwise unremarkable. Urinalysis is negative. CT scan shows no acute findings. On serial abdominal exams he has no pain. If he continues to feel right-sided abdominal swelling I recommended he follow-up with his PCP. He was comfortable with this plan and discharged in stable condition. Lab Data Labs: Laboratory Results - last 24 hr 06/04/23 06/04/23 16:32 17:02 WBC 9.1 RBC 4.82 Hgb 14.4 Hct 43.2 MCV 89.6 MCH 29.9 MCHC 33.3 RDW Std Deviation 44.0 H RDW Coeff of Vamsi 13.5 Plt Count 136 L MPV 11.5 Immature Gran % (Auto) 0.400 Neut % (Auto) 73.9 H Lymph % (Auto) 21.8 [place] % (Auto) 3.5 Eos % (Auto) 0.0 Baso % (Auto) 0.4 Absolute Neuts (auto) 6.7 Absolute Lymphs (auto) 1.98 Nucleated RBC % 0 Sodium 140 Potassium 4.7 Chloride 104 Carbon Dioxide 26.0 Anion Gap 10 BUN 27 H Creatinine 1.39 H Estim Creat Clear Calc 56.26 Est GFR (MDRD) Af Amer 63 Est GFR (MDRD) Non-Af 52 L BUN/Creatinine Ratio 19.4 Glucose 158 H Calcium 9.5 Total Bilirubin 0.60 AST 12 L ALT 20 Alkaline Phosphatase 87 Total Protein 7.4 Albumin 3.5 Globulin 3.9 Albumin/Globulin Ratio 0.9 Urine Color Yellow Urine Clarity Clear Urine pH 5.0 Ur Specific Sandwich 1.015 Urine Protein 30 H Urine Glucose (UA) Normal Urine Ketones 5 H Urine Occult Blood Negative Urine Nitrite Negative Urine Bilirubin Negative Urine Urobilinogen Normal Ur Leukocyte Esterase 25 H Urine RBC 0 SEEN Urine WBC 0-5 SEEN Ur Squamous Epith Cells 0-5 SEEN Urine Bacteria 0 SEEN Urine Mucus RARE Radiography Diagnostic Testing: Clinical Impression(s) from Imaging Studies Abdomen/Pelvis CT 06/04/23 19:05 IMPRESSION: No acute disease. Incidental findings as above. Electronically Signed: Heri Brock MD at 21:07 EST , <Dr. Daniele Montenegro, DO - Last Filed: 06/04/23 20:52> [facility] Lab Data Labs: Laboratory Results - last 24 hr 06/04/23 06/04/23 16:32 17:02 WBC 9.1 RBC 4.82 Hgb 14.4 Hct 43.2 MCV 89.6 MCH 29.9 MCHC 33.3 RDW Std Deviation 44.0 H RDW Coeff of Vamsi 13.5 Plt Count 136 L MPV 11.5 Immature Gran % (Auto) 0.400 Neut % (Auto) 73.9 H Lymph % (Auto) 21.8 [place] % (Auto) 3.5 Eos % (Auto) 0.0 Baso % (Auto) 0.4 Absolute Neuts (auto) 6.7 Absolute Lymphs (auto) 1.98 Nucleated RBC % 0 Sodium 140 Potassium 4.7 Chloride 104 Carbon Dioxide 26.0 Anion Gap 10 BUN 27 H Creatinine 1.39 H Estim Creat Clear Calc 56.26 Est GFR (MDRD) Af Amer 63 Est GFR (MDRD) Non-Af 52 L BUN/Creatinine Ratio 19.4 Glucose 158 H Calcium 9.5 Total Bilirubin 0.60 AST 12 L ALT 20 Alkaline Phosphatase 87 Total Protein 7.4 Albumin 3.5 Globulin 3.9 Albumin/Globulin Ratio 0.9 Urine Color Yellow Urine Clarity Clear Urine pH 5.0 Ur Specific Sandwich 1.015 Urine Protein 30 H Urine Glucose (UA) Normal Urine Ketones 5 H Urine Occult Blood Negative Urine Nitrite Negative Urine Bilirubin Negative Urine Urobilinogen Normal Ur Leukocyte Esterase 25 H Urine RBC 0 SEEN Urine WBC 0-5 SEEN Ur Squamous Epith Cells 0-5 SEEN Urine Bacteria 0 SEEN Urine Mucus RARE Radiography Diagnostic Testing: Clinical Impression(s) from Imaging Studies Abdomen/Pelvis CT 06/04/23 19:05 IMPRESSION: No acute disease. Incidental findings as above. Electronically Signed: Heri Brock MD at 21:07 EST Reading Location ID and State: [facility] / [place] Tel , Service support , Treatment and Re-Evaluation :: I have personally performed a face to face assessment of the patient and have reviewed the WALLY Note. I performed a substantive portion of the visit including all aspects of the following. My pineda findings include: History: Patient presents with right-sided abdominal swelling that began today. Patient states he had nerve blocks done by Dr. Chappell today. Patient states that after this he noted some swelling to his abdomen. Patient states it was worse on the right side. Patient denies any fevers or chills. Patient denies any nausea or vomiting. Patient denies any diarrhea or constipation. Patient denies any urinary complaints. Exam: Vital signs are stable. Patient is afebrile. Patient is in no acute distress. Oral mucosa is pink and moist. Neck is supple. Trachea is midline. There is no JVD. Heart was regular rate and rhythm. Lungs are clear and equal bilaterally. Abdomen is soft. Bowel sounds are normal. There is no tenderness. There is no guarding. Cranial nerves II through XII are intact. There are no focal motor or sensory deficits noted. Medical Decision Making: Differential diagnosis includes pneumothorax, pneumoperitoneum, infection, and bleeding. CBC will be obtained to assess for leukocytosis and anemia. Comprehensive metabolic profile will be obtained to assess for hepatic function, renal function, and electrolyte abnormality. Urinalysis will be obtained to assess for urinary tract infection and hematuria. CT scan of the abdomen and pelvis will be obtained to assess for pneumothorax and pneumoperitoneum. CBC was reviewed and was within normal limits. Platelets were slightly low at 136. Comprehensive metabolic profile was reviewed. BUN was 27 and creatinine was 1.39. These are slightly increased from previous result. Urinalysis was reviewed. There is no evidence of urinary tract infection or hematuria. CT scan of the abdomen pelvis was obtained. There is no evidence of pneumothorax, pneumoperitoneum, bowel obstruction, or perforation. There is no free air or free fluid. This was interpreted by the radiologist and was also independently reviewed by myself. Patient was given IV fluids. Patient is feeling better on reevaluation. Patient was instructed to follow-up with his primary care physician as well as pain management physician in 5 to 7 days. Patient understood and was agreeable with the plan. All questions were answered. Discharge Plan Triage Chief Complaint: Abd Pain ED Midlevel Provider: Erika Johnson ED Provider: Daniele Montenegro Dx/Rx/DC Orders Clinical Impression: Abdominal distension Prescriptions: No Action pantoprazole 40 mg tablet,delayed release (DR/EC) 40 mg PO QAM Qty: 90 3RF sulfasalazine 500 mg tablet,delayed release (DR/EC) 1 g PO BID 30 Days Qty: 120 5RF folic acid 1 mg tablet 1 mg PO DAILY Qty: 30 5RF (DME) Handicap Placard See Rx Instructions .ROUTE .MEDSUPPLY Qty: 1 0RF Rx Instructions: As directed, length of time 3 years aspirin 81 mg tablet,chewable 81 mg PO DAILY@0800 ICaps AREDS2 250 mg-200 unit -12.5 mg-1 mg capsule 1 cap PO BID furosemide 40 mg tablet 40 mg PO DAILY (DME) blood-glucose meter [Accu-Chek Meka Plus Meter] [facility] [place] See Rx Instructions .ROUTE .MEDSUPPLY Qty: 1 0RF Rx Instructions: As directed (DME) Accu-Chek Meka Control Soln Solution See Rx Instructions .ROUTE .MEDSUPPLY Qty: 1 2RF Rx Instructions: As directed once a month ([facility] [place]) Accu-Chek Meka Plus test strp Strip See Rx Instructions .ROUTE .MEDSUPPLY Qty: 100 11RF Rx Instructions: As directed tid losartan 100 mg tablet 100 mg PO DAILY Qty: 90 3RF simvastatin 20 mg tablet 20 mg PO QHS Qty: 90 3RF spironolactone 25 mg tablet 25 mg PO DAILY Qty: 30 11RF gabapentin 100 mg capsule 200 mg PO BID 90 Days Qty: 360 2RF carvedilol 25 mg tablet 25 mg PO BID Qty: 180 3RF Rx Instructions: must administer with a meal/food Tresiba FlexTouch U-200 200 unit/mL (3 mL) insulin pen 32 unit subcut QHS 90 Days Qty: 15 3RF (DME) pen needle, diabetic [1st Tier Unifine Pentips] 31 gauge x 3/16 needle See Rx Instructions .ROUTE .MEDSUPPLY Qty: 200 3RF Rx Instructions: As directed, take daily for type 2 DM amlodipine 10 mg tablet See Rx Instructions .ROUTE .COMPLEX Qty: 90 3RF Dose Instruction: TAKE 1 TABLET EVERY DAY Rx Instructions: TAKE 1 TABLET EVERY DAY doxycycline hyclate 100 mg capsule 100 mg PO BID 14 Days Qty: 28 1RF Rx Instructions: BID for two weeks, if improvement of symptoms proceed with additional two weeks of therapy then stop metformin 1,000 mg tablet 1,000 mg PO .QAM Qty: 90 1RF Rx Instructions: Take 1000mg (1 tablet) in the morning and 1500mg(1.5 tablets) at night metformin 1,000 mg tablet extended release 24 hr 1,500 mg PO QPM Qty: 90 1RF doxazosin 4 mg tablet 4 mg PO QHS Qty: 90 3RF Primary Care Provider: Faith Jay Referrals: Faith Jay MD [Primary Care Provider] - Activity Restrictions/Additional Instructions: Your tests and CT scan are normal. There are no findings to explain your right-sided abdominal distention. Please follow-up with your primary care doctor. If you develop pain or new symptoms be reevaluated. Disposition Disposition: Home, Self Care
[2023-06-04 18:01] VITALS: BP 143/80; PULSE 61; RESP 12; O2SAT 99
--- NOTE | 2023-06-04 19:05 | CT_ITS ---
STUDY: CT ABDOMEN AND PELVIS WITH CONTRAST REASON FOR EXAM: Male, 78 years old. abdominal swelling RADIATION DOSAGE (If Supplied By Facility): CTDIvol = ( 16.76 ) mGy, DLP = ( 1291.23 ) mGycm TECHNIQUE: Transaxial images were obtained from the dome of the diaphragm to the symphysis pubis without oral contrast. IV 100mL Isovue-300 was administered. Sagittal and coronal images were reconstructed. Individualized dose optimization techniques were used for this CT. COMPARISON: CT abdomen and pelvis May 08, 2023 FINDINGS: The visualized lung bases are unremarkable. Calcific coronary artery disease. Normal liver. Gallbladder surgically absent. Peripheral calcifications of the spleen noted. Normal pancreas. Normal bilateral adrenal glands. 17 mm simple right renal cyst. No further follow-up required as it appears simple/benign. Multiple punctate nonobstructing nephroliths on the left. Normal visualized stomach. Normal small intestine. Normal colon. The appendix is visualized and appears normal. Calcified plaque along the aorta and its branches. Normal inferior vena cava. Normal retroperitoneum. Normal urinary bladder. Fat-containing umbilical hernia. Normal osseous structures. CT/Abdomen/Pelvis W IV Cont ONLY IMPRESSION: No acute disease. Incidental findings as above. Electronically Signed: Heri Brock MD at 21:07 [facility] ,
[2023-06-04] MEDS: 0.9% Normal Saline (1000mL) 1,000 ML 999 ML IV (19:12)
--- NOTE | 2023-06-04 19:15 | ED.RN ---
1914: patient upset about wait time and requested to go home. After explaining the process of seeing patients based on acuity and that we were doing everything we could with the resources available, he was willing to stay. He did request for medicine before going to CT because it makes him anxious. He states, if he isn't going to give me anything for the CT scan then I will not get it, I will climb right out . Provider to be notified.
[2023-06-04] MEDS: Lorazepam 2 MG/ML WCH Syringe 1 MG IV (19:27)
[2023-06-04 20:00] VITALS: BP 154/70; PULSE 61; RESP 12; TEMP 36.3; O2SAT 96
[2023-06-04 21:10] VITALS: BP 144/69; PULSE 64; RESP 14; TEMP 37.1; O2SAT 96
== END 2023-06-04 21:13 | disposition home or self-care (01) ==
PROVIDERS: Emergency Provider Emergency Medicine; PCP Internal Medicine; Visit Provider Emergency Medicine
DX: R14.0 Abdominal distension (gaseous) (principal); I11.0 Hypertensive heart disease with heart failure; I50.42 Chronic combined systolic (congestive) and diastolic (congestive) heart failure; Z79.4 Long term (current) use of insulin; E11.9 Type 2 diabetes mellitus without complications; Z87.891 Personal history of nicotine dependence; I25.10 Atherosclerotic heart disease of native coronary artery without angina pectoris; E78.00 Pure hypercholesterolemia, unspecified; I25.2 Old myocardial infarction; Z85.828 Personal history of other malignant neoplasm of skin; Z79.82 Long term (current) use of aspirin; Z79.899 Other long term (current) drug therapy; K21.9 Gastro-esophageal reflux disease without esophagitis; Z79.84 Long term (current) use of oral hypoglycemic drugs; Z90.49 Acquired absence of other specified parts of digestive tract; Z95.5 Presence of coronary angioplasty implant and graft
CPT/HCPCS: 74177; 80053; 81001; 85025; 96361; 96374; 99284; J7030; Q9967; A4216

== ENCOUNTER → 2023-06-30 | Outpatient (CLI) | payer MEDICARE, SELFPAY ==
--- NOTE | 2023-06-30 13:10 | RAD_ITS ---
STUDY: X-RAY - LUMBAR SPINE REASON FOR EXAM: Male, 78 years old. Pain. TECHNIQUE: 2 view(s) of the lumbar spine were obtained. COMPARISON: None FINDINGS: Osteopenia. Normal lumbar lordosis. No scoliosis. Normal vertebral alignment. Diffuse moderate lower thoracic and lumbosacral facet sclerosis. Diffuse intervertebral disc space narrowing with osteophytes most prevalent at T12-L1, L2-L3 and L3-L4. Marked vascular calcification. RAD/Lumbar Spine 2 or 3 Views IMPRESSION: Osteopenia with diffuse moderate lower thoracic and lumbosacral spondylosis most prevalent at T12-L1, L2-L3 and L3-L4. Electronically Signed: Андрей Wong MD at 13:26 EDT ,
== END | disposition home or self-care (01) ==
LOC: RAD 13:04
PROVIDERS: PCP Internal Medicine; Referring Provider Anesthesiology Pain Medicine; Visit Provider Anesthesiology Pain Medicine
DX: M47.816 Spondylosis without myelopathy or radiculopathy, lumbar region (principal)
CPT/HCPCS: 72100

== ENCOUNTER → 2023-11-02 | Outpatient (CLI) | payer MEDICARE, SELFPAY ==
[2023-11-02 12:26] LABS: ALB/GLOB Ratio 0.9 RATIO (0.9-2.4); AST(SGOT) 11 U/L (15-37); Alanine Aminotransfer ALT/SGPT 18 U/L (16-61); Albumin, Serum 3.3 g/dL (3.2-5.0); Alkaline Phosphatase 62 U/L (45-117); Anion Gap 8 (5-15); BUN 23 mg/dL (7-18); BUN/Creat Ratio 19.7 RATIO (10-20); Calcium,Total 9.1 mg/dL (8.5-10.1); Chloride 106 mmol/L (98-107); Cholesterol 114 mg/dL (200); Creatinine, Serum 1.17 mg/dL (0.70-1.30); EST Glomerular Filtration Rate 64 mL/min (>60); Est Glom Filt Rate - Afr Amer 77 mL/min (>60); Globulin 3.7 g/dL (2.2-4.2); Glucose 173 mg/dL (74-106); High Density Lipoprotein 32 mg/dL; Potassium 4.7 mmol/L (3.5-5.1); Sodium Level 140 mmol/L (136-145); Triglycerides 146 mg/dL; Very Low Density Lipoprotein 29 mg/dL (5-40)
== END | disposition home or self-care (01) ==
LOC: BIMLAB 09:28
PROVIDERS: PCP Internal Medicine; Referring Provider Internal Medicine; Visit Provider Internal Medicine
DX: E11.69 Type 2 diabetes mellitus with other specified complication (principal)
CPT/HCPCS: 36415; 80053; 80061

== ENCOUNTER → 2023-12-16 | Outpatient (CLI) | payer MEDICARE, SELFPAY ==
[2023-12-16 16:34] LABS: Absolute Lymphocyte Count 2.11 X10^3/uL (0.83-4.51); Absolute Neutrophil Count 4.6 X10^3/uL (2.0-7.7); Basophil# 0.04 X10^3/uL; Basophil% 0.5 % (0-1); Eosinophil# 0.05 X10^3/uL; Eosinophils% 0.6 % (0-5); Hematocrit 39.8 % (40-54); Hemoglobin 13.6 g/dL (13.0-16.5); Lymphocyte # 2.11 X10^3/ul (0.83-4.51); Lymphocyte % 26.4 % (19-41); Mean Corp Hgb Conc 34.2 g/dL (32-36); Mean Corpuscular Hgb 30.4 pg (27.0-32.0); Mean Corpuscular Volume 88.8 fL (80-94); Mean Platelet Vol. 11.7 fl (6.2-12.0); Monocyte# 1.11 X10^3/uL; Monocyte% 13.9 % (0-10); NRBC Flagged by Analyzer 0 % (0-5); Neutrophil # 4.64 X10^3/uL (2.7-7.7); Neutrophil % 58.1 % (47-70); Platelet Count 152 K/mm3 (150-450); RBC Distribution Width CV 13.2 % (11.6-14.6); RBC Distribution Width SD 42.9 fl (35.1-43.9); Red Blood Count 4.48 M/mm3 (4.6-6.2)
== END | disposition home or self-care (01) ==
LOC: LABSPEC 14:03 → BIMLAB 14:35
PROVIDERS: PCP Internal Medicine; Referring Provider Physician Assistant; Visit Provider Physician Assistant
DX: Z20.822 Contact with and (suspected) exposure to COVID-19 (principal); R68.83 Chills (without fever)
CPT/HCPCS: 36415; 84443; 85025; 87631

== ENCOUNTER → 2024-02-29 | Outpatient (CLI) | payer MEDICARE, SELFPAY ==
[2024-02-29 12:42] LABS: Anion Gap 6 (5-15); BUN 28 mg/dL (7-18); BUN/Creat Ratio 25.9 RATIO (10-20); Chloride 104 mmol/L (98-107); Creatinine, Serum 1.08 mg/dL (0.70-1.30); EST Glomerular Filtration Rate 70 mL/min (>60); Est Glom Filt Rate - Afr Amer 84 mL/min (>60); Glucose 108 mg/dL (74-106); Potassium 4.1 mmol/L (3.5-5.1); Sodium Level 139 mmol/L (136-145)
== END | disposition home or self-care (01) ==
LOC: BIMLAB 10:14
PROVIDERS: PCP Internal Medicine; Visit Provider Internal Medicine
DX: I10 Essential (primary) hypertension (principal)
CPT/HCPCS: 36415; 80048

== ENCOUNTER → 2024-03-17 | Outpatient (CLI) | payer MEDICARE, SELFPAY ==
[2024-03-23 06:07] LABS: Calprotectin, Stool 33 ug/g (0-120); Fats, Neutral Normal (.); Fats, Total Normal (.)
== END | disposition home or self-care (01) ==
LOC: LAB 10:05
PROVIDERS: PCP Internal Medicine; Referring Provider Internal Medicine Gastroenterology; Visit Provider Internal Medicine Gastroenterology
DX: R19.7 Diarrhea, unspecified (principal)
CPT/HCPCS: 82653; 82705; 83630; 83993; 87177; 87209; 87329; 87506

== ENCOUNTER → 2024-07-12 | Outpatient (CLI) | payer MEDICARE, SELFPAY ==
--- NOTE | 2024-07-12 10:26 | RAD_ITS ---
PROCEDURE: SHOULDER MIN 2 VIEWS 07/12/2024 REASON FOR EXAM: LEFT SHOULDER PAIN TECHNIQUE: 4 view(s) of the left shoulder COMPARISON: None FINDINGS: Bones: No acute fracture. Joints: Normal alignment of the acromioclavicular and glenohumeral joints. Soft tissues: None Other: RAD/Shoulder min 2 Views IMPRESSION: NO ACUTE FRACTURE OR DISLOCATION. Reading Location: [facility]
== END | disposition home or self-care (01) ==
LOC: MTRAD 10:26
PROVIDERS: PCP Internal Medicine; Referring Provider Internal Medicine; Visit Provider Internal Medicine
DX: M25.512 Pain in left shoulder (principal)
CPT/HCPCS: 73030

== ENCOUNTER 2024-07-27 09:30 | Outpatient (RCR) | payer MEDICARE, SELFPAY ==
--- NOTE | 2024-07-19 12:02 | HP.PTEVAL_ITS ---
Patient's Visit Information Visit Information Visit Information: JOVANNY STAFFORD is a 79 year old M referred to Physical Therapy by Dr. Faith Jay MD with a diagnosis of L shoulder pain. Date of Evaluation: 07/19/24 Physical Therapist: Shreyas Smith, PT, ATC Visit Plan Frequency: 1x/Week Duration: 1 Week Plan: Issue and instruct pt on HEP of L shoulder rotator cuff strengthening and scap stab ex's Subjective Subjective: Pt reports L shoulder pain for the past seven months. Pt reports his 0pain had an insidious onset in nature. Pt reports his L shoulder is really sore at night time when he is trying to sleep. Pt reports he is unable to reach behind him secondary to L shoulder pain. Pt also notes he is not able to lift overhead or out to his side secondary to L shoulder pain. Pt is L hand dominant. Pt reports occasional sleep difficulty secondary to pain. Pt denies tingling or numbness in L UE at this time. Pt reports he had x-rays which revealed nothing of significance in L shoulder. 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 Pt reports his goal is to decrease pain and improve ROM. 0/10 pain at rest, 10/10 pain at worst Pain L shoulder: Pain Intensity (Out of 10): 0 Pain Intensity Range: 10 Objective Objective: Neuro: B UE sensation is WNL to light touch. Palpation: No pain with direct palpation. No obvious deformity noted at this time. Crepitus with AROM ROM: L shoulder flex and abd are severely limited when compared bilaterally to R shoulder. MMT: R shoulder flex= 27, abd= 37, ER= 27, IR= 34 #F; L shoulder flex= 11, abd= 11, ER= 22, IR= 22 #F Special tests: pos HK, empty can Balance/Special Test Scores Quick DASH Score: 45.4525 Goals Goal 1:: I with HEP is 2 visits Goal Time Frame: 1 Week Rehabilitation Potential Physical Therapy Diagnosis: Pt has L shoulder pain, weakness, and limited ROM secondary to impingement syndrome Rehabilitation Potential: Good Anticipated Interventions Patient/Client Instruction: Educate patient on: Condition and Plan of Care For the Purpose of:: To improve self management Therapeutic Exercise to Include: Strength training, Endurance training, Postural training, Active ROM and Scapular Strength/Stabilization For the Purpose of:: To decrease pain, To increase ROM and To improve muscle performance and motor function Cryotherapy (ice pack, ice massage): Yes For the Purpose of:: To decrease pain Text: Thank you for the opportunity to evaluate your patient. For Medicare and Medicare HMO plans, please review the plan of care and approve it. It will need to be FAXED BACK to us at [phone] for Medicare purposes. For Medicare only, by signing this I certify the plan of care. Please let me know if there are questions or concerns regarding this plan of care. Physician Signature: Date:
--- NOTE | 2024-09-23 13:24 | HP.PT.NRP ---
Patient Information Patient Information: JOVANNY STAFFORD was seen in my office for initial evaluation on 07/19/24. The following Plan of Care was established for this patient: POC Established Initial Frequency: 1x/Week Initial Duration: 1 Week Anticipated Interventions Patient/Client Instruction: Educate patient on: Condition and Plan of Care For the Purpose of:: To improve self management Therapeutic Exercise to Include: Strength training, Endurance training, Postural training, Active ROM and Scapular Strength/Stabilization For the Purpose of:: To decrease pain, To increase ROM and To improve muscle performance and motor function Cryotherapy (ice pack, ice massage): Yes For the Purpose of:: To decrease pain Last Seen Last Seen: This patient was last seen in our office . Pertinent comments regarding their Physical therapy will appear below: Pt has not returned for greater than 30 days and is discharged at this time. At this point I will be discontinuing this patient from physical therapy. I would be happy to see this patient again in the future if found appropriate by the physician. Thank you! Shreyas Smith, PT, ATC Balance/Gait/Functional tests Balance/Special Test Scores Quick DASH Score: 45.4539
== END 2024-07-27 19:00 | disposition home or self-care (01) ==
LOC: PT 09:30
PROVIDERS: PCP Internal Medicine; Referring Provider Internal Medicine; Visit Provider Internal Medicine
DX: M25.512 Pain in left shoulder (principal)
CPT/HCPCS: 97110; 97161

== ENCOUNTER → 2024-10-19 | Outpatient (CLI) | payer MEDICARE, SELFPAY ==
[2024-10-19 12:20] LABS: Hematocrit 43.5 % (40-54); Hemoglobin 14.6 g/dL (13.0-16.5); Immature Granulocytes Count 0.030 X10^3/uL (0.0-0.0); Mean Corp Hgb Conc 33.6 g/dL (32-36); Mean Corpuscular Volume 90.2 fL (80-94); Mean Platelet Vol. 11.3 fl (6.2-12.0); NRBC Flagged by Analyzer 0 % (0-5); Platelet Count 144 K/mm3 (150-450); RBC Distribution Width CV 13.3 % (11.6-14.6); RBC Distribution Width SD 43.9 fl (35.1-43.9); Red Blood Count 4.82 M/mm3 (4.6-6.2); White Blood Count 9.3 K/mm3 (4.4-11.0)
[2024-10-19 12:43] LABS: AST(SGOT) 13 U/L (<=37); Alanine Aminotransfer ALT/SGPT 13 U/L (<=46); Albumin, Serum 3.8 g/dL (3.4-4.8); Alkaline Phosphatase 94 U/L (40-129); Anion Gap 10 (5-15); BUN 21 mg/dL (4-19); BUN/Creat Ratio 18.4 RATIO (10-20); Calcium,Total 9.5 mg/dL (7.6-11.0); Carbon Dioxide 24.9 mmol/L (21.0-32.0); Chloride 104 mmol/L (98-108); Cholesterol 121 mg/dL (<=200); Globulin 3.1 g/dL (2.2-4.2); Glucose 136 mg/dL (70-99); Low Density Lipoprotein Calc. 57 mg/dL; PSA,Total - Annual Screen 0.80 ng/mL (0.02-4.00); Potassium 4.9 mmol/L (3.3-5.1); Triglycerides 155 mg/dL; Very Low Density Lipoprotein 31 mg/dL (5-40); cholesterol:hdl ratio screen 3.68
== END | disposition home or self-care (01) ==
LOC: BIMLAB 10:39
PROVIDERS: PCP Internal Medicine; Referring Provider Internal Medicine; Visit Provider Internal Medicine
DX: E11.69 Type 2 diabetes mellitus with other specified complication (principal); N40.0 Benign prostatic hyperplasia without lower urinary tract symptoms
CPT/HCPCS: 36415; 80053; 80061; 84153; 85025; G0103